=== PATIENT | female | born 1965 | race Caucasian/White ===

== ENCOUNTER → 2017-01-27 | Outpatient (CLI) | payer OTHER ==
[~2017-01-27] MED LIST: ATOR-22 PO; DTRSR/10 PO; GLC/500 PO; IRON TABLET PO; LISI-526 PO; OMEP10CA4 PO; PRLSR20 PO; SULF500T35 PO
--- NOTE | 2017-01-27 12:57 | MAMMOGRAPHY REPORT ---
BILATERAL DIGITAL SCREENING MAMMOGRAM TOMOSYNTHESIS WITH CAD: 01/27/2017 CLINICAL HISTORY: Routine screening. Patient has no complaints. TECHNIQUE: Breast tomosynthesis in addition to standard 2D mammography was performed. Current study was also evaluated with a Computer Aided Detection (CAD) system. COMPARISON: Comparison is made to exams dated: 01/27/2016 mammogram, 01/11/2015 mammogram, 10/10/2013 ma mmogram, 09/01/2012 mammogram, 09/02/2011 mammogram, and 08/28/2011 mammogram - [facility]. BREAST COMPOSITION: There are scattered areas of fibroglandular density in both breasts. FINDINGS: No suspicious masses, calcifications, or areas of architectural distortion are noted in e ither breast. There has been no significant interval change compared to prior exams. IMPRESSION: ACR BI-RADS CATEGORY 1: NEGATIVE There is no mammographic evidence of malignancy. A 1 year screening mammogram is recommended. The p atient will receive written notification of the results. Approximately 10% of breast cancers are not detected with mammography. A negative mammographic repor t should not delay biopsy if a clinically suggestive mass is present. Tayler Rico M.D. ah/:01/27/2017 11:00:04 Furniture Cleaner: Flo MITCHELL(R)(M), [facility] [address] letter sent: Normal 1/2 BI-RADS Code: ACR BI-RADS Category 1: Negative
== END | disposition home or self-care (01) ==
LOC: C.MAMM 10:05
PROVIDERS: ATTEND Family Medicine
DX: Z12.31 Encounter for screening mammogram for malignant neoplasm of breast (principal)

== ENCOUNTER → 2017-02-19 | Day surgery (SDC) | payer OTHER ==
[2017-02-05 10:50] VITALS: Ht 167.6 cm; Wt 115.9 kg
[~2017-02-19] VITALS: Ht 167.6 cm; Wt 115.9 kg
[~2017-02-19] MED LIST changes: +FENTANYL CITRATE INJ 50 MCG/1 ML 2 ML VIAL ONE; -IRON TABLET PO; +LIDOCAINE HCL 2% 2 ML VIAL (20MG/ML) ONE; +MIDAZOLAM HCL 1 MG/ML 2ML VIAL ONE; -PRLSR20 PO; +PROPOFOL IV EMULSION 10 MG/ML 20 ML VIAL IV ONE; +SODIUM CHLORIDE 0.9% 500ML 500 ML IV ONE; -SULF500T35 PO
[2017-02-19 11:22] VITALS: TEMP 37.1
--- NOTE | 2017-02-19 12:03 | Endo History and Physical ---
History & Physical Date of Service: Feb 19, 2017. Chief Complaint: screening history of polyps Referring Physician: Dr. Danelle Cerda History of Present Illness 52 yo CF who presents for colonoscopy secondary to history of colon polyps. Past Medical History Gastrointestinal Disorder, Reflux, Other Past Surgical History Hx Cardiac Surgery: No Hx Internal Defibrillator: No Hx Pacemaker: No Hx Abdominal Surgery: Yes (, TUBAL LIGATION) Hx of Implantable Prosthesis: No Hx Post-Op Nausea and Vomiting: No Hx Cancer Surgery: No Hx Thoracic Surgery: No Hx Orthopedic: No Hx Urinary Tract Surgery: No Family History None Social History Smoking Status: Never Smoker Hx Substance Use: No Hx Alcohol Use: Yes (RARELY) Allergies Coded Allergies: NO KNOWN DRUG ALLERGIES (Verified Allergy, Unknown, ., 02/05/17) Milk (Verified Adverse Reaction, Mild, FEELS ILL, 02/05/17) Current Medications Reported Home Medications Medications Dose Route/Sig Max Daily Dose Days Date Category Lipitor (Atorvastatin Calcium) 20 Mg Tab 20 Mg PO QAM 02/05/17 Reported Prinivil (Lisinopril) 30 Mg Tab 30 Mg PO QAM 02/05/17 Reported Glucophage (Metformin Hcl) 500 Mg Tab 500 Mg PO BID 02/05/17 Reported Prilosec (Omeprazole) 10 Mg Cap 10 Mg PO BID 02/05/17 Reported Oxybutynin Chloride ER (Oxybutynin Chloride) 10 Mg Tabcr 10 Mg PO QAM 12/12/14 Reported Vital Signs Weight (Kilograms): 115.91 Height (Feet): 5 Height (Inches): 6 Date Time Temp Pulse Resp B/P (MAP) Pulse Ox O2 Delivery O2 Flow Rate FiO2 02/19/17 11:22 37.1 76 20 169/97 (121) 98 Room Air Physical Exam General Appearance: WD/WN, no apparent distress Respiratory/Chest: Auscultation: breath sounds normal Cardiovascular: Heart Auscultation: RRR Abdomen: Bowel Sounds: normal Inspection & Palpation: soft, non-distended, no tenderness, guarding & rebound Assessment and Plan Assessment: 52 yo CF who presents for colonoscopy secondary to history of colon polyps. Plan: Proceed with colonoscopy.
--- NOTE | 2017-02-19 12:31 | GI REPORT ---
Procedure Date: 02/19/2017 11:57 AM Procedure: Colonoscopy Indications: Screening for colorectal malignant neoplasm Medicines: Monitored Anesthesia Care Complications: No immediate complications. Estimated Blood Loss: Estimated blood loss: none. Procedure: Pre-Anesthesia Assessment: - Prior to the procedure, a History and Physical was performed, and patient medications and allergies were reviewed. The patient's tolerance of previous anesthesia was also reviewed. The risks and benefits of the procedure and the sedation options and risks were discussed with the patient. All questions were answered, and informed consent was obtained. Prior Anticoagulants: The patient has taken no previous anticoagulant or antiplatelet agents. ASA Grade Assessment: III - A patient with severe systemic disease. After reviewing the risks and benefits, the patient was deemed in satisfactory condition to undergo the procedure. After I obtained informed consent, the scope was passed under direct vision. Throughout the procedure, the patient's blood pressure, pulse, and oxygen saturations were monitored continuously. The scope was introduced through the anus and advanced to the terminal ileum. The colonoscopy was performed without difficulty. The patient tolerated the procedure well. The quality of the bowel preparation was good. The terminal ileum, ileocecal valve, appendiceal orifice, and rectum were photographed. Findings: Multiple small-mouthed diverticula were found in the sigmoid colon. Non-bleeding external and internal hemorrhoids were found during retroflexion and during perianal exam. The hemorrhoids were small. Impression: - Diverticulosis in the sigmoid colon. - Non-bleeding external and internal hemorrhoids. - No specimens collected. Recommendation: - Resume previous diet. - Continue present medications. - Repeat colonoscopy in 10 years for surveillance. - Return to primary care physician as previously scheduled. David Viera DO 02/19/2017 12:30:20 PM This report has been signed electronically. Note Initiated On: 02/19/2017 11:57 AM I attest to the content of the Intraoperative Record and orders documented therein, exceptions below
--- NOTE | 2017-02-19 12:33 | Discharge Instructions ---
Endoscopy Patient Instructions Date / Procedure(s) Performed Feb 19, 2017. Colonoscopy Allergy Information Coded Allergies: NO KNOWN DRUG ALLERGIES (Verified Allergy, Unknown, ., 02/05/17) Milk (Verified Adverse Reaction, Mild, FEELS ILL, 02/05/17) Discharge Date / Findings Feb 19, 2017. Diverticulosis Internal hemorrhoids Medication Instructions Stopped Medication(s): no meds since Wednesday OK to resume all medications today as prescribed Medications Dose Route/Sig Max Daily Dose Days Date Category Lipitor (Atorvastatin Calcium) 20 Mg Tab 20 Mg PO QAM 02/05/17 Reported Prinivil (Lisinopril) 30 Mg Tab 30 Mg PO QAM 02/05/17 Reported Glucophage (Metformin Hcl) 500 Mg Tab 500 Mg PO BID 02/05/17 Reported Prilosec (Omeprazole) 10 Mg Cap 10 Mg PO BID 02/05/17 Reported Oxybutynin Chloride ER (Oxybutynin Chloride) 10 Mg Tabcr 10 Mg PO QAM 12/12/14 Reported Provider Instructions Activity Restrictions - No exercising or heavy lifting for 24 hours. - Do not drink alcohol the day of the procedure. - Do not drive a car or operate machinery until the day after the procedure. - Do not make any important decisions or sign important papers in 24 hours after the procedure. Following Day: - Return to full activity which may include returning to work/school. Diet Start your diet with liquids and light foods (jello, soup, juice, toast). Then eat your usual diet if not nauseated. Treatment For Common After Affects For mild abdominal pain, bloating, or excessive gas: - Rest - Eat lightly - Lie on right side Follow-Up Information Follow-up with Dr. Danelle Cerda as scheduled Anesthesia Information What You Should Know You have had a procedure that required some medicine to reduce anxiety and discomfort. This treatment is called moderate sedation. After receiving the treatment, you may be sleepy, but you will be able to breathe on your own. The effects of the treatment may last for several hours. Follow these instructions along with Activity/Diet recommendations noted above: * Do NOT do anything where dizziness or clumsiness would be dangerous. * Rest quietly at home today, then you can be up and about tomorrow. * Have a responsible person stay with you the rest of today. * You may have had an I.V. today. If so, you may take the dressing off later today. Recommendations Call your doctor if: * Trouble breathing * Continuous vomiting for more than 24 hours * Temperature above 101 degrees * Severe abdominal pain or bloating * Pain not relieved by pain medicine ordered * There is increased drainage or redness from any incision * A large amount of rectal bleeding greater than 2-3 tablespoons. (If you had a polyp/s removed or have hemorrhoids, a small amount of blood - from the rectum is to be expected.) * You have any unanswered questions or concerns. IN THE EVENT OF A SERIOUS EMERGENCY, GO TO THE NEAREST EMERGENCY ROOM Your discharge instructions were prepared by provider David Viera. Patient Instructions Signature Page Angelia Garcia Patient (or Guardian) Signature/Date: I have read and understand the instructions given to me by my caregivers. Caregiver/RN/Doctor Signature/Date: The above-named patient and/or guardian has received patient instructions on this date. + Original Patient Signature Page (only) stays with chart. Please make copy for patient.
[2017-02-19 12:59] VITALS: BP 165/96; PULSE 71; O2SAT 97
--- NOTE | 2017-02-19 13:32 | Anesthesiology Progress Note ---
Anesthesia Post Op Note Date & Time Feb 19, 2017 at 13:31 Vital Signs Pain Intensity: 0 Vital Signs Past 12 Hours Date Time Temp Pulse Resp B/P (MAP) Pulse Ox O2 Delivery O2 Flow Rate FiO2 02/19/17 12:59 71 20 165/96 (119) 97 Room Air 02/19/17 12:44 69 20 157/93 (114) 96 Room Air 02/19/17 12:28 68 20 127/69 (88) 97 Room Air 02/19/17 11:22 37.1 76 20 169/97 (121) 98 Room Air Notes Mental Status: alert / awake / arousable, participated in evaluation Pt Amnestic to Procedure: Yes Nausea / Vomiting: adequately controlled Pain: adequately controlled Airway Patency, RR, SpO2: stable & adequate BP & HR: stable & adequate Hydration State: stable & adequate Anesthetic Complications: no major complications apparent
== END | disposition home or self-care (01) ==
LOC: C.GI 10:52
PROVIDERS: ATTEND Internal Medicine
DX: Z12.11 Encounter for screening for malignant neoplasm of colon (principal); K57.30 Diverticulosis of large intestine without perforation or abscess without bleeding; K64.8 Other hemorrhoids; K64.4 Residual hemorrhoidal skin tags; Z86.010 Personal history of colon polyps; Z79.899 Other long term (current) drug therapy

== ENCOUNTER → 2018-01-06 | Outpatient (CLI) | payer OTHER ==
[~2018-01-06] MED LIST changes: -FENTANYL CITRATE INJ 50 MCG/1 ML 2 ML VIAL ONE; -LIDOCAINE HCL 2% 2 ML VIAL (20MG/ML) ONE; -MIDAZOLAM HCL 1 MG/ML 2ML VIAL ONE; -PROPOFOL IV EMULSION 10 MG/ML 20 ML VIAL IV ONE; -SODIUM CHLORIDE 0.9% 500ML 500 ML IV ONE
== END | disposition home or self-care (01) ==
LOC: C.PAPS 13:33
PROVIDERS: ATTEND Physician Assistant
DX: Z12.4 Encounter for screening for malignant neoplasm of cervix (principal); Z11.51 Encounter for screening for human papillomavirus (HPV)

== ENCOUNTER 2024-11-23 17:45 | Inpatient (IN) ==
[2024-11-23 18:15] LABS: Basophils # (auto) 0.08 K/uL (0.00-0.20); Basophils % (auto) 0.5 %; Eosinophils # (auto) 0.06 K/uL (0.00-0.50); Eosinophils % (auto) 0.4 %; Hematocrit (blood only) 39.6 % (37.0-47.0); Hemoglobin 13.1 g/dl (12.0-16.0); Immature Granulocytes # (auto) 0.28 K/uL (0.01-0.20); Immature Granulocytes % (auto) 1.7 %; Lymphocytes # (auto) 1.41 K/uL (1.20-3.40); Lymphocytes % (auto) 8.6 %; Mean Corpuscular Hemoglobin 26.8 pg (25.0-34.0); Mean Corpuscular Hgb Conc 33.1 g/dL (32.0-36.0); Mean Corpuscular Volume 81.1 fL (80.0-100.0); Mean Platelet Volume 9.5 fL (9.4-12.4); Monocytes # (auto) 0.69 K/uL (0.11-0.59); Monocytes % (auto) 4.2 %; Neutrophils # (auto) 13.83 K/uL (1.40-6.50); Neutrophils % (auto) 84.6 %; Platelet Count 272 K/uL (130-400); RDW Coefficient of Variation 16.7 % (11.5-14.5); RDW Standard Deviation 49.3 fL (36.4-46.3); Red Blood Count 4.88 M/uL (4.20-5.40); White Blood Count 16.35 K/ul (4.8-10.8)
--- NOTE | 2024-11-23 18:28 | Emergency Department Note ---
History of Present Illness General Chief Complaint: Abdominal Pain Stated Complaint: STOMACH PAIN, NAUSEA WEAK ETC Time Seen by Provider: 11/23/24 17:56 History of Present Illness Provider Complaint: abdominal pain Onset (ago): 1 month(s) Pain Consistency: constant Location: diffuse Severity: moderate Maximum Pain Intensity: 4 Current Pain Intensity: 4 Quality: + stabbing, + aching, + sharp and + dull Relieved By: + nothing Exacerbated By: + nothing Context: + recent antibiotic use (Was recently placed on Cipro); no foreign travel, no possible food poisoning or no sick contacts Associated Symptoms: + nausea, + vomiting and + diarrhea; no fever, no chills, no constipation, no dysuria, no hematemesis, no hematochezia, no melena, no hematuria, no headache, no neck pain, no chest pain and no breathing difficulty Patient reports she saw her PCP a Princess about this 1 week ago. She states that 1 week ago her PCP at [facility] diagnosed with colitis. He states he placed her on Cipro and took her off of Ozempic and metformin. Patient reports that since being off the Ozempic and metformin she has gained 9 pounds and is concerned about this Related Data Patient Confirmed : No Home Medications Medication Instructions Recorded Confirmed Type atorvastatin 80 mg tablet 80 mg PO QAM 11/23/24 11/23/24 History hydrochlorothiazide 25 mg tablet 25 mg PO QAM 11/23/24 11/23/24 History lisinopril 40 mg tablet 40 mg PO QAM 11/23/24 11/23/24 History metformin 1,000 mg tablet 1,000 mg PO BID 11/23/24 11/23/24 History omeprazole 20 mg capsule,delayed 20 mg PO DAILY 11/23/24 11/23/24 History release oxybutynin chloride 15 mg 15 mg PO QAM 11/23/24 11/23/24 History tablet,extended release 24 hr semaglutide 2 mg/dose (8 mg/3 mL) 2 mg subcut WK 11/23/24 11/23/24 History subcutaneous pen injector (Ozempic) Allergies Allergy/AdvReac Type Severity Reaction Status Date / Time No Known Drug Allergies Allergy Unknown . Verified 02/19/17 10:47 milk AdvReac Mild FEELS ILL Verified 02/19/17 10:47 Past Med/Surg History Problem List (Updated 11/23/24 @ 23:50 by Raheem Arias MD) Acute perforated appendicitis (Acute) Medical History (Updated 11/23/24 @ 23:50 by Raheem Arias MD) No pertinent family history GERD (gastroesophageal reflux disease) Obesity HTN (hypertension) HLD (hyperlipidemia) Surgical History (Updated 11/23/24 @ 18:26 by Raheem Arias MD) No pertinent past surgical history Social History Smoking Status: Never smoker Preferred Language: Turkmen Feels Safe at Home: Yes Physical Exam 2 Vital Signs: Vital Signs - 24 hr 11/23/24 17:48 11/23/24 18:03 11/23/24 18:06 Temperature 36.4 C L Temperature Source Temporal Artery Sc an Pulse Rate 81 Pulse Rate [Apical ] 79 Respiratory Rate 18 20 Respiratory Effort / Characteristics Non-Labored Respiratory Depth Normal Blood Pressure 140/70 Blood Pressure [Ri ght Arm] 121/67 Blood Pressure Mary n 93 Blood Pressure Mary n [Right Arm] 85 Pulse Oximetry 99 99 99 Oxygen Delivery Me thod Room Air Room Air Room Air Sepsis Recent Feve r Within 48 Hours No Sepsis New/Unexpla ined Change in Men lydia Status No Sepsis Action Take n by Nursing No Action Required 11/23/24 18:07 11/23/24 19:40 11/23/24 21:00 Temperature Temperature Source Pulse Rate 79 Pulse Rate [Apical ] 83 75 Respiratory Rate 25 H 24 Respiratory Effort / Characteristics Non-Labored Sponta neous Non-Labored Sponta neous Respiratory Depth Normal Normal Blood Pressure Blood Pressure [Ri ght Arm] 127/66 123/65 Blood Pressure Mary n Blood Pressure Mary n [Right Arm] 86 84 Pulse Oximetry 99 98 Oxygen Delivery Me thod Room Air Room Air Sepsis Recent Feve r Within 48 Hours Sepsis New/Unexpla ined Change in Men lydia Status Sepsis Action Take n by Nursing 11/23/24 22:00 11/23/24 22:10 Temperature Temperature Source Pulse Rate 74 Pulse Rate [Apical ] 73 Respiratory Rate 23 Respiratory Effort / Characteristics Non-Labored Sponta neous Respiratory Depth Normal Blood Pressure Blood Pressure [Ri ght Arm] 138/72 Blood Pressure Mary n Blood Pressure Mary n [Right Arm] 94 Pulse Oximetry 100 Oxygen Delivery Me thod Room Air Sepsis Recent Feve r Within 48 Hours Sepsis New/Unexpla ined Change in Men lydia Status Sepsis Action Take n by Nursing Physical Exam: Physical Exam GENERAL: oriented to person, place, and time. appears well-developed and well- nourished. She does not appear distressed. HENT: Exam performed. -Head: Normocephalic and atraumatic. -Right Ear: External ear normal. No mastoid erythema -Left Ear: External ear normal. No mastoid erythema -Mouth/Throat: The oropharynx is clear and moist. No trismus in the jaw. No dental abscesses or uvula swelling. No oropharyngeal exudate or tonsillar abscesses. EYES: Conjunctivae and EOM are normal.Right eye exhibits no discharge. Left eye exhibits no discharge. No scleral icterus. NECK: Normal range of motion. Neck supple. No JVD present. No tracheal deviation and normal range of motion present. CV: Normal rate, regular rhythm, normal heart sounds and intact distal pulses. There is no peripheral edema. Palpable radial pulses bue. PULM/CHEST: Effort normal and breath sounds normal. No respiratory distress. No stridor. no wheezes.no rales. -Chest Wall: no tenderness to palpation ABD: The abdomen is soft. Bowel sounds are normal. no distension. No mass is present. There is no tenderness. There is no rebound, no guarding, no Tan's sign and no tenderness at McBurney's point. Rovsig negative MUSC/SKEL: Normal range of motion. There is no peripheral edema, tenderness or deformity. NEURO: Motor and sensation grossly intact. SKIN: Skin is warm and dry. not diaphoretic. PSYCH: normal mood and affect. Behavior is normal. Judgment and thought content normal. Course Course 1755: The patient was evaluated in room C7. A complete history and physical exam was performed Cardiac monitoring: An order was placed for continuous cardiac monitoring. The monitor shows a rate of 80 with sinus rhythm interpreted by me 1930: Vital signs stable. Labs show white count of 16. Imaging shows ruptured appendicitis with a large gas and fluid collection in the mid lower abdomen measuring up to 9 cm with adjacent fluid loops of small bowel. Discussed the case with on-call general surgery Dr. Sanders. He states that this does not need an acute surgical intervention at this time and recommends IV antibiotics and admission to medicine for possible IR drainage. 1943: Spoke with Dr. Lockett on-call radiology. He states he will review the patient's images and determine if this is amenable to IR drainage. He states he will call me back. 2025: Dr. Lockett was unable to get his PACS system to work remotely. We did attempt to send him images to review and he stated that there may be a small area however he was having difficulty seeing on the images sent to him. He stated that the majority of the mass still surrounded except for a tiny area. He stated he would decline the case at this time. Will speak with general surgery again. 2052: Received a text message from FERMÍN Faustin [employer] who stated that he should be able to drain it tomorrow if able ammenable to drainage. 2099: Spoke with Dr. Sanders. He evaluated the patient in the emergency department. He stated no surgical intervention at this time. He recommended admission to medicine and see if IR could drain the abscess tomorrow. He recommends continuing Zosyn. Patient was agreeable to this plan and states she is okay with staying until the morning to see if IR can drain it. 2114: Spoke with Benito Tello NP for IR. He is unable to view the view the images at his home either. He agrees with the plan to keep the patient mated under the medicine service with IV antibiotics and is he states he will evaluate the patient in the morning and view her scans to see if there is anything that can be drained. I again discussed this with the patient I made it clear that she might need transfer in the morning if they decided that they cannot do any sort of interventional radiology drainage of the abscess. She is again okay with staying in the hospital overnight and understands that there is potential for transfer in the morning. 2144: Spoke with Dr. Samantha Sánchez hospitalist he agrees to evaluate the patient for admission. Administered Medications Potassium Chloride 40 meq/ (Sodium Chloride) 1,020 mls @ 100 mls/hr IV .[id number] [facility] Stop: 11/24/24 22:29 Last Admin: 11/23/24 23:25 Dose: 100 mls/hr Documented By: QUOC Discontinued Medications Piperacillin Sod/Tazobactam Sod (Zosyn) 4.5 gm in 120 mls @ 240 mls/hr IV NOW ONE Stop: 11/23/24 19:47 Last Infusion: 11/23/24 20:25 Dose: Infused Documented By: Admin: 11/23/24 19:31 Dose: 240 mls/hr Documented By: ISABEL Ioversol (Optiray 320 100ml) 90 ml IV ONCE ONE Stop: 11/23/24 18:41 Last Admin: 11/23/24 18:41 Dose: 90 ml Documented By: AMAURY Medical Decision Making Laboratory Data Attestation: I reviewed the patient's lab results. 11/23/24 18:00 11/23/24 18:00 Lab Results 11/23/24 Range/Units 18:00 WBC 16.35 H (4.8-10.8) K/ul RBC 4.88 (4.20-5.40) M/uL Hgb 13.1 (12.0-16.0) g/dl Hct 39.6 (37.0-47.0) % MCV 81.1 (80.0-100.0) fL MCH 26.8 (25.0-34.0) pg MCHC 33.1 (32.0-36.0) g/dL RDW Std Deviation 49.3 H (36.4-46.3) fL RDW Coeff of Alfredo 16.7 H (11.5-14.5) % Plt Count 272 (130-400) K/uL MPV 9.5 (9.4-12.4) fL Immature Gran % (Auto) 1.7 % Neut % (Auto) 84.6 % Lymph % (Auto) 8.6 % [place] % (Auto) 4.2 % Eos % (Auto) 0.4 % Baso % (Auto) 0.5 % Neut # (Auto) 13.83 H (1.40-6.50) K/uL Lymph # (Auto) 1.41 (1.20-3.40) K/uL [place]gs # (Auto) 0.69 H (0.11-0.59) K/uL Eos # (Auto) 0.06 (0.00-0.50) K/uL Baso # (Auto) 0.08 (0.00-0.20) K/uL Immature Gran # (Auto) 0.28 H (0.01-0.20) K/uL PT 11.4 (9.0-12.0) Seconds INR 1.1 (0.9-1.1) APTT 26 (21-31) Seconds PTT Ratio 1.0 Sodium 139 (136-145) mmol/L Potassium 3.2 L (3.5-5.1) mmol/L Chloride 102 (98-107) mmol/L Carbon Dioxide 27 (21-32) mmol/L Anion Gap 10 (3-11) BUN 11 (6-23) mg/dl Creatinine 0.57 L (0.6-1.2) mg/dl Est Cr Clr Drug Dosing 126.3 ml/min eGFR 105.27 BUN/Creatinine Ratio 19.3 (10-20) Glucose 147 H (70-99(Fasting)) mg/dl Calcium 8.9 (8.6-10.3) mg/dl Total Bilirubin 0.9 (0.2-1.0) mg/dl Direct Bilirubin 0.3 H (0-0.2) mg/dl AST 26 (13-39) U/L ALT 64 H (7-52) U/L Alkaline Phosphatase 241 H (34-104) U/L Total Protein 7.1 (6.0-8.3) gm/dl Albumin 3.6 (3.4-5.0) gm/dl Lipase 11 (11-82) U/L Urine Color Dark Yellow Urine Appearance Cloudy A (Clear) Urine pH 5.5 (4.5-7.5) Ur Specific [place] > 1.045 H (1.000-1.030) Urine Protein 2+ H (Negative) Urine Glucose (UA) 3+ H (Negative) Urine Ketones Trace H (Negative) Urine Blood 2+ H (Negative) Urine Nitrite Negative (Negative) Urine Bilirubin 1+ H (Negative) Urine Urobilinogen Negative (Negative) Ur Leukocyte Esterase Negative (Negative) Urine WBC (Auto) 11-20 H (0-5) /hpf Urine RBC (Auto) 3-5 H (0-2) /hpf U Hyaline Cast (Auto) 0-2 (0-2) /lpf U Epithel Cells (Auto) 11-20 H (0-2) /hpf Urine Bacteria (Auto) 1+ H (None Seen) Imaging Data Attestation: I personally reviewed and interpreted this imaging study as follows: My Impression: CT abdomen pelvis: Abdominal abscess in right lower quadrant Radiologist's Impression: Abdomen/Pelvis CT 11/23/24 18:03 EXAMINATION: Abdomen and pelvis CT with CLINICAL HISTORY: Abdominal pain PRIORS: None TECHNIQUE: Contiguous axial images were obtained through the abdomen and pelvis with the use of intravenous contrast. Sagittal and coronal reformations are supplied. FINDINGS: Lung bases are unremarkable. Dilated fluid-filled loops of small bowel are present within the left side of the abdomen measuring up to 4.6 cm with wall enhancement. Immediately abutting this, a large fluid and gas collection is present within the lower mid abdomen, medial to the cecum, this identified on image 61 series 2 and image 41 series 3. This is not yet walled off and appears to be contained by the surrounding loops of small bowel and mesentery. It measures 9.0 cm in anteroposterior dimension by 6.9 cm in transverse dimension by 7.5 cm in craniocaudal dimension. Immediately lateral to the fluid collection is a disrupted appendix, image 63, series 2 with moderate pericecal inflammatory change in the right lower quadrant with possible cecal wall thickening, image 66, series 2. A few foci of extraluminal gas present lateral to the fluid collection in the expected position of the appendix, image 39, series 300. Moderate to severe diverticulosis of the sigmoid colon present adjacent to the fluid collection without pericolonic inflammatory change. Small scattered lymph nodes noted throughout the mesentery. The liver shows a ill-defined hypoattenuation in the right lobe, posterior segment measuring 1.7 cm. The gallbladder is contracted. Portal vein, spleen, stomach, and right adrenal are morphologically unremarkable. A left adrenal nodule is present measuring 2.4 cm and 58 Hounsfield units, indeterminant. The kidneys enhance symmetrically with possible small cysts noted, not fully characterized. No retroperitoneal adenopathy. No large amount of extraluminal gas. Uterus and ovaries present. Right ovarian cyst present, image 72, series 2 measuring 2.6 cm. No free fluid in the pelvis. Urinary bladder distends normally. Moderate amount of formed stool in the sigmoid colon. In bone windows well to moderate osseous demineralization with moderate to advanced degenerative change in the spine. IMPRESSION: CT features favoring ruptured appendicitis with a large gas and fluid collection in the mid- lower abdomen measuring up to 9 cm, with adjacent dilated fluid-filled loops of small bowel. Surgical consultation is required. Electronically signed by Carmen Watters 11-23-2024 7:14 PM [facility] Narrative 1756: The patient was evaluated in room C7. A complete history and physical exam was performed Cardiac monitoring: An order was placed for continuous cardiac monitoring. The monitor shows a rate of 80 with sinus rhythm interpreted by me 1930: Vital signs stable. Labs show white count of 16. Imaging shows ruptured appendicitis with a large gas and fluid collection in the mid lower abdomen measuring up to 9 cm with adjacent fluid loops of small bowel. Discussed the case with on-call general surgery Dr. Sanders. He states that this does not need an acute surgical intervention at this time and recommends IV antibiotics and admission to medicine for possible IR drainage. 1943: Spoke with Dr. Lockett on-call radiology. He states he will review the patient's images and determine if this is amenable to IR drainage. He states he will call me back. 2025: Dr. Lockett was unable to get his PACS system to work remotely. We did attempt to send him images to review and he stated that there may be a small area however he was having difficulty seeing on the images sent to him. He stated that the majority of the mass still surrounded except for a tiny area. He stated he would decline the case at this time. Will speak with general surgery again. 2052: Received a text message from FERMÍN Faustin [employer] who stated that he should be able to drain it tomorrow if able ammenable to drainage. 2099: Spoke with Dr. Sanders. He evaluated the patient in the emergency department. He stated no surgical intervention at this time. He recommended admission to medicine and see if IR could drain the abscess tomorrow. He recommends continuing Zosyn. Patient was agreeable to this plan and states she is okay with staying until the morning to see if IR can drain it. 2114: Spoke with Benito Tello NP for IR. He is unable to view the view the images at his home either. He agrees with the plan to keep the patient mated under the medicine service with IV antibiotics and is he states he will evaluate the patient in the morning and view her scans to see if there is anything that can be drained. I again discussed this with the patient I made it clear that she might need transfer in the morning if they decided that they cannot do any sort of interventional radiology drainage of the abscess. She is again okay with staying in the hospital overnight and understands that there is potential for transfer in the morning. 2144: Spoke with Dr. Samantha Sánchez hospitalist he agrees to evaluate the patient for admission. Impression & Plan Acute perforated appendicitis Discharge Plan Visit Data Chief Complaint: Abdominal Pain Stated Complaint: STOMACH PAIN, NAUSEA WEAK ETC ED Provider: Raheem Arias Discharge Problem: Acute perforated appendicitis Patient Disposition: Admitted As Inpatient Discharge Instructions Interventions: ED Discharge Assessment Last Done: 11/23/24 22:59
[2024-11-23 18:31] LABS: Albumin Level 3.6 gm/dl (3.4-5.0); BUN Creatinine Ratio 19.3 (10-20); Bilirubin Direct 0.3 mg/dl (0-0.2); Bilirubin,Total 0.9 mg/dl (0.2-1.0); Calcium 8.9 mg/dl (8.6-10.3); Creatinine Clr Calc Pharmacy 126.3 ml/min; Potassium 3.2 mmol/L (3.5-5.1); Total Protein 7.1 gm/dl (6.0-8.3)
[2024-11-23 18:35] LABS: Appearance Urine Cloudy (Clear); Bacteria Urine Automated 1+ (None Seen); Bilirubin Urine 1+ (Negative); Blood Urine 2+ (Negative); Cast Urine Automated 0-2 /lpf (0-2); Color Urine Dark Yellow; Glucose Urine UA 3+ (Negative); Ketones Urine Trace (Negative); Leukocyte Esterase Urine Negative (Negative); Nitrite Urine Negative (Negative); Protein Urine 2+ (Negative); Specific Gravity Urine > 1.045 (1.000-1.030); Urobilinogen Urine Negative (Negative); pH Urine 5.5 (4.5-7.5)
[2024-11-23] MEDS: OPTIRAY 320 100ml IV ONE (18:41)
[2024-11-23 18:43] LABS: INR 1.1 (0.9-1.1); Partial Thromboplastin Time 26 Seconds (21-31); Prothrombin Time 11.4 Seconds (9.0-12.0)
--- NOTE | 2024-11-23 19:14 | CT Scan Report ---
EXAMINATION: Abdomen and pelvis CT with CLINICAL HISTORY: Abdominal pain PRIORS: None TECHNIQUE: Contiguous axial images were obtained through the abdomen and pelvis with the use of intravenous contrast. Sagittal and coronal reformations are supplied. FINDINGS: Lung bases are unremarkable. Dilated fluid-filled loops of small bowel are present within the left side of the abdomen measuring up to 4.6 cm with wall enhancement. Immediately abutting this, a large fluid and gas collection is present within the lower mid abdomen, medial to the cecum, this identified on image 61 series 2 and image 41 series 3. This is not yet walled off and appears to be contained by the surrounding loops of small bowel and mesentery. It measures 9.0 cm in anteroposterior dimension by 6.9 cm in transverse dimension by 7.5 cm in craniocaudal dimension. Immediately lateral to the fluid collection is a disrupted appendix, image 63, series 2 with moderate pericecal inflammatory change in the right lower quadrant with possible cecal wall thickening, image 66, series 2. A few foci of extraluminal gas present lateral to the fluid collection in the expected position of the appendix, image 39, series 300. Moderate to severe diverticulosis of the sigmoid colon present adjacent to the fluid collection without pericolonic inflammatory change. Small scattered lymph nodes noted throughout the mesentery. The liver shows a ill-defined hypoattenuation in the right lobe, posterior segment measuring 1.7 cm. The gallbladder is contracted. Portal vein, spleen, stomach, and right adrenal are morphologically unremarkable. A left adrenal nodule is present measuring 2.4 cm and 58 Hounsfield units, indeterminant. The kidneys enhance symmetrically with possible small cysts noted, not fully characterized. No retroperitoneal adenopathy. No large amount of extraluminal gas. Uterus and ovaries present. Right ovarian cyst present, image 72, series 2 measuring 2.6 cm. No free fluid in the pelvis. Urinary bladder distends normally. Moderate amount of formed stool in the sigmoid colon. In bone windows well to moderate osseous demineralization with moderate to advanced degenerative change in the spine. IMPRESSION: CT features favoring ruptured appendicitis with a large gas and fluid collection in the mid- lower abdomen measuring up to 9 cm, with adjacent dilated fluid-filled loops of small bowel. Surgical consultation is required. Electronically signed by Carmen Watters 11-23-2024 7:14 PM
[2024-11-23] MEDS: PIPERACILLIN/TAZOBACTAM 4.5 GM/120 ML BAG IV ONE (19:31)
--- NOTE | 2024-11-23 20:40 | Surgery Consultation ---
Date of Consultation November 23, 2024 Assessment & Plan (1) Acute perforated appendicitis: contained abscess IV abx will need drainage of abscess by IR conservative treatment of complicated appendicitis History of Present Illness History of Present Illness This is a %*YO female with DM and obesity who was seen by her PCP week ago, she was diagnosed with colitis and started on Cipro. She presents with worsening abdominal pain, CT scan shows a perforated appendicitis with a 9cm abscess. Allergies Allergy/AdvReac Type Severity Reaction Status Date / Time No Known Drug Allergies Allergy Unknown . Verified 02/19/17 10:47 milk AdvReac Mild FEELS ILL Verified 02/19/17 10:47 Home Medications Medication Instructions Recorded Confirmed Type Oxybutynin Chloride (Oxybutynin 10 mg PO QAM ##0 12/12/14 History Chloride ER) ATORVASTATIN (LIPITOR) 20 mg PO QAM #0 tabs 02/05/17 History Lisinopril (Prinivil) 30 mg PO QAM #0 tabs 02/05/17 History METFORMIN HCL (GLUCOPHAGE) 500 mg PO BID #0 tabs 02/05/17 History OMEPRAZOLE (PRILOSEC) 10 mg PO BID #0 caps 02/05/17 History oxybutynin chloride 10 mg 10 mg PO DAILY #90 tabs 10/03/19 Rx tablet,extended release 24 hr Patient History Medical History (Updated 11/23/24 @ 20:41 by Timbo Nobles MD) No pertinent family history GERD (gastroesophageal reflux disease) Obesity HTN (hypertension) HLD (hyperlipidemia) Surgical History (Updated 11/23/24 @ 18:26 by Raheem Arias MD) No pertinent past surgical history Social History Smoking Status: Never smoker Preferred Language: [place] Islander Feels Safe at Home: Yes Review of Systems Constitutional: + fever and + anorexia; no chills Eyes: no problem reported Ear, Nose, Mouth, Throat: no problem reported Respiratory: no cough and no dyspnea Cardiovascular: no chest pain Gastrointestinal: + abdominal pain and + nausea; no vomiti ng and no change in bowel habits Genitourinary: no dysuria Musculoskeletal: no back pain and no neck pain Integumentary: no problem reported Neurologic: no localized weakness and no generalized weakness Psychiatric: no behavioral changes Hematologic / Lymphatic: no easy bleeding and no easy bruising Physical Exam Constitutional: WD/WN, vitals as above Eyes: PERRL, conjunctivae normal, anicteric sclerae ENMT: external ear and nose normal, oropharynx normal Neck: trachea midline Respiratory: normal respiratory effort, lungs clear to auscultation Cardiovascular: RRR, no murmur, no edema Gastrointestinal (Abdomen): Inspection/Auscultation: abdomen normal to inspection and normal bowel sounds; abdomen not distended Percu ssion/Palpation: + abdomen tender and abdomen soft; no guarding and abdomen not rigid Musculoskeletal: Head/Neck/Chest: normocephalic and head atraumatic Skin: no rashes, warm and dry Results & Data Vital Signs (Past 12 Hours) Vital Signs Temp Pulse Pulse Resp BP BP Pulse Ox 11/23/24 19:40 83 25 H 127/66 99 11/23/24 18:07 79 11/23/24 18:06 99 11/23/24 18:03 79 20 121/67 99 11/23/24 17:48 36.4 C L 81 18 140/70 99 O2 Del Method 11/23/24 19:40 Room Air 11/23/24 18:07 11/23/24 18:06 Room Air 11/23/24 18:03 Room Air 11/23/24 17:48 Room Air Diagnostic Findings EXAMINATION: Abdomen and pelvis CT with CLINICAL HISTORY: Abdominal pain PRIORS: None TECHNIQUE: Contiguous axial images were obtained through the abdomen and pelvis with the use of intravenous contrast. Sagittal and coronal reformations are supplied. FINDINGS: Lung bases are unremarkable. Dilated fluid-filled loops of small bowel are present within the left side of the abdomen measuring up to 4.6 cm with wall enhancement. Immediately abutting this, a large fluid and gas collection is present within the lower mid abdomen, medial to the cecum, this identified on image 61 series 2 and image 41 series 3. This is not yet walled off and appears to be contained by the surrounding loops of small bowel and mesentery. It measures 9.0 cm in anteroposterior dimension by 6.9 cm in transverse dimension by 7.5 cm in craniocaudal dimension. Immediately lateral to the fluid collection is a disrupted appendix, image 63, series 2 with moderate pericecal inflammatory change in the right lower quadrant with possible cecal wall thickening, image 66, series 2. A few foci of extraluminal gas present lateral to the fluid collection in the expected position of the appendix, image 39, series 300. Moderate to severe diverticulosis of the sigmoid colon present adjacent to the fluid collection without pericolonic inflammatory change. Small scattered lymph nodes noted throughout the mesentery. The liver shows a ill-defined hypoattenuation in the right lobe, posterior segment measuring 1.7 cm. The gallbladder is contracted. Portal vein, spleen, stomach, and right adrenal are morphologically unremarkable. A left adrenal nodule is present measuring 2.4 cm and 58 Hounsfield units, indeterminant. The kidneys enhance symmetrically with possible small cysts noted, not fully characterized. No retroperitoneal adenopathy. No large amount of extraluminal gas. Uterus and ovaries present. Right ovarian cyst present, image 72, series 2 measuring 2.6 cm. No free fluid in the pelvis. Urinary bladder distends normally. Moderate amount of formed stool in the sigmoid colon. In bone windows well to moderate osseous demineralization with moderate to advanced degenerative change in the spine. IMPRESSION: CT features favoring ruptured appendicitis with a large gas and fluid collection in the mid- lower abdomen measuring up to 9 cm, with adjacent dilated fluid-filled loops of small bowel. Surgical consultation is required.
[2024-11-23] MEDS ORDERED: GLUCOSE 10 TAB/TUBE PO PRN (22:14)
[2024-11-23] MEDS ORDERED: DEXTROSE 50% 50 ML SYRINGE IV PRN (22:14)
[2024-11-23] MEDS ORDERED: ACETAMINOPHEN 1,000 MG/100 ML VIAL IV PRN (22:14)
[2024-11-23] MEDS ORDERED: GLUCOSE 40% GEL 15 GM TUBE PO PRN (22:14)
[2024-11-23] MEDS ORDERED: CARBOHYDRATES FOR HYPOGLYCEMIA PO PRN (22:14)
[2024-11-23] MEDS ORDERED: GLUCAGON FOR INJ 1 MG VIAL SQ PRN (22:14)
[2024-11-23] MEDS ORDERED: ONDANSETRON INJ 2 MG/ML 2 ML VIAL IV PRN (22:14)
--- NOTE | 2024-11-23 22:34 | History & Physical Report ---
Date of Service November 23, 2024 Assessment & Plan (1) Acute perforated appendicitis: Plan Assessment/plan Acute ruptured appendicitis with abscess Hypokalemia Patient presents with abdominal discomfort for several days, along with nausea. Seen by her primary care doctor on November 17, 2024; prescribed ciprofloxacin for 5 days Leukocytosis present on admission Potassium of 3.2 CT abdomen pelvis showed dilated fluid-filled loops of small bowel within left side of abdomen measuring up to 4.6 cm with wall enhancement. Immediately abutting this, large fluid and gas collection within lower mid abdomen medial to the cecum; measures about 9.0 centimeter into 6.9 into 7.5 cm. Plan; IV Zosyn for antibiotics; will obtain infectious disease consultation N.p.o. for now for possible drainage in am NS with potassium at 100 cc/h Images to be reviewed by IR in a.m. for possible drainage; order placed for IR drainage with CT guidance. obtain g stain and cx Surgery on board; appreciate recommendation Chronic conditions; Hypertensionhold antihypertensive for now Hyperlipidemiahold Lipitor for elevated LFTs. ALT/ALP64/241; obtain CMP in am. GERD- placed of iv Protonix Type 2 diabetes mellitussliding scale CRYSTAL- not on cpap Full code DVT prophylaxis SCDs Time spent evaluating patient, direct bedside care, chart review, placing orders, interpretation of diagnostic studies, discussion with consultants, patient, and family members, as well as other required patient management activities is 75 minutes Please note the above document was generated using voice recognition software. It may contain grammatical, syntax or spelling errors. Any formal questions or concerns about the content, text or information contained within the body of this dictation should be directly addressed to the provider for clarification History of Present Illness Chief Complaint: Abdominal discomfort for 2 weeks Nausea for 1 week Primary Care Provider: Danelle Cerda DO History obtained from chart review and interview with the patient Past medical history of type 2 diabetes mellitus, dyslipidemia, CRYSTAL, hypertension, Patient presented to the hospital with abdominal discomfort for 2 weeks, nausea for one week. Patient reported that she started to have diarrhea for several days which resolved by itself. She started to have pain in her right lower quadrant along with episode of vomiting which prompted her to see her primary care doctor on November 17, 2024 Patient had recently seen her PCP on November 17, 2024; reported diarrhea for 2 weeks with 1 episode of vomiting. Patient was given for 5 days of ciprofloxacin; Ozempic and metformin kept on hold. Patient reported that she continued to feel nauseous as well as had abdominal bloating which prompted her to come to the ED today. She denies any fever or chills. She denies change in her bowel habits; no report of constipation; having regular bowel movements. She denies any urinary symptoms. On presentation to the ED, patient was afebrile, normotensive and saturating well on room air. Labs showed WBC count of 16,000. Potassium of 3.2. ALT and ALP mildly elevated to 64/241. Urinalysis positive for infection. CT abdomen and pelvis showed dilated fluid-filled loops of small bowel within left side of abdomen measuring up to 4.6 cm with wall enhancement. Immediately abutting this, large fluid and gas collection within lower mid abdomen medial to the cecum; measures about 9.0 centimeter into 6.9 into 7.5 cm. ED provider discussed with Dr. Lisa from surgery; reported that patient does not did not acute surgical intervention at this time; recommends IV antibiotic and admission to medicine for possible IR drainage. ED provider discussed with Dr. Lockett from IR; was unable to review the images at this time; plan to review in a.m. for possible IR drainage. Allergies Allergy/AdvReac Type Severity Reaction Status Date / Time No Known Drug Allergies Allergy Unknown . Verified 02/19/17 10:47 milk AdvReac Mild FEELS ILL Verified 02/19/17 10:47 Home Medications Medication Instructions Recorded Confirmed Type atorvastatin 80 mg tablet 80 mg PO QAM 11/23/24 11/23/24 History hydrochlorothiazide 25 mg tablet 25 mg PO QAM 11/23/24 11/23/24 History lisinopril 40 mg tablet 40 mg PO QAM 11/23/24 11/23/24 History metformin 1,000 mg tablet 1,000 mg PO BID 11/23/24 11/23/24 History omeprazole 20 mg capsule,delayed 20 mg PO DAILY 11/23/24 11/23/24 History release oxybutynin chloride 15 mg 15 mg PO QAM 11/23/24 11/23/24 History tablet,extended release 24 hr semaglutide 2 mg/dose (8 mg/3 mL) 2 mg subcut WK 11/23/24 11/23/24 History subcutaneous pen injector (Ozempic) Past Med/Surg History Problem List (Updated 11/23/24 @ 20:41 by Timbo Nobles MD) Acute perforated appendicitis Medical History (Updated 11/23/24 @ 20:41 by Timbo Nobles MD) No pertinent family history GERD (gastroesophageal reflux disease) Obesity HTN (hypertension) HLD (hyperlipidemia) Surgical History (Updated 11/23/24 @ 18:26 by Raheem Arias MD) No pertinent past surgical history Social History Smoking Status: Never smoker Preferred Language: [place] Feels Safe at Home: Yes Review of Systems Review of Systems: All systems reviewed & are unremarkable except as noted in Subjective Physical Exam Physical Exam: Constitutional: WD/WN, vitals as above, NAD, sitting up in bed, pleasant, conversing easily Respiratory: normal respiratory effort, lungs clear to auscultation, no wheeze, rales, rhonchi. Normal insp/exp effort, no accessory muscle use Cardiovascular: RRR, no murmur, no edema Vessels: no JVD or carotid bruit Chest: normal inspection of chest Abdomen:Slightly distended. Soft, no rigidity or guarding present. Mild tenderness present in periumbilical region. Bowel sounds present. Neurologic: PERRL, EOMI, accommodation nl, no face palsy, no dysarthria CN's II- XI intact bilaterally and moves all extremities Results & Data Results & Data Vital Signs (Past 12 Hours) Vital Signs Temp Pulse Pulse Resp BP BP Pulse Ox 11/23/24 22:10 74 11/23/24 21:00 75 24 123/65 98 11/23/24 19:40 83 25 H 127/66 99 11/23/24 18:07 79 11/23/24 18:06 99 11/23/24 18:03 79 20 121/67 99 11/23/24 17:48 36.4 C L 81 18 140/70 99 O2 Del Method 11/23/24 22:10 11/23/24 21:00 Room Air 11/23/24 19:40 Room Air 11/23/24 18:07 11/23/24 18:06 Room Air 11/23/24 18:03 Room Air 11/23/24 17:48 Room Air
[2024-11-23] MEDS: POTASSIUM CHLORIDE 40 MEQ in SODIUM CHLORIDE 0.9% 1,000 ML IV SCH (23:25)
[2024-11-23] MEDS: INSULIN ASPART PER UNIT CHARGE SC SCH (23:54)
[2024-11-24] MEDS: PIPERACILLIN/TAZOBACTAM 4.5 GM/100 ML BAG IV SCH (01:36)
--- OUTSIDE RECORDS SUMMARY | 2024-11-24 05:36 | External Medical Summary | Summary of Care ---
Author Name Unknown Organization [facility] Address [address] [facility] [place] [address] Phone [phone] Care Team Providers Care Harbor Tug Captain Name Role Phone Danelle Cerda DO Primary Care Provider [phone] Reason for Visit * Reason Onset Date Comments Re-Check School bus diabe tic waiver form, warts on on bilat hands Routine Exam 08/16/2024 Encounter Details Date Type Department Care Team (Late st Contact Info) Description 08/16/2024 6:00 PM EST Office Visit Family Practice [facility] [address] [place] [address] Danelle Cerda DO [address] [place] [address] Well adult exam*; Type 2 diabetes mellitus with hemoglobin A1c goal of less than 7.0% ([facility]); HTN, goal below 130/80; Encounter for long-term current use of medication; Wart of hand Allergies No known active allergiesdocumented as of this encounter (statuses as of 08/21/2024) Medications omeprazole (PRILOSEC) 20 MG CPDRIndications: Gastroesophageal reflux disease without esophagitis Take 1 Capsule by mouth in the morning. 30 minutes before a meal. 30 Cap 5 11/06/19 17 Active Blood Glucose Monitoring Suppl (D-CARE GLUCOMETER) w/Device KITIndications:T ype 2 diabetes mellitus with hemoglobin A1c goal of less than 7.0% (HCC) Use as directed. 1 Kit 5 05/18/20 17 Active Aspirin 81 MG TabletIndication s:HTN, goal below 140/90 Take 1 Tablet by mouth in the morning. 30 Tab 11/26/19 18 Active Lancets MISCIndications: Type 2 diabetes mellitus with hemoglobin A1c goal of less than 7.0% (HCC) Use as directed. 100 Each 11 10/02/19 20 Active Glucose Blood In Vitro StripIndications :Type 2 diabetes mellitus with hemoglobin A1c goal of less than 7.0% (HCC) Use to test 4 times a day as directed. E11.9 100 Strip 11 06/30/20 23 Active Atorvastatin Calcium 80 MG Oral Tablet (Lipitor)Indicat ions:Dyslipidemi a, goal LDL below 100 Take 1 Tablet by mouth in the morning. In the morning.. 90 Tablet 05/16/20 24 Active hydroCHLOROthiaz dhiraj 25 MG Oral Tablet (Hydrodiuril)Ind ications:HTN, goal below 140/90 TAKE 1 TABLET BY MOUTH IN THE MORNING 90 Tablet 06/06/20 24 Active oxyBUTYnin Chloride ER 15 MG Oral Tablet Extended Release 24 Hour (Ditropan XL) TAKE 1 TABLET BY MOUTH ONCE DAILY IN THE MORNING . DO NOT CUT CRUSH OR CHEW. 30 Tablet 1 06/06/20 24 Active Lisinopril 40 MG Oral TabletIndication s:HTN, goal below 140/90 TAKE 1 TABLET BY MOUTH IN THE MORNING 90 Tablet 1 06/20/20 24 Active metFORMIN HCl 1000 MG Oral Tablet (Glucophage)Galilea cations:Type 2 diabetes mellitus with hemoglobin A1c goal of less than 7.0% (HCC) TAKE 1 TABLET BY MOUTH TWICE DAILY WITH MORNING MEAL AND WITH EVENING MEAL 180 Tablet 06/23/20 24 Active Ozempic (2 MG/DOSE) 8 MG/3ML Subcutaneous Solution Pen-injector (Semaglutide (2 MG/DOSE))Indicat ions:Type 2 diabetes mellitus with hemoglobin A1c goal of less than 7.0% (HCC) INJECT 2 MG SUBCUTANEOUSLY ONCE A WEEK 3 mL 2 08/05/20 24 Active Wrist Splint/Cock-Up/R ight LIndications:Car pal tunnel syndrome of right wrist Use at night as directed. 1 Each 03/31/20 23 024 Discontin ued(Medic ation List Clean Up) documented as of this encounter (statuses as of 08/21/2024) Active Problems Problem Noted Date Diagnosed Date CRYSTAL (obstructive sleep apnea) 08/12/2018 Dyslipidemia 02/17/2017 Type 2 diabetes mellitus wit h hemoglobin A1c goal of less than 7.0% 02/16/2017 HTN, goal below 130/80 05/08/2015 Iron deficiency anemia due to chronic blood loss Bladder spasms Overview (08/21/2011): stable on vesicare documented as of this encounter (statuses as of 08/21/2024) Resolved Problems Problem Noted Date Diagnosed Date Resolved Date Morbid obesity due to excess calories 02/17/2017 01/21/2024 Lower urinary tract infectious disease 06/03/2015 02/17/2017 Overview (01/07/2016): ICD-10 update of inactive term Elevated blood pressure, situational 05/07/2015 05/18/2015 Glucose found in urine on examination 05/07/2015 02/17/2017 ADVANCE DIRECTIVE INFORMATION 11/01/2012 12/27/2019 Overview (11/01/2012): No, Advance Directive brochure offered, patient declined. Obesity, Class II, BMI 35-39 .9, isolated (see actual BMI) 02/17/2010 09/08/2012 Overview (02/17/2010): Per Obesity Protocol, #19 NONINF GASTROENTERIT NEC 11/2012 Gestational diabetes 013 Overview (08/21/2011): x 3 Glucose intolerance (impaire d glucose tolerance) 02/17/2017 documented as of this encounter (statuses as of 08/21/2024) Immunizations Name Administration Dates Next Due Hepatitis B, 20+ yrs 06/03/2018,12/28/2017,11/25 PPD 01/26/2019,07/11/2018,05/18/2017 Pneumococcal Conjugate Vacci ne, 20-valent ([id number]) 05/20/2022 Pneumococcal Polysaccharide PPV23 (Pneumovax) 05/18/2017 Seasonal Influenza Vac., MDV , IM, 0.5 mL (Fluzone) 05/20/2015,07/20/2013,05/21/2012,08/21,06/27/2010,08/07/2009 Seasonal Influenza Virus Vac cine, Unspecified Formulation 06/23/2024 Seasonal Influenza, PF, 6 M & above, IM , (FluLaval or Fluzone) 06/29/2023,05/20/2022,05/13/2021,06/06,06/03/2018 Seasonal Influenza, Quadriva lent, No Preserve, IM 05/18/2017,11/05/2016 TDAP (age 10 and older)(Boostrix) 06/29/2018 TDAP, Age 7 and older, IM (Adacel) 05/30/2008 Zoster Vaccine Recombinant (Shingrix) 02/10/2022 ,09/21/2021 documented as of this encounter Social History Tobacco Use Types Packs/Day Years Used Date Smoking Tobacco: Never Smokeless Tobacco: Never Alcohol Use Standard Drinks/Week Comments Yes 0 (1 standard drink = 0.6 oz pur e alcohol) rare PHQ-2 Answer Date Recorded PHQ Adult Total Score 0 01/05/2024 Comments No Sex and Gender Information Value Date Recorded Sex Assigned at Not on file Legal Sex Female 5:56 AM EST Gender Identity Not on file Sexual Orientation Not on file Occupation Industry Job Start Date Job End Date Not on file Not on file Not on file Not on file documented as of this encounter Last Filed Vital Signs Vital Sign Reading Time Taken Comments Blood Pressure 112/60 08/16/2024 5:12 PM EST Pulse 76 08/16/2024 5:12 PM EST Temperature 36.5 C (97.7 F) 08/16/2024 5:12 PM ES T Respiratory Rate 16 08/16/2024 5:12 PM EST Oxygen Saturation - - Inhaled Oxygen Concentration - - Weight 91.6 kg (202 lb) 08/16/2024 5:12 PM EST Height - - Body Mass Index 32.6 01/05/2024 4:52 PM EDT documented in this encounter Progress Notes * Danelle Cerda DO - 08/16/2024 5:24 PM EST Subjective: Angelia Garcia is a 59 year old female. Chief Complaint Patient presents with Re-Check School bus diabetic waiver form, warts on on bilat hands Routine Exam HPI: Pt presents for follow up today. Due for CPE. Has warts on b/l hands not responding to otc meds. BG well controlled. PHM: Patient Active Problem List Diagnosis Iron deficiency anemia due to chronic blood loss Bladder spasms HTN, goal below 130/80 Type 2 diabetes mellitus with hemoglobin A1c goal of less than 7.0% (HCC) Dyslipidemia CRYSTAL (obstructive sleep apnea) Current Outpatient Medications Medication Sig Dispense Refill omeprazole (PRILOSEC) 20 MG CPDR Take 1 Capsule by mouth in the morning. 30 minutes before a meal. 30 Cap 5 Blood Glucose Monitoring Suppl (D-CARE GLUCOMETER) w/Device KIT Use as directed. 1 Kit 5 Aspirin 81 MG Tablet Take 1 Tablet by mouth in the morning. 30 Tab 0 Lancets MISC Use as directed. 100 Each 11 Glucose Blood In Vitro Strip Use to test 4 times a day as directed. E11.9 100 Strip 11 Atorvastatin Calcium 80 MG Oral Tablet (Lipitor) Take 1 Tablet by mouth in the morning. In the morning.. 90 Tablet 0 hydroCHLOROthiazide 25 MG Oral Tablet (Hydrodiuril) TAKE 1 TABLET BY MOUTH IN THE MORNING 90 Tablet0 oxyBUTYnin Chloride ER 15 MG Oral Tablet Extended Release 24 Hour (Ditropan XL) TAKE 1 TABLET BY MOUTH ONCE DAILY IN THE MORNING . DO NOT CUT CRUSH OR CHEW. 30 Tablet 1 Lisinopril 40 MG Oral Tablet TAKE 1 TABLET BY MOUTH IN THE MORNING 90 Tablet 1 metFORMIN HCl 1000 MG Oral Tablet (Glucophage) TAKE 1 TABLET BY MOUTH TWICE DAILY WITH MORNING MEALAND WITH EVENING MEAL 180 Tablet 0 Ozempic (2 MG/DOSE) 8 MG/3ML Subcutaneous Solution Pen-injector (Semaglutide (2 MG/DOSE)) INJECT 2 MG SUBCUTANEOUSLY ONCE A WEEK 3 mL 2 No current facility-administered medications for this visit. Past Medical History: Diagnosis Date Anemia Bladder spasms stable on vesicare, Dr Mascorro Colitis Takes Sulfasalazine for colitis (follows with Dr. Viera) Gestational diabetes x 3 Glucose intolerance (impaired glucose tolerance) Iron deficiency anemia due to chronic blood loss Other and unspecified noninfectious gastroenteritis and colitis(558.9) Inflammatory Bowel Disease- Dr Garcia Past Surgical History: Procedure Laterality Date DELIVERY 2005 Delivered baby boy COLONOSCOPY 1/18/07 Polyp/recheck in 5-8 years/Dr Garcia DIABETIC EYE EXAM 09/12/08 no diabetic retinopathy [employer] PAP SCREEN 07/24/09 WNL,[facility] MAMMOGRAM DIAGNOSTIC BILATERAL 07/29/2010 birad code 1,negative MAMMOGRAM SCREENING-BILATERAL 07/04/07 birad 2 MAMMOGRAM SCREENING-BILATERAL 09/26/08 birad code 2, yearly recommended, benign findings. PAP SCREEN 06/08/07 wnl PAP SCREEN 07/20/08 WNL, [place]quet PAP SCREEN 07/29/2010 negative for malignancy Review of patient's allergies indicates: No Known Allergies Objective: BP 112/60 (BP Site: Left Arm, BP Position: Sitting, BP Cuff Size: Regular) | Pulse 76 | Temp 97.7 F (36.5 C) (Tympanic) | Resp 16 | Wt 202 lb (91.6 kg) | LMP 08/05/2015 (Approximate) | BMI 32.60 kg/m | BSA 2.07 m Review of Systems: As per HPI, all other ROS neg. Physical Exam: General: alert, healthy, no distress, well nourished and well developed Head: Normocephalic, No masses, lesions, tenderness or abnormalities Ears: External ears normal, Canals clear, TM's Normal Nose: no mucosal erythema, no mucosal edema, no purulent discharge, no septal hematoma Oropharynx: no exudate, no erythema, lips, buccal mucosa, and tongue normal and mucous membranes are moist Neck: supple, no adenopathy, thyroid normal size, non-tender, without nodularity Heart: regular rate & rhythm, no murmurs and no gallops Lungs: chest symmetric with normal AP diameter, no chest deformities noted, lungs clear to auscultation Abdomen: abdomen soft, non-tender, normal bowel sounds and no masses or organomegaly Extremities: no joint deformities, effusion, or inflammation, no edema, no clubbing, no cyanosis Well adult exam (Primary) all appropriate HM items addressed Including genitourinary (pap, mammo, psa), colon cancer screening and immunizations as indicated by patient sex, age and history Type 2 diabetes mellitus with hemoglobin A1c goal of less than 7.0% (HCC) - DIABETES FOOT EXAM A1c pending HTN, goal below 130/80 Bp stable Encounter for long-term current use of medication - VITAMIN B12; Future; Expected date: 08/16/2024 Wart of hand risks and benefits of the procedure are discussed with the patient. Alternatives are discussed and questions answered. Pt understands and wishes to procede. Cryo for 10 secs times 2. Patient tolerated well with no complications. Patient will keep the area clean and dry. Follow up: In 6 months. Danelle Cerda DO * Justyna Cid RN - 08/16/2024 5:20 PM EST Socks and Shoes Removed for Annual Diabetic Foot Screening RIGHT FOOT: No Reddened, Cracking, Or Open Areas Noted. RIGHT Dorsalis Pedis Pulse: Palpable RIGHT Posterior Tibial Pulse: Palpable RIGHT Monofilament:Patient reports feeling monofilament pressure on plantar surface of foot LEFT FOOT: No Reddened, Cracking or Open Areas Noted. LEFT Dorsalis Pedis Pulse: Palpable LEFT Posterior Tibial Pulse: Palpable LEFT Monofilament:Patient reports feeling monofilament pressure on plantar surface of foot Do you need diabetic shoes: No documented in this encounter Plan of Treatment Scheduled Orders Name Type Priority Associated Diagnoses Orde r Schedule BENIGN LESION DESTRUCTION, UP TO 14 LESIONS Procedures Routine Wart of hand Ordered: 08/21/2024 Health Maintenance Due Date Last Done Comments HIV Screening 1981 Hepatitis C Screening 01/10/1984 HPV/Co-Test 01/10/1996 Cologuard 2011 Fecal Occult Blood Test 2011 Sigmoidoscopy 2011 Cervical Cancer Screening 01/06/2021 Pap Smear 01/06/2021 01/06/2018, 03/0 05/2016, 11/05/2014 (Done elsewhere), Additional history exists COVID-19 Vaccine ( season) 2024 Diabetic Eye Exam 09/16/2024 11/08/2018, , 07/23/2012 Postponed from 11/09/2019 (Patient Declined After Education) Depression Screening 01/04/2025 01/05/2024 HbA1c 02/14/2025 08/16/2024, 04/2 05/2024, 06/23/2023, Additional history exists Mammogram 04/14/2025 04/14/2024, 12/2022, 04/03/2022, Additional history exists Albumin/Creatinine Ratio 08/16/2025 024, 06/23/2023, 11/11/2021, Additional history exists B-12 08/16/2025 08/16/2024, 2 05/2024, 12/11/2022, Additional history exists Diabetic Foot Exam 08/16/2025 08/16/2024, 1 , 11/11/2021, Additional history exists GFR 08/16/2025 08/16/2024, 06/06, 05/15/2022, Additional history exists Colonoscopy 02/19/2027 02/19/2017, 12/14/2014 Colorectal Cancer Screening 02/19/2027 DTap/Tdap Vaccines (3 - Td or Tdap) 06/29/2028 06/29/2018, 05/30/2008 Lipid Panel 08/16/2029 08/16/2024, 06/06, 05/15/2022, Additional history exists Hepatitis B Vaccine Completed 06/03/2018, 12/28/2017, 11/25/2017 Zoster Vaccines Completed 02/10/2022, 09/21/2021 Pneumococcal Vaccine: Pediatrics (0 to 5 Years) and At-Risk Patients (6 to 64 Years) Completed 05/20/2022, 05/18/2017 Influenza Vaccine (FLU shot) Completed 06/23/2024, 06/29/2023, 05/20/2022, Additional history exists HPV (Gardasil) Vaccine Aged Out No lo nger eligible based on patient's age to complete this topic MENINGOCOCCAL (MENACTRA/MENVEO) Aged Out No longer eligible based on patient's age to complete this topic documented as of this encounter Medical Devices Not on filedocumented as of this encounter Results * VITAMIN B12 (08/16/2024 10:48 AM EST) Vitamin B12 466 232 - 1,245 pg/mL 08/16/2024 10:29 PM EST [facility] Blood Venous blood specimen / Unknown Venipuncture / Unknown 08/16/2024 10:48 AM EST 08/16/2024 10:48 AM EST us Danelle Cerda DO LAB BLOOD ORDERABLES Final Result [facility] [address] [facility] [place] [address] documented in this encounter Visit Diagnoses Diagnosis Well adult exam- Primary Routine general medical examination at a health care facility Type 2 diabetes mellitus with hemoglobin A1c goal of less than 7.0% (HCC) HTN, goal below 130/80 Unspecified essential hypertension Encounter for long-term current use of medication Wart of hand documented in this encounter Care Teams Harbor Tug Captain Relationship Specialty Start Date End Date Danelle Cerda DO [address] [facility] [place] [address] PCP - General Family Medicine 11/05/16 documented as of this encounter"
--- OUTSIDE RECORDS SUMMARY | 2024-11-24 05:36 | External Medical Summary | Summary of Care ---
Author Name Unknown Organization [facility] Address [address] [facility] [place] [address] Phone [phone] Care Team Providers Care Tester Waste Disposal Leakage Name Role Phone Kody Olmstead DO Primary Care Provider [phone] Reason for Visit * Reason Comments eRx-Medication Refill Encounter Details Date Type Department Care Team (Late st Contact Info) Description 09/10/2024 Refill Family Practice [facility] [address] [place] [address] Kody Olmstead DO [address] [place] [address] HTN, goal below 140/90; Type 2 diabetes mellitus with hemoglobin A1c goal of less than 7.0% (HCC) Allergies No known active allergiesdocumented as of this encounter (statuses as of 09/12/2024) Medications omeprazole (PRILOSEC) 20 MG CPDRIndications :Gastroesophage al reflux disease without esophagitis Take 1 Capsule by mouth in the morning. 30 minutes before a meal. 30 Cap 5 017 Active Blood Glucose Monitoring Suppl (D-CARE GLUCOMETER) w/Device KITIndications: Type 2 diabetes mellitus with hemoglobin A1c goal of less than 7.0% (HCC) Use as directed. 1 Kit 5 017 Active Aspirin 81 MG TabletIndicatio ns:HTN, goal below 140/90 Take 1 Tablet by mouth in the morning. 30 Tab 018 Active Lancets MISCIndications :Type 2 diabetes mellitus with hemoglobin A1c goal of less than 7.0% (HCC) Use as directed. 100 Each 11 020 Active Glucose Blood In Vitro StripIndication s:Type 2 diabetes mellitus with hemoglobin A1c goal of less than 7.0% (HCC) Use to test 4 times a day as directed. E11.9 100 Strip 11 023 Active Lisinopril 40 MG Oral TabletIndicatio ns:HTN, goal below 140/90 TAKE 1 TABLET BY MOUTH IN THE MORNING 90 Tablet 1 024 Active Ozempic (2 MG/DOSE) 8 MG/3ML Subcutaneous Solution Pen-injector (Semaglutide (2 MG/DOSE))Indica tions:Type 2 diabetes mellitus with hemoglobin A1c goal of less than 7.0% (HCC) INJECT 2 MG SUBCUTANEOUSLY ONCE A WEEK 3 mL 2 024 Active Atorvastatin Calcium 80 MG Oral Tablet (Lipitor)Indica tions:Dyslipide maksim, goal LDL below 100 TAKE 1 TABLET BY MOUTH IN THE MORNING 90 Tablet 3 024 Active oxyBUTYnin Chloride ER 15 MG Oral Tablet Extended Release 24 Hour (Ditropan XL) TAKE 1 TABLET BY MOUTH ONCE DAILY IN THE MORNING. DO NOT CUT, CRUSH, OR CHEW. 30 Tablet 11 024 Active hydroCHLOROthia zide 25 MG Oral Tablet (Hydrodiuril)In dications:HTN, goal below 140/90 TAKE 1 TABLET BY MOUTH IN THE MORNING 90 Tablet 3 025 Active metFORMIN HCl 1000 MG Oral Tablet (Glucophage)Ind ications:Type 2 diabetes mellitus with hemoglobin A1c goal of less than 7.0% (HCC) TAKE 1 TABLET BY MOUTH TWICE DAILY WITH MORNING MEAL AND WITH EVENING MEAL 180 Tablet 3 025 Active hydroCHLOROthia zide 25 MG Oral Tablet (Hydrodiuril)In dications:HTN, goal below 140/90 TAKE 1 TABLET BY MOUTH IN THE MORNING 90 Tablet 024 2024 Discontinued metFORMIN HCl 1000 MG Oral Tablet (Glucophage)Ind ications:Type 2 diabetes mellitus with hemoglobin A1c goal of less than 7.0% (HCC) TAKE 1 TABLET BY MOUTH TWICE DAILY WITH MORNING MEAL AND WITH EVENING MEAL 180 Tablet 024 2024 Discontinued documented as of this encounter (statuses as of 09/12/2024) Active Problems Problem Noted Date Diagnosed Date CRYSTAL (obstructive sleep apnea) 08/12/2018 Dyslipidemia 02/17/2017 Type 2 diabetes mellitus wit h hemoglobin A1c goal of less than 7.0% 02/16/2017 HTN, goal below 130/80 05/08/2015 Iron deficiency anemia due to chronic blood loss Bladder spasms Overview (08/21/2011): stable on vesicare documented as of this encounter (statuses as of 09/12/2024) Resolved Problems Problem Noted Date Diagnosed Date [...] as of this encounter (statuses as of 09/12/2024) Immunizations Name Administration Dates Next Due Hepatitis B, 20+ yrs 06/03/2018,12/28/2017,11/25 PPD 01/26/2019,07/11/2018,05/18/2017 Pneumococcal Conjugate Vacci ne, 20-valent ([id number]) 05/20/2022 Pneumococcal Polysaccharide PPV23 (Pneumovax) 05/18/2017 Seasonal [...] on file documented as of this encounter Miscellaneous Notes * Telephone Encounter - Huong Barboza, [facility] - 09/12/2024 8:53 AM ESTSigned Prescriptions: Disp Refills hydroCHLOROthiazide 25 MG Oral Tablet (Hyd*90 Tab*3 Sig: TAKE 1 TABLET BY MOUTH IN THE MORNINGAuthorizing Provider: KODY OLMSTEAD User: HUONG BARBOZA LmetFORMIN HCl 1000 MG Oral Tablet (Glucoph*180 Ta*3 Sig: TAKE 1 TABLET BY MOUTH TWICE DAILY WITH MORNING MEAL AND WITH EVENING MEALAuthorizing Provider: KODY OLMSTEAD User: HUONG BARBOZA documented in this encounter Plan of Treatment Health Maintenance Due Date Last Done Comments HIV Screening 1981 Hepatitis C Screening 01/10/1984 HPV/Co-Test 01/10/1996 Cologuard 2011 Fecal Occult Blood Test 2011 Sigmoidoscopy 2011 Cervical Cancer Screening 01/06/2021 Pap Smear 01/06/2021 01/06/2018, 0 05/2016, 11/05/2014 (Done elsewhere), Additional history exists COVID-19 Vaccine ( season) 2024 Diabetic Eye Exam 09/16/2024 11/08/2018, , 07/23/2012 Postponed from 11/09/2019 (Patient Declined After Education) Depression Screening 01/04/2025 01/05/2024 HbA1c 02/14/2025 08/16/2024, 12/06, 06/23/2023, Additional history exists Mammogram 04/14/2025 04/14/2024, 12/2022, 04/03/2022, Additional history exists Albumin/Creatinine Ratio 08/16/2025 024, 06/23/2023, 11/11/2021, Additional history exists B-12 08/16/2025 08/16/2024, 12/06, 12/11/2022, Additional history exists Diabetic Foot Exam [...] Zoster Vaccines Completed 02/10/2022, 09/21/2021 Pneumococcal Vaccine: 50+ Years Completed 05/20/2022, 05/18/2017 Influenza Vaccine (FLU shot) Completed 06/23/2024, 06/29/2023, 05/20/2022, Additional history exists HPV (Gardasil) Vaccine Aged Out No lo nger eligible based on patient's age to complete this topic MENINGOCOCCAL (MENACTRA/MENVEO) Aged Out No longer eligible based on patient's age to complete this topic documented as of this encounter Medical Devices Not on filedocumented as of this encounter Visit Diagnoses Diagnosis HTN, goal below 140/90 Unspecified essential hypertension Type 2 diabetes mellitus with hemoglobin A1c goal of less than 7.0% (HCC) documented in this encounter Care Teams Tester Waste Disposal Leakage Relationship Specialty Start Date End Date Kody Olmstead DO [address] [place] [address] PCP - General Family Medicine 11/05/16 documented as of this encounter
--- OUTSIDE RECORDS SUMMARY | 2024-11-24 05:36 | External Medical Summary | Summary of Care ---
Author Name Unknown Organization [facility] Address [address] [facility] [place] [address] Phone [phone] Care Team Providers Care Composition Siding Worker Name Role Phone Danelle Cerda DO Primary Care Provider [phone] Reason for Visit * Reason Onset Date Comments Advice 06/22/2024 Encounter Details Date Type Department Care Team (Late st Contact Info) Description 06/22/[address] [facility] [address] [place] [address] Danelle Cerda DO [address] [place] [address] Advice Allergies No known active allergiesdocumented as of this encounter (statuses as of 09/21/2024) Medications omeprazole (PRILOSEC) 20 MG CPDRIndications: Gastroesophageal reflux disease without esophagitis Take 1 Capsule by mouth in the morning. 30 minutes before a meal. 30 Cap 5 11/05/2016 Active Blood Glucose Monitoring Suppl (D-CARE GLUCOMETER) w/Device KITIndications:T ype 2 diabetes mellitus with hemoglobin A1c goal of less than 7.0% ([facility]) Use as directed. 1 Kit 5 05/18/2017 Active Aspirin 81 MG TabletIndication s:HTN, goal below 140/90 Take 1 Tablet by mouth in the morning. 30 Tab 11/25/2017 Active Lancets MISCIndications: Type 2 diabetes mellitus with hemoglobin A1c goal of less than 7.0% ([facility]) Use as directed. 100 Each 11 10/02/2019 Active Glucose Blood In Vitro StripIndications :Type 2 diabetes mellitus with hemoglobin A1c goal of less than 7.0% (HCC) Use to test 4 times a day as directed. E11.9 100 Strip 11 06/30/2023 Active Lisinopril 40 MG Oral TabletIndication s:HTN, goal below 140/90 TAKE 1 TABLET BY MOUTH IN THE MORNING 90 Tablet 1 06/20/2024 Active documented as of this encounter (statuses as of 09/21/2024) Active Problems Problem Noted Date Diagnosed Date CRYSTAL (obstructive sleep apnea) 08/12/2018 Dyslipidemia 02/17/2017 Type 2 diabetes mellitus wit h hemoglobin A1c goal of less than 7.0% 02/16/2017 HTN, goal below 130/80 05/08/2015 Iron deficiency anemia due to chronic blood loss Bladder spasms Overview (08/21/2011): stable on vesicare documented as of this encounter (statuses as of 09/21/2024) Resolved Problems Problem Noted Date Diagnosed Date [...] as of this encounter (statuses as of 09/21/2024) Immunizations Name Administration Dates Next Due Hepatitis B, 20+ yrs 06/03/2018,12/28/2017,11/25 PPD 01/26/2019,07/11/2018,05/18/2017 Pneumococcal Conjugate Vacci ne, 20-valent ([id number]) 05/20/2022 Pneumococcal Polysaccharide PPV23 (Pneumovax) 05/18/2017 Seasonal Influenza Vac., MDV , IM, 0.5 mL (Fluzone) 05/20/2015,07/20/2013,05/21/2012,08/21,06/27/2010,08/07/2009 Seasonal Influenza, PF, 6 M & above, [...] encounter Miscellaneous Notes * Telephone Encounter - Jigar Perdue OSA - 06/22/2024 9:20 AM EDT Pt called in wanting to know why does she have to call in her prescriptions every month? Pt would like a call back please at [phone] documented in this encounter Plan of Treatment Health Maintenance Due Date Last Done Comments HIV Screening 1981 Hepatitis C Screening 01/10/1984 HPV/Co-Test 01/10/1996 Cologuard 2011 Fecal Occult Blood Test 2011 Sigmoidoscopy 2011 Diabetic Eye Exam 11/09/2019 11/08/2018, , 07/23/2012 Cervical Cancer Screening 01/06/2021 Pap Smear 01/06/2021 01/06/2018, 03/0 05/2016, 11/05/2014 (Done elsewhere), Additional history exists COVID-19 Vaccine ( season) 2024 Depression Screening 01/04/2025 01/05/2024 HbA1c 02/14/2025 08/16/2024, 2 05/2024, 06/23/2023, Additional history exists Mammogram 04/14/2025 04/14/2024, 0812/2022, 04/03/2022, Additional history exists Albumin/Creatinine Ratio 08/16/2025 [...] 05/20/2022, 05/18/2017 Influenza Vaccine (FLU shot) Completed , 06/29/2023, 05/20/2022, Additional history exists HPV (Gardasil) Vaccine Aged Out No lo nger eligible based on patient's age to complete this topic MENINGOCOCCAL (MENACTRA/MENVEO) Aged Out No longer eligible based on patient's age to complete this topic documented as of this encounter Medical Devices Not on filedocumented as of this encounter Care Teams Composition Siding Worker Relationship Specialty Start Date End Date Danelle Cerda DO [address] [place] [address] PCP - General Family Medicine 11/05/16 documented as of this encounter
--- OUTSIDE RECORDS SUMMARY | 2024-11-24 05:36 | External Medical Summary | Summary of Care ---
Author Name Unknown Organization [facility] Address [address] [facility] [place] [address] Phone [phone] Care Team Providers Care Tax Services Specialist Name Role Phone Kody Olmstead DO Primary Care Provider [phone] Reason for Visit * Reason Comments eRx-Medication Refill Encounter Details Date Type Department Care Team (Late st Contact Info) Description 11/13/2024 Refill Family Practice [facility] [address] [place] [address] Kody Olmstead DO [address] [place] [address] Type 2 diabetes mellitus with hemoglobin A1c goal of less than 7.0% (HCC) Allergies No known active allergiesdocumented as of this encounter (statuses as of 11/14/2024) Medications omeprazole (PRILOSEC) 20 MG CPDRIndications :Gastroesophage [...] THE MORNING 90 Tablet 1 024 Active Atorvastatin Calcium 80 MG Oral [...] EVENING MEAL 180 Tablet 3 025 Active Ozempic (2 MG/DOSE) 8 MG/3ML Subcutaneous Solution Pen-injector (Semaglutide (2 MG/DOSE))Indica tions:Type 2 diabetes mellitus with hemoglobin A1c goal of less than 7.0% (HCC) INJECT 2MG SUBCUTANEOUSLY ONCE A WEEK 3 mL 2 025 Active Ozempic (2 MG/DOSE) 8 MG/3ML Subcutaneous Solution Pen-injector (Semaglutide (2 MG/DOSE))Indica tions:Type 2 diabetes mellitus with hemoglobin A1c goal of less than 7.0% (HCC) INJECT 2 MG SUBCUTANEOUSLY ONCE A WEEK 3 mL 2 024 2024 Discontinued documented as of this encounter (statuses as of 11/14/2024) Active Problems Problem Noted Date Diagnosed Date CRYSTAL (obstructive sleep apnea) 08/12/2018 Dyslipidemia 02/17/2017 Type 2 diabetes mellitus wit h hemoglobin A1c goal of less than 7.0% 02/16/2017 HTN, goal below 130/80 05/08/2015 Iron deficiency anemia due to chronic blood loss Bladder spasms Overview (08/21/2011): stable on vesicare documented as of this encounter (statuses as of 11/14/2024) Resolved Problems Problem Noted Date Diagnosed Date [...] as of this encounter (statuses as of 11/14/2024) Immunizations Name Administration Dates Next Due Hepatitis B, 20+ yrs 06/03/2018,12/28/2017,11/25 PPD 01/26/2019,07/11/2018,05/18/2017 Pneumococcal Conjugate Vacci ne, 20-valent ([id number]) 05/20/2022 Pneumococcal Polysaccharide PPV23 (Pneumovax) 05/18/2017 Seasonal [...] encounter Miscellaneous Notes * Telephone Encounter - Ignacia Torres RPh - 11/14/2024 1:12 PM EDT Signed Prescriptions: Disp Refills Ozempic (2 MG/DOSE) 8 MG/3ML Subcutaneous *3 mL 2 Sig: INJECT 2MG SUBCUTANEOUSLY ONCE A WEEKAuthorizing Provider: KODY OLMSTEAD User: IGNACIA TORRES documented in this encounter Plan of Treatment [...] 06/23/2023, Additional history exists Mammogram 04/14/2025 04/14/2024, 080 12/2022, 04/03/2022, Additional history exists Albumin/Creatinine Ratio 08/16/2025 024, 06/23/2023, 11/11/2021, Additional history exists B-12 08/16/2025 08/16/2024, 042 05/2024, 12/11/2022, Additional history exists Diabetic Foot [...] on patient's age to complete this topic Meningitis B Vaccine (Bexsero/Trumemba) Aged Out No longer eligible based on patient's age to complete this topic documented as of this encounter Medical Devices Not on filedocumented as of this encounter Visit Diagnoses Diagnosis Type 2 diabetes mellitus with hemoglobin A1c goal of less than 7.0% ([facility]) documented in this encounter Care Teams Tax Services Specialist Relationship Specialty Start Date End Date Kody Olmstead DO [address] [place] [address] PCP - General Family Medicine 11/05/16 documented as of this encounter
--- OUTSIDE RECORDS SUMMARY | 2024-11-24 05:36 | External Medical Summary | Summary of Care ---
Author Name Unknown Organization [facility] Address [address] [facility] [place] [address] Phone [phone] Care Team Providers Care Quarter Lining Smoother Name Role Phone Danelle Cerda DO Primary Care Provider [phone] Reason for Visit * Reason Onset Date Comments Health Maintenance 11/22/2024 Encounter Details Date Type Department Care Team (Late st Contact Info) Description 11/22/[address] [facility] [address] [place] [address] Danelle Cerda DO [address] [place] [address] Health Maintenance Allergies No known active allergiesdocumented as of this encounter (statuses as of 11/22/2024) Medications omeprazole (PRILOSEC) 20 MG CPDRIndications: Gastroesophageal reflux disease without esophagitis Take 1 Capsule by mouth in the morning. 30 minutes before a meal. 30 Cap 5 11/06/19 17 Active Blood Glucose Monitoring Suppl (D-CARE GLUCOMETER) w/Device KITIndications:T ype 2 diabetes mellitus with hemoglobin A1c goal of less than 7.0% ([facility]) Use as directed. 1 Kit 5 05/18/20 17 Active Aspirin 81 MG TabletIndication s:HTN, goal below 140/90 Take 1 Tablet by mouth in the morning. 30 Tab 11/26/19 18 Active Lancets MISCIndications: Type 2 diabetes mellitus with hemoglobin A1c goal of less than 7.0% ([facility]) Use as directed. 100 Each 11 10/02/19 20 Active Glucose Blood In Vitro StripIndications :Type 2 diabetes mellitus with hemoglobin A1c goal of less than 7.0% (HCC) Use to test 4 times a day as directed. E11.9 100 Strip 11 06/30/20 23 Active Lisinopril 40 MG Oral TabletIndication s:HTN, goal below 140/90 TAKE 1 TABLET BY MOUTH IN THE MORNING 90 Tablet 1 06/20/20 24 Active Atorvastatin Calcium 80 MG Oral Tablet (Lipitor)Indicat ions:Dyslipidemi a, goal LDL below 100 TAKE 1 TABLET BY MOUTH IN THE MORNING 90 Tablet 3 09/01/20 24 Active oxyBUTYnin Chloride ER 15 MG Oral Tablet Extended Release 24 Hour (Ditropan XL) TAKE 1 TABLET BY MOUTH ONCE DAILY IN THE MORNING. DO NOT CUT, CRUSH, OR CHEW. 30 Tablet 11 09/01/20 24 Active hydroCHLOROthiaz dhiraj 25 MG Oral Tablet (Hydrodiuril)Ind ications:HTN, goal below 140/90 TAKE 1 TABLET BY MOUTH IN THE MORNING 90 Tablet 3 09/12/19 25 Active metFORMIN HCl 1000 MG Oral Tablet (Glucophage)Galilea cations:Type 2 diabetes mellitus with hemoglobin A1c goal of less than 7.0% (HCC) TAKE 1 TABLET BY MOUTH TWICE DAILY WITH MORNING MEAL AND WITH EVENING MEAL 180 Tablet 3 09/12/19 25 Active Ozempic (2 MG/DOSE) 8 MG/3ML Subcutaneous Solution Pen-injector (Semaglutide (2 MG/DOSE))Indicat ions:Type 2 diabetes mellitus with hemoglobin A1c goal of less than 7.0% (HCC) INJECT 2MG SUBCUTANEOUSLY ONCE A WEEK 3 mL 2 11/15/19 25 Active Ciprofloxacin HCl 500 MG Oral Tablet (Cipro) Take 1 Tablet by mouth in the morning and 1 Tablet before bedtime. Do all this for 5 days. 10 Tablet 11/18/19 25 025 Active documented as of this encounter (statuses as of 11/22/2024) Active Problems Problem Noted Date Diagnosed Date CRYSTAL (obstructive sleep apnea) 08/12/2018 Dyslipidemia 02/17/2017 Type 2 diabetes mellitus wit h hemoglobin A1c goal of less than 7.0% 02/16/2017 HTN, goal below 130/80 05/08/2015 Iron deficiency anemia due to chronic blood loss Bladder spasms Overview (08/21/2011): stable on vesicare documented as of this encounter (statuses as of 11/22/2024) Resolved Problems Problem Noted Date Diagnosed Date [...] as of this encounter (statuses as of 11/22/2024) Immunizations Name Administration Dates Next Due Hepatitis B, 20+ yrs 06/03/2018,12/28/2017,11/25 PPD 01/26/2019,07/11/2018,05/18/2017 Pneumococcal Conjugate Vacci ne, 20-valent ([id number]) 05/20/2022 Pneumococcal Polysaccharide PPV23 (Pneumovax) 05/18/2017 Seasonal [...] Packs/Day Years Used Date Smoking Tobacco: Never Passive Smoke Exposure: Never Smokeless Tobacco: Never Alcohol Use Standard [...] encounter Miscellaneous Notes * Telephone Encounter - Savanna Blood LORRI - 11/22/2024 12:47 PM EDT Care Gaps Comprehensive Care Outreach Last Office/Telemedicine Visit: 11/17/2024 (in office), 12/14/2019 (telemedicine) Next Office Visit: Visit date not found Hemoglobin AIC Results: Lab Results Component Value Date/Time HEMOGLOBIN A1C - [facility] 6.1 (H) 08/16/2024 10:48 AM HEMOGLOBIN A1C - [facility] 6.4 (H) 01/03/2024 04:43 PM HEMOGLOBIN A1C - [facility] 6.5 (H) 06/23/2023 04:16 PM HEMOGLOBIN A1C - [facility] 6.7 (H) 07/16/2020 09:11 AM HEMOGLOBIN A1C - [facility] 7.2 (H) 02/26/2020 10:45 AM HEMOGLOBIN A1C - [facility] 7.7 (H) 06/06/2019 10:24 AM BP Readings from Last 1 Encounters: 11/17/24 110/56 Reviewed Health Maintenance below: Health Maintenance Topic Date Due Diabetic Eye Exam 11/09/2019 Cervical Cancer Screening 01/06/2021 Depression Screening 01/04/2025 HbA1c 02/14/2025 Mammogram 04/14/2025 Eye Pap fabiola marino requested Lab Mamm aprFebruary 09 [facility] Care Gap Outreach Action Taken: Left message documented in this encounter Plan of Treatment Health Maintenance Due Date Last Done Comments HPV/Co-Test 01/10/1996 Cologuard 2011 Fecal Occult Blood Test 2011 Sigmoidoscopy 2011 Diabetic Eye Exam 11/09/2019 11/08/2018, , 07/23/2012 Cervical Cancer Screening 01/06/2021 Pap Smear 01/06/2021 01/06/2018, 05/2016, 11/05/2014 (Done elsewhere), Additional history exists Depression Screening 01/04/2025 01/05/2024 HbA1c 02/14/2025 08/16/2024, 04/2 05/2024, 06/23/2023, Additional history exists Mammogram 04/14/2025 04/14/2024, 08/0 12/2022, 04/03/2022, Additional history exists Albumin/Creatinine Ratio [...] Completed 06/23/2024, 06/29/2023, 05/20/2022, Additional history exists COVID-19 Vaccine Discontinued HIV Screening Discontinued HPV (Gardasil) Vaccine Aged Out No lo nger eligible based on patient's age to complete this topic Hepatitis C Screening Discontinued MENINGOCOCCAL (MENACTRA/MENVEO) Aged Out No longer eligible based on patient's age to complete this topic Meningitis B Vaccine (Bexsero/Trumemba) Aged Out No longer eligible based on patient's age to complete this topic documented as of this encounter Medical Devices Not on filedocumented as of this encounter Care Teams Quarter Lining Smoother Relationship Specialty Start Date End Date Danelle Cerda DO [address] [place] [address] PCP - General Family Medicine 11/05/16 documented as of this encounter
--- OUTSIDE RECORDS SUMMARY | 2024-11-24 05:36 | External Medical Summary | Summary of Care ---
Author Name Unknown Organization [facility] Address [address] [facility] [place] [address] Phone [phone] Care Team Providers Care Inventory Management Specialist Name Role Phone Danelle Cerda DO Primary Care Provider [phone] Reason for Visit * Reason Comments Acute Pt here for c/o expl osive diarrhea for 2 weeks. Then a week ago pt vomited once a bright yellow. Then pt started having lower right abdominal pain. Pt has been taking tylenol and advil for the pain. Pt last took advil about 3am today. Encounter Details Date Type Department Care Team (Late st Contact Info) Description 11/17/2024 7:40 AM EDT Office Visit Family [facility] [address] [place] [address] Carlos Eduardo Madden MD [address] [place] [address] Colitis, infectious*; Diarrhea, unspecified type; Right lower quadrant abdominal pain; Type 2 diabetes mellitus with hemoglobin A1c goal of less than 7.0% ([facility]); HTN, goal below 140/90 Allergies No known active allergiesdocumented as of this encounter (statuses as of 11/17/2024) Medications omeprazole (PRILOSEC) 20 MG CPDRIndications: Gastroesophageal [...] as of this encounter (statuses as of 11/17/2024) Active Problems Problem Noted Date Diagnosed Date CRYSTAL (obstructive sleep apnea) 08/12/2018 Dyslipidemia 02/17/2017 Type 2 diabetes mellitus wit h hemoglobin A1c goal of less than 7.0% 02/16/2017 HTN, goal below 130/80 05/08/2015 Iron deficiency anemia due to chronic blood loss Bladder spasms Overview (08/21/2011): stable on vesicare documented as of this encounter (statuses as of 11/17/2024) Resolved Problems Problem Noted Date Diagnosed Date [...] as of this encounter (statuses as of 11/17/2024) Immunizations Name Administration Dates Next Due Hepatitis B, 20+ yrs 06/03/2018,12/28/2017,11/25 PPD 01/26/2019,07/11/2018,05/18/2017 Pneumococcal Conjugate Vacci ne, 20-valent ([id number]) 05/20/2022 Pneumococcal Polysaccharide PPV23 (Pneumovax) 05/18/2017 Seasonal [...] Passive Smoke Exposure: Never Smokeless Tobacco: Never Tobacco Cessation:Counseling Given: Not Answered Alcohol Use Standard Drinks/Week Comments Yes 0 [...] Sign Reading Time Taken Comments Blood Pressure 110/56 11/17/2024 7:38 AM EDT Pulse 80 11/17/2024 7:38 AM EDT Temperature 36.6 C (97.8 F) 11/17/2024 7:38 AM ED T Respiratory Rate 16 11/17/2024 7:38 AM EDT Oxygen Saturation 97% 11/17/2024 7:38 AM EDT Inhaled Oxygen Concentration - - Weight 92.1 kg (203 lb) 11/17/2024 7:38 AM EDT Height 167.6 cm (5' 6") 11/17/2024 7:38 AM EDT Body Mass Index 32.77 11/17/2024 7:38 AM EDT documented in this encounter Progress Notes * Carlos Eduardo Madden MD - 11/17/2024 7:49 AM EDT Images from the original note were not included. History of Present Illness Angelia Garcia is a 59 year old female that presents for Acute (Pt here for c/o explosive diarrhea for 2 weeks. Then a week ago pt vomited once a bright yellow. Then pt started having lower right abdominal pain. Pt has been taking tylenol and advil for the pain. Pt last took advil about 3am today. ) Patient's diarrhea has resolved. She now has fairly significant bloating and discomfort with pressure over her abdomen. She did not have a BM yesterday. Single episode of vomiting that occurred 2 days ago, none since. Appetite is reduced. Physical Exam BP 110/56 (BP Site: Left Arm, BP Position: Sitting, BP Cuff Size: Regular) | Pulse 80 | Temp 97.8 F (36.6 C) (Tympanic) | Resp 16 | Ht 5' 6" (1.676 m) | Wt 203 lb (92.1 kg) | LMP 08/05/2015 (Approximate) | SpO2 97% | BMI 32.77 kg/m | BSA 2.07 m AAOx3 Mildly ill appearing, looks fatigued In no acute distress NCAT/ PERRL Neck supple Throat clear RRR Lungs CTABL + abdominal bloating Tender in lower abdomen both sides + bowel sounds in 4 quadrants Ext warm and well perfused No gross neuro deficits Normal gait I have reviewed most recent labs None Assessment and Plan Infectious Colitis - new - will treat - cipro x 5 days BID - BRAT diet. Hydrate. Work note given. Diarrhea, unspecified type - now resolved and is quite bloated Right lower quadrant abdominal pain - right lower and across midline into the lower quadrant Type 2 diabetes mellitus with hemoglobin A1c goal of less than 7.0% (HCC) - at goal and wlel controlled. I recommend she hold her next dose of ozempic due to the illness (due on Wednesday)/ she can also hold her metformin for 3 days HTN, goal below 140/90 - at goal, dehydrated though - increase fluids. Cont same meds Wrap-Up As above Cipro BID x 5 days Work note Hold ozempic on Wednesday Hold metformin for 3 days Prn/scheduled Time: I spent a total of 30-39 minutes (exact time 31 mins) on the date of service in preparation, delivery, and documentation of the care provided to Angelia Garcia excluding any time spent in the performance of separately billed services. documented in this encounter Plan of Treatment Health Maintenance Due Date Last Done Comments HPV/Co-Test 01/10/1996 Cologuard 2011 Fecal Occult Blood Test 2011 Sigmoidoscopy 2011 Pap Smear 01/06/2021 01/06/2018, 05/2016, 11/05/2014 (Done elsewhere), Additional history exists Cervical Cancer Screening 11/20/2024 Po stponed from 01/06/2021 (Other) Diabetic Eye Exam 11/20/2024 11/08/2018, , 07/23/2012 Postponed from 11/09/2019 (Unavailable) Depression Screening 01/04/2025 01/05/2024 HbA1c 02/14/2025 08/16/2024, [...] as of this encounter Visit Diagnoses Diagnosis Colitis, infectious- Primary Infectious colitis, enteritis, and gastroenteritis Diarrhea, unspecified type Right lower quadrant abdominal pain Abdominal pain, right lower quadrant Type 2 diabetes mellitus with hemoglobin A1c goal of less than 7.0% (HCC) HTN, goal below 140/90 Unspecified essential hypertension documented in this encounter Care Teams Inventory Management Specialist Relationship Specialty Start Date End Date Danelle Cerda DO [address] [place] [address] PCP - General Family Medicine 11/05/16 documented as of this encounter
--- OUTSIDE RECORDS SUMMARY | 2024-11-24 05:36 | External Medical Summary | Summary of Care ---
Author Name Unknown Organization [facility] Address [address] [facility] [place] [address] Phone [phone] Care Team Providers Care Junior Recruiter Name Role Phone Kody Olmstead DO Primary Care Provider [phone] Reason for Visit * Reason Comments eRx-Medication Refill Encounter Details Date Type Department Care Team (Late st Contact Info) Description 08/30/2024 Refill Family Practice [facility] [address] [place] [address] Kody Olmstead DO [address] [place] [address] Dyslipidemia, goal LDL below 100 Allergies No known active allergiesdocumented as of this encounter (statuses as of 09/01/2024) Medications omeprazole (PRILOSEC) 20 MG CPDRIndications :Gastroesophage al reflux disease without esophagitis Take 1 Capsule by mouth in the morning. 30 minutes before a meal. 30 Cap 5 017 Active Blood Glucose Monitoring Suppl (D-CARE GLUCOMETER) w/Device KITIndications: Type 2 diabetes mellitus with hemoglobin A1c goal of less than 7.0% ([facility]) Use as directed. 1 Kit 5 017 [...] directed. E11.9 100 Strip 11 023 Active hydroCHLOROthia zide 25 MG Oral Tablet (Hydrodiuril)In dications:HTN, goal below 140/90 TAKE 1 TABLET BY MOUTH IN THE MORNING 90 Tablet 024 Active Lisinopril 40 MG Oral TabletIndicatio ns:HTN, goal below 140/90 TAKE 1 TABLET BY MOUTH IN THE MORNING 90 Tablet 1 024 Active metFORMIN HCl 1000 MG Oral Tablet (Glucophage)Ind ications:Type 2 diabetes mellitus with hemoglobin A1c goal of less than 7.0% (HCC) TAKE 1 TABLET BY MOUTH TWICE DAILY WITH MORNING MEAL AND WITH EVENING MEAL 180 Tablet 024 Active Ozempic (2 MG/DOSE) 8 MG/3ML [...] OR CHEW. 30 Tablet 11 024 Active Atorvastatin Calcium 80 MG Oral Tablet (Lipitor)Indica tions:Dyslipide maksim, goal LDL below 100 Take 1 Tablet by mouth in the morning. In the morning.. 90 Tablet 024 2023 Discontinued oxyBUTYnin Chloride ER 15 MG Oral Tablet Extended Release 24 Hour (Ditropan XL) TAKE 1 TABLET BY MOUTH ONCE DAILY IN THE MORNING . DO NOT CUT CRUSH OR CHEW. 30 Tablet 1 024 2023 Discontinued documented as of this encounter (statuses as of 09/01/2024) Active Problems Problem Noted Date Diagnosed Date CRYSTAL (obstructive sleep apnea) 08/12/2018 Dyslipidemia 02/17/2017 Type 2 diabetes mellitus wit h hemoglobin A1c goal of less than 7.0% 02/16/2017 HTN, goal below 130/80 05/08/2015 Iron deficiency anemia due to chronic blood loss Bladder spasms Overview (08/21/2011): stable on vesicare documented as of this encounter (statuses as of 09/01/2024) Resolved Problems Problem Noted Date Diagnosed Date [...] as of this encounter (statuses as of 09/01/2024) Immunizations Name Administration Dates Next Due Hepatitis B, 20+ yrs 06/03/2018,12/28/2017,11/25 PPD 01/26/2019,07/11/2018,05/18/2017 Pneumococcal Conjugate Vacci ne, 20-valent ([id number]) 05/20/2022 Pneumococcal Polysaccharide PPV23 (Pneumovax) 05/18/2017 Seasonal [...] encounter Miscellaneous Notes * Telephone Encounter - Carlos Eduardo Madden MD - 09/01/2024 10:36 AM EST Signed Prescriptions: Disp Refills Atorvastatin Calcium 80 MG Oral Tablet (Li*90 Tab*3 Sig: TAKE 1 TABLET BY MOUTH IN THE MORNING Authorizing Provider: KODY OLMSTEAD Ordering User: BOBBY BECKMAN oxyBUTYnin Chloride ER 15 MG Oral Tablet E*30 Tab*11 Sig: TAKE 1 TABLET BY MOUTH ONCE DAILY IN THE MORNING. DO NOT CUT, CRUSH, OR CHEW. Authorizing Provider : CARLOS EDUARDO MADDEN * Telephone Encounter - Bobby Beckman [facility] - 09/01/2024 10:08 AM EST Pending Prescriptions: Disp Refills oxyBUTYnin Chloride ER 15 MG Oral Tablet E*30 Tab*11 Sig: TAKE 1 TABLET BY MOUTH ONCE DAILY IN THE MORNING. DO NOT CUT, CRUSH, OR CHEW. Signed Prescriptions: Disp Refills Atorvastatin Calcium 80 MG Oral Tablet (Li*90 Tab*3 Sig: TAKE 1 TABLET BY MOUTH IN THE MORNING Authorizing Provider: KOYD OLMSTEAD User: BOBBY BECKMAN * Telephone Encounter - Bobby Beckman [facility] - 09/01/2024 10:07 AM EST [facility] is currently not authorized to approve refills for the pended medication(s) per refill protocol. Please approve if appropriate. Thank you, Bobby Beckman, PharmD Clinical Pharmacist [facility] ([facility]) 09/01/24 10:07 AM [phone] documented in this encounter Plan of Treatment [...] as of this encounter Visit Diagnoses Diagnosis Dyslipidemia, goal LDL below 100 Other and unspecified hyperlipidemia documented in this encounter Care Teams Junior Recruiter Relationship Specialty Start Date End Date Kody Olmstead DO [address] [place] [address] PCP - General Family Medicine 11/05/16 documented as of this encounter
--- OUTSIDE RECORDS SUMMARY | 2024-11-24 05:36 | External Medical Summary | Summary of Care ---
Author Name Unknown Organization [facility] Address [address] [facility] [place] [address] Phone [phone] Care Team Providers Care Automotive Buyer Name Role Phone Danelle Cerda DO Primary Care Provider [phone] Reason for Visit * Reason Onset Date Comments Test Results 08/17/2024 Encounter Details Date Type Department Care Team (Late st Contact Info) Description 08/17/2024 Telephone Family Practice [facility] [address] [place] [address] Danelle Cerda DO [address] [place] [address] Test Results Allergies No known active allergiesdocumented as of this encounter (statuses as of 11/17/2024) Medications omeprazole (PRILOSEC) 20 MG CPDRIndications :Gastroesophage al reflux disease without esophagitis Take 1 Capsule by mouth in the morning. 30 minutes before a meal. 30 Cap 5 017 Active Blood Glucose Monitoring Suppl (D-CARE GLUCOMETER) w/Device KITIndications: Type 2 diabetes mellitus with hemoglobin A1c goal of less than 7.0% ([facility]) Use as directed. 1 Kit 5 017 [...] the morning.. 90 Tablet 024 2023 Discontinued hydroCHLOROthia zide 25 MG Oral Tablet (Hydrodiuril)In dications:HTN, goal below 140/90 TAKE 1 TABLET BY MOUTH IN THE MORNING 90 Tablet 024 2024 Discontinued oxyBUTYnin Chloride ER 15 MG Oral Tablet Extended Release 24 Hour (Ditropan XL) TAKE 1 TABLET BY MOUTH ONCE DAILY IN THE MORNING . DO NOT CUT CRUSH OR CHEW. 30 Tablet 1 024 2023 Discontinued metFORMIN HCl 1000 MG Oral Tablet (Glucophage)Ind ications:Type 2 diabetes mellitus with hemoglobin A1c goal of less than 7.0% (HCC) TAKE 1 TABLET BY MOUTH TWICE DAILY WITH MORNING MEAL AND WITH EVENING MEAL 180 Tablet 024 2024 Discontinued Ozempic (2 MG/DOSE) 8 MG/3ML Subcutaneous Solution [...] PPD 01/26/2019,07/11/2018,05/18/2017 Pneumococcal Conjugate Vacci ne, 20-valent ([id number]) 05/20/2022 Pneumococcal Polysaccharide PPV23 (Pneumovax) 05/18/2017 Seasonal [...] encounter Miscellaneous Notes * Telephone Encounter - Theresa Quiñones LPN - 08/18/2024 3:49 PM EST MyG sent * Telephone Encounter - Theresa Quiñones LPN - 08/18/2024 3:49 PM EST Your labs look good! No changes are needed at this time. Written by Danelle Cerda DO on 08/18/2024 3:14 PM EST * Telephone Encounter - Antoinette Cullen OSA - 08/17/2024 9:45 AM EST Who is Requesting Test Results: Pt Primary Care Provider : Danelle Cerda DO Tests Results Requested : labs Date of Test : 08/16/24 Location of Test: [facility] Ordering Provider: Danelle Cerda Patient has been made aware that the turnaround time for test results are typically as follows: Laboratory results = within 2-3 days ([facility]), 3-5 days (Non-[facility], ie. [facility]) Urine Cultures = within 2-3 days depending on growth within the culture Pathology results (biopsy results/PAP) = 1-2 weeks Radiology results = about 1 week Cologuard results = within 2 weeks from the shipment date COVID testing = about 24 hours documented in this encounter Plan of Treatment Upcoming Encounters Date Type Department Care Team (Late st Contact Info) Description 11/17/2024 7:40 AM EDT Office Visit Family [facility] [address] [place] [address] Carlos Eduardo Madden MD [address] [place] [address] Health Maintenance Due Date Last Done Comments [...] filedocumented as of this encounter Care Teams Automotive Buyer Relationship Specialty Start Date End Date Danelle Cerda DO [address] [place] [address] PCP - General Family Medicine 11/05/16 documented as of this encounter
--- OUTSIDE RECORDS SUMMARY | 2024-11-24 05:37 | External Medical Summary | Summary of Care ---
Author Name Unknown Organization [facility] Address [address] [facility] [place] [address] Phone [phone] Care Team Providers Care Stringed Instrument Repairer Name Role Phone Kody Olmstead DO Primary Care Provider [phone] Reason for Visit * Reason Comments eRx-Medication Refill Encounter Details Date Type Department Care Team (Late st Contact Info) Description 06/22/2024 Refill Family Practice [facility] [address] [place] [address] Kody Olmstead DO [address] [place] [address] Encounter for long-term (current) use of medications*; Type 2 diabetes mellitus with hemoglobin A1c goal of less than 7.0% (HCC) Allergies No known active allergiesdocumented as of this encounter (statuses as of 06/26/2024) Medications Medication Sig Dispensed Refills Start Date End Date Status omeprazole (PRILOSEC) 20 MG CPDRIndications: Gastroesophageal reflux disease without esophagitis Take 1 Capsule by mouth in the morning. 30 minutes before a meal. 30 Cap 5 7 Active Blood Glucose Monitoring Suppl (D-CARE GLUCOMETER) w/Device KITIndications:T ype 2 diabetes mellitus with hemoglobin A1c goal of less than 7.0% (HCC) Use as directed. 1 Kit 5 7 Active Aspirin 81 MG TabletIndication s:HTN, goal below 140/90 Take 1 Tablet by mouth in the morning. 30 Tab 8 Active Lancets MISCIndications: Type 2 diabetes mellitus with hemoglobin A1c goal of less than 7.0% (HCC) Use as directed. 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 1 Each 3 Active Glucose Blood In Vitro StripIndications :Type 2 diabetes mellitus with hemoglobin A1c goal of less than 7.0% (HCC) Use to test 4 times a day as directed. E11.9 100 Strip 11 3 Active Ozempic (2 MG/DOSE) 8 MG/3ML Subcutaneous Solution Pen-injector (Semaglutide (2 MG/DOSE))Indicat ions:Type 2 diabetes mellitus with hemoglobin A1c goal of less than 7.0% (HCC) INJECT 2 MG SUBCUTANEOUSLY ONCE A WEEK 3 mL 2 4 Active Atorvastatin Calcium 80 MG Oral Tablet (Lipitor)Indicat ions:Dyslipidemi a, goal LDL below 100 Take 1 Tablet by mouth in the morning. In the morning.. 90 Tablet 4 Active hydroCHLOROthiaz dhiraj 25 MG Oral Tablet (Hydrodiuril)Ind ications:HTN, goal below 140/90 TAKE 1 TABLET BY MOUTH IN THE MORNING 90 Tablet 4 Active oxyBUTYnin Chloride ER 15 MG Oral Tablet Extended Release 24 Hour (Ditropan XL) TAKE 1 TABLET BY MOUTH ONCE DAILY IN THE MORNING . DO NOT CUT CRUSH OR CHEW. 30 Tablet 1 4 Active Lisinopril 40 MG Oral TabletIndication s:HTN, goal below 140/90 TAKE 1 TABLET BY MOUTH IN THE MORNING 90 Tablet 1 4 Active metFORMIN HCl 1000 MG Oral Tablet (Glucophage)Galilea cations:Type 2 diabetes mellitus with hemoglobin A1c goal of less than 7.0% (HCC) TAKE 1 TABLET BY MOUTH TWICE DAILY WITH MORNING MEAL AND WITH EVENING MEAL 180 Tablet 4 Active metFORMIN HCl 1000 MG Oral Tablet (Glucophage)Galilea cations:Type 2 diabetes mellitus with hemoglobin A1c goal of less than 7.0% (HCC) TAKE 1 TABLET BY MOUTH TWICE DAILY WITH MORNING MEAL AND WITH EVENING MEAL 180 Tablet 1 3 06/23/20 24 Discontinued documented as of this encounter (statuses as of 06/26/2024) Active Problems Problem Noted Date Diagnosed Date CRYSTAL (obstructive sleep apnea) 08/12/2018 Dyslipidemia 02/17/2017 Type 2 diabetes mellitus wit h hemoglobin A1c goal of less than 7.0% 02/16/2017 HTN, goal below 130/80 05/08/2015 Iron deficiency anemia due to chronic blood loss Bladder spasms Overview: stable on vesicare documented as of this encounter (statuses as of 06/26/2024) Resolved Problems Problem Noted Date Diagnosed Date Resolved Date Morbid obesity due to excess calories 02/17/2017 01/21/2024 Lower urinary tract infectious disease 06/03/2015 02/17/2017 Overview: ICD-10 update of inactive term Elevated blood pressure, situational 05/07/2015 05/18/2015 Glucose found in urine on examination 05/07/2015 02/17/2017 ADVANCE DIRECTIVE INFORMATION 11/01/2012 12/27/2019 Overview: No, Advance Directive brochure offered, patient declined. Obesity, Class II, BMI 35-39 .9, isolated (see actual BMI) 02/17/2010 09/08/2012 Overview: Per Obesity Protocol, #19 NONINF GASTROENTERIT NEC 11/2012 Gestational diabetes 013 Overview: x 3 Glucose intolerance (impaire d glucose tolerance) 02/17/2017 documented as of this encounter (statuses as of 06/26/2024) Immunizations Name Administration Dates Next Due Hepatitis B, 20+ yrs 06/03/2018,12/28/2017,11/25 PPD 01/26/2019,07/11/2018,05/18/2017 Pneumococcal Conjugate Vacci ne, 20-valent ([id number]) 05/20/2022 Pneumococcal Polysaccharide PPV23 (Pneumovax) 05/18/2017 Seasonal [...] Recorded PHQ Adult Total Score 0 01/05/2024 Utilities Answer Date Recorded Do you have trouble paying y our heating, water, or electric bill? (Adult - for ages 18 years and over) Not on file 02/22/2024 Is your family able to pay t he heat, water, or electric bill? (Household - for ages 0-17 years) Not on file 02/22/2024 Does your family have access to good internet? (Household - for ages 0-17 years) Not on file 02/22/2024 Social Connections Answer Date Recorded How often do you feel lonely or isolated from those around you? (Adult - for ages 18 years and over) Not on file 02/22/2024 Sex and Gender Information Value Date Recorded Sex Assigned at Not on file Gender Identity Not on file Sexual Orientation Not on file Job Start Date Occupation Industry Not on file Not on file Not on file documented as of this encounter Miscellaneous Notes * Telephone Encounter - Kuldeep Carrizales - 06/26/2024 11:22 PM EDT Received message from [facility] regarding patient needing labs. Patient was notified. Successfully contacted patient and provided [facility] message. * Telephone Encounter - Dee Rojo [facility] - 06/23/2024 12:03 PM EDTSigned Prescriptions: Disp Refills metFORMIN HCl 1000 MG Oral Tablet (Glucoph*180 Ta*0 Sig: TAKE 1 TABLET BY MOUTH TWICE DAILY WITH MORNING MEAL AND WITH EVENING MEAL Authorizing Provider: KODY OLMSTEAD Ordering User: DEE RJOO * Telephone Encounter - Dee Rojo RP - 06/23/2024 12:02 PM EDT Provided 90 days supply with 0 refill(s). Per refill protocol patient should have routine on file within past year. Reviewed AMP report, Care Gaps/Health Maintenance, medications list, and for any routine labs typically ordered for this patient. Lab orders placed. Please contact patient to advise of labs ordered for blood draw AND URINE specimen (patient will have to be able to void to provide sample). Recommend patient to fast if able for labs. Patient may still have water and regular medications. Advise to obtain labs before requesting the next refill. Thanks, Dee Rojo Clinical Pharmacist [facility] Pharmacy Services ([facility]) [phone] 06/23/2024, 12:03 PM documented in this encounter Plan of Treatment Upcoming Encounters Date Type Department Care Team (Late st Contact Info) Description 08/02/2024 5:40 PM EST Office Visit Family [facility] [address] [place] [address] Kody Olmstead, [address] [place] [address] Scheduled Orders Name Type Priority Associated Diagnoses Orde r Schedule ALBUMIN / CREATININE RATIO, URINE Lab Routine Encounter for long-term (current) use of medications Expected: 06/30/2024, Expires: 06/23/2025 COMPREHENSIVE METABOLIC PANEL Lab Routine Encounter for long-term (current) use of medications Expected: 06/30/2024 (Approximate), Expires: 06/23/2025 Health Maintenance Due Date Last Done Comments HIV Screening 1981 Hepatitis C Screening 01/10/1984 HPV/Co-Test 01/10/1996 Cologuard 2011 Fecal Occult Blood Test 2011 Sigmoidoscopy 2011 Diabetic Eye Exam 11/09/2019 11/08/2018, , 07/23/2012 Cervical Cancer Screening 01/06/2021 Pap Smear 01/06/2021 01/06/2018, 03/0 05/2016, 11/05/2014 (Done elsewhere), Additional history exists COVID-19 Vaccine ( season) 2024 Influenza Vaccine (FLU shot) (#1) 2024 06/29/2023, 05/20/2022, 05/13/2021, Additional history exists Albumin/Creatinine Ratio 06/23/2024 023, 11/11/2021, 05/03/2017 GFR 06/23/2024 06/23/2023, 09/0 05/2022, 05/13/2021, Additional history exists Diabetic Foot Exam 06/29/2024 06/29/2023, 0 11/11/2021, 11/29/2020, Additional history exists HbA1c 07/04/2024 01/03/2024, 06/06, 12/11/2022, Additional history exists B-12 01/02/2025 01/03/2024, 04/0 03/2023, 05/13/2021, Additional history exists Depression Screening 01/04/2025 01/05/2024 Mammogram 04/14/2025 04/14/2024, 08/0 12/2022, 04/03/2022, Additional history exists Colonoscopy 02/19/2027 02/19/2017, 12/14/2014 Colorectal Cancer Screening 02/19/2027 Lipid Panel 06/23/2028 06/23/2023, 09/0 05/2022, 05/13/2021, Additional history exists DTap/Tdap Vaccines (3 - Td or Tdap) 06/29/2028 06/29/2018, 05/30/2008 Hepatitis B Vaccine Completed 06/03/2018, 12/28/2017, 11/25/2017 Zoster Vaccines Completed 02/10/2022, 09/21/2021 Pneumococcal Vaccine: Pediatrics (0 to 5 Years) and At-Risk Patients (6 to 64 Years) Completed 05/20/2022, 05/18/2017 HPV (Gardasil) Vaccine Aged Out No lo nger eligible based on patient's age to complete this topic MENINGOCOCCAL (MENACTRA/MENVEO) Aged Out No longer eligible based on patient's age to complete this topic documented as of this encounter Medical Devices Not on filedocumented as of this encounter Visit Diagnoses Diagnosis Encounter for long-term (current) use of medications- Primary Encounter for long-term (current) use of other medications Type 2 diabetes mellitus with hemoglobin A1c goal of less than 7.0% (HCC) documented in this encounter Care Teams Stringed Instrument Repairer Relationship Specialty Start Date End Date Kody Olmstead DO [address] [place] [address] PCP - General Family Medicine 11/05/16 documented as of this encounter
--- OUTSIDE RECORDS SUMMARY | 2024-11-24 05:37 | External Medical Summary ---
Author Name Unknown Address Unknown Organization [id number]:LABORATORY [facility] [place] - [address] [place] [address] Laboratory Report Ordering Provider Test Date Status NAHID GATES 08/16/2024 10:48:03 Final Observation Date Value Abnormality Reference (Units ) Status LDL, (direct) 08/16/2024 10:48:03 79 <=129 (mg/dL) Final LDL Cholesterol Reference Ra nges (mg/dL):
<70 Target level for high risk ASCVD patient
<100 Optimal for general population
100-129 Near optimal for general population
130-159 Borderline high
160-189 High
>=190 Very high Performing Location LABORATORY [facility] - [address] [place] [address]
--- OUTSIDE RECORDS SUMMARY | 2024-11-24 05:37 | External Medical Summary ---
Author Name Unknown Address Unknown Organization [id number]:[facility]ORY [facility] [place] [address] [place] [address] Laboratory Report Ordering Provider Test Date Status AYSHA GATES 08/16/2024 10:48:03 Final Observation Date Value Abnormality Reference (Units ) Status HbA1C 08/16/2024 10:48:03 6.1 Above high normal 4. 0-5.6 (%) Final The use of HbA1c to monitor glycemic status is based on normal hemoglobin and HbA composition. This test should not be used in patients with abnormal hemoglobin that affects the half life of the red blood cell or the in vivo glycation rates. Glucose, estimated average 08/16/2024 10:48:03 128 Above high normal <126 (mg/dL) Juan Miguel blair Performing Location LAB[facility] [place] - [address] [facility] [address]
--- OUTSIDE RECORDS SUMMARY | 2024-11-24 05:37 | External Medical Summary | Summary of Care ---
Author Name Unknown Organization [facility] Address [address] [facility] [place] [address] Phone [phone] Care Team Providers Care Nurse Transition Name Role Phone Kody Olmstead DO Primary Care Provider [phone] Reason for Visit * Reason Comments eRx-Medication Refill Encounter Details Date Type Department Care Team (Late st Contact Info) Description 08/04/2024 Refill Family Practice [facility] [address] [place] [address] Kody Olmstead DO [address] [place] [address] Type 2 diabetes mellitus with hemoglobin A1c goal of less than 7.0% (HCC) Allergies No known active allergiesdocumented as of this encounter (statuses as of 08/05/2024) Medications omeprazole (PRILOSEC) 20 MG CPDRIndications :Gastroesophage [...] as directed. 100 Each 11 020 Active Wrist Splint/Cock-Up/ Right LIndications:Ca rpal tunnel syndrome of right wrist Use at night as directed. 1 Each 023 Active Glucose Blood In Vitro StripIndication s:Type 2 diabetes mellitus with hemoglobin A1c goal of less than 7.0% (HCC) Use to test 4 times a day as directed. E11.9 100 Strip 11 023 Active Atorvastatin Calcium 80 MG Oral Tablet (Lipitor)Indica tions:Dyslipide maksim, goal LDL below 100 Take 1 Tablet by mouth in the morning. In the morning.. 90 Tablet 024 Active hydroCHLOROthia zide 25 MG Oral Tablet (Hydrodiuril)In dications:HTN, goal below 140/90 TAKE 1 TABLET BY MOUTH IN THE MORNING 90 Tablet 024 Active oxyBUTYnin Chloride ER 15 MG Oral Tablet Extended Release 24 Hour (Ditropan XL) TAKE 1 TABLET BY MOUTH ONCE DAILY IN THE MORNING . DO NOT CUT CRUSH OR CHEW. 30 Tablet 1 024 Active Lisinopril 40 MG Oral TabletIndicatio [...] A WEEK 3 mL 2 024 Active Ozempic (2 MG/DOSE) 8 MG/3ML Subcutaneous Solution Pen-injector (Semaglutide (2 MG/DOSE))Indica tions:Type 2 diabetes mellitus with hemoglobin A1c goal of less than 7.0% (HCC) INJECT 2 MG SUBCUTANEOUSLY ONCE A WEEK 3 mL 2 024 2023 Discontinued documented as of this encounter (statuses as of 08/05/2024) Active Problems Problem Noted Date Diagnosed Date CRYSTAL (obstructive sleep apnea) 08/12/2018 Dyslipidemia 02/17/2017 Type 2 diabetes mellitus wit h hemoglobin A1c goal of less than 7.0% 02/16/2017 HTN, goal below 130/80 05/08/2015 Iron deficiency anemia due to chronic blood loss Bladder spasms Overview (08/21/2011): stable on vesicare documented as of this encounter (statuses as of 08/05/2024) Resolved Problems Problem Noted Date Diagnosed Date [...] as of this encounter (statuses as of 08/05/2024) Immunizations Name Administration Dates Next Due Hepatitis B, 20+ yrs 06/03/2018,12/28/2017,11/25 PPD 01/26/2019,07/11/2018,05/18/2017 Pneumococcal Conjugate Vacci ne, 20-valent ([id number]) 05/20/2022 Pneumococcal Polysaccharide PPV23 (Pneumovax) 05/18/2017 Seasonal [...] encounter Miscellaneous Notes * Telephone Encounter - Lizette Byrne RPh - 08/05/2024 11:12 AM EST Signed Prescriptions: Disp Refills Ozempic (2 MG/DOSE) 8 MG/3ML Subcutaneous *3 mL 2 Sig: INJECT 2 MG SUBCUTANEOUSLY ONCE A WEEKAuthorizing Provider: KODY OLMSTEAD User: LIZETTE BYRNE MA documented in this encounter Plan of Treatment Upcoming Encounters Date Type Department Care Team (Late st Contact Info) Description 08/16/2024 6:00 PM EST Office Visit Family [facility] [address] [place] [address] Kody Olmstead DO [address] [place] [address] Health Maintenance Due Date Last Done Comments [...] 05/20/2022, 05/13/2021, Additional history exists Albumin/Creatinine Ratio 06/23/202406/23/2 023, 11/11/2021, 05/03/2017 GFR 06/23/2024 06/23/2023, 09/0 [...] Cancer Screening 02/19/2027 Lipid Panel 06/23/2028 06/23/2023, 05/2022, 05/13/2021, Additional history exists DTap/Tdap Vaccines [...] (HCC) documented in this encounter Care Teams Nurse Transition Relationship Specialty Start Date End Date Kody Olmstead DO [address] [place] [address] PCP - General Family Medicine 11/05/16 documented as of this encounter
--- OUTSIDE RECORDS SUMMARY | 2024-11-24 05:37 | External Medical Summary ---
Author Name Unknown Address Unknown Organization [id number]:LABORATORY [facility] [place] - [address] [place] [address] Laboratory Report Ordering Provider Test Date Status KING TUTTLE 08/16/2024 10:51:29 Final Normal: <30 mg/g creatinine< br/>High: 30-300 mg/g creatinine
Very High: >300 mg/g creatinine
Nephrotic: >2200 mg/g creatinine Observation Date Value Abnormality Reference (Units ) Status Albumin, Urine 08/16/2024 10:51:29 <1.20 (mg/dL) Final Creatinine, Urine 08/16/2024 10:51:29 75 (mg/dL) Final Albumin/Creatinine [Mass Ratio] in Urine 08/16/2024 10:51:29 <16 <30 (mg/g Creat) Final Performing Location LAB[facility]ATORY [facility] [place] - [address] [place] [address]
--- OUTSIDE RECORDS SUMMARY | 2024-11-24 05:37 | External Medical Summary ---
Author Name Unknown Address Unknown Organization [id number]:LAB[facility]ATORY [facility] - [address] [place] [address] Laboratory Report Ordering Provider Test Date Status KING TUTTLE 08/16/2024 10:48:03 Final Observation Date Value Abnormality Reference (Units ) Status BUN 08/16/2024 10:48:03 19 6-20 (mg/dL) Final Creatinine 08/16/2024 10:48:03 0.6 0.5-1.0 (mg/dL) Final Glomerular filtration rate/1.73 sq M.predicted [Volume Rate/Area] in Serum, Plasma or Blood by Creatinine-based formula (CKD-EPI) 08/16/2024 10:48:03 >90 >=60 (mL/min) Final eGFR is calculated based on the CKD-EPI 2020 equation. Sodium 08/16/2024 10:48:03 140 135-146 (m mol/L) Final Potassium 08/16/2024 10:48:03 4.3 3.5-5.1 (m mol/L) Final Cl 08/16/2024 10:48:03 101 98-107 (mm ol/L) Final CO2 08/16/2024 10:48:03 29 22-32 (mmo l/L) Final Anion gap 08/16/2024 10:48:03 10 7-15 (mmol /L) Final Glucose 08/16/2024 10:48:03 137 Above high normal 70 -120 (mg/dL) Final Albumin 08/16/2024 10:48:03 4.4 3.8-5.0 (g /dL) Final AST (Aspartate aminotransferase) 08/16/2024 10:48:03 22 10-35 (U/L) Fin al Alk Phos 08/16/2024 10:48:03 150 Above high normal 35 -130 (U/L) Final Bilirubin, Total 08/16/2024 10:48:03 0.7 <=1 .2 (mg/dL) Final Calcium 08/16/2024 10:48:03 9.8 8.4-10.2 ( mg/dL) Final Protein 08/16/2024 10:48:03 7.2 6.0-8.3 (g /dL) Final ALT (Alanine aminotransferase) 08/16/2024 10:48:03 29 10-35 (U/L) Juan Miguel blair Performing Location LABORATORY [facility] - [address] [facility] [place] [address]
--- OUTSIDE RECORDS SUMMARY | 2024-11-24 05:37 | External Medical Summary ---
Author Name Unknown Address Unknown Organization [id number]:LAB[facility]ATORY [facility] - [address] [place] [address] Laboratory Report Ordering Provider Test Date Status NAHID GATES 08/16/2024 10:48:03 Final Observation Date Value Abnormality Reference (Units ) Status Triglyceride 08/16/2024 10:48:03 153 <=174 ( mg/dL) Final Triglyceride Reference Range s (mg/dL):
<150 Acceptable
150-174 Borderline high
175-499 High
>=500 Very high Cholesterol 08/16/2024 10:48:03 149 <200 (mg /dL) Final Total Cholesterol Reference Ranges (mg/dL):
<200 Desirable
200-239 Borderline high
>=240 High HDL 08/16/2024 10:48:03 54 >49 (mg/dL ) Final HDL Cholesterol Reference Ra nges (mg/dL):
>=60 High (Desirable)
<50 Low (Undesirable) For Females
<40 Low (Undesirable) For Males NON-HDL CHOLESTEROL 08/16/2024 10:48:03 95 <=159 (mg/dL) Final Non-HDL Cholesterol Referenc e Range (mg/dL):
<100 Target level for high risk ASCVD patient
<130 Optimal for general population
130-159 Near optimal for general population
160-189 Borderline High
190-219 High
>=220 Very High Performing Location LABORATORY [facility] - [address] [place] [address]
--- OUTSIDE RECORDS SUMMARY | 2024-11-24 05:37 | External Medical Summary | Summary of Care ---
Author Name Unknown Organization [facility] Address [address] [facility] [place] [address] Phone [phone] Care Team Providers Care Assistant Professor Of Geography Name Role Phone Kody Olmstead DO Primary Care Provider [phone] Reason for Visit * Reason Comments eRx-Medication Refill Encounter Details Date Type Department Care Team (Late st Contact Info) Description 06/03/2024 Refill Family Practice [facility] [address] [place] [address] Kody Olmstead DO [address] [place] [address] HTN, goal below 140/90 Allergies No known active allergiesdocumented as of this encounter (statuses as of 06/06/2024) Medications Medication Sig Dispensed Refills Start Date End Date Status omeprazole (PRILOSEC) 20 MG CPDRIndications: Gastroesophageal reflux disease without esophagitis Take 1 Capsule by mouth in the morning. 30 minutes before a meal. 30 Cap 5 7 Active Blood Glucose Monitoring Suppl (D-CARE GLUCOMETER) w/Device KITIndications:T ype 2 diabetes mellitus with hemoglobin A1c goal of less than 7.0% ([facility]) Use as directed. 1 Kit 5 7 [...] directed. E11.9 100 Strip 11 3 Active Lisinopril 40 MG Oral TabletIndication s:HTN, goal below 140/90 TAKE 1 TABLET BY MOUTH IN THE MORNING 90 Tablet 3 3 Active metFORMIN HCl 1000 MG Oral Tablet (Glucophage)Galilea cations:Type 2 diabetes mellitus with hemoglobin A1c goal of less than 7.0% (HCC) TAKE 1 TABLET BY MOUTH TWICE DAILY WITH MORNING MEAL AND WITH EVENING MEAL 180 Tablet 1 3 Active Ozempic (2 MG/DOSE) 8 MG/3ML [...] OR CHEW. 30 Tablet 1 4 Active hydroCHLOROthiaz dhiraj 25 MG Oral Tablet (Hydrodiuril)Ind ications:HTN, goal below 140/90 Take 1 Tablet by mouth in the morning. 90 Tablet 3 3 06/06/20 24 Discontinued oxyBUTYnin Chloride ER 15 MG Oral Tablet Extended Release 24 Hour (Ditropan XL) TAKE 1 TABLET BY MOUTH IN THE MORNING . DO NOT CUT, CRUSH OR CHEW 30 Tablet 4 06/06/20 24 Discontinued documented as of this encounter (statuses as of 06/06/2024) Active Problems Problem Noted Date Diagnosed Date CRYSTAL (obstructive sleep apnea) 08/12/2018 Dyslipidemia 02/17/2017 Type 2 diabetes mellitus wit h hemoglobin A1c goal of less than 7.0% 02/16/2017 HTN, goal below 130/80 05/08/2015 Iron deficiency anemia due to chronic blood loss Bladder spasms Overview: stable on vesicare documented as of this encounter (statuses as of 06/06/2024) Resolved Problems Problem Noted Date Diagnosed Date [...] as of this encounter (statuses as of 06/06/2024) Immunizations Name Administration Dates Next Due Hepatitis B, 20+ yrs 06/03/2018,12/28/2017,11/25 PPD 01/26/2019,07/11/2018,05/18/2017 Pneumococcal Conjugate Vacci ne, 20-valent ([id number]) 05/20/2022 Pneumococcal Polysaccharide PPV23 (Pneumovax) 05/18/2017 Seasonal Influenza, PF, 6 M & above, IM , (FluLaval or Fluzone) 06/29/2023,05/20/2022,05/13/2021,06/06,06/03/2018 Seasonal Influenza, Quadriva lent, No Preserve, IM 05/18/2017,11/05/2016 Seasonal Influenza, Trivalen t, (IIV3), with Preserv, (Fluzone) 05/20/2015,07/20/2013,05/21/2012,08/21,06/27/2010,08/07/2009 TDAP (age 10 and older)(Boostrix) 06/29/2018 TDAP, [...] encounter Miscellaneous Notes * Telephone Encounter - Kody Omlstead, - 06/06/2024 9:42 AM EDTSigned Prescriptions: Disp Refills hydroCHLOROthiazide 25 MG Oral Tablet (Hyd*90 Tab*0 Sig: TAKE 1 TABLET BY MOUTH IN THE MORNING Authorizing Provider: KODY OLMSTEAD Ordering User: HUONG BARBOZA oxyBUTYnin Chloride ER 15 MG Oral Tablet E*30 Tab*1 Sig: TAKE 1 TABLET BY MOUTH ONCE DAILY IN THE MORNING . DO NOT CUT CRUSH OR CHEW. Authorizing Provider: KODY CASTANEDA Refused Prescriptions: Disp Refills Lisinopril 40 MG Oral Tablet 90 Tab*0 Sig: TAKE 1 TABLET BY MOUTH IN THE MORNING Refused By: HUONG BARBOZA Reason for Refusal: Too soon * Telephone Encounter - Huong Barboza [facility] - 06/06/2024 5:25 AM EDTPending Prescriptions: Disp Refills oxyBUTYnin Chloride ER 15 MG Oral Tablet E*30 Tab*1 Sig: TAKE 1 TABLET BY MOUTH ONCE DAILY IN THE MORNING . DO NOT CUT CRUSH OR CHEW. Signed Prescriptions: Disp Refills hydroCHLOROthiazide 25 MG Oral Tablet (Hyd*90 Tab*0 Sig: TAKE 1 TABLET BY MOUTH IN THE MORNING Authorizing Provider: ELODIA OLMSTEAD Ordering User: HUONG BARBOZA Refused Prescriptions: Disp Refills Lisinopril 40 MG Oral Tablet 90 Tab*0 Sig: TAKE 1 TABLET BY MOUTH IN THE MORNING Refused By: HUONG BARBOZA Reason for Refusal: Too soon * Telephone Encounter - Huong Barboza [facility] - 06/06/2024 5:24 AM EDT RX authorized. Zero refills given until upcoming appt. 08/02/2024 Baljinder off protocol - forwarding for approval. Thank You, Huong Barboza [facility] Clinical Pharmacist [facility] [phone] 06/06/2024, 5:24 AM documented in this encounter Plan of Treatment Upcoming Encounters Date Type Department Care Team (Late st Contact Info) Description 08/02/2024 5:40 PM EST Office Visit [facility] [address] [place] [address] Kody Olmstead DO [address] [place] [address] Health Maintenance Due Date Last Done Comments [...] 06/23/202406/23/2 023, 11/11/2021, 05/03/2017 GFR 06/23/2024 06/23/2023, 090 05/2022, 05/13/2021, Additional history exists Diabetic Foot Exam 06/29/2024 06/29/2023, 0 11/11/2021, 11/29/2020, Additional history exists HbA1c 07/04/2024 01/03/2024, 06/06, 12/11/2022, Additional history exists B-12 01/02/2025 01/03/2024, 040 03/2023, 05/13/2021, Additional history exists Depression Screening [...] hypertension documented in this encounter Care Teams Assistant Professor Of Geography Relationship Specialty Start Date End Date Kody Olmstead DO [address] [place] [address] PCP - General Family Medicine 11/05/16 documented as of this encounter
--- OUTSIDE RECORDS SUMMARY | 2024-11-24 05:37 | External Medical Summary | Summary of Care ---
Author Name Unknown Organization [facility] Address [address] [facility] [place] [address] Phone [phone] Care Team Providers Care Occupational Health Coordinator Name Role Phone Danelle Cerda DO Primary Care Provider [phone] Reason for Visit * Reason Comments Outpatient Testing Encounter Details Date Type Department Care Team (Late st Contact Info) Description 08/16/2024 10:50 AM EST Laboratory Laboratory, [facility] [address] [place] [phone] [facility] [address] [place] [address] Type 2 diabetes mellitus with hemoglobin A1c goal of less than 7.0% (HCC); Dyslipidemia, goal LDL below 100; Encounter for long-term (current) use of medications Allergies No known active allergiesdocumented as of this encounter (statuses as of 08/16/2024) Medications omeprazole (PRILOSEC) 20 MG CPDRIndications: Gastroesophageal [...] directed. 100 Each 11 10/02/19 20 Active Wrist Splint/Cock-Up/R ight LIndications:Car pal tunnel syndrome of right wrist Use at night as directed. 1 Each 03/31/20 23 Active Glucose Blood In Vitro StripIndications :Type [...] WEEK 3 mL 2 08/05/20 24 Active documented as of this encounter (statuses as of 08/16/2024) Active Problems Problem Noted Date Diagnosed Date CRYSTAL (obstructive sleep apnea) 08/12/2018 Dyslipidemia 02/17/2017 Type 2 diabetes mellitus wit h hemoglobin A1c goal of less than 7.0% 02/16/2017 HTN, goal below 130/80 05/08/2015 Iron deficiency anemia due to chronic blood loss Bladder spasms Overview (08/21/2011): stable on vesicare documented as of this encounter (statuses as of 08/16/2024) Resolved Problems Problem Noted Date Diagnosed Date [...] as of this encounter (statuses as of 08/16/2024) Immunizations Name Administration Dates Next Due Hepatitis B, 20+ yrs 06/03/2018,12/28/2017,11/25 PPD 01/26/2019,07/11/2018,05/18/2017 Pneumococcal Conjugate Vacci ne, 20-valent ([id number]) 05/20/2022 Pneumococcal Polysaccharide PPV23 (Pneumovax) 05/18/2017 Seasonal [...] on file documented as of this encounter Plan of Treatment Upcoming Encounters Date Type Department Care Team (Late st Contact Info) Description 08/16/2024 6:00 PM EST Office Visit Family Practice [facility] [address] [facility] [place] [address] Danelle Cerda DO [address] [place] [address] Pending Results Name Type Priority Associated Diagnoses Date /Time HEMOGLOBIN A1C Lab Routine Type 2 diabetes mellitus with hemoglobin A1c goal of less than 7.0% ([facility]) 08/16/2024 10:48 AM EST LIPID PANEL WITH DIRECT LDL IF TG IS HIGH Lab Routine Dyslipidemia, goal LDL below 100 08/16/2024 10:48 AM EST COMPREHENSIVE METABOLIC PANEL Lab Routine Encounter for long-term (current) use of medications 08/16/2024 10:48 AM EST ALBUMIN / CREATININE RATIO, URINE Lab Routine Encounter for long-term (current) use of medications 08/16/2024 10:51 AM EST Scheduled Orders Name Type Priority Associated Diagnoses Orde r Schedule HEMOGLOBIN A1C Lab Routine Type 2 diabetes mellitus with hemoglobin A1c goal of less than 7.0% (HCC) Expected: 08/16/2024 (Approximate), Expires: 09/16/2025 Health Maintenance Due Date Last Done Comments [...] A1c goal of less than 7.0% (HCC) Dyslipidemia, goal LDL below 100 Other and unspecified hyperlipidemia Encounter for long-term (current) use of medications Encounter for long-term (current) use of other medications documented in this encounter Care Teams Occupational Health Coordinator Relationship Specialty Start Date End Date Danelle Cerda DO [address] [place] [address] PCP - General Family Medicine 11/05/16 documented as of this encounter
--- OUTSIDE RECORDS SUMMARY | 2024-11-24 05:37 | External Medical Summary ---
Author Name Unknown Address Unknown Organization K01:[facility] [place] [address] [place] [address] Laboratory Report Ordering Provider Test Date Status AYSHA GATES 08/16/2024 10:48:03 Final Observation Date Value Abnormality Reference (Units ) Status Vitamin B12 08/16/2024 10:48:03 [phone] (pg/mL) Final Performing Location [facility] [place] [address] [place] [address]
--- OUTSIDE RECORDS SUMMARY | 2024-11-24 05:37 | External Medical Summary | Summary of Care ---
Author Name Unknown Organization [facility] Address [address] [facility] [place] [address] Phone [phone] Care Team Providers Care Critical Care Specialist Name Role Phone Kody Olmstead DO Primary Care Provider [phone] Reason for Visit * Reason Comments eRx-Medication Refill Encounter Details Date Type Department Care Team (Late st Contact Info) Description 06/20/2024 Refill Family Practice [facility] [address] [place] [address] Kody Olmstead DO [address] [place] [address] HTN, goal below 140/90 Allergies No known active allergiesdocumented as of this encounter (statuses as of 06/20/2024) Medications Medication Sig Dispensed Refills Start Date End Date Status omeprazole (PRILOSEC) 20 MG CPDRIndications: Gastroesophageal reflux disease without esophagitis Take 1 Capsule by mouth in the morning. 30 minutes before a meal. 30 Cap 5 7 Active Blood Glucose Monitoring Suppl (D-CARE GLUCOMETER) w/Device KITIndications:T ype 2 diabetes mellitus with hemoglobin A1c goal of less than 7.0% ([facility]) Use as directed. 1 Kit 5 7 [...] directed. E11.9 100 Strip 11 3 Active metFORMIN HCl 1000 MG Oral [...] THE MORNING 90 Tablet 1 4 Active Lisinopril 40 MG Oral TabletIndication s:HTN, goal below 140/90 TAKE 1 TABLET BY MOUTH IN THE MORNING 90 Tablet 3 3 06/20/20 24 Discontinued documented as of this encounter (statuses as of 06/20/2024) Active Problems Problem Noted Date Diagnosed Date CRYSTAL (obstructive sleep apnea) 08/12/2018 Dyslipidemia 02/17/2017 Type 2 diabetes mellitus wit h hemoglobin A1c goal of less than 7.0% 02/16/2017 HTN, goal below 130/80 05/08/2015 Iron deficiency anemia due to chronic blood loss Bladder spasms Overview: stable on vesicare documented as of this encounter (statuses as of 06/20/2024) Resolved Problems Problem Noted Date Diagnosed Date [...] as of this encounter (statuses as of 06/20/2024) Immunizations Name Administration Dates Next Due Hepatitis B, 20+ yrs 06/03/2018,12/28/2017,11/25 PPD 01/26/2019,07/11/2018,05/18/2017 Pneumococcal Conjugate Vacci ne, 20-valent ([id number]) 05/20/2022 Pneumococcal Polysaccharide PPV23 (Pneumovax) 05/18/2017 Seasonal [...] encounter Miscellaneous Notes * Telephone Encounter - Timbo Gutierrez [facility] - 06/20/2024 10:16 AM EDTSigned Prescriptions: Disp Refills Lisinopril 40 MG Oral Tablet 90 Tab*1 Sig: TAKE 1 TABLET BY MOUTH IN THE MORNINGAuthorizing Provider: KODY OLMSTEAD User: TIMBO WALKER documented in this encounter Plan of Treatment Upcoming Encounters Date Type Department Care Team (Late st Contact Info) Description 08/02/2024 5:40 PM EST Office Visit Family [facility] [address] [place] [address] Kody Olmstead, [address] [place] [address] Health Maintenance Due Date Last Done Comments [...] Depression Screening 01/04/2025 01/05/2024 Mammogram 04/14/2025 04/14/2024, 080 12/2022, 04/03/2022, Additional history exists Colonoscopy 02/19/2027 02/19/2017, 12/14/2014 Colorectal Cancer Screening 02/19/2027 Lipid Panel 06/23/2028 06/23/2023, 0905/2022, 05/13/2021, Additional history exists DTap/Tdap Vaccines (3 [...] hypertension documented in this encounter Care Teams Critical Care Specialist Relationship Specialty Start Date End Date Kody Olmstead DO [address] [place] [address] PCP - General Family Medicine 11/05/16 documented as of this encounter
--- OUTSIDE RECORDS SUMMARY | 2024-11-24 05:37 | External Medical Summary | Summary of Care ---
Author Name Unknown Organization [facility] Address [address] [place] [address] Phone [phone] Care Team Providers Care Cotton Seed Culler Name Role Phone Danelle Cerda DO Primary Care Provider [phone] Encounter Details Date Type Department Care Team (Late st Contact Info) Description 08/21/2024 Orders Only [facility] Department [address] [place] [address] Raquel Bronson [facility] [employer] [facility] Other*[id number] Allergies No known active allergiesdocumented as of [...] hemoglobin A1c goal of less than 7.0% ([facility]) TAKE 1 TABLET BY MOUTH TWICE DAILY WITH MORNING MEAL AND WITH EVENING MEAL 180 Tablet 06/23/20 24 Active Ozempic (2 MG/DOSE) 8 MG/3ML Subcutaneous Solution Pen-injector (Semaglutide (2 MG/DOSE))Indicat ions:Type 2 diabetes mellitus with hemoglobin A1c goal of less than 7.0% ([facility]) INJECT 2 MG SUBCUTANEOUSLY ONCE A WEEK [...] PPD 01/26/2019,07/11/2018,05/18/2017 Pneumococcal Conjugate Vacci ne, 20-valent ([id number]) 05/20/2022 Pneumococcal Polysaccharide PPV23 (Pneumovax) 05/18/2017 Seasonal [...] as of this encounter Plan of Treatment Scheduled Orders Name Type Priority Associated Diagnoses Orde r Schedule MYCODE SUBSEQUENT ADULT Lab Routine [facility] Other*[id number] Every 6 Months for 2 Occurrences starting 08/21/2024 until 09/10/2025 Health Maintenance Due Date Last Done Comments [...] as of this encounter Visit Diagnoses Diagnosis [employer] Other*[id number] documented in this encounter Care Teams Cotton Seed Culler Relationship Specialty Start Date End Date Danelle Cerda DO [address] [place] [address] PCP - General Family Medicine 11/05/16 documented as of this encounter
[2024-11-24] MEDS: ACETAMINOPHEN 1,000 MG/100 ML VIAL IV PRN (05:49)
[2024-11-24 06:12] LABS: Basophils # (auto) 0.04 K/uL (0.00-0.20); Basophils % (auto) 0.3 %; Eosinophils # (auto) 0.08 K/uL (0.00-0.50); Eosinophils % (auto) 0.7 %; Hemoglobin 11.3 g/dl (12.0-16.0); Immature Granulocytes # (auto) 0.22 K/uL (0.01-0.20); Immature Granulocytes % (auto) 1.9 %; Lymphocytes # (auto) 1.58 K/uL (1.20-3.40); Lymphocytes % (auto) 13.3 %; Mean Corpuscular Hemoglobin 26.6 pg (25.0-34.0); Mean Corpuscular Hgb Conc 33.2 g/dL (32.0-36.0); Mean Platelet Volume 9.8 fL (9.4-12.4); Monocytes % (auto) 5.1 %; Neutrophils # (auto) 9.33 K/uL (1.40-6.50); Neutrophils % (auto) 78.7 %; Platelet Count 244 K/uL (130-400); RDW Coefficient of Variation 16.8 % (11.5-14.5); RDW Standard Deviation 48.5 fL (36.4-46.3); Red Blood Count 4.25 M/uL (4.20-5.40); White Blood Count 11.85 K/ul (4.8-10.8)
[2024-11-24 06:27] LABS: Albumin Level 2.9 gm/dl (3.4-5.0); BUN Creatinine Ratio 18.8 (10-20); Bilirubin,Total 1.1 mg/dl (0.2-1.0); Calcium 8.2 mg/dl (8.6-10.3); Creatinine Clr Calc Pharmacy 148.2 ml/min; Potassium 3.6 mmol/L (3.5-5.1); Total Protein 5.9 gm/dl (6.0-8.3)
[2024-11-24] MEDS: OXYBUTYNIN CHLORIDE XL 5 MG TABCR PO SCH (08:18)
[2024-11-24] MEDS: PANTOprazole 40 MG/10 ML SYR IV SCH (08:18)
--- NOTE | 2024-11-24 10:33 | Surgery Progress Note ---
Date of Service November 24, 2024 Assessment & Plan (1) Acute perforated appendicitis: Plan: contained abscess IV abx FOR IR drainage today conservative treatment of complicated appendicitis Keep NPO Will need interval appendectomy in 6-[address] Haile covering weekend Dr. Garcia has seen and examined patient, agrees with above. Admission and Anticipated Discharge Date Admission Date: November 23, 2024 Subjective feeling okay, better than she did a few days ago pain controlled no n,v Physical Exam Constitutional: WD/WN, vitals as above + obese, cooperative and comfortable; no acute distress and not ill appearing Respiratory: normal respiratory effort; no respiratory distress and no labored breathing Gastrointestinal (Abdomen): Inspection/Auscultation: abdomen normal to inspection; abdomen not distended Percussion/Palpation: + abdomen tender (mild in mid abdomen) and abdomen soft; no guarding, abdomen not rigid and abdomen not firm Skin: no rashes, warm and dry Psychiatric: Orientation: alert and oriented x 3 Results & Data Vital Signs (Past 12 Hours) Vital Signs Temp Pulse Resp BP BP Pulse Ox O2 Del Method 11/24/24 07:13 36.9 C 71 17 129/74 96 Room Air 11/23/24 23:30 36.9 C 76 18 147/78 H 94 Room Air Laboratory Results 11/24/24 11/24/24 11/23/24 Range/Units 06:24 05:46 23:32 WBC 11.85 H (4.8-10.8) K/ul RBC 4.25 (4.20-5.40) M/uL Hgb 11.3 L (12.0-16.0) g/dl Hct 34.0 L (37.0-47.0) % MCV 80.0 (80.0-100.0) fL MCH 26.6 (25.0-34.0) pg MCHC 33.2 (32.0-36.0) g/dL RDW Std Deviation 48.5 H (36.4-46.3) fL RDW Coeff of Alfredo 16.8 H (11.5-14.5) % Plt Count 244 (130-400) K/uL MPV 9.8 (9.4-12.4) fL Immature Gran % (Auto) 1.9 % Neut % (Auto) 78.7 % Lymph % (Auto) 13.3 % [place] % (Auto) 5.1 % Eos % (Auto) 0.7 % Baso % (Auto) 0.3 % Neut # (Auto) 9.33 H (1.40-6.50) K/uL Lymph # (Auto) 1.58 (1.20-3.40) K/uL [place] # (Auto) 0.60 H (0.11-0.59) K/uL Eos # (Auto) 0.08 (0.00-0.50) K/uL Baso # (Auto) 0.04 (0.00-0.20) K/uL Immature Gran # (Auto) 0.22 H (0.01-0.20) K/uL PT (9.0-12.0) Seconds INR (0.9-1.1) APTT (21-31) Seconds PTT Ratio Sodium 137 (136-145) mmol/L Potassium 3.6 (3.5-5.1) mmol/L Chloride 107 (98-107) mmol/L Carbon Dioxide 24 (21-32) mmol/L Anion Gap 6 (3-11) BUN 9 (6-23) mg/dl Creatinine 0.48 L (0.6-1.2) mg/dl Est Cr Clr Drug Dosing 148.2 ml/min eGFR 109.72 BUN/Creatinine Ratio 18.8 (10-20) Glucose 132 H (70-99(Fasting)) mg/dl POC Glucose 120 H 123 H (70-99) mg/dl Calcium 8.2 L (8.6-10.3) mg/dl Total Bilirubin 1.1 H (0.2-1.0) mg/dl Direct Bilirubin (0-0.2) mg/dl AST 19 (13-39) U/L ALT 45 (7-52) U/L Alkaline Phosphatase 201 H (34-104) U/L Total Protein 5.9 L (6.0-8.3) gm/dl Albumin 2.9 L (3.4-5.0) gm/dl Globulin 3.0 (2.5-4.0) gm/dl Albumin/Globulin Ratio 1.0 (0.9-2) Lipase (11-82) U/L Urine Color Urine Appearance (Clear) Urine pH (4.5-7.5) Ur Specific [place] (1.000-1.030) Urine Protein (Negative) Urine Glucose (UA) (Negative) Urine Ketones (Negative) Urine Blood (Negative) Urine Nitrite (Negative) Urine Bilirubin (Negative) Urine Urobilinogen (Negative) Ur Leukocyte Esterase (Negative) Urine WBC (Auto) (0-5) /hpf Urine RBC (Auto) (0-2) /hpf U Hyaline Cast (Auto) (0-2) /lpf U Epithel Cells (Auto) (0-2) /hpf Urine Bacteria (Auto) (None Seen) 11/23/24 Range/Units 18:00 WBC 16.35 H (4.8-10.8) K/ul RBC 4.88 (4.20-5.40) M/uL Hgb 13.1 (12.0-16.0) g/dl Hct 39.6 (37.0-47.0) % MCV 81.1 (80.0-100.0) fL MCH 26.8 (25.0-34.0) pg MCHC 33.1 (32.0-36.0) g/dL RDW Std Deviation 49.3 H (36.4-46.3) fL RDW Coeff of Alfredo 16.7 H (11.5-14.5) % Plt Count 272 (130-400) K/uL MPV 9.5 (9.4-12.4) fL Immature Gran % (Auto) 1.7 % Neut % (Auto) 84.6 % Lymph % (Auto) 8.6 % [place] % (Auto) 4.2 % Eos % (Auto) 0.4 % Baso % (Auto) 0.5 % Neut # (Auto) 13.83 H (1.40-6.50) K/uL Lymph # (Auto) 1.41 (1.20-3.40) K/uL [place] # (Auto) 0.69 H (0.11-0.59) K/uL Eos # (Auto) 0.06 (0.00-0.50) K/uL Baso # (Auto) 0.08 (0.00-0.20) K/uL Immature Gran # (Auto) 0.28 H (0.01-0.20) K/uL PT 11.4 (9.0-12.0) Seconds INR 1.1 (0.9-1.1) APTT 26 (21-31) Seconds PTT Ratio 1.0 Sodium 139 (136-145) mmol/L Potassium 3.2 L (3.5-5.1) mmol/L Chloride 102 (98-107) mmol/L Carbon Dioxide 27 (21-32) mmol/L Anion Gap 10 (3-11) BUN 11 (6-23) mg/dl Creatinine 0.57 L (0.6-1.2) mg/dl Est Cr Clr Drug Dosing 126.3 ml/min eGFR 105.27 BUN/Creatinine Ratio 19.3 (10-20) Glucose 147 H (70-99(Fasting)) mg/dl POC Glucose (70-99) mg/dl Calcium 8.9 (8.6-10.3) mg/dl Total Bilirubin 0.9 (0.2-1.0) mg/dl Direct Bilirubin 0.3 H (0-0.2) mg/dl AST 26 (13-39) U/L ALT 64 H (7-52) U/L Alkaline Phosphatase 241 H (34-104) U/L Total Protein 7.1 (6.0-8.3) gm/dl Albumin 3.6 (3.4-5.0) gm/dl Globulin (2.5-4.0) gm/dl Albumin/Globulin Ratio (0.9-2) Lipase 11 (11-82) U/L Urine Color Dark Yellow Urine Appearance Cloudy A (Clear) Urine pH 5.5 (4.5-7.5) Ur Specific [place] > 1.045 H (1.000-1.030) Urine Protein 2+ H (Negative) Urine Glucose (UA) 3+ H (Negative) Urine Ketones Trace H (Negative) Urine Blood 2+ H (Negative) Urine Nitrite Negative (Negative) Urine Bilirubin 1+ H (Negative) Urine Urobilinogen Negative (Negative) Ur Leukocyte Esterase Negative (Negative) Urine WBC (Auto) 11-20 H (0-5) /hpf Urine RBC (Auto) 3-5 H (0-2) /hpf U Hyaline Cast (Auto) 0-2 (0-2) /lpf U Epithel Cells (Auto) 11-20 H (0-2) /hpf Urine Bacteria (Auto) 1+ H (None Seen)
--- NOTE | 2024-11-24 10:38 | Hospitalist Progress Note ---
Date of Service November 24, 2024 Assessment & Plan (1) Acute perforated appendicitis: Plan Acute ruptured appendicitis with abscess Patient presents with abdominal discomfort for several days, along with nausea. Seen by her primary care doctor on November 17, 2024; prescribed ciprofloxacin for 5 days Leukocytosis present on admission CT abdomen pelvis showed dilated fluid-filled loops of small bowel within left side of abdomen measuring up to 4.6 cm with wall enhancement. Immediately abutting this, large fluid and gas collection within lower mid abdomen medial to the cecum; measures about 9.0 centimeter into 6.9 into 7.5 cm. IV Zosyn for antibiotics ID consulted for further recs, will start recommended rocephin/Flagyl in the AM IR consulted- cannot drain abscess due to no access because of obstructing bowel; case discussed with [facility], notes there is nothing they would be able to do there. Recommended surgical followup. General Surgery consulted, appreciate recs -Clears -conservative management with IV abx -ID consult -repeat imaging in 1 week or sooner for worsening symptoms -oupt colonoscopy needed once inflammation resolves -appendectomy after resolution Continue to monitor Hypokalemia Replete as needed Chronic conditions; Hypertensionhold antihypertensive for now Hyperlipidemiahold Lipitor for elevated LFTs. ALT/ALP64/241; continue to monitor GERD- placed on iv Protonix Type 2 diabetes mellitussliding scale CRYSTAL- not on cpap Diet: clears Full code DVT prophylaxis heparin SQ Dispo: Home once medically stable Admission and Anticipated Discharge Date Admission Date: November 23, 2024 Subjective Pt was seen multiple times during the day She expressed frustration with her dx and duration of symptoms Asking to eat Asking to have a shower Review of Systems Review of Systems: All systems reviewed & are unremarkable except as noted in Subjective Physical Exam Physical Exam: General: Alert, oriented. No acute distress HEENT: NC/AT CV: RRR Resp: Breath sounds clear bilaterally, no increased effort of breathing Abdomen: Soft, tender in RLQ Extremities: No edema in lower extremities bilaterally. Results & Data Results & Data Vital Signs (Past 12 Hours) Vital Signs Temp Pulse Resp BP BP Pulse Ox O2 Del Method 11/24/24 07:13 36.9 C 71 17 129/74 96 Room Air 11/23/24 23:30 36.9 C 76 18 147/78 H 94 Room Air
--- NOTE | 2024-11-24 13:01 | Radiology Progress Note ---
Date of Service November 24, 2024 Radiology Progress Note Pt presents for CT guided abscess drainage. Today's preprocedure CT scan shows the abscess collection surrounded by loops of intestine, making drainage not amenable to a percutaneous approach. D/W and reviewed by Dr Gerardo Lockett. Results & Data Vital Signs (Past 12 Hours) Vital Signs Temp Pulse Resp BP Pulse Ox O2 Del Method 11/24/24 07:13 36.9 C 71 17 129/74 96 Room Air
--- NOTE | 2024-11-24 13:08 | CT Scan Report ---
CT limited or localized study CLINICAL HISTORY: appendicular abscess COMPARISON STUDY: Yesterday's CT scan FINDINGS: The right lower quadrant abscess is stable. The abscess is completely surrounded by bowel l oops and there is no safe window for percutaneous drain placement. Drain was not placed. IMPRESSION: Percutaneous drain was not placed. ACT 112: Negative or not required by law. Electronically signed by: Gerardo Lockett M.D. 11/24/2024 1:07 PM
[2024-11-24] MEDS: fentaNYL citrate PF 100 MCG/2 ML VIAL ONE (13:36)
--- NOTE | 2024-11-24 15:17 | Infectious Disease Consult ---
Date of Service November 24, 2024 Attending addendum This is a 59 y/o female who was admitted on for acute perforated appendicitis w/ contained abscess. No fever but leukocytosis. CT showed dilated large fluid and gas collection w/in lower mid abd medial to cecum, 9 x 7 x 7.5 cm. Patient was to have IR drain for the collection, but she was just told that there is no good window for drain placement. The patient is currently on zosyn after being on cipro and flagyl for 5 days prior to this admission. She is resting in bed comfortably. She is to be transferred to [facility]. Assessment: Acute perforated appendicitis w/ contained abscess, 9 x 7 x 7.5 cm Recommendations: - consider switching zosyn to ceftriaxone 2 gm iv qd and metronidazole 500 mg po q8 hours - Patient will be transferred to [facility] for evaluation for IR drain vs surgical intervention. Source control is recommended for this size of the abscess. Please, send abscess sample for bacterial and fungal cultures. - Duration of abx therapy is to be determined based on clinical response: abx is usually continued until resolution of abscess. The patient will require a repeat CT A/P to re-evaluate the fluid before stopping abx therapy. - Will continue to follow Given no obvious risk for MDRO, I recommend to use Ceftriaxone and metronidaozle for empiric therapy to cover Enterobacteriaeceae and anaerobes. I saw and evaluated the patient today. I have reviewed the trainee note and agree. Telehealth Information I performed this visit using a real-time telehealth connection between my location and the patients location ([facility]). After connecting through interactive tele-video, patient was identified by name and da te of and/or wristband check.Patient (or authorized healthcare credit and collections representative) was informed that this was a telemedicine visit and it was being conducted confidentially over secure lines. My office door was closed and no one else was present in the room with me.Patient (or authorized healthcare credit and collections representative) provided consent to proceed with the visit, expressed an understanding of privacy and security of the telemedicine visit, and gave permission to have a hospital credit and collections representative in the room in order to assist with the visit and to conduct portions of the visit, as needed. I informed the patient (or authorized healthcare credit and collections representative) that I reviewed their record and presented the opportunity for them to ask any questions regarding the visit today. The patient agreed to participate. Assessment & Plan (1) Acute perforated appendicitis: (2) Intra-abdominal abscess: Plan Patient with quite large infectious collection in right lower quadrant with cause being perforated appendix, being transferred to [place] for source control. Recommend transitioning to ceftriaxone and Flagyl from Zosyn for the time being which she can remain on following drainage via IR and/or surgery. She will likely need prolonged IV course, hopefully we can obtain cultures for directed therapy. - Discontinue Zosyn -ceftriaxone 2 g IV Q 24 hours -Flagyl 500 mg p.o. q.8 hours Appreciate consultation, please do not hesitate to reach out for any further questions or concerns. Jameson Henson MD PGY5 Infectious Disease History of Present Illness History of Present Illness 59 F w Hx of Dm2 presented to ER after abd pain, nausea for 2 weeks duration associated with diarrhea. Visited PCP and was given ciprofloxacin for 5 days, continued pain prompted ER evaluation. CT abd/pelvis with large fluid/gas collection in lower mid abd approx. 9.0 x 6.9 x 7.5cm medial to cecum. Surgery was consulted for presumed perforated abscess and recommends medical management with abx and IR drainage with outpatient appendectomy in approx. 6-8 weeks. Currently on zosyn day 2. WBC decreased from 16 to 12. it does seem that IR with unavailable windows and plan is to be transferred for [place] for further source control. Allergies Allergy/AdvReac Type Severity Reaction Status Date / Time No Known Drug Allergies Allergy Unknown . Verified 02/19/17 10:47 milk AdvReac Mild FEELS ILL Verified 02/19/17 10:47 Home Medications Medication Instructions Recorded Confirmed Type atorvastatin 80 mg tablet 80 mg PO QAM 11/23/24 11/23/24 History hydrochlorothiazide 25 mg tablet 25 mg PO QAM 11/23/24 11/23/24 History lisinopril 40 mg tablet 40 mg PO QAM 11/23/24 11/23/24 History metformin 1,000 mg tablet 1,000 mg PO BID 11/23/24 11/23/24 History omeprazole 20 mg capsule,delayed 20 mg PO DAILY 11/23/24 11/23/24 History release oxybutynin chloride 15 mg 15 mg PO QAM 11/23/24 11/23/24 History tablet,extended release 24 hr semaglutide 2 mg/dose (8 mg/3 mL) 2 mg subcut WK 11/23/24 11/23/24 History subcutaneous pen injector (Ozempic) Patient History Medical History (Updated 11/24/24 @ 15:16 by Jameson Henson MD) No pertinent family history GERD (gastroesophageal reflux disease) Obesity HTN (hypertension) HLD (hyperlipidemia) Surgical History (Updated 11/23/24 @ 18:26 by Raheem Arias MD) No pertinent past surgical history Social History Smoking Status: Never smoker Hx Alcohol Use: No Hx Substance Use: No Preferred Language: Belarusian Communication Ability: Effective Temporary Receptionist Required: No Beliefs That Will Affect Care: None Current Living Situation: Family Current Living Situation Comment: lives with and 2 adult sons. Other Information That Helps Us Care for You: No Feels Safe at Home: Yes Safety Concerns: Feels Safe At This Time Assistive Devices: None Review of Systems CONSTITUTIONAL: Denies weight loss, fever and chills. HEENT: Denies changes in vision and hearing. RESPIRATORY: Denies SOB and cough. CV: Denies palpitations and CP. GI: Denies abdominal pain, nausea, vomiting and diarrhea. : Denies dysuria and urinary frequency. MSK: Denies myalgia and joint pain. SKIN: Denies rash and pruritus. NEUROLOGICAL: Denies headache and syncope PSYCHIATRIC: Denies recent changes in mood. Denies anxiety and depression. Physical Exam GENERAL: Appears as stated age. No acute distress. NEUROLOGIC: No focal neurological deficits. Cranial nerves grossly intact. Results & Data Vital Signs (Past 12 Hours) Vital Signs Temp Pulse Resp BP Pulse Ox O2 Del Method 11/24/24 14:07 36.8 C 64 17 135/81 99 Room Air 11/24/24 07:13 36.9 C 71 17 129/74 96 Room Air Laboratory Results 11/23/24 18:00 Urine Culture - Preliminary Urine,Clean Catch Lactobacillus jensenii 11/24/24 11/24/24 11/24/24 11:57 06:24 05:46 WBC 11.85 H RBC 4.25 Hgb 11.3 L Hct 34.0 L MCV 80.0 MCH 26.6 MCHC 33.2 RDW Std Deviation 48.5 H RDW Coeff of Alfredo 16.8 H Plt Count 244 MPV 9.8 Immature Gran % (Auto) 1.9 Neut % (Auto) 78.7 Lymph % (Auto) 13.3 [place] % (Auto) 5.1 Eos % (Auto) 0.7 Baso % (Auto) 0.3 Neut # (Auto) 9.33 H Lymph # (Auto) 1.58 [place] # (Auto) 0.60 H Eos # (Auto) 0.08 Baso # (Auto) 0.04 Immature Gran # (Auto) 0.22 H PT INR APTT PTT Ratio Sodium 137 Potassium 3.6 Chloride 107 Carbon Dioxide 24 Anion Gap 6 BUN 9 Creatinine 0.48 L Est Cr Clr Drug Dosing 148.2 eGFR 109.72 BUN/Creatinine Ratio 18.8 Glucose 132 H POC Glucose 103 H 120 H Calcium 8.2 L Total Bilirubin 1.1 H Direct Bilirubin AST 19 ALT 45 Alkaline Phosphatase 201 H Total Protein 5.9 L Albumin 2.9 L Globulin 3.0 Albumin/Globulin Ratio 1.0 Lipase Urine Color Urine Appearance Urine pH Ur Specific [place] Urine Protein Urine Glucose (UA) Urine Ketones Urine Blood Urine Nitrite Urine Bilirubin Urine Urobilinogen Ur Leukocyte Esterase Urine WBC (Auto) Urine RBC (Auto) U Hyaline Cast (Auto) U Epithel Cells (Auto) Urine Bacteria (Auto) 11/23/24 11/23/24 23:32 18:00 WBC 16.35 H RBC 4.88 Hgb 13.1 Hct 39.6 MCV 81.1 MCH 26.8 MCHC 33.1 RDW Std Deviation 49.3 H RDW Coeff of Alfredo 16.7 H Plt Count 272 MPV 9.5 Immature Gran % (Auto) 1.7 Neut % (Auto) 84.6 Lymph % (Auto) 8.6 [place] % (Auto) 4.2 Eos % (Auto) 0.4 Baso % (Auto) 0.5 Neut # (Auto) 13.83 H Lymph # (Auto) 1.41 [place] # (Auto) 0.69 H Eos # (Auto) 0.06 Baso # (Auto) 0.08 Immature Gran # (Auto) 0.28 H PT 11.4 INR 1.1 APTT 26 PTT Ratio 1.0 Sodium 139 Potassium 3.2 L Chloride 102 Carbon Dioxide 27 Anion Gap 10 BUN 11 Creatinine 0.57 L Est Cr Clr Drug Dosing 126.3 eGFR 105.27 BUN/Creatinine Ratio 19.3 Glucose 147 H POC Glucose 123 H Calcium 8.9 Total Bilirubin 0.9 Direct Bilirubin 0.3 H AST 26 ALT 64 H Alkaline Phosphatase 241 H Total Protein 7.1 Albumin 3.6 Globulin Albumin/Globulin Ratio Lipase 11 Urine Color Dark Yellow Urine Appearance Cloudy A Urine pH 5.5 Ur Specific [place] > 1.045 H Urine Protein 2+ H Urine Glucose (UA) 3+ H Urine Ketones Trace H Urine Blood 2+ H Urine Nitrite Negative Urine Bilirubin 1+ H Urine Urobilinogen Negative Ur Leukocyte Esterase Negative Urine WBC (Auto) 11-20 H Urine RBC (Auto) 3-5 H U Hyaline Cast (Auto) 0-2 U Epithel Cells (Auto) 11-20 H Urine Bacteria (Auto) 1+ H Diagnostic Findings Abdomen/Pelvis CT 11/23/24 18:03 EXAMINATION: Abdomen and pelvis CT with CLINICAL HISTORY: Abdominal pain PRIORS: None TECHNIQUE: Contiguous axial images were obtained through the abdomen and pelvis with the use of intravenous contrast. Sagittal and coronal reformations are supplied. FINDINGS: Lung bases are unremarkable. Dilated fluid-filled loops of small bowel are present within the left side of the abdomen measuring up to 4.6 cm with wall enhancement. Immediately abutting this, a large fluid and gas collection is present within the lower mid abdomen, medial to the cecum, this identified on image 61 series 2 and image 41 series 3. This is not yet walled off and appears to be contained by the surrounding loops of small bowel and mesentery. It measures 9.0 cm in anteroposterior dimension by 6.9 cm in transverse dimension by 7.5 cm in craniocaudal dimension. Immediately lateral to the fluid collection is a disrupted appendix, image 63, series 2 with moderate pericecal inflammatory change in the right lower quadrant with possible cecal wall thickening, image 66, series 2. A few foci of extraluminal gas present lateral to the fluid collection in the expected position of the appendix, image 39, series 300. Moderate to severe diverticulosis of the sigmoid colon present adjacent to the fluid collection without pericolonic inflammatory change. Small scattered lymph nodes noted throughout the mesentery. The liver shows a ill-defined hypoattenuation in the right lobe, posterior segment measuring 1.7 cm. The gallbladder is contracted. Portal vein, spleen, stomach, and right adrenal are morphologically unremarkable. A left adrenal nodule is present measuring 2.4 cm and 58 Hounsfield units, indeterminant. The kidneys enhance symmetrically with possible small cysts noted, not fully characterized. No retroperitoneal adenopathy. No large amount of extraluminal gas. Uterus and ovaries present. Right ovarian cyst present, image 72, series 2 measuring 2.6 cm. No free fluid in the pelvis. Urinary bladder distends normally. Moderate amount of formed stool in the sigmoid colon. In bone windows well to moderate osseous demineralization with moderate to advanced degenerative change in the spine. IMPRESSION: CT features favoring ruptured appendicitis with a large gas and fluid collection in the mid- lower abdomen measuring up to 9 cm, with adjacent dilated fluid-filled loops of small bowel. Surgical consultation is required. Electronically signed by Carmen Watters 11-23-2024 7:14 PM Limited or Localized CT 11/23/24 22:14 CT limited or localized study CLINICAL HISTORY: appendicular abscess COMPARISON STUDY: Yesterday's CT scan FINDINGS: The right lower quadrant abscess is stable. The abscess is completely surrounded by bowel loops and there is no safe window for percutaneous drain placement. Drain was not placed. IMPRESSION: Percutaneous drain was not placed. ACT 112: Negative or not required by law. Electronically signed by: Gerardo Lockett M.D. 11/24/2024 1:07 PM
--- NOTE | 2024-11-24 16:02 | Surgery Progress Note ---
Date of Service November 24, 2024 Assessment & Plan (1) Intra-abdominal abscess: Plan: Perforated appendicitis with 9 cm intra-abdominal abscess not amenable to percutaneous drainage at this time. Discussed options to include treatment with IV antibiotics versus surgical intervention such as laparoscopic abscess drainage or appendectomy/colectomy. Patient understands that any surgical intervention beyond just an abscess drained would likely require a partial bowel resection and prolonged hospital stay with increased risk of infection. At this time we agreed to proceed with nonoperative management. No surgical intervention planned at this time Continue IV antibiotics, patient may have clear liquids ID consult Recommend repeat imaging sometime next week, or sooner if condition worsens Would need outpatient colonoscopy once inflammation has resolved if she has not had 1 in the recent past If this resolves, would recommend interval appendectomy at some point Surgery will continue to follow, call with questions or concerns (2) Acute perforated appendicitis: (3) GERD (gastroesophageal reflux disease): (4) Obesity: (5) HTN (hypertension): (6) HLD (hyperlipidemia): Admission and Anticipated Discharge Date Admission Date: November 23, 2024 Subjective Patient admitted yesterday with perforated appendicitis with abscess. Plan was for IR drainage today. The patient went for IR drainage, however there was no good window due to matted loops of bowel around the abscess. Patient currently denies any pain, tolerating full liquid diet. Physical Exam Constitutional: WD/WN, vitals as above + obese Gastrointestinal (Abdomen): Percussion/Palpation: + abdomen tender (Mildly tenderness to palpation in right lower) and abdomen soft; no guarding and abdomen not rigid Results & Data Vital Signs (Past 12 Hours) Vital Signs Temp Pulse Resp BP Pulse Ox O2 Del Method 11/24/24 15:32 36.4 C L 71 16 118/73 97 Room Air 11/24/24 14:07 36.8 C 64 17 135/81 99 Room Air 11/24/24 07:13 36.9 C 71 17 129/74 96 Room Air Laboratory Results Laboratory Results - last 24 hr 11/23/24 11/23/24 11/24/24 18:00 23:32 05:46 WBC 16.35 H 11.85 H RBC 4.88 4.25 Hgb 13.1 11.3 L Hct 39.6 34.0 L MCV 81.1 80.0 MCH 26.8 26.6 MCHC 33.1 33.2 RDW Std Deviation 49.3 H 48.5 H RDW Coeff of Alfredo 16.7 H 16.8 H Plt Count 272 244 MPV 9.5 9.8 Immature Gran % (Auto) 1.7 1.9 Neut % (Auto) 84.6 78.7 Lymph % (Auto) 8.6 13.3 Wolfe % (Auto) 4.2 5.1 Eos % (Auto) 0.4 0.7 Baso % (Auto) 0.5 0.3 Neut # (Auto) 13.83 H 9.33 H Lymph # (Auto) 1.41 1.58 Wolfe # (Auto) 0.69 H 0.60 H Eos # (Auto) 0.06 0.08 Baso # (Auto) 0.08 0.04 Immature Gran # (Auto) 0.28 H 0.22 H PT 11.4 INR 1.1 APTT 26 PTT Ratio 1.0 Sodium 139 137 Potassium 3.2 L 3.6 Chloride 102 107 Carbon Dioxide 27 24 Anion Gap 10 6 BUN 11 9 Creatinine 0.57 L 0.48 L Est Cr Clr Drug Dosing 126.3 148.2 eGFR 105.27 109.72 BUN/Creatinine Ratio 19.3 18.8 Glucose 147 H 132 H POC Glucose 123 H Calcium 8.9 8.2 L Total Bilirubin 0.9 1.1 H Direct Bilirubin 0.3 H AST 26 19 ALT 64 H 45 Alkaline Phosphatase 241 H 201 H Total Protein 7.1 5.9 L Albumin 3.6 2.9 L Globulin 3.0 Albumin/Globulin Ratio 1.0 Lipase 11 Urine Color Dark Yellow Urine Appearance Cloudy A Urine pH 5.5 Ur Specific [place] > 1.045 H Urine Protein 2+ H Urine Glucose (UA) 3+ H Urine Ketones Trace H Urine Blood 2+ H Urine Nitrite Negative Urine Bilirubin 1+ H Urine Urobilinogen Negative Ur Leukocyte Esterase Negative Urine WBC (Auto) 11-20 H Urine RBC (Auto) 3-5 H U Hyaline Cast (Auto) 0-2 U Epithel Cells (Auto) 11-20 H Urine Bacteria (Auto) 1+ H 11/24/24 11/24/24 06:24 11:57 WBC RBC Hgb Hct MCV MCH MCHC RDW Std Deviation RDW Coeff of Alfredo Plt Count MPV Immature Gran % (Auto) Neut % (Auto) Lymph % (Auto) Wolfe % (Auto) Eos % (Auto) Baso % (Auto) Neut # (Auto) Lymph # (Auto) Wolfe # (Auto) Eos # (Auto) Baso # (Auto) Immature Gran # (Auto) PT INR APTT PTT Ratio Sodium Potassium Chloride Carbon Dioxide Anion Gap BUN Creatinine Est Cr Clr Drug Dosing eGFR BUN/Creatinine Ratio Glucose POC Glucose 120 H 103 H Calcium Total Bilirubin Direct Bilirubin AST ALT Alkaline Phosphatase Total Protein Albumin Globulin Albumin/Globulin Ratio Lipase Urine Color Urine Appearance Urine pH Ur Specific [place] Urine Protein Urine Glucose (UA) Urine Ketones Urine Blood Urine Nitrite Urine Bilirubin Urine Urobilinogen Ur Leukocyte Esterase Urine WBC (Auto) Urine RBC (Auto) U Hyaline Cast (Auto) U Epithel Cells (Auto) Urine Bacteria (Auto) Diagnostic Findings CT scans personally viewed interpret agree with the assessment of the right lower quadrant fluid collection consistent with an abscess. This is most consistent with perforated appendicitis however a right-sided diverticulitis or other etiology could be possible. Abdomen/Pelvis CT 11/23/24 18:03 EXAMINATION: Abdomen and pelvis CT with CLINICAL HISTORY: Abdominal pain PRIORS: None TECHNIQUE: Contiguous axial images were obtained through the abdomen and pelvis with the use of intravenous contrast. Sagittal and coronal reformations are supplied. FINDINGS: Lung bases are unremarkable. Dilated fluid-filled loops of small bowel are present within the left side of the abdomen measuring up to 4.6 cm with wall enhancement. Immediately abutting this, a large fluid and gas collection is present within the lower mid abdomen, medial to the cecum, this identified on image 61 series 2 and image 41 series 3. This is not yet walled off and appears to be contained by the surrounding loops of small bowel and mesentery. It measures 9.0 cm in anteroposterior dimension by 6.9 cm in transverse dimension by 7.5 cm in craniocaudal dimension. Immediately lateral to the fluid collection is a disrupted appendix, image 63, series 2 with moderate pericecal inflammatory change in the right lower quadrant with possible cecal wall thickening, image 66, series 2. A few foci of extraluminal gas present lateral to the fluid collection in the expected position of the appendix, image 39, series 300. Moderate to severe diverticulosis of the sigmoid colon present adjacent to the fluid collection without pericolonic inflammatory change. Small scattered lymph nodes noted throughout the mesentery. The liver shows a ill-defined hypoattenuation in the right lobe, posterior segment measuring 1.7 cm. The gallbladder is contracted. Portal vein, spleen, stomach, and right adrenal are morphologically unremarkable. A left adrenal nodule is present measuring 2.4 cm and 58 Hounsfield units, indeterminant. The kidneys enhance symmetrically with possible small cysts noted, not fully characterized. No retroperitoneal adenopathy. No large amount of extraluminal gas. Uterus and ovaries present. Right ovarian cyst present, image 72, series 2 measuring 2.6 cm. No free fluid in the pelvis. Urinary bladder distends normally. Moderate amount of formed stool in the sigmoid colon. In bone windows well to moderate osseous demineralization with moderate to advanced degenerative change in the spine. IMPRESSION: CT features favoring ruptured appendicitis with a large gas and fluid collection in the mid- lower abdomen measuring up to 9 cm, with adjacent dilated fluid-filled loops of small bowel. Surgical consultation is required. Electronically signed by Carmen Watters 11-23-2024 7:14 PM Limited or Localized CT 11/23/24 22:14 CT limited or localized study CLINICAL HISTORY: appendicular abscess COMPARISON STUDY: Yesterday's CT scan FINDINGS: The right lower quadrant abscess is stable. The abscess is completely surrounded by bowel loops and there is no safe window for percutaneous drain placement. Drain was not placed. IMPRESSION: Percutaneous drain was not placed. ACT 112: Negative or not required by law. Electronically signed by: Gerardo Lokcett M.D. 11/24/2024 1:07 PM PG Care Time/CCT Total # of Minutes Spent Total Time Spent with Patient: Total time spent is greater than 50% in coordination of care (as documented) at patient's floor/unit and/or counseling patient: Coding Level of Care Code 78995 SUB INP/OBS CARE 2/35MIN Diagnoses Intra-abdominal abscess K65.1 Acute perforated appendicitis K35.32 GERD (gastroesophageal reflux disease) K21.9 Obesity E66.9 HTN (hypertension) I10 HLD (hyperlipidemia) E78.5
[2024-11-24] MEDS ORDERED: Nursing to Pharmacy Communication SCH (16:15)
[2024-11-24] MEDS: INSULIN ASPART PER UNIT CHARGE SC SCH (17:26)
[2024-11-24 17:49] LABS: Appearance Urine Clear (Clear); Bacteria Urine Automated None Seen (None Seen); Bilirubin Urine Negative (Negative); Blood Urine Trace (Negative); Cast Urine Automated 0-2 /lpf (0-2); Color Urine Dark Yellow; Glucose Urine UA 3+ (Negative); Ketones Urine Trace (Negative); Leukocyte Esterase Urine Negative (Negative); Nitrite Urine Negative (Negative); Protein Urine Trace (Negative); Specific Gravity Urine 1.041 (1.000-1.030); Urobilinogen Urine Negative (Negative); WBC Urine Automated 0-5 /hpf (0-5); pH Urine 5.5 (4.5-7.5)
--- NOTE | 2024-11-24 20:28 | Electrocardiogram Report ---
Test Reason : Blood Pressure : */* mmHG Vent. Rate : 73 BPM Atrial Rate : 73 BPM P-R Int : 164 ms QRS Dur : 86 ms QT Int : 374 ms P-R-T Axes : 0 51 21 degrees QTcB Int : 412 ms Normal sinus rhythm Normal ECG No previous ECGs available Confirmed by Michael Davis [id number]) on 11/24/2024 8:28:32 PM Referred By: REFERRED SELF Confirmed By: Michael Davis
[2024-11-24] MEDS: HEPARIN SOD 5,000 UNIT/0.5 ML VIAL SQ SCH (20:44)
--- NOTE | 2024-11-25 04:44 | Surgery Progress Note ---
Date of Service November 25, 2024 Assessment & Plan (1) Acute perforated appendicitis: Plan: Patient has been admitted on the hospitalist service. From surgery perspective we recommend the following: Provide analgesics and antiemetics as needed Maintain on clear liquids for the present time with plans to advance diet as patient clinically improves Continue antibiotics in form of Zosyn with plans to transition to oral antibiotics at time of discharge Check a.m. labs when available Ultimate plan will be for patient have an interval appendectomy once she is further clinically improved Subcutaneous heparin is in place for DVT prophylaxis Admission and Anticipated Discharge Date Admission Date: November 23, 2024 Supervising Physician Co-Signing Physician Notes Patient with intra-abdominal abscess secondary to suspected perforated appendicitis, not amenable to IR drainage at this time. Elected to proceed with antibiotic treatment. She is having no pain no fevers, she had a bowel movement and is passing flatus. She is tolerated full liquids. On exam she is afebrile with stable vitals. Her abdomen is soft, nontender, nondistended. WBC normal. Will advance her to low fiber diet. Continue IV antibiotics. Note that infectious disease recommended changing antibiotics from Zosyn to ceftriaxone and metronidazole. Subjective Patient is resting comfortably in bed. She notes that she has no abdominal pain at this time. She is tolerating clear liquids without nausea or vomiting. She is passing flatus. Physical Exam Gastrointestinal (Abdomen): Abdomen is soft and nondistended. There is no pain with palpation Results & Data Vital Signs (Past 12 Hours) Vital Signs Temp Pulse Resp BP Pulse Ox O2 Del Method 11/24/24 20:09 36.8 C 70 12 125/74 95 Room Air PG Care Time/CCT Total # of Minutes Spent Total Time Spent with Patient: Total time spent is greater than 50% in coordination of care (as documented) at patient's floor/unit and/or counseling patient: Coding Level of Care Code 23497 SUB INP/OBS CARE 09/30MIN Diagnoses Acute perforated appendicitis K35.32
[2024-11-25 06:30] LABS: Basophils # (auto) 0.02 K/uL (0.00-0.20); Basophils % (auto) 0.3 %; Eosinophils # (auto) 0.08 K/uL (0.00-0.50); Eosinophils % (auto) 1.1 %; Hematocrit (blood only) 32.5 % (37.0-47.0); Immature Granulocytes % (auto) 1.3 %; Lymphocytes # (auto) 1.31 K/uL (1.20-3.40); Lymphocytes % (auto) 17.4 %; Mean Corpuscular Hemoglobin 27.3 pg (25.0-34.0); Mean Corpuscular Hgb Conc 33.8 g/dL (32.0-36.0); Mean Corpuscular Volume 80.6 fL (80.0-100.0); Mean Platelet Volume 9.9 fL (9.4-12.4); Monocytes # (auto) 0.37 K/uL (0.11-0.59); Monocytes % (auto) 4.9 %; Neutrophils # (auto) 5.64 K/uL (1.40-6.50); Platelet Count 216 K/uL (130-400); RDW Coefficient of Variation 16.9 % (11.5-14.5); RDW Standard Deviation 49.9 fL (36.4-46.3); Red Blood Count 4.03 M/uL (4.20-5.40); White Blood Count 7.52 K/ul (4.8-10.8)
[2024-11-25 07:11] LABS: Albumin Globulin Ratio 0.9 (0.9-2); Albumin Level 2.7 gm/dl (3.4-5.0); BUN Creatinine Ratio 11.8 (10-20); Bilirubin,Total 0.7 mg/dl (0.2-1.0); Creatinine Clr Calc Pharmacy 139.5 ml/min; Magnesium 1.4 mg/dl (1.7-2.4); Phosphorus 3.3 mg/dl (2.5-4.9); Total Protein 5.7 gm/dl (6.0-8.3)
--- NOTE | 2024-11-25 13:43 | Hospitalist Progress Note ---
Date of Service November 25, 2024 Assessment & Plan (1) Acute perforated appendicitis: Plan Acute ruptured appendicitis with abscess Patient presents with abdominal discomfort for several days, along with nausea. Seen by her primary care doctor on November 17, 2024; prescribed ciprofloxacin for 5 days Leukocytosis present on admission CT abdomen pelvis showed dilated fluid-filled loops of small bowel within left side of abdomen measuring up to 4.6 cm with wall enhancement. Immediately abutting this, large fluid and gas collection within lower mid abdomen medial to the cecum; measures about 9.0 centimeter into 6.9 into 7.5 cm. IV Zosyn initially for antibiotics ID consulted for further recs, recommended rocephin/Flagyl until resolution IR consulted- cannot drain abscess due to no access because of obstructing bowel; case discussed with [facility], notes there is nothing they would be able to do there. Recommended surgical followup. General Surgery consulted, appreciate recs -Clears -conservative management with IV abx -ID consult -repeat imaging in 1 week or sooner for worsening symptoms -outpt colonoscopy needed once inflammation resolves -appendectomy after resolution Continue to monitor Hypokalemia Replete as needed Chronic conditions; Hypertensionhold antihypertensive for now Hyperlipidemiahold Lipitor for elevated LFTs. ALT/ALP64/241; continue to monitor GERD- placed on iv Protonix Type 2 diabetes mellitussliding scale CRYSTAL- not on cpap Diet: advance as tolerated Full code DVT prophylaxis heparin SQ Dispo: Home once medically stable Admission and Anticipated Discharge Date Admission Date: November 23, 2024 Review of Systems Review of Systems: All systems reviewed & are unremarkable except as noted in Subjective Physical Exam Physical Exam: General: Alert, oriented. No acute distress HEENT: NC/AT CV: RRR Resp: Breath sounds clear bilaterally, no increased effort of breathing Abdomen: Soft, tender in RLQ Extremities: No edema in lower extremities bilaterally. Results & Data Results & Data Vital Signs (Past 12 Hours) Vital Signs Temp Pulse Resp BP Pulse Ox O2 Del Method 11/25/24 07:01 36.6 C 69 17 149/74 H 96 Room Air Diagnostic Findings Abdomen/Pelvis CT 11/23/24 18:03 EXAMINATION: Abdomen and pelvis CT with CLINICAL HISTORY: Abdominal pain PRIORS: None TECHNIQUE: Contiguous axial images were obtained through the abdomen and pelvis with the use of intravenous contrast. Sagittal and coronal reformations are supplied. FINDINGS: Lung bases are unremarkable. Dilated fluid-filled loops of small bowel are present within the left side of the abdomen measuring up to 4.6 cm with wall enhancement. Immediately abutting this, a large fluid and gas collection is present within the lower mid abdomen, medial to the cecum, this identified on image 61 series 2 and image 41 series 3. This is not yet walled off and appears to be contained by the surrounding loops of small bowel and mesentery. It measures 9.0 cm in anteroposterior dimension by 6.9 cm in transverse dimension by 7.5 cm in craniocaudal dimension. Immediately lateral to the fluid collection is a disrupted appendix, image 63, series 2 with moderate pericecal inflammatory change in the right lower quadrant with possible cecal wall thickening, image 66, series 2. A few foci of extraluminal gas present lateral to the fluid collection in the expected position of the appendix, image 39, series 300. Moderate to severe diverticulosis of the sigmoid colon present adjacent to the fluid collection without pericolonic inflammatory change. Small scattered lymph nodes noted throughout the mesentery. The liver shows a ill-defined hypoattenuation in the right lobe, posterior segment measuring 1.7 cm. The gallbladder is contracted. Portal vein, spleen, stomach, and right adrenal are morphologically unremarkable. A left adrenal nodule is present measuring 2.4 cm and 58 Hounsfield units, indeterminant. The kidneys enhance symmetrically with possible small cysts noted, not fully characterized. No retroperitoneal adenopathy. No large amount of extraluminal gas. Uterus and ovaries present. Right ovarian cyst present, image 72, series 2 measuring 2.6 cm. No free fluid in the pelvis. Urinary bladder distends normally. Moderate amount of formed stool in the sigmoid colon. In bone windows well to moderate osseous demineralization with moderate to advanced degenerative change in the spine. IMPRESSION: CT features favoring ruptured appendicitis with a large gas and fluid collection in the mid- lower abdomen measuring up to 9 cm, with adjacent dilated fluid-filled loops of small bowel. Surgical consultation is required. Electronically signed by Carmen Watters 11-23-2024 7:14 PM Limited or Localized CT 11/23/24 22:14 CT limited or localized study CLINICAL HISTORY: appendicular abscess COMPARISON STUDY: Yesterday's CT scan FINDINGS: The right lower quadrant abscess is stable. The abscess is completely surrounded by bowel loops and there is no safe window for percutaneous drain placement. Drain was not placed. IMPRESSION: Percutaneous drain was not placed. ACT 112: Negative or not required by law. Electronically signed by: Gerardo Lockett M.D. 11/24/2024 1:07 PM
[2024-11-25] MEDS: cefTRIAXone SODIUM 2,000 MG/50 ML BAG IV SCH (16:15)
[2024-11-25] MEDS: metroNIDAZOLE 500 MG TAB PO SCH (19:35)
[2024-11-26 06:26] LABS: Basophils # (auto) 0.03 K/uL (0.00-0.20); Basophils % (auto) 0.5 %; Eosinophils # (auto) 0.09 K/uL (0.00-0.50); Eosinophils % (auto) 1.4 %; Hematocrit (blood only) 33.9 % (37.0-47.0); Hemoglobin 11.2 g/dl (12.0-16.0); Immature Granulocytes # (auto) 0.12 K/uL (0.01-0.20); Immature Granulocytes % (auto) 1.9 %; Lymphocytes # (auto) 1.35 K/uL (1.20-3.40); Lymphocytes % (auto) 21.2 %; Mean Corpuscular Hemoglobin 27.1 pg (25.0-34.0); Mean Corpuscular Volume 81.9 fL (80.0-100.0); Mean Platelet Volume 9.8 fL (9.4-12.4); Monocytes # (auto) 0.36 K/uL (0.11-0.59); Monocytes % (auto) 5.6 %; Neutrophils # (auto) 4.43 K/uL (1.40-6.50); Neutrophils % (auto) 69.4 %; Platelet Count 235 K/uL (130-400); RDW Coefficient of Variation 16.6 % (11.5-14.5); Red Blood Count 4.14 M/uL (4.20-5.40); White Blood Count 6.38 K/ul (4.8-10.8)
[2024-11-26 06:46] LABS: Albumin Globulin Ratio 0.9 (0.9-2); Albumin Level 2.9 gm/dl (3.4-5.0); BUN Creatinine Ratio 16.7 (10-20); Bilirubin,Total 0.4 mg/dl (0.2-1.0); Calcium 8.4 mg/dl (8.6-10.3); Creatinine Clr Calc Pharmacy 131.8 ml/min; Globulin 3.2 gm/dl (2.5-4.0); Magnesium 1.4 mg/dl (1.7-2.4); Phosphorus 3.5 mg/dl (2.5-4.9); Potassium 3.7 mmol/L (3.5-5.1); Total Protein 6.1 gm/dl (6.0-8.3)
[2024-11-26] MEDS: PROMETHAZINE 6.25 MG/50.25 ML BAG IV PRN (07:48)
--- NOTE | 2024-11-26 08:36 | Surgery Progress Note ---
Date of Service November 26, 2024 Assessment & Plan (1) Acute perforated appendicitis: Plan: Intra-abdominal abscess secondary to suspected perforated appendicitis, not amenable to IR drainage. Currently doing well with nonoperative management. Continue IV antibiotics, low fiber diet CT scan with oral and IV contrast tomorrow Will need prolonged antibiotics and consider interval appendectomy in the future if continues to improve (2) Intra-abdominal abscess: Admission and Anticipated Discharge Date Admission Date: November 23, 2024 Subjective Intra-abdominal abscess believed secondary to perforated appendicitis not amenable to IR drainage, currently undergoing nonoperative management. A little bit of nausea and headache this morning which is new from yesterday. Antibiotics were switched per ID recommendations Physical Exam Constitutional: WD/WN, vitals as above Gastrointestinal (Abdomen): normal bowel sounds, soft, nontender, no hepatosplenomegaly Results & Data Vital Signs (Past 12 Hours) Vital Signs Temp Pulse Resp BP Pulse Ox O2 Del Method 11/26/24 08:20 36.7 C 55 L 16 145/83 H 99 Room Air Laboratory Results Laboratory Results - last 24 hr 11/25/24 11/25/24 11/25/24 11:41 16:45 20:26 WBC RBC Hgb Hct MCV MCH MCHC RDW Std Deviation RDW Coeff of Alfredo Plt Count MPV Immature Gran % (Auto) Neut % (Auto) Lymph % (Auto) Dane % (Auto) Eos % (Auto) Baso % (Auto) Neut # (Auto) Lymph # (Auto) Dane # (Auto) Eos # (Auto) Baso # (Auto) Immature Gran # (Auto) Sodium Potassium Chloride Carbon Dioxide Anion Gap BUN Creatinine Est Cr Clr Drug Dosing eGFR BUN/Creatinine Ratio Glucose POC Glucose 117 H 111 H 164 H Calcium Phosphorus Magnesium Total Bilirubin AST ALT Alkaline Phosphatase Total Protein Albumin Globulin Albumin/Globulin Ratio 11/26/24 11/26/24 05:58 07:26 WBC 6.38 RBC 4.14 L Hgb 11.2 L Hct 33.9 L MCV 81.9 MCH 27.1 MCHC 33.0 RDW Std Deviation 50.0 H RDW Coeff of Alfredo 16.6 H Plt Count 235 MPV 9.8 Immature Gran % (Auto) 1.9 Neut % (Auto) 69.4 Lymph % (Auto) 21.2 Dane % (Auto) 5.6 Eos % (Auto) 1.4 Baso % (Auto) 0.5 Neut # (Auto) 4.43 Lymph # (Auto) 1.35 Dane # (Auto) 0.36 Eos # (Auto) 0.09 Baso # (Auto) 0.03 Immature Gran # (Auto) 0.12 Sodium 141 Potassium 3.7 Chloride 109 H Carbon Dioxide 27 Anion Gap 5 BUN 9 Creatinine 0.54 L Est Cr Clr Drug Dosing 131.8 eGFR 106.65 BUN/Creatinine Ratio 16.7 Glucose 120 H POC Glucose 119 H Calcium 8.4 L Phosphorus 3.5 Magnesium 1.4 L Total Bilirubin 0.4 AST 20 ALT 33 Alkaline Phosphatase 207 H Total Protein 6.1 Albumin 2.9 L Globulin 3.2 Albumin/Globulin Ratio 0.9 PG Care Time/CCT Total # of Minutes Spent Total Time Spent with Patient: Total time spent is greater than 50% in coordination of care (as documented) at patient's floor/unit and/or counseling patient: Coding Level of Care Code 97282 SUB INP/OBS CARE 2/35MIN Diagnoses Acute perforated appendicitis K35.32 Intra-abdominal abscess K65.1
[2024-11-26] MEDS: MAGNESIUM SULFATE / D5W 1 GM/100 ML BAG IV SCH (10:19)
[2024-11-26] MEDS: MAGNESIUM OXIDE 400 MG TAB PO SCH (10:19)
--- NOTE | 2024-11-26 10:55 | Hospitalist Progress Note ---
Date of Service November 26, 2024 Assessment & Plan (1) Acute perforated appendicitis: Plan Acute ruptured appendicitis with abscess Patient presents with abdominal discomfort for several days, along with nausea. Seen by her primary care doctor on November 17, 2024; prescribed ciprofloxacin for 5 days Leukocytosis present on admission CT abdomen pelvis showed dilated fluid-filled loops of small bowel within left side of abdomen measuring up to 4.6 cm with wall enhancement. Immediately abutting this, large fluid and gas collection within lower mid abdomen medial to the cecum; measures about 9.0 centimeter into 6.9 into 7.5 cm. IV Zosyn initially for antibiotics, transitioned to rocephin/flagyl per ID recs ID consulted for further recs, recommended rocephin/Flagyl until resolution IR consulted- cannot drain abscess due to no access because of obstructing bowel; case discussed with [facility], notes there is nothing they would be able to do there. Recommended surgical followup. General Surgery consulted, appreciate recs -advanced diet -conservative management with IV abx -ID consult -repeat CT abd/pelvis imaging on 11/27 -outpt colonoscopy needed once inflammation resolves -appendectomy after resolution Continue to monitor Hypokalemia Hypomagnesemia Replete as needed Chronic conditions; Hypertensionhold antihypertensive for now Hyperlipidemiahold Lipitor for elevated LFTs. ALT/ALP64/241; continue to monitor GERD- placed on iv Protonix Type 2 diabetes mellitussliding scale CRYSTAL- not on cpap Diet: advance as tolerated Full code DVT prophylaxis heparin SQ Dispo: Home once medically stable Admission and Anticipated Discharge Date Admission Date: November 23, 2024 Subjective Pt was seen in the AM Tolerating diet, notes some nausea Otherwise denies acute concerns. Review of Systems Review of Systems: All systems reviewed & are unremarkable except as noted in Subjective Physical Exam Physical Exam: General: Alert, oriented. No acute distress HEENT: NC/AT CV: RRR Resp: Breath sounds clear bilaterally, no increased effort of breathing Abdomen: Soft, nontender Extremities: No edema in lower extremities bilaterally. Results & Data Results & Data Vital Signs (Past 12 Hours) Vital Signs Temp Pulse Resp BP Pulse Ox O2 Del Method 11/26/24 08:20 36.7 C 55 L 16 145/83 H 99 Room Air
[2024-11-27 06:12] LABS: Basophils # (auto) 0.03 K/uL (0.00-0.20); Basophils % (auto) 0.5 %; Eosinophils # (auto) 0.07 K/uL (0.00-0.50); Eosinophils % (auto) 1.1 %; Hematocrit (blood only) 34.3 % (37.0-47.0); Hemoglobin 11.5 g/dl (12.0-16.0); Immature Granulocytes # (auto) 0.19 K/uL (0.01-0.20); Lymphocytes # (auto) 1.45 K/uL (1.20-3.40); Lymphocytes % (auto) 22.7 %; Mean Corpuscular Hemoglobin 27.2 pg (25.0-34.0); Mean Corpuscular Hgb Conc 33.5 g/dL (32.0-36.0); Mean Corpuscular Volume 81.1 fL (80.0-100.0); Mean Platelet Volume 9.5 fL (9.4-12.4); Monocytes # (auto) 0.28 K/uL (0.11-0.59); Monocytes % (auto) 4.4 %; Neutrophils # (auto) 4.36 K/uL (1.40-6.50); Neutrophils % (auto) 68.3 %; Platelet Count 267 K/uL (130-400); RDW Coefficient of Variation 16.7 % (11.5-14.5); RDW Standard Deviation 48.8 fL (36.4-46.3); Red Blood Count 4.23 M/uL (4.20-5.40); White Blood Count 6.38 K/ul (4.8-10.8)
[2024-11-27 06:35] LABS: Albumin Globulin Ratio 0.9 (0.9-2); Albumin Level 2.9 gm/dl (3.4-5.0); BUN Creatinine Ratio 16.4 (10-20); Bilirubin,Total 0.4 mg/dl (0.2-1.0); Calcium 8.3 mg/dl (8.6-10.3); Creatinine Clr Calc Pharmacy 129.4 ml/min; Globulin 3.1 gm/dl (2.5-4.0); Magnesium 1.8 mg/dl (1.7-2.4); Potassium 3.6 mmol/L (3.5-5.1)
[2024-11-27] MEDS: OPTIRAY 320 100ml IV ONE (08:10)
--- NOTE | 2024-11-27 09:01 | CT Scan Report ---
ABDOMEN AND PELVIS CT WITH IV AND ORAL CONTRAST CT DOSE: 1462.82 mGy.cm HISTORY: perforated appy TECHNIQUE: Multiaxial CT images of the abdomen and pelvis were performed following the IV administrat ion of 90 cc of Optiray and oral contrast. A dose lowering technique was utilized adhering to the pr inciples of CYNDI. COMPARISON STUDY: 11/23/2024 FINDINGS: ABDOMEN: There is a stable 1.7 cm oval hypodensity right hepatic lobe, likely hemangioma or cyst. Oth erwise the liver, gallbladder, spleen, pancreas, and right adrenal gland are unremarkable. There is a stable 2.4 cm nodule at the left adrenal gland. There are a few tiny renal cysts. Kidneys show no hy dronephrosis. There are mild atherosclerotic calcifications. No abdominal aortic aneurysm. Pelvis: Perforated appendicitis again seen. The collection of fluid and gas medial to the appendix an d surrounded by bowel loops measures 8 cm greatest axial dimension, mildly decreased compared with 11 cm prior. No new free fluid, free air, or abscess seen. No bowel obstruction. Osseous structures: There is lower lumbar degenerative disc disease. IMPRESSION: 1. The abscess adjacent to the perforated appendix persists but is decreased in size. 2. No adverse change seen. 3. Stable small hypodensity at the liver and stable small left adrenal nodule with nonspecific postco ntrast density. If there is prior outside imaging which can demonstrate at least 2 years of stability for these findings, no prior workup is needed. If not, suggest nonurgent outpatient follow-up MRI or CT scan with hemangioma/adrenal protocol for further evaluation. ACT 112: Positive. There are findings on this exam that require communication between the performing entity and the patient following Patient Test Result Information Act ([place] Act 112) guidelines. The above report was generated using voice recognition software. It may contain grammatical, syntax o r spelling errors. Electronically signed by: Gerardo Lockett M.D. 11/27/2024 9:00 AM
--- NOTE | 2024-11-27 12:30 | Surgery Progress Note ---
Date of Service November 27, 2024 Assessment & Plan (1) Intra-abdominal abscess: Plan: Her CT images and results were personally viewed and interpreted by myself She has decrease in the size of her intra-abdominal abscess from her presumed perforated appendicitis She is clinically improved, afebrile and without leukocytosis She is tolerating a low fiber diet and without abdominal pain I think due to the size of the abscess and there being no window for percutan eous drainage, PICC line placement and prolonged IV antibiotic treatment would be the best course of action for her Will continue to follow (2) Acute perforated appendicitis: Admission and Anticipated Discharge Date Admission Date: November 23, 2024 Subjective Patient seen and examined. Afebrile. She is tolerating a low fiber diet. Denies abdominal pain. Review of Systems Constitutional: no fever and no chills Respiratory: no cough and no dyspnea Cardiovascular: no chest pain and no dyspnea on exertion Gastrointestinal: no abdominal pain, no nausea, no vomiting and no constipation Genitourinary: no dysuria and no urinary urgency Neurologic: no headache(s) and no confusion Psychiatric: no behavioral changes and no depression Physical Exam Constitutional: WD/WN, vitals as above Respiratory: normal respiratory effort, lungs clear to auscultation Cardiovascular: RRR, no murmur, no edema Gastrointestinal (Abdomen): Inspection/Auscultation: abdomen normal to inspection; abdomen not distended Percussion/Palpation: abdomen soft; abdomen nontender and no guarding Musculoskeletal: no cyanosis or clubbing, extremities motor strength 5/5 Skin: no rashes, warm and dry Psychiatric: A+Ox3, euthymic affect Results & Data Vital Signs (Past 12 Hours) Vital Signs Temp Pulse Resp BP Pulse Ox O2 Del Method 11/27/24 11:25 36.8 C 57 L 21 126/74 97 Room Air 11/27/24 08:43 36.7 C 62 20 144/72 H 99 Room Air PG Care Time/CCT Total # of Minutes Spent Total Time Spent with Patient: Total time spent is greater than 50% in coordination of care (as documented) at patient's floor/unit and/or counseling patient: Coding Level of Care Code 45420 SUB INP/OBS CARE 2/35MIN Diagnoses Intra-abdominal abscess K65.1 Acute perforated appendicitis K35.32
[2024-11-27] MEDS: FLUCONAZOLE 50 MG TAB PO ONE (14:03)
--- NOTE | 2024-11-27 14:09 | Hospitalist Progress Note ---
Date of Service November 27, 2024 Assessment & Plan (1) Acute perforated appendicitis: Plan Acute ruptured appendicitis with abscess Patient presents with abdominal discomfort for several days, along with nausea. Seen by her primary care doctor on November 17, 2024; prescribed ciprofloxacin for 5 days Leukocytosis present on admission CT abdomen pelvis showed dilated fluid-filled loops of small bowel within left side of abdomen measuring up to 4.6 cm with wall enhancement. Immediately abutting this, large fluid and gas collection within lower mid abdomen medial to the cecum; measures about 9.0 centimeter into 6.9 into 7.5 cm. IV Zosyn initially for antibiotics, transitioned to rocephin/flagyl per ID recs ID consulted for further recs, recommended rocephin/Flagyl until resolution IR consulted- cannot drain abscess due to no access because of obstructing bowel; case discussed with [facility], notes there is nothing they would be able to do there. Recommended surgical followup. General Surgery consulted, appreciate recs -advanced diet -conservative management with IV abx -ID consult -repeat CT abd/pelvis imaging on 11/27- improvement -outpt colonoscopy needed once inflammation resolves -appendectomy after resolution Continue to monitor 11/27- Gen surg recommending abx for 2 weeks, pt to get US guided IV. CM assisting with setting this up for her at home. Hypokalemia Hypomagnesemia Replete as needed Chronic conditions; Hypertensionhold antihypertensive for now Hyperlipidemiahold Lipitor for elevated LFTs. ALT/ALP64/241; continue to monitor GERD- placed on iv Protonix Type 2 diabetes mellitussliding scale CRYSTAL- not on cpap Diet: advance as tolerated Full code DVT prophylaxis heparin SQ Dispo: Home once medically stable Admission and Anticipated Discharge Date Admission Date: November 23, 2024 Subjective Pt was seen multiple times during the day Initially in the AM asking about going home Noted that pain had subsided and she was tolerating her diet. Review of Systems Review of Systems: All systems reviewed & are unremarkable except as noted in Subjective Physical Exam Physical Exam: General: Alert, oriented. No acute distress HEENT: NC/AT CV: RRR Resp: Breath sounds clear bilaterally, no increased effort of breathing Abdomen: Soft, nontender Extremities: No edema in lower extremities bilaterally. Results & Data Results & Data Vital Signs (Past 12 Hours) Vital Signs Temp Pulse Resp BP Pulse Ox O2 Del Method 11/27/24 11:25 36.8 C 57 L 21 126/74 97 Room Air 11/27/24 08:43 36.7 C 62 20 144/72 H 99 Room Air
--- NOTE | 2024-11-28 08:22 | Surgery Progress Note ---
Date of Service November 28, 2024 Assessment & Plan (1) Intra-abdominal abscess: Plan: She continues to improve and has been afebrile without leukocytosis for over 24 hours She is tolerating a low fiber diet and without abdominal pain I think due to the size of the abscess and there being no window for percutaneous drainage, PICC line placement and prolonged IV antibiotic treatment would be the best course of action for her Infectious diseases already been on the case, would reach out to them for help guiding antibiotic choice and duration, but she should likely have at least 2 to 3 weeks of IV antibiotics Plan would be to repeat a CT scan at the end of her antibiotic regimen for reassessment of her abscess size Tentative discharge for later today versus tomorrow Will continue to follow (2) Acute perforated appendicitis: Admission and Anticipated Discharge Date Admission Date: November 23, 2024 Subjective Patient seen and examined. She is overall doing well. She did have some sharp right lower quadrant pain that lasted a few seconds and went away on its own earlier this morning. She denies any pain right now. She has been afebrile. She is tolerated her diet. Review of Systems Constitutional: no fever and no chills Respiratory: no cough and no dyspnea Cardiovascular: no chest pain and no dyspnea on exertion Gastrointestinal: + abdominal pain; no nausea, no vomiting and no constipation Genitourinary: no dysuria and no urinary urgency Neurologic: no headache(s) and no confusion Psychiatric: no behavioral changes and no depression Physical Exam Constitutional: WD/WN, vitals as above Respiratory: normal respiratory effort, lungs clear to auscultation Cardiovascular: RRR, no murmur, no edema Gastrointestinal (Abdomen): Inspection/Auscultation: abdomen normal to inspection; abdomen not distended Percussion/Palpation: abdomen soft; abdomen nontender and no guarding Musculoskeletal: no cyanosis or clubbing, extremities motor strength 5/5 Skin: no rashes, warm and dry Psychiatric: A+Ox3, euthymic affect Results & Data Vital Signs (Past 12 Hours) Vital Signs Temp Pulse Resp BP Pulse Ox O2 Del Method 11/28/24 07:15 36.6 C 56 L 16 139/79 96 Room Air PG Care Time/CCT Total # of Minutes Spent Total Time Spent with Patient: Total time spent is greater than 50% in coordination of care (as documented) at patient's floor/unit and/or counseling patient: Coding Level of Care Code 95914 SUB INP/OBS CARE 235MIN Diagnoses Intra-abdominal abscess K65.1 Acute perforated appendicitis K35.32
[2024-11-28] MEDS ORDERED: PANTOprazole 40 MG TAB PO SCH (09:00)
[2024-11-28 09:36] LABS: Hematocrit (blood only) 37.1 % (37.0-47.0); Hemoglobin 11.9 g/dl (12.0-16.0); Mean Corpuscular Hemoglobin 26.3 pg (25.0-34.0); Mean Corpuscular Hgb Conc 32.1 g/dL (32.0-36.0); Mean Corpuscular Volume 82.1 fL (80.0-100.0); Mean Platelet Volume 9.4 fL (9.4-12.4); Platelet Count 306 K/uL (130-400); RDW Coefficient of Variation 16.7 % (11.5-14.5); RDW Standard Deviation 49.8 fL (36.4-46.3); Red Blood Count 4.52 M/uL (4.20-5.40); White Blood Count 6.81 K/ul (4.8-10.8)
[2024-11-28 10:00] LABS: Albumin Level 3.1 gm/dl (3.4-5.0); Bilirubin,Total 0.3 mg/dl (0.2-1.0); Calcium 8.6 mg/dl (8.6-10.3); Magnesium 1.7 mg/dl (1.7-2.4)
[2024-11-28 10:06] LABS: Albumin Globulin Ratio 0.9 (0.9-2); BUN Creatinine Ratio 13.4 (10-20); Creatinine Clr Calc Pharmacy 106.2 ml/min; Globulin 3.3 gm/dl (2.5-4.0); Phosphorus 3.3 mg/dl (2.5-4.9); Total Protein 6.4 gm/dl (6.0-8.3)
[2024-11-28 10:19] LABS: Basophils # (auto) 0.07 K/uL (0.00-0.20); Eosinophils # (auto) 0.09 K/uL (0.00-0.50); Eosinophils % (auto) 1.3 %; Hypochromasia Present; Immature Granulocytes # (auto) 0.39 K/uL (0.01-0.20); Immature Granulocytes % (auto) 5.7 %; Lymphocytes # (auto) 1.36 K/uL (1.20-3.40); Monocytes # (auto) 0.27 K/uL (0.11-0.59); Neutrophils # (auto) 4.63 K/uL (1.40-6.50); Polychromasia 1+
--- NOTE | 2024-11-28 10:54 | Infectious Disease Progress Nt ---
Date of Service November 28, 2024 Telehealth Information Non billable note Assessment & Plan (1) Intra-abdominal abscess: Plan: No intervention was done to drain the abscess as there was no clear window to drain the abscess per primary team at [facility]. Patient is reportedly doing well clinically on CTX and metronidazole. I recommend to continue Ceftriaxone 2 gm iv qd and metronidazole 500 mg po q8 hours and repeat CT A/P w/in 3-4 weeks to determine final duration of abx therapy. The patient may follow up w/ ID after the repeat CT. Case discussed w/ Dr. Cohen. Results & Data Vital Signs (Past 12 Hours) Vital Signs Temp Pulse Resp BP Pulse Ox O2 Del Method 11/28/24 07:15 36.6 C 56 L 16 139/79 96 Room Air
--- NOTE | 2024-11-28 12:02 | Hospitalist Progress Note ---
Date of Service November 28, 2024 Assessment & Plan (1) Acute perforated appendicitis: Plan Acute ruptured appendicitis with abscess Patient presents with abdominal discomfort for several days, along with nausea. Seen by her primary care doctor on November 17, 2024; prescribed ciprofloxacin for 5 days Leukocytosis present on admission CT abdomen pelvis showed dilated fluid-filled loops of small bowel within left side of abdomen measuring up to 4.6 cm with wall enhancement. Immediately abutting this, large fluid and gas collection within lower mid abdomen medial to the cecum; measures about 9.0 centimeter into 6.9 into 7.5 cm. IV Zosyn initially for antibiotics, transitioned to rocephin/flagyl per ID recs ID consulted for further recs, recommended rocephin/Flagyl until resolution IR consulted- cannot drain abscess due to no access because of obstructing bowel; case discussed with [facility] IR, notes there is nothing they would be able to do there. Recommended surgical followup. General Surgery consulted, appreciate recs -advanced diet -conservative management with IV abx -ID consult -repeat CT abd/pelvis imaging on 11/27- improvement -outpt colonoscopy needed once inflammation resolves -appendectomy after resolution Continue to monitor 11/27- Gen surg recommending abx for 2 weeks, pt to get US guided IV. CM assisting with setting this up for her at home. 11/28- ID noting cannot state how long pt will need abx for- could be as long as 4 weeks, recommending repeat CT scan at 4 weeks. PICC line order placed, pt consented. Hypokalemia Hypomagnesemia Replete as needed Chronic conditions; Hypertensionhold antihypertensive for now Hyperlipidemiahold Lipitor for elevated LFTs. ALT/ALP64/241; continue to monitor GERD- placed on iv Protonix Type 2 diabetes mellitussliding scale CRYSTAL- not on cpap Diet: advance as tolerated Full code DVT prophylaxis heparin SQ Dispo: Home once medically stable Admission and Anticipated Discharge Date Admission Date: November 23, 2024 Subjective pt was seen multiple times during the day In the AM, multiple discussions about antibiotics needed and cost Pt later agreeable to PICC line Consent obtained Review of Systems Review of Systems: All systems reviewed & are unremarkable except as noted in Subjective Physical Exam Physical Exam: General: Alert, oriented. No acute distress HEENT: NC/AT CV: RRR Resp: Breath sounds clear bilaterally, no increased effort of breathing Abdomen: Soft, nontender Extremities: No edema in lower extremities bilaterally. Results & Data Results & Data Vital Signs (Past 12 Hours) Vital Signs Temp Pulse Resp BP Pulse Ox O2 Del Method 11/28/24 07:15 36.6 C 56 L 16 139/79 96 Room Air
[2024-11-28] MEDS: ADVANCED PROBIOTIC 625 MG CAPSULE PO SCH (13:37)
[2024-11-28] MEDS: LOPERAMIDE HCL 2 MG CAP PO STA (13:37)
[2024-11-28] MEDS: ACETAMINOPHEN 500 MG TAB PO PRN (20:40)
[2024-11-29 06:28] LABS: Hematocrit (blood only) 35.4 % (37.0-47.0); Hemoglobin 11.5 g/dl (12.0-16.0); Mean Corpuscular Hemoglobin 26.8 pg (25.0-34.0); Mean Corpuscular Hgb Conc 32.5 g/dL (32.0-36.0); Mean Corpuscular Volume 82.5 fL (80.0-100.0); Mean Platelet Volume 9.4 fL (9.4-12.4); Platelet Count 272 K/uL (130-400); RDW Coefficient of Variation 17.1 % (11.5-14.5); RDW Standard Deviation 50.5 fL (36.4-46.3); Red Blood Count 4.29 M/uL (4.20-5.40); White Blood Count 6.22 K/ul (4.8-10.8)
[2024-11-29 06:46] LABS: Albumin Globulin Ratio 0.9 (0.9-2); Albumin Level 2.9 gm/dl (3.4-5.0); BUN Creatinine Ratio 17.5 (10-20); Bilirubin,Total 0.3 mg/dl (0.2-1.0); Calcium 8.4 mg/dl (8.6-10.3); Creatinine Clr Calc Pharmacy 112.9 ml/min; Globulin 3.2 gm/dl (2.5-4.0); Magnesium 1.7 mg/dl (1.7-2.4); Phosphorus 3.5 mg/dl (2.5-4.9); Potassium 3.9 mmol/L (3.5-5.1); Total Protein 6.1 gm/dl (6.0-8.3)
[2024-11-29 06:53] LABS: Basophils # (auto) 0.04 K/uL (0.00-0.20); Basophils % (auto) 0.6 %; Eosinophils # (auto) 0.12 K/uL (0.00-0.50); Eosinophils % (auto) 1.9 %; Immature Granulocytes # (auto) 0.45 K/uL (0.01-0.20); Immature Granulocytes % (auto) 7.2 %; Lymphocytes # (auto) 1.51 K/uL (1.20-3.40); Lymphocytes % (auto) 24.3 %; Monocytes # (auto) 0.35 K/uL (0.11-0.59); Monocytes % (auto) 5.6 %; Neutrophils # (auto) 3.75 K/uL (1.40-6.50); Neutrophils % (auto) 60.4 %
[2024-11-29 07:59] VITALS: PULSE 59
[2024-11-29] MEDS: PANTOprazole 40 MG TAB PO SCH (09:26)
--- NOTE | 2024-11-29 09:26 | Surgery Progress Note ---
Date of Service November 29, 2024 Assessment & Plan (1) Intra-abdominal abscess: Plan: She still doing well and tolerating a low fiber diet diet Remains afebrile without leukocytosis Would follow infectious diseases antibiotic recommendations She can follow-up with surgery as an outpatient 2 weeks after discharge Surgical sign off at this time, please call with any questions or concerns (2) Acute perforated appendicitis: Admission and Anticipated Discharge Date Admission Date: November 23, 2024 Subjective Patient seen and examined. Still without abdominal pain. Afebrile. Tolerating her low fiber diet. Review of Systems Constitutional: no fever and no chills Respiratory: no cough and no dyspnea Cardiovascular: no chest pain and no dyspnea on exertion Gastrointestinal: + abdominal pain; no nausea, no vomiting and no constipation Genitourinary: no dysuria and no urinary urgency Neurologic: no headache(s) and no confusion Psychiatric: no behavioral changes and no depression Physical Exam Constitutional: WD/WN, vitals as above Respiratory: normal respiratory effort, lungs clear to auscultation Cardiovascular: RRR, no murmur, no edema Gastrointestinal (Abdomen): Inspection/Auscultation: abdomen normal to inspection; abdomen not distended Percussion/Palpation: abdomen soft; abdomen nontender and no guarding Musculoskeletal: no cyanosis or clubbing, extremities motor strength 5/5 Skin: no rashes, warm and dry Psychiatric: A+Ox3, euthymic affect Results & Data Vital Signs (Past 12 Hours) Vital Signs Temp Pulse Resp BP Pulse Ox O2 Del Method 11/29/24 07:57 36.6 C 59 L 18 150/80 H 94 Room Air PG Care Time/CCT Total # of Minutes Spent Total Time Spent with Patient: Total time spent is greater than 50% in coordination of care (as documented) at patient's floor/unit and/or counseling patient: Coding Level of Care Code 78894 SUB INP/OBS CARE 09/30MIN Diagnoses Intra-abdominal abscess K65.1 Acute perforated appendicitis K35.32
[2024-11-29 10:57] LABS: Cdiff Toxin B Gene (2yr or >) Positive Cdiff Gene (Neg)
[2024-11-29 11:29] LABS: Cdiff Antigen Positive; Cdiff Toxin A+B Negative Cdiff Toxin (Negative)
[2024-11-29 11:48] VITALS: RESP 16; TEMP 98.6; O2SAT 96
--- NOTE | 2024-11-29 15:19 | Discharge Summary ---
Date of Service November 29, 2024 Admission HPI Per Admitting Provider History obtained from chart review and interview with the patient Past medical history of type 2 diabetes mellitus, dyslipidemia, CRYSTAL, hypertension, Patient presented to the hospital with abdominal discomfort for 2 weeks, nausea for one week. Patient reported that she started to have diarrhea for several days which resolved by itself. She started to have pain in her right lower quadrant along with episode of vomiting which prompted her to see her primary care doctor on November 17, 2024 Patient had recently seen her PCP on November 17, 2024; reported diarrhea for 2 weeks with 1 episode of vomiting. Patient was given for 5 days of ciprofloxacin; Ozempic and metformin kept on hold. Patient reported that she continued to feel nauseous as well as had abdominal bloating which prompted her to come to the ED today. She denies any fever or chills. She denies change in her bowel habits; no report of constipation; having regular bowel movements. She denies any urinary symptoms. On presentation to the ED, patient was afebrile, normotensive and saturating well on room air. Labs showed WBC count of 16,000. Potassium of 3.2. ALT and ALP mildly elevated to 64/241. Urinalysis positive for infection. CT abdomen and pelvis showed dilated fluid-filled loops of small bowel within left side of abdomen measuring up to 4.6 cm with wall enhancement. Immediately abutting this, large fluid and gas collection within lower mid abdomen medial to the cecum; measures about 9.0 centimeter into 6.9 into 7.5 cm. ED provider discussed with Dr. Lisa from surgery; reported that patient does not did not acute surgical intervention at this time; recommends IV antibiotic and admission to medicine for possible IR drainage. ED provider discussed with Dr. Lockett from IR; was unable to review the images at this time; plan to review in a.m. for possible IR drainage. Admission Exam Per Admitting Provider Constitutional: WD/WN, vitals as above, NAD, sitting up in bed, pleasant, conversing easily Respiratory: normal respiratory effort, lungs clear to auscultation, no wheeze, rales, rhonchi. Normal insp/exp effort, no accessory muscle use Cardiovascular: RRR, no murmur, no edema Vessels: no JVD or carotid bruit Chest: normal inspection of chest Abdomen:Slightly distended. Soft, no rigidity or guarding present. Mild tenderness present in periumbilical region. Bowel sounds present. Neurologic: PERRL, EOMI, accommodation nl, no face palsy, no dysarthria CN's II- XI intact bilaterally and moves all extremities Principal Diagnosis Acute ruptured appendicitis with abscess Discharge Exam Constitutional: WD/WN, vitals as above, NAD, sitting up in bed, pleasant, conversing easily Respiratory: normal respiratory effort, lungs clear to auscultation, no wheeze, rales, rhonchi. Normal insp/exp effort, no accessory muscle use Cardiovascular: RRR, no murmur, no edema Vessels: no JVD or carotid bruit Chest: normal inspection of chest Abdomen:Slightly distended. Soft, no rigidity or guarding present. No tenderness present Neurologic: PERRL, EOMI, accommodation nl, no face palsy, no dysarthria CN's II- XI intact bilaterally and moves all extremities Discharge Data Allergies Allergy/AdvReac Type Severity Reaction Status Date / Time No Known Drug Allergies Allergy Unknown . Verified 02/19/17 10:47 Consultations 11/23/24 19:29 Consult General Surgery Stat 11/23/24 21:27 ED Decision to Admit Stat 11/23/24 22:20 Consult Infectious Diseases Routine Ordered Studies 11/23/24 18:03 CT abd pelvis IV con only Stat 11/23/24 22:14 CT limited or localized study Routine 11/27/24 07:00 CT Abd and Pelvis [CT abd pelvis oral and IV con] Routine 11/28/24 10:31 US guide vascular access Urgent Hospital Course (1) Acute perforated appendicitis: Plan Acute ruptured appendicitis with abscess Patient presents with abdominal discomfort for several days, along with nausea. Seen by her primary care doctor on November 17, 2024; prescribed ciprofloxacin for 5 days Leukocytosis present on admission CT abdomen pelvis showed dilated fluid-filled loops of small bowel within left side of abdomen measuring up to 4.6 cm with wall enhancement. Immediately abutting this, large fluid and gas collection within lower mid abdomen medial to the cecum; measures about 9.0 centimeter into 6.9 into 7.5 cm. Patient was started on IV antibiotic; admitted to medical floor. IR was consulted for drainage; unable to drain due to obstructing bowel. The case was also discussed with [facility] IR for second opinion; unable to do drainage due to abscess collection surrounded by loops of intestine. Infectious disease was consulted; they recommend antibiotic to be switched to ceftriaxone and Flagyl. Infectious disease recommended to continue ceftriaxone and Flagyl and repeat CT abdomen pelvis in 3 to 4 weeks to determine final duration of antibiotic therapy. Patient to follow-up with infectious disease after repeat CT abdomen pelvis. Outpatient antibiotic arrangement was done for next 4 weeks. Duration of antibiotic to be changed based on infectious disease recommendation. Patient had a PICC line placed on the day of the discharge. Patient was found to have C. difficile gene positive with toxin negative; Patient reported 2 episode of diarrhea yesterday; denied any abdominal pain and diarrhea at the time of the discharge. Discussed with Dr. Lake from infectious disease regarding the C.diff results over tigertext. He recommended patient to be on oral vancomycin once a day. The oral vancomycin should be continued 7 days after completion of antibiotics. I discussed plan of care with the patient; discussed regarding side effects of the medication as well as symptoms and signs of C. difficile. I recommended her to obtain immediate medical attention if she starts to have fever, chills, abdominal pain, dizziness or weakness. Patient verbalized understanding of the instructions. Please note the above document was generated using voice recognition software. It may contain grammatical, syntax or spelling errors. Any formal questions or concerns about the content, text or information contained within the body of this dictation should be directly addressed to the provider for clarification Total Time Total Time Spent Total Time Spent (In Minutes): 45 Total Time Includes: Examination of the Patient, Discharge Planning, Medication Reconciliation, Communication With Other Providers and Other Discharge Plan Discharge Items Patient Disposition: Home - Self-Care Reason For Visit: ABDOMINAL PAIN Discharge Diagnosis: Acute ruptured appendicitis with abscess Activity: Resume your previous activity Non-emergency contact: Primary Care Provider Call non-emergency contact if: you have any medication questions and your symptoms worsen Follow-up/Referrals: Mg Bales DO [Physician] - (if you wish to follow up with [facility] general surgery you may call to schedule an appointment in 2 weeks) Timbo Nobles MD [Physician] - (if you decide follow up with [facility] general surgery, please call their office to schedule an appt in 2 weeks) Danelle Cerda DO [Primary Care Provider] - 12/05/24 3:00 pm (Date & Time 12/05/2024 3:00 PM Provider: Danelle Cerda, DO [facility] ) Diet: Regular Addtl Attending Provider Instructions: You were admitted to the hospital for appendicular abscess. You are evaluated by general surgery, infectious disease during the hospitalization. The recommendation is as follows; Obtain CT abdomen pelvis in 3 weeks time to monitor the size of the abscess. An appointment has been set up with your primary care doctor for next week to discuss obtaining the CT abdomen pelvis. The results of the CT abdomen pelvis should be reviewed by the infectious disease doctor to determine the duration of antibiotics. For the time being, you are prescribed antibiotic for total of 4 weeks. The duration of the antibiotic treatment could be shortened depending on the CT abdomen and pelvis results and infectious disease recommendation. You underwent stool study which showed C. difficile gene positive with toxin negative. The finding was discussed with infectious disease provider ( Dr. Lake) who recommended oral vancomycin once a day. The oral vancomycin capsules should be taken up until 7 days after completion of the antibiotics. You are prescribed 5 weeks of oral vancomycin for now. If you start to experience fever, chills, abdominal pain, diarrhea, shortness of breath, chest pain; please seek medical attention immediately. Continue ceftriaxone 2 g IV daily and Flagyl 500 mg 3 times a day until you see infectious disease to determine the duration of the antibiotic after CT abdomen pelvis is done. Please follow-up with general surgery (either [facility] or [facility] per your preference) in about 1 to 2 weeks to discuss timing of appendectomy. *Your first appointment in our Medical Treatment Unit (MTU) is scheduled for tomorrow (, 11/30/24) at 11:00 am. Please arrive 15 minutes early and check in at the [facility] entrance (at the back of the hospital). On the weekends you will check in at the Main Entrance (at the front of the hospital). The phone number to MTU is [phone]. Pending Studies at Discharge: No Stand-Alone Forms: My Socitive, Work/School Release, Smoking Cessation Medications and DC Order Prescriptions: New metronidazole 500 mg Tablet 500 mg PO TID 28 Days Qty: 84 0RF Advanced Probiotic 625 mg (10 billion cell) Capsule 2 cap PO DAILY 28 Days Qty: 56 0RF vancomycin 125 mg capsule 125 mg PO DAILY Qty: 35 0RF Continued atorvastatin 80 mg tablet 80 mg PO QAM oxybutynin chloride 15 mg tablet extended release 24hr 15 mg PO QAM metformin 1,000 mg tablet 1,000 mg PO BID omeprazole 20 mg Capsule,Delayed Release(Dr/Ec) 20 mg PO DAILY hydrochlorothiazide 25 mg tablet 25 mg PO QAM lisinopril 40 mg tablet 40 mg PO QAM Held Ozempic 2 mg/dose (8 mg/3 mL) pen injector 2 mg SUBCUT WK Hold Instructions: Resume on 01/02/25. Hold until antibiotic treatment has been completed Rx Instructions: sundays Discharge Orders: Discharge Order (Routine); Ordered 11/29/24 Ordered By: Leonardo Singh Admission Data Admit Date/Time: 11/23/24 22:14 Attending Provider: Leonardo Singh Admit Provider: Leonardo Singh Primary Care Provider: Danelle Cerda Other Providers: Timbo Nobles; Leonardo Singh; Carlitos Vines; [place]; Renny Stovall I.; Cortez Pacheco II; Rena Allison; Yossi Padilla; Lion Villa; Leni Garcia; Jameson Henson
[2024-11-29 18:16] VITALS: BP 136/78
--- NOTE | 2024-11-30 12:46 | Coding Query ---
CODING QUERY To promote full compliance with coding requirements relating to patient care, provider participation is requested in all cases of associate program manager uncertainty. Please assist us with the question(s) below: Coding Question(s): There is documentation on the H&P, that is also on the Discharge Summary under the admission HPI of, "Urinalysis positive for infection". Please specify below, in your clinical opinion, if this represents a diagnosis that was treated and/or monitored during this admission: ( ) This represents a diagnosis or possible diagnosis that was treated and/or monitored during this admission. Please specify the diagnosis: ( X) This does not represent a diagnosis that was treated and/or monitored during this admission Physician's Response(s): Thank you Sabiha Marc Principal Diagnosis: "that condition established after study, to be chiefly responsible for occasioning the admission of the patient to the hospital for care." Co-Existing Principal Diagnosis: "when two or more diagnoses equally meet the criteria for principal diagnosis as determined by the circumstances of admission, diagnostic work up, and/or therapy provided, and the Alphabetic Index, Tabular List, or another coding guideline does not provide sequencing direction, any one of the diagnoses may be sequenced first." "When the physician has documented what appears to be a current diagnosis in the body of the record, but has not included the diagnosis in the final diagnostic statement, the physician should be asked whether the diagnosis should be added." ([facility] 2 QTR90. p3-4) MARCELO
--- NOTE | 2024-11-30 13:00 | Coding Query ---
CODING QUERY To promote full compliance with coding requirements relating to patient care, provider participation is requested in all cases of senior electrical estimator uncertainty. Please assist us with the question(s) below: Coding Question(s): The Discharge Summary documents, " Patient was found to have C. difficile gene positive with toxin negative; Patient reported 2 episode of diarrhea yesterday; denied any abdominal pain and diarrhea at the time of the discharge. Discussed with Dr. Lake from infectious disease regarding the C.diff results over tigertext. He recommended patient to be on oral vancomycin once a day. The oral vancomycin should be continued 7 days after completion of antibiotics. I discussed plan of care with the patient; discussed regarding side effects of the medication as well as symptoms and signs of C. difficile. I recommended her to obtain immediate medical attention if she starts to have fever, chills, abdominal pain, dizziness or weakness", and, "You underwent stool study which showed C. difficile gene positive with toxin negative. The finding was discussed with infectious disease provider ( Dr. Lake) who recommended oral vancomycin once a day. The oral vancomycin capsules should be taken up until 7 days after completion of the antibiotics. You are prescribed 5 weeks of oral vancomycin for now". It is not clear if this is a diagnosed diarrhea due to C-Diff, or diarrhea, unspecified. Please specify below, in your clinical opinion: ( ) this is likely diarrhea due to C-Diff (X ) this is likely diarrhea, unspecified ( ) this is likely other diarrhea, Please specify Physician's Response(s): Thank you Sabiha Marc Principal Diagnosis: "that condition established after study, to be chiefly responsible for occasioning the admission of the patient to the hospital for care." Co-Existing Principal Diagnosis: "when two or more diagnoses equally meet the criteria for principal diagnosis as determined by the circumstances of admission, diagnostic work up, and/or therapy provided, and the Alphabetic Index, Tabular List, or another coding guideline does not provide sequencing direction, any one of the diagnoses may be sequenced first." "When the physician has documented what appears to be a current diagnosis in the body of the record, but has not included the diagnosis in the final diagnostic statement, the physician should be asked whether the diagnosis should be added." ([facility] 2 QTR90. p3-4) MARCELO
== END 2024-11-29 16:45 | disposition home or self-care (01) | DRG 373 ==
LOC: ED 17:45 → SUATTDRO 22:14 → 3E 22:14

== ENCOUNTER 2025-01-04 18:47 | Inpatient (IN) ==
[2025-01-04 19:22] LABS: Basophils # (auto) 0.07 K/uL (0.00-0.20); Basophils % (auto) 0.7 %; Eosinophils # (auto) 0.09 K/uL (0.00-0.50); Eosinophils % (auto) 0.9 %; Hematocrit (blood only) 49.6 % (37.0-47.0); Hemoglobin 16.4 g/dl (12.0-16.0); Immature Granulocytes # (auto) 0.05 K/uL (0.01-0.20); Immature Granulocytes % (auto) 0.5 %; Lymphocytes # (auto) 1.87 K/uL (1.20-3.40); Lymphocytes % (auto) 18.2 %; Mean Corpuscular Hemoglobin 27.1 pg (25.0-34.0); Mean Corpuscular Hgb Conc 33.1 g/dL (32.0-36.0); Mean Platelet Volume 10.3 fL (9.4-12.4); Monocytes # (auto) 0.44 K/uL (0.11-0.59); Monocytes % (auto) 4.3 %; Neutrophils # (auto) 7.73 K/uL (1.40-6.50); Neutrophils % (auto) 75.4 %; Platelet Count 211 K/uL (130-400); RDW Coefficient of Variation 16.9 % (11.5-14.5); RDW Standard Deviation 48.3 fL (36.4-46.3); Red Blood Count 6.05 M/uL (4.20-5.40); White Blood Count 10.25 K/ul (4.8-10.8)
[2025-01-04 19:38] LABS: Albumin Globulin Ratio 1.3 (0.9-2); Albumin Level 4.7 gm/dl (3.4-5.0); BUN Creatinine Ratio 29.4 (10-20); Bilirubin,Total 0.9 mg/dl (0.2-1.0); Calcium 10.3 mg/dl (8.6-10.3); Creatinine Clr Calc Pharmacy 104.9 ml/min; Globulin 3.7 gm/dl (2.5-4.0); Potassium 4.1 mmol/L (3.5-5.1); Total Protein 8.4 gm/dl (6.0-8.3)
[2025-01-04] MEDS: ACETAMINOPHEN 1,000 MG/100 ML VIAL IV STA (21:14)
[2025-01-04] MEDS: SODIUM CHLORIDE 0.9% 1,000 ML IV SCH (21:15)
--- NOTE | 2025-01-04 21:54 | Emergency Department Note ---
Impression & Plan Abdominal pain ED Provider Note ED Provider Note NAME: JEB DUMONT AGE:59 SEX: Female : 1965 ARRIVES VIA: Private vehicle INFORMANT: Patient ED PROVIDER(s): Salima Rios DO CHIEF COMPLAINT: Abdominal pain HPI: This is a 59-year-old female who presents emergency department with concern for abdominal pain. Patient states pain began today around noon and is centrally located. She has been nauseated but has not had vomiting. She does feel bloated/distended. She denies fevers or chills. Patient did recently have a perforated appendicitis with accompanying abscess. She states she is scheduled to have an appendectomy on January 15. She states she has been on antibiotics since that was first found and she was initially hospitalized. She states she has had loose stools since, and did have C. difficile. She states she is still currently finishing antibiotics. No change in urine or difficulty urinating. No recent change in diet or activity otherwise. PAST MEDICAL HISTORY:See Below PAST SURGICAL HISTORY:See Below FAMILY HISTORY:See Below SOCIAL HISTORY:See Below HOME MEDICATIONS:See Below ALLERGIES:See Below VITALS:See Below PHYSICAL EXAMINATION: GENERAL: alert, well appearing, well nourished, no distress, non-toxic EYE EXAM: normal conjunctiva, PERRL and EOM's grossly intact OROPHARYNX: no exudate, no erythema, lips, buccal mucosa, and tongue normal and mucous membranes are moist NECK: supple, no nuchal rigidity, no adenopathy, non-tender LUNGS: Clear to auscultation. Normal chest wall mechanics, no w/r/r HEART: no murmurs, S1 normal and S2 normal ABDOMEN: abdomen soft, mild central abdominal tenderness with palpation, normo- active bowel sounds, no masses, no rebound or guarding. Dull to percussion. SKIN: no rashes, petechiae, orbruising UPPER EXTREMITIES: upper extremities are grossly normal. FROM, nml pulses b/l. LOWER EXTREMITIES: No pitting edema. FROM, nml pulses b/l. NEURO EXAM: Normal sensorium, cranial nerves II-XII grossly intact, normal speech, no facial droop,nogross weakness of arms, no gross weakness of legs. Gross sensation intact. No ataxia. Vital Signs: reviewed and remarkable Differential Diagnosis: viral syndrome, sbo, perforation, intraabdominal abscess, colitis, gerd, gastritis, pancreatitis, cholecystitis, medication adr, dehydration, constipation, as well as others were considered MEDICAL DECISION MAKING: This is a 59 yo female who presents to the ER with concern for central abdominal pain that began around noon today. She was afebrile and VS stable. Labs drawn and sent, IV established, and patient placed on telemetry. She was started on IVF and IV tylenol and ultimately sent for CT a/p. She was signed out pending CT results and final disposition. Labs reassuring. Mild hyperglycemia noted however no DKA. UA without infection. ER Treatment Provided: See below 0130: patient signed out to Dr. Alcala pending CT results. Diagnostics Interpreted By Me: -Cardiac Monitoring: An order was placed for continuous cardiac monitoring. The monitor shows a rate of 66 with normal sinus rhythm. -Laboratory studies: As stated above and show below. Triage Nursing Note Reviewed Prior/Outside Records Reviewed Past Med/Surg History Problem List (Updated 01/05/25 @ 12:53 by Henry Padilla DO) Diabetes mellitus type 2, uncomplicated Appendiceal abscess Partial small bowel obstruction SBO (small bowel obstruction) Abdominal pain (Acute) Encounter for pre-operative examination Acute perforated appendicitis (Acute) Medical History Adrenal nodule Nodule of kidney per pt, "nodule of kidney, adrenal gland, and liver noted during scans at hospital. Had MRI 01/01/[address] [facility]" Hx of sleep apnea no device or issues since weight loss Intra-abdominal abscess hx 11/2024, resolved "at this point" No pertinent family history GERD (gastroesophageal reflux disease) Obesity HTN (hypertension) HLD (hyperlipidemia) Surgical History Hx of section (2004) x1 Social History Smoking Status: Never smoker Tobacco Type: Declines Second Hand Exposure: No; Do You Dip or Chew Tobacco: No; Tobacco Cessation Education Requested by Patient: No Hx Alcohol Use: No Hx Substance Use: No Preferred Language: Sinhala Communication Ability: Effective First Line Production Supervisor Required: No Beliefs That Will Affect Care: None Current Living Situation: Spouse Current Living Situation Comment: lives with and 2 adult sons. Other Information That Helps Us Care for You: No Feels Safe at Home: Yes Safety Concerns: Feels Safe At This Time Assistive Devices: None Allergies Allergies Allergy/AdvReac Type Severity Reaction Status Date / Time No Known Drug Allergies Allergy Unknown . Verified 01/02/25 12:16 Home Meds Home Medications Medication Instructions Recorded Confirmed atorvastatin 80 mg tablet 80 mg PO QAM 11/23/24 01/04/25 hydrochlorothiazide 25 mg tablet 25 mg PO QAM 11/23/24 01/04/25 lisinopril 40 mg tablet 40 mg PO QAM 11/23/24 01/04/25 metformin 1,000 mg tablet 1,000 mg PO BID 11/23/24 01/04/25 omeprazole 20 mg capsule,delayed 20 mg PO HS 11/23/24 01/04/25 release oxybutynin chloride 15 mg 15 mg PO QAM 11/23/24 01/04/25 tablet,extended release 24 hr semaglutide 2 mg/dose (8 mg/3 mL) 2 mg subcut WK weight loss 11/23/24 01/04/25 subcutaneous pen injector (Ozempic) aspirin 81 mg capsule 81 mg PO DAILY 01/02/25 01/04/25 amoxicillin 875 mg-potassium 1 tab PO BID 01/04/25 01/04/25 clavulanate 125 mg tablet cetirizine 10 mg tablet (Allergy 10 mg PO DAILY PRN Allergy Symptoms 01/04/25 01/04/25 Relief (cetirizine)) Results & Data (ED) Vital Signs Vital Signs - 24 hr 01/04/25 23:19 01/05/25 01:39 Pulse Rate [Finger] 68 64 Respiratory Rate 18 18 Respiratory Effort / Characteristics Non-Labored Spontaneous Non-Labored Spontaneous Respiratory Depth Normal Normal Respiratory Pattern Regular Regular Blood Pressure [Left Arm] 153/76 H 123/72 Blood Pressure Mean [Left Arm] 101 89 Blood Pressure Position [Left Arm] Lying Lying Pulse Oximetry 98 97 Oxygen Delivery Method Room Air Room Air Laboratory Data 01/05/25 04:36 01/05/25 04:36 Lab Results 01/04/25 01/04/25 Range/Units 19:12 21:20 WBC 10.25 (4.8-10.8) K/ul RBC 6.05 H (4.20-5.40) M/uL Hgb 16.4 H (12.0-16.0) g/dl Hct 49.6 H (37.0-47.0) % MCV 82.0 (80.0-100.0) fL MCH 27.1 (25.0-34.0) pg MCHC 33.1 (32.0-36.0) g/dL RDW Std Deviation 48.3 H (36.4-46.3) fL RDW Coeff of Alfredo 16.9 H (11.5-14.5) % Plt Count 211 (130-400) K/uL MPV 10.3 (9.4-12.4) fL Immature Gran % (Auto) 0.5 % Neut % (Auto) 75.4 % Lymph % (Auto) 18.2 % Hughes % (Auto) 4.3 % Eos % (Auto) 0.9 % Baso % (Auto) 0.7 % Neut # (Auto) 7.73 H (1.40-6.50) K/uL Lymph # (Auto) 1.87 (1.20-3.40) K/uL Hughes # (Auto) 0.44 (0.11-0.59) K/uL Eos # (Auto) 0.09 (0.00-0.50) K/uL Baso # (Auto) 0.07 (0.00-0.20) K/uL Immature Gran # (Auto) 0.05 (0.01-0.20) K/uL Sodium 139 (136-145) mmol/L Potassium 4.1 (3.5-5.1) mmol/L Chloride 101 (98-107) mmol/L Carbon Dioxide 30 (21-32) mmol/L Anion Gap 8 (3-11) BUN 20 (6-23) mg/dl Creatinine 0.68 (0.6-1.2) mg/dl Est Cr Clr Drug Dosing 104.9 ml/min eGFR 100.89 BUN/Creatinine Ratio 29.4 H (10-20) Glucose 232 H (70-99(Fasting)) mg/dl Calcium 10.3 (8.6-10.3) mg/dl Total Bilirubin 0.9 (0.2-1.0) mg/dl AST 18 (13-39) U/L ALT 27 (7-52) U/L Alkaline Phosphatase 126 H (34-104) U/L Total Protein 8.4 H (6.0-8.3) gm/dl Albumin 4.7 (3.4-5.0) gm/dl Globulin 3.7 (2.5-4.0) gm/dl Albumin/Globulin Ratio 1.3 (0.9-2) Lipase 35 (11-82) U/L Urine Color Yellow Urine Appearance Clear (Clear) Urine pH 5.0 (4.5-7.5) Ur Specific Humble 1.042 H (1.000-1.030) Urine Protein Trace H (Negative) Urine Glucose (UA) 3+ H (Negative) Urine Ketones Trace H (Negative) Urine Blood 1+ H (Negative) Urine Nitrite Negative (Negative) Urine Bilirubin Negative (Negative) Urine Urobilinogen Negative (Negative) Ur Leukocyte Esterase Negative (Negative) Urine WBC (Auto) 0-5 (0-5) /hpf Urine RBC (Auto) 0-2 (0-2) /hpf U Hyaline Cast (Auto) 0-2 (0-2) /lpf U Epithel Cells (Auto) 0-2 (0-2) /hpf Urine Bacteria (Auto) None Seen (None Seen) Administered Medications Amoxicillin/Clavulanate Potassium (Amoxicillin/Clavulanate 875 Mg Tab) 1 tab PO BIDM [facility]; Protocol Stop: 01/16/25 17:01 Last Admin: 01/05/25 17:47 Dose: 1 tab Documented By: Admin: 01/05/25 08:19 Dose: 1 tab Documented By: CHARLA Aspirin (Aspirin 81 Mg Ectab) 81 mg PO DAILY [facility] Stop: 02/04/25 08:59 Last Admin: 01/05/25 08:19 Dose: 81 mg Documented By: CHARLA Atorvastatin Calcium ([facility]vastatin 40 Mg Tab) [facility] Stop: 02/04/25 08:59 Last Admin: 01/05/25 08:19 Dose: 80 mg Documented By: CHARLA Enoxaparin Sodium (Enoxaparin Inj 40 Mg/0.4 Ml Syr) 40 [facility]Q [facility] [place] [place] Stop: 02/04/25 08:59 Last Admin: 01/05/25 08:19 Dose: 40 mg Documented By: CHARLA Oxybutynin Chloride (Oxybutynin Chloride Xl 5 Mg Tabcr) [facility] [place] Stop: 02/04/25 08:59 Last Admin: 01/05/25 08:19 Dose: 15 mg Documented By: CHARLA Discontinued Medications Amoxicillin/Clavulanate Potassium (Amoxicillin/Clavulanate 875 Mg Tab) 1 tab PO ONE STA; Protocol Stop: 01/05/25 03:04 Last Admin: 01/05/25 03:20 Dose: 1 tab Documented By: JORDY Sodium Chloride (Nss) 1,000 mls @ 80 mls/hr IV .[id number] [facility] Stop: 01/06/25 10:00 Last Infusion: 01/05/25 19:15 Dose: Infused Documented By: Infusion: 01/05/25 15:46 Dose: 0 mls/hr Documented By: Admin: 01/05/25 08:19 Dose: 100 mls/hr Documented By: Infusion: 01/05/25 08:19 Dose: Infused Documented By: Infusion: 01/05/25 03:15 Dose: 100 mls/hr Documented By: Admin: 01/05/25 03:00 Dose: 250 mls/hr Documented By: Infusion: 01/05/25 01:15 Dose: Infused Documented By: Admin: 01/04/25 21:15 Dose: 250 mls/hr Documented By: HALEIGH(2) Acetaminophen (Ofirmev) 1,000 mg in 100 mls @ 400 mls/hr IV NOW STA Stop: 01/04/25 20:44 Last Infusion: 01/04/25 22:02 Dose: Infused Documented By: HALEIGH(2) Admin: 01/04/25 21:14 Dose: 400 mls/hr Documented By: HALEIGH(2) Insulin Aspart (Insulin Aspart Per Unit Charge) 0 units SC Q6 [facility] Stop: 02/04/25 03:59 Last Admin: 01/05/25 17:36 Dose: 3 units Documented By: Co-signed By: VIKTORIA Admin: 01/05/25 12:02 Dose: 6 units Documented By: CHARLA Co-signed By: SUNNY Admin: 01/05/25 03:27 Dose: Not Given Documented By: JORDY Ioversol (Optiray 320 100ml) 100 ml IV ONCE ONE Stop: 01/04/25 23:19 Last Admin: 01/04/25 23:18 Dose: 93 ml Documented By: LAM Imaging Data Radiologist's Impression: Abdomen/Pelvis CT 01/04/25 20:29 Exam(s): CT ABDOMEN + PELVIS With Contrast Oral - High Density Amt: 30 ml gastro, IV Amt: 93 ml optiray 320 EXAM: CT Abdomen and Pelvis With Intravenous Contrast CLINICAL HISTORY: Reason for exam: central abd pain, recent perf appy with abscess. TECHNIQUE: Axial computed tomography images of the abdomen and pelvis with intravenous contrast. CTDI is 28 mGy and DLP is 1369 mGy-cm. Automated exposure control was utilized for the study. A dose lowering technique was utilized adhering to the principles of ALARA. CONTRAST: Patient received 30 ml gastro of Oral - High Density and 93 ml optiray 320 of IV contrast COMPARISON: CT abdomen/pelvis: 11/27/2024 FINDINGS: Motion-induced image degradation. Lung bases: No mass. No consolidation. No pleural effusion ABDOMEN: Liver: Mild steatosis.. No mass. Gallbladder and bile ducts: Unremarkable. No calcified stones. No ductal dilation. Pancreas: Abscess of the pancreatic tail. No mass. No ductal dilation. Spleen: Unremarkable. No splenomegaly. Adrenals: A 2.3 cm left adrenal mass again noted, most likely an adenoma.. No mass. Kidneys and ureters: Bilateral renal cortical cysts. A 2.8 cm rounded cyst in the upper pole left kidney. No solid mass. No hydronephrosis. Stomach and bowel: Unremarkable stomach. There is up to 3.5 cm dilated contrast filled small bowel loops seen with an eccentric wall thickening of the bowel and mild residual mesentery fat stranding in the right lower abdominal quadrant (series 3 image 224, series 300 image 31). A thin tubular structure/appendix with minimal wall thickening is seen in the right lower quadrant (series 300 image 26, series 3 image 230). Moderate to large amount of stool is seen in the colon and rectosigmoid. Sigmoid diverticulosis. PELVIS: Bladder: Unremarkable. No mass. Reproductive: Anteverted uterus is seen with a 3.0 cm well-defined hypodense lesion dorsally in the lower uterine segment, probably a fibroid (series 301 image 41). In the right adnexa a 5.0 x 3.0 cm septated cystic structure and in the left adnexa a 3.2 x 2.0 cm complex cystic structure is seen. ABDOMEN and PELVIS: Intraperitoneal space: No free air. No significant fluid collection. Bones/joints: No acute fracture. No dislocation. Moderately advanced degenerative spondylitic changes seen at L4-L5 level. Soft tissues: Unremarkable. Vasculature: Moderate calcified atherosclerosis of the aortoiliac vasculature.. No abdominal aortic aneurysm. Lymph nodes: Unremarkable. No enlarged lymph nodes. IMPRESSION: A moderate grade small bowel obstruction is seen likely from adhesion in the right lower abdominal quadrant. Recommend clinical correlation/follow-up Moderate to large volume of formed stool is seen in the colon and rectosigmoid. Sigmoid diverticulosis coli. No evidence of acute diverticulitis. Bilateral adnexal complex cystic structures. Likely uterine lower segment fibroid. The need for pelvic ultrasound exam can be determined clinically. Additional findings as described above. . Electronically signed by: Familia Chaves MD, HENRY 01/05/25 01:47 AM Discharge Plan Visit Data Chief Complaint: Abdominal Pain Stated Complaint: PAINS IN STOMACH, BELOW BREAST ED Provider: Orestes Alcala Discharge Problem: Abdominal pain Patient Disposition: Admitted As Inpatient Condition: Fair Discharge Instructions Interventions: ED Discharge Assessment Last Done: 01/05/25 03:15
[2025-01-04 22:26] LABS: Appearance Urine Clear (Clear); Bacteria Urine Automated None Seen (None Seen); Bilirubin Urine Negative (Negative); Blood Urine 1+ (Negative); Cast Urine Automated 0-2 /lpf (0-2); Color Urine Yellow; Epithelial Cell Urine Auto 0-2 /hpf (0-2); Glucose Urine UA 3+ (Negative); Ketones Urine Trace (Negative); Leukocyte Esterase Urine Negative (Negative); Nitrite Urine Negative (Negative); Protein Urine Trace (Negative); RBC Urine Automated 0-2 /hpf (0-2); Specific Gravity Urine 1.042 (1.000-1.030); Urobilinogen Urine Negative (Negative); WBC Urine Automated 0-5 /hpf (0-5)
[2025-01-04] MEDS: OPTIRAY 320 100ml IV ONE (23:18)
--- OUTSIDE RECORDS SUMMARY | 2025-01-04 23:42 | External Medical Summary | Summary of Care ---
Author Name Unknown Organization [facility] Address [address] [place] [address] Phone [phone] Care Team Providers Care Filter Filler Name Role Phone Danelle Cerda DO Primary Care Provider [phone] Reason for Visit * Reason Onset Date Comments Order Request 12/28/2024 Encounter Details Date Type Department Care Team (Late st Contact Info) Description 12/28/2024 Telephone [facility] [place] [address] [place] [address] Dominguez Diaz MD [address], [place] [id number] Order Request Allergies No known active allergiesdocumented as of this encounter (statuses as of 12/28/2024) Medications omeprazole (PRILOSEC) 20 MG CPDRIndications :Gastroesophage al reflux disease without esophagitis Take 1 Capsule by mouth in the morning. 30 minutes before a meal. 30 Cap 5 017 Active Blood Glucose Monitoring Suppl (D-CARE GLUCOMETER) w/Device KITIndications: Type 2 diabetes mellitus with hemoglobin A1c goal of less than 7.0% ([facility]) Use as directed. 1 Kit 5 017 Active Aspirin 81 MG TabletIndicatio ns:HTN, goal below 140/90 Take 1 Tablet by mouth in the morning. 30 Tab 018 Active Lisinopril 40 MG Oral TabletIndicatio ns:HTN, goal below 140/90 TAKE 1 TABLET BY MOUTH IN THE MORNING 90 Tablet 1 Active Atorvastatin Calcium 80 MG Oral Tablet (Lipitor)Indica tions:Dyslipide maksim, goal LDL below 100 TAKE 1 TABLET BY MOUTH IN THE MORNING 90 Tablet 3 Active oxyBUTYnin Chloride ER 15 MG Oral Tablet Extended Release 24 Hour (Ditropan XL) TAKE 1 TABLET BY MOUTH ONCE DAILY IN THE MORNING. DO NOT CUT, CRUSH, OR CHEW. 30 Tablet 11 Active hydroCHLOROthia zide 25 MG Oral Tablet (Hydrodiuril)In dications:HTN, goal below 140/90 TAKE 1 TABLET BY MOUTH IN THE MORNING 90 Tablet 3 Active metFORMIN HCl 1000 MG Oral Tablet (Glucophage)Ind ications:Type 2 diabetes mellitus with hemoglobin A1c goal of less than 7.0% (HCC) TAKE 1 TABLET BY MOUTH TWICE DAILY WITH MORNING MEAL AND WITH EVENING MEAL 180 Tablet 3 Active Ozempic (2 MG/DOSE) 8 MG/3ML Subcutaneous Solution Pen-injector (Semaglutide (2 MG/DOSE))Indica tions:Type 2 diabetes mellitus with hemoglobin A1c goal of less than 7.0% (HCC) INJECT 2MG SUBCUTANEOUSLY ONCE A WEEK 3 mL 2 Active Additional Information Patient not taking.Reported on 12/05/2024 Advanced Probiotic Oral Capsule Take 20 Billion Cells by mouth in the morning. Active Vancomycin HCl 125 MG Oral Capsule (Vancocin) Take 1 Capsule by mouth in the morning. Active OneTouch Delica Lancets 33GIndications: Type 2 diabetes mellitus with hemoglobin A1c goal of less than 7.0% (HCC) Use as directed with one touch glucometer 4 times a day 100 Each 3 Active OneTouch Ultra Test In Vitro Strip (Glucose Blood) Use up to 4 times a day E11.9, 400 Strip 1 Active Amoxicillin-Pot Clavulanate 875-125 MG Oral Tablet (Augmentin) Take 1 Tablet by mouth in the morning and 1 Tablet before bedtime. Do all this for 19 days. 38 Tablet 025 2024 Active metroNIDAZOLE 500 MG Oral Tablet (Flagyl) Take 1 Tablet by mouth in the morning and 1 Tablet at noon and 1 Tablet before bedtime. 025 2024 Discontinued documented as of this encounter (statuses as of 12/28/2024) Active Problems Problem Noted Date Diagnosed Date CRYSTAL (obstructive sleep apnea) 08/12/2018 Dyslipidemia 02/17/2017 Type 2 diabetes mellitus wit h hemoglobin A1c goal of less than 7.0% 02/16/2017 HTN, goal below 130/80 05/08/2015 Iron deficiency anemia due to chronic blood loss Bladder spasms Overview (08/21/2011): stable on vesicare documented as of this encounter (statuses as of 12/28/2024) Resolved Problems Problem Noted Date Diagnosed Date [...] as of this encounter (statuses as of 12/28/2024) Immunizations Name Administration Dates Next Due Hepatitis B, 20+ yrs 06/03/2018,12/28/2017,11/25 PPD 01/26/2019,07/11/2018,05/18/2017 Pneumococcal Conjugate Vacci ne, 20-valent ([id number]) 05/20/2022 Pneumococcal Polysaccharide PPV23 (Pneumovax) 05/18/2017 Seasonal [...] encounter Miscellaneous Notes * Telephone Encounter - Brenna Hodge LPN - 12/28/2024 2:03 PM EDT Patient called back and her picc line was removed and she will stop the flagyl and start the Augmentin bid till 01/16/25 as long as that is the day after her surgery. I said if your surgery date changes lease let us know. Patient voiced understanding. * Addendum Note - Dominguez Diaz MD - 12/28/2024 1:44 PM EDTAddended by: DOMINGUEZ DIAZ on: 12/28/2024 01:44 PM Modules accepted: Orders * Telephone Encounter - Brenna Hodge LPN - 12/28/2024 1:22 PM EDT Called and left a message for call back. * Telephone Encounter - Dominguez Diaz MD - 12/28/2024 12:58 PM EDT Patient was seen via tele consult at [facility] [place] by [facility]. She was placed on ceftriaxone/flagyl for a ruptured appendicitis with associated abscess without culture data. Repeat CT scan 12/20/24 approx 4 weeks of therapy with complete resolution of abscess however with still evidence of inflammation and possible fistulous connection. It seems she is tentatively scheduled for surgical removal 01/15/25. Would recommend switch to PO abx so line can be pulled at this time. She can take Augmentin 875 twice daily until 01/16/25, one day after procedure. -Discontinue Ceftriaxone/Flagyl -Line can be removed -Initiate Augmentin 875 Bid with EOT 01/16/25 given surgery completes 01/15/25. Please reach out if there is any further concerns at anytime. Discussed with attending physician. Dominguez Diaz MD PGY5 Infectious Disease documented in this encounter Plan of Treatment Upcoming Encounters Date Type Department Care Team (Late st Contact Info) Description 01/15/2025 7:55 AM EDT [facility], [facility] [address] [facility], [place] [address] Timbo Nobles MD [address] [place] [address] 02/01/2025 3:30 PM EDT Office Visit General Surgery, [facility] [address] [place] [phone] Timbo Nobles MD [address] [place] [address] Health Maintenance Due Date Last Done Comments [...] 1 , 11/11/2021, Additional history exists GFR 12/20/2025 12/20/2024, 08/06, 06/23/2023, Additional history exists Colonoscopy 02/19/2027 02/19/2017, 12/14/2014 [...] as of this encounter Visit Diagnoses Diagnosis Acute appendicitis with perforation, localized peritonitis, and abscess, unspecified whether gangrene present- Primary documented in this encounter Care Teams Filter Filler Relationship Specialty Start Date End Date Danelle Cerda DO [address] [facility] [place] [address] PCP - General Family Medicine 11/05/16 documented as of this encounter
--- OUTSIDE RECORDS SUMMARY | 2025-01-04 23:42 | External Medical Summary | Summary of Care ---
Author Name Unknown Organization [facility] Address [address] [facility] [address] Phone [phone] Care Team Providers Care Admissions Advisor Name Role Phone Danelle Cerda DO Primary Care Provider [phone] Reason for Visit * Reason Onset Date Comments Test Results Imaging Study 01/04/2025 Encounter Details Date Type Department Care Team (Late st Contact Info) Description 01/04/2025 Telephone [facility] Urology [address] [place] [address] Randy Garcia MD [address] [facility] [place] [address] Test Results Imaging Study Allergies No known active allergiesdocumented as of this encounter (statuses as of 01/04/2025) Medications omeprazole (PRILOSEC) 20 MG CPDRIndications: Gastroesophageal reflux disease without esophagitis Take 1 Capsule by mouth in the morning. 30 minutes before a meal. 30 Cap 5 11/06/19 17 Active Blood Glucose Monitoring Suppl (D-CARE GLUCOMETER) w/Device KITIndications:T ype 2 diabetes mellitus with hemoglobin A1c goal of less than 7.0% ([facility]) Use as directed. 1 Kit 5 05/18/20 17 Active Aspirin 81 MG TabletIndication s:HTN, goal below 140/90 Take 1 Tablet by mouth in the morning. 30 Tab 11/26/19 18 Active Lisinopril 40 MG Oral TabletIndication s:HTN, [...] WEEK 3 mL 2 11/15/19 25 Active Additional Information Patient not taking.Reported on 12/05/2024 Advanced Probiotic Oral Capsule Take 20 Billion Cells by mouth in the morning. 11/30/19 25 Active Vancomycin HCl 125 MG Oral Capsule (Vancocin) Take 1 Capsule by mouth in the morning. 11/30/19 25 Active OneTouch Nolvia Lancets 33GIndications:T ype 2 diabetes mellitus with hemoglobin A1c goal of less than 7.0% (HCC) Use as directed with one touch glucometer 4 times a day 100 Each 3 12/08/19 25 Active OneTouch Ultra Test In Vitro Strip (Glucose Blood) Use up to 4 times a day E11.9, 400 Strip 1 12/15/19 25 Active Amoxicillin-Pot Clavulanate 875-125 MG Oral Tablet (Augmentin) Take 1 Tablet by mouth in the morning and 1 Tablet before bedtime. Do all this for 19 days. 38 Tablet 12/29/19 25 025 Active documented as of this encounter (statuses as of 01/04/2025) Active Problems Problem Noted Date Diagnosed Date CRYSTAL (obstructive sleep apnea) 08/12/2018 Dyslipidemia 02/17/2017 Type 2 diabetes mellitus wit h hemoglobin A1c goal of less than 7.0% 02/16/2017 HTN, goal below 130/80 05/08/2015 Iron deficiency anemia due to chronic blood loss Bladder spasms Overview (08/21/2011): stable on vesicare documented as of this encounter (statuses as of 01/04/2025) Resolved Problems Problem Noted Date Diagnosed Date [...] as of this encounter (statuses as of 01/04/2025) Immunizations Name Administration Dates Next Due Hepatitis B, 20+ yrs 06/03/2018,12/28/2017,11/25 PPD 01/26/2019,07/11/2018,05/18/2017 Pneumococcal Conjugate Vacci ne, 20-valent ([id number]) 05/20/2022 Pneumococcal Polysaccharide PPV23 (Pneumovax) 05/18/2017 Seasonal [...] encounter Miscellaneous Notes * Telephone Encounter - Natasha Marlow LPN - 01/04/2025 10:20 AM EDT New pt. Will need to be seen by Dr Garcia (at either location) as a new patient within the next fewmonths. * Telephone Encounter - Danelle Cerda DO - 01/04/2025 10:02 AM EDT Great, thank you both! * Telephone Encounter - Randy Garcia MD - 01/04/2025 9:14 AM EDT Thanks, images are personally reviewed. Her left upper pole renal lesion is indeed consistent with a renal cell carcinoma. The good news is that these tend not to behave in an oncologic early aggressive fashion (AKA risk of metastasis) until 4 cm in size, so intervention is not urgent. Biopsy is not indicated, would avoid concurrent surgery associated with the patient's laparoscopic bowel intervention. Patient should be a candidate for a left-sided robot assisted laparoscopic partial nephrectomy for nephron sparing in the future. We will work on getting her established with our service to intervene in the future and reassured her regarding the lack of risk to her health in the short term (AKA next 6-12 months). Thx, HM * Telephone Encounter - Randy Garcia MD - 01/04/2025 9:13 AM EDT ----- Message from Danelle Cerda DO sent at 01/03/2025 7:39 PM EDT ----- Regarding: Renal neoplasm Pt w/renal lesion seen incidentally on CT abd - f/u MRI shows: A 2.7 x 3.0 cm T2 hypointense partially exophytic lesion along the left renal upper pole demonstrates low level internal enhancement and diffusion restriction highly concerning for renal neoplasm Pt scheduled for lap appy and possible colon/SB resection on 01/15/25 at [facility] w/Dr. Nobles after completing abx treatment of perf appendicitis. Is there any chance of coordinating renal biopsy/surgery while she's there? And or next steps to expediate work up? This lady's tough but has been through a lot recently. Danelle Loera documented in this encounter Plan of Treatment Upcoming Encounters Date Type Department Care Team (Late st Contact Info) Description 01/15/2025 7:55 AM EDT Office Visit Non [facility] Outreach, Operating Room, [place] [address] [place] [facility] [place] [address] Timbo Nobles MD [address] [place] [address] 02/01/2025 3:30 PM EDT Office Visit General Surgery, [facility] [address] [place] [phone] MisatrTimbo wells MD [address] [place] [address] 03/05/2025 8:00 AM EDT Imaging Radiology [facility] [address] [place] [phone] Health Maintenance Due Date Last Done Comments HPV/Co-Test 01/10/1996 Cologuard 2011 Fecal Occult Blood Test 2011 Sigmoidoscopy 2011 Diabetic Eye Exam 11/09/2019 11/08/2018, , 07/23/2012 Cervical Cancer Screening 01/06/2021 Pap Smear 01/06/2021 01/06/2018, 030 05/2016, 11/05/2014 (Done elsewhere), Additional history exists [...] filedocumented as of this encounter Care Teams Admissions Advisor Relationship Specialty Start Date End Date Danelle Cerda DO [address] [facility] [place] [address] PCP - General Family Medicine 11/05/16 documented as of this encounter
--- OUTSIDE RECORDS SUMMARY | 2025-01-04 23:42 | External Medical Summary | Summary of Care ---
Author Name Unknown Organization [facility] Address [address] [place] [address] Phone [phone] Care Team Providers Care Facing Cutting Machine Operator Name Role Phone Danelle Cerda DO Primary Care Provider [phone] Reason for Visit * Reason Onset Date Comments Order Request 12/28/2024 Encounter Details Date Type Department Care Team (Late st Contact Info) Description 12/28/2024 Telephone [facility] [place] [address] [place] [address] Dominguez Diaz MD [address] [place], [place] [phone] Order Request Allergies No known active allergiesdocumented [...] goal of less than 7.0% ([facility]) Use as directed. 1 Kit 5 017 [...] PPD 01/26/2019,07/11/2018,05/18/2017 Pneumococcal Conjugate Vacci ne, 20-valent ([id number]) 05/20/2022 Pneumococcal Polysaccharide PPV23 (Pneumovax) 05/18/2017 Seasonal [...] Patient was seen via tele consult at [facility] by [facility]. She was placed [...] 01/15/2025 7:55 AM EDT [facility] [address] [facility] [place] [address] Timbo Nobles MD [address] [place] [address] 02/01/2025 3:30 PM EDT Office Visit General Surgery, [facility] [address] [place] [phone] Timbo Nobles MD [address] [place] [address] Health Maintenance Due Date Last Done Comments [...] Primary documented in this encounter Care Teams Facing Cutting Machine Operator Relationship Specialty Start Date End Date Danelle Creda DO 132 [facility] [place] [address] PCP - General Family Medicine 11/05/16 documented as of this encounter
--- OUTSIDE RECORDS SUMMARY | 2025-01-04 23:42 | External Medical Summary | Summary of Care ---
Author Name Unknown Organization [facility] Address [address] [facility] [address] Phone [phone] Care Team Providers Care Rn Circulating Name Role Phone Kody Olmstead DO Primary Care Provider [phone] Reason for Referral * Evaluate & Treat - Unlimited Visits (Within 3 days (urgent)) - Pending Review Specialty Diagnoses / Procedures Referred By Ernesto perez Referred To Contact Urology Diagnoses Renal neoplasm Kody Olmstead DO [address] [place] [address] Phone: tel: fax: Referral ID Status Reason Start Date Expiration Date Visits Requested Visits Authorized [id number] Pending Review Specialty Services Required 01/03/[phone] Question Answer Referral Priority Within 3 days (urgent) Where should this appointment be scheduled? [facility] What is the patient being referred for? Cancer Reason for Visit * Reason Onset Date Comments Test Results 01/03/2025 Unexpected or In determinate Result Encounter Details Date Type Department Care Team (Late st Contact Info) Description 01/03/2025 Telephone Laboratory, [facility] [address] [place] [address] Kody Olmstead DO [address] [place] [address] Test Results (Unexpected or Indeterminate ... Allergies No known active allergiesdocumented as of [...] in the morning. 11/30/19 25 Active OneTouch Delica Lancets 33GIndications:T ype 2 diabetes mellitus with hemoglobin A1c goal of less than 7.0% ([facility]) Use as directed with one touch glucometer [...] PPD 01/26/2019,07/11/2018,05/18/2017 Pneumococcal Conjugate Vacci ne, 20-valent ([id number]) 05/20/2022 Pneumococcal Polysaccharide PPV23 (Pneumovax) 05/18/2017 Seasonal [...] as of this encounter Miscellaneous Notes * Addendum Note - Kody Olmstead DO - 01/03/2025 7:45 PM EDTAddended by: KODY OLMSTEAD on: 01/03/2025 07:45 PM Modules accepted: Orders * Telephone Encounter - Kody Olmstead DO - 01/03/2025 7:35 PM EDT Discussed result w/patient - has lap appy and possible colon/SB resection at [facility] w/Dr. Nobles scheduled on 01/15/25 Urology referral placed, please schedule MONA Pt also needs 6-8 week f/u pelvic US for R renal cyst * Telephone Encounter - Madie Schrader OSA - 01/03/2025 8:01 AM EDT Hello- The radiologist discovered an unexpected or indeterminate finding on Angelia Arsen Garcia ([id number]) and asks that you review the following report. Study Type: MRI ABDOMEN W WO CONTRAST Date of Study: 01/01/2025 IMPRESSION 1. A 2.7 x 3.0 cm T2 hypointense partially exophytic lesion along the left renal upper pole demonstrates low level internal enhancement and diffusion restriction highly concerning for renal neoplasm. 2. Additional subcentimeter renal cysts, some of which are hemorrhagic correspond to indeterminate lesion seen on prior CT. 3. A 2.5 x 1.9 cm left adrenal nodule exhibits an adrenal to spleen CSI ratio of 0.86 and is indeterminate by chemical shift MRI technique. Recommend CT adrenal mass protocol for further characterization. 4. A 1.9 x 1.4 cm T2 hyperintense lesion within the posterior right hepatic lobe demonstrates peripheral discontinuous nodular enhancement and is most consistent with an hemangioma. Please respond to this encounter to acknowledge receipt of this message and take responsibility to ensure this report is reviewed. Thank you, CRYSTAL Thomas Client Service Rep [facility] documented in this encounter Plan of Treatment Upcoming Encounters Date Type Department Care Team (Late st Contact Info) Description 01/15/2025 7:55 AM EDT Office [facility], Operating Room, [facility] [address] [place] [facility] [address] Timbo Nobles MD [address] [place] [address] 02/01/2025 3:30 PM EDT Office Visit General Surgery, [facility] [address] [place] [phone] Timbo Nobles MD [address] [place] [address] Scheduled Orders Name Type Priority Associated Diagnoses Orde r Schedule US PELVIS TRANS-VAGINAL NON-OB Medical Imaging Routine Right ovarian cyst Expected: 03/05/2025, Expires: 02/02/2026 Scheduled Referrals Name Type Priority Associated Diagnoses Orde r Schedule ADULT/PEDS UROLOGY REFERRAL OP Referral Within 3 days (urgent) Renal neoplasm Ordered: 01/03/2025 Health Maintenance Due Date Last Done Comments [...] as of this encounter Visit Diagnoses Diagnosis Right ovarian cyst- Primary Other and unspecified ovarian cyst Renal neoplasm Neoplasm of unspecified nature of other genitourinary organs documented in this encounter Care Teams Rn Circulating Relationship Specialty Start Date End Date Kody Olmstead DO [address] [place] [address] PCP - General Family Medicine 11/05/16 documented as of this encounter
--- OUTSIDE RECORDS SUMMARY | 2025-01-04 23:42 | External Medical Summary | Summary of Care ---
Author Name Unknown Organization [facility] Address [address] [facility] [place] [address] Phone [phone] Care Team Providers Care Box Spring Upholsterer Name Role Phone Danelle Cerda DO Primary Care Provider [phone] Reason for Visit * Reason Onset Date Comments Appointment 12/29/2024 Encounter Details Date Type Department Care Team (Late st Contact Info) Description 12/29/[address] [place] [phone] Latha Tarango, RT (R) Appointment Allergies No known active allergiesdocumented as of this encounter (statuses as of 12/29/2024) Medications omeprazole (PRILOSEC) 20 MG CPDRIndications: Gastroesophageal reflux disease without esophagitis Take 1 Capsule by mouth in the morning. 30 minutes before a meal. 30 Cap 5 11/06/19 17 Active Blood Glucose Monitoring Suppl (D-CARE GLUCOMETER) w/Device KITIndications:T ype 2 diabetes mellitus with hemoglobin A1c goal of less than 7.0% ([facility]) Use as directed. 1 Kit 5 05/18/20 [...] as of this encounter (statuses as of 12/29/2024) Active Problems Problem Noted Date Diagnosed Date CRYSTAL (obstructive sleep apnea) 08/12/2018 Dyslipidemia 02/17/2017 Type 2 diabetes mellitus wit h hemoglobin A1c goal of less than 7.0% 02/16/2017 HTN, goal below 130/80 05/08/2015 Iron deficiency anemia due to chronic blood loss Bladder spasms Overview (08/21/2011): stable on vesicare documented as of this encounter (statuses as of 12/29/2024) Resolved Problems Problem Noted Date Diagnosed Date [...] as of this encounter (statuses as of 12/29/2024) Immunizations Name Administration Dates Next Due Hepatitis B, 20+ yrs 06/03/2018,12/28/2017,11/25 PPD 01/26/2019,07/11/2018,05/18/2017 Pneumococcal Conjugate Vacci ne, 20-valent ([id number]) 05/20/2022 Pneumococcal Polysaccharide PPV23 (Pneumovax) 05/18/2017 Seasonal [...] encounter Miscellaneous Notes * Telephone Encounter - Latha Tarango RT (R) - 12/29/2024 4:41 PM EDT Name: Angelia Garcia Do you have any of the following: Pacemaker, stents, heart valves, aneurysm clips? No Have you ever worked with metal or have you ever gotten metal in your eyes? No Have you had a colonoscopy in the last 30 days? No On dialysis? No Do you have any dermals or body piercing's? No or ? Do you wear an insulin pump or diabetic monitor? no RT Tanna (R) documented in this encounter Plan of Treatment Upcoming Encounters Date Type Department Care Team (Late st Contact Info) Description 01/01/2025 1:45 PM EDT Imaging Radiology [address] [place] [phone] 01/02/2025 10:45 AM EDT Imaging Radiology [facility] [address] [place] [phone] 01/15/2025 7:55 AM EDT Office Visit [facility], Operating Room, [facility] [address] [facility], [place] [address] Timbo Nobles MD [address] [place] [address] 02/01/2025 3:30 PM EDT Office Visit General Surgery, [facility] [address] [place] [phone] Timbo Nobles MD [address] [place] [address] Health Maintenance Due Date Last Done Comments [...] filedocumented as of this encounter Care Teams Box Spring Upholsterer Relationship Specialty Start Date End Date Danelle Cerda DO [address] [place] [address] PCP - General Family Medicine 11/05/16 documented as of this encounter
--- OUTSIDE RECORDS SUMMARY | 2025-01-04 23:42 | External Medical Summary | Summary of Care ---
Author Name Unknown Organization [facility] Address [address] [place] [address] Phone [phone] Care Team Providers Care Hob Grinder Name Role Phone Danelle Cerda DO Primary Care Provider [phone] Reason for Visit * Reason Onset Date Comments Order Request 12/28/2024 Encounter Details Date Type Department Care Team (Late st Contact Info) Description 12/28/2024 Telephone [facility] [place]ious Disease [address] [place] [address] Dominguez Diaz MD [address] [place], [place] [id number] Order Request Allergies No known active allergiesdocumented [...] A1c goal of less than 7.0% ([facility]) Use as directed. 1 Kit 5 017 [...] PPD 01/26/2019,07/11/2018,05/18/2017 Pneumococcal Conjugate Vacci ne, 20-valent ([id number]) 05/20/2022 Pneumococcal Polysaccharide PPV23 (Pneumovax) 05/18/2017 Seasonal [...] Patient was seen via tele consult at [facility] by [facility] Infectious disease. She was placed [...] 01/15/2025 7:55 AM EDT [facility], Operating Room, [facility] [address] [facility], [place] [address] Timbo Nobles MD [address] [place] [address] 02/01/2025 3:30 PM EDT Office Visit General Surgery, [facility] [address] [place] [address] Timbo Nobles MD [address] [place] [address] Health Maintenance Due Date Last Done Comments [...] Primary documented in this encounter Care Teams Hob Grinder Relationship Specialty Start Date End Date Danelle Cerda DO [address] [facility] [place] [address] PCP - General Family Medicine 11/05/16 documented as of this encounter
--- OUTSIDE RECORDS SUMMARY | 2025-01-04 23:42 | External Medical Summary | Summary of Care ---
Author Name Unknown Organization [facility] Address [address] [facility] [address] Phone [phone] Care Team Providers Care Provider Relations Specialist Name Role Phone Danelle Cerda DO Primary Care Provider [phone] Reason for Visit * Reason Onset Date Comments Test Results Imaging Study 01/04/2025 Encounter Details Date Type Department Care Team (Late st Contact Info) Description 01/04/2025 Telephone [facility] Urology [address] [place] [address] Randy Garcia MD [address] [facility] [place] [address] Test Results Imaging Study Allergies No known [...] hemoglobin A1c goal of less than 7.0% ([facility]) Use as directed. 1 Kit 5 05/18/20 [...] PPD 01/26/2019,07/11/2018,05/18/2017 Pneumococcal Conjugate Vacci ne, 20-valent ([id number]) 05/20/2022 Pneumococcal Polysaccharide PPV23 (Pneumovax) 05/18/2017 Seasonal [...] encounter Miscellaneous Notes * Telephone Encounter - Roberto Dooley OSA - 01/04/2025 2:58 PM EDT Pt called back/ she is scheduled for January 24. * Telephone Encounter - Roberto Dooley OSA - 01/04/2025 1:30 PM EDT Lmom to schedule * Telephone Encounter - Natasha Marlow LPN [...] and possible colon/SB resection on 01/15/25 at [facility] w/Dr. Nobles after completing abx treatment of perf appendicitis. Is there any chance of coordinating renal biopsy/surgery while she's there? And or next steps to expediate work up? This lady's tough but has been through a lot recently. Thanks, Danelle documented in this encounter Plan of Treatment Upcoming Encounters Date Type Department Care Team (Late st Contact Info) Description 01/05/2025 10:00 AM EDT Laboratory Laboratory, [facility] [address] [place] [address] AliceaTati balbuena [facility] [address] [place] [address] 01/15/2025 7:55 AM EDT Office Visit Non [facility], Operating Room, [address] [place] [address] Timbo Nobles MD [address] [place] [address] 01/24/2025 11:00 AM EDT Office Visit Urology, [facility] [address] [place] [address] Randy Garcia MD [address] [place] [address] 02/01/2025 3:30 PM EDT Office Visit General Surgery, [facility] [address] [place] [address] Timbo Nobles MD [address] [place] [address] 03/05/2025 8:00 AM EDT Imaging Radiology [facility] [address] [place] [phone] Health Maintenance Due Date Last Done Comments [...] 11/11/2021, Additional history exists B-12 08/16/2025 08/16/2024, 04/2 05/2024, 12/11/2022, Additional history exists Diabetic Foot [...] filedocumented as of this encounter Care Teams Provider Relations Specialist Relationship Specialty Start Date End Date Danelle Cerda DO [address] [place] [address] PCP - General Family Medicine 11/05/16 documented as of this encounter
--- OUTSIDE RECORDS SUMMARY | 2025-01-04 23:42 | External Medical Summary | Summary of Care ---
Author Name Unknown Organization [facility] Address [address] [place] [address] Phone [phone] Care Team Providers Care Preforming Machine Operator Name Role Phone Danelle Cerda DO Primary Care Provider [phone] Reason for Referral * Precert (Within 10 days (routine)) - Pending Review Specialty Diagnoses / Procedures Referred By Contac t Referred To Contact Radiology Diagnoses Abnormal CT scan, liver Abnormal CT scan, kidney Procedures MRI ABDOMEN W WO CONTRAST Danelle Cerda DO [address] [place] [address] Phone: tel: fax: Referral ID Status Reason Start Date Expiration Date V isits Requested Visits Authorized [id number] Pending Review 01/04/2025 999 999 Reason for Visit * Reason Onset Date Comments Referral 12/28/2024 Encounter Details Date Type Department Care Team (Late st Contact Info) Description 12/28/2024 Telephone Family Practice [facility] [address] [place] [address] Danelle Cerda DO [address] [place] [address] Referral Allergies No known active allergiesdocumented as of [...] than 7.0% ([facility]) Use as directed with one touch glucometer [...] PPD 01/26/2019,07/11/2018,05/18/2017 Pneumococcal Conjugate Vacci ne, 20-valent ([id number]) 05/20/2022 Pneumococcal Polysaccharide PPV23 (Pneumovax) 05/18/2017 Seasonal [...] encounter Miscellaneous Notes * Telephone Encounter - Mere New OSA - 12/29/2024 8:19 AM EDT Spoke w/ pt made appts for both scans 01/02 01/03 * Telephone Encounter - Danelle Cerda DO - 12/28/2024 11:23 PM EDT Myg to pt MRI abd, US pelvis ordered, please schedle documented in this encounter Plan of Treatment Upcoming Encounters Date Type Department Care Team (Late st Contact Info) Description 01/01/2025 1:45 PM EDT Imaging [facility] [address] [place] [address] 01/02/2025 10:45 AM EDT Imaging Radiology [facility] [address] [place] [address] 01/15/2025 7:55 AM EDT Office Visit [facility], Operating Room, [facility] [address] [place] [facility] [place] [address] Timbo Nobles MD [address] [place] [address] 02/01/2025 3:30 PM EDT Office Visit General Surgery, [facility] [address] [place] [address] Timbo Nobles MD [address] [place] [address] Scheduled Orders Name Type Priority Associated Diagnoses Orde r Schedule US PELVIS TRANS-VAGINAL NON-OB Medical Imaging Routine Abnormal CT scan, pelvis Expected: 01/04/2025 (Approximate), Expires: 01/27/2026 MRI ABDOMEN W WO CONTRAST Medical Imaging Routine Abnormal CT scan, liver Abnormal CT scan, kidney Expected: 01/04/2025 (Approximate), Expires: 01/27/2026 Health Maintenance Due Date Last Done Comments [...] as of this encounter Visit Diagnoses Diagnosis Abnormal CT scan, liver- Primary Nonspecific (abnormal) findings on radiological and other examination of biliary tract Abnormal CT scan, kidney Nonspecific (abnormal) findings on radiological and other examination of genitourinary organs Abnormal CT scan, pelvis Nonspecific (abnormal) findings on radiological and other examination of abdominal area, including retroperitoneum documented in this encounter Care Teams Preforming Machine Operator Relationship Specialty Start Date End Date Danelle Cerda DO 132 [facility] [place] [address] PCP - General Family Medicine 11/05/16 documented as of this encounter
--- OUTSIDE RECORDS SUMMARY | 2025-01-04 23:42 | External Medical Summary | Summary of Care ---
Author Name Unknown Organization [facility] Address [address] [facility] [address] Phone [phone] Care Team Providers Care Jewel Hole Cornerer Name Role Phone Kody Olmstead DO Primary Care Provider [phone] Reason for Referral * Evaluate & Treat - Unlimited Visits (Within 3 days (urgent)) - Pending Review Specialty Diagnoses / Procedures Referred By Ernesto perez Referred To Contact Urology Diagnoses Renal neoplasm Kody Olmstead DO [address] [place] [address] Phone: tel: fax: Referral ID Status Reason Start Date Expiration Date Visits Requested Visits Authorized [id number] Pending Review Specialty Services Required 01/03/2025 999 999 Question Answer Referral Priority Within 3 days (urgent) Where should this appointment be scheduled? [facility] What is the patient being referred for? Cancer Reason for Visit * Reason Onset Date Comments Test Results 01/03/2025 Unexpected or In determinate Result Encounter Details Date Type Department Care Team (Late st Contact Info) Description 01/03/2025 Telephone Laboratory, [facility] [address] [place] [address] Kody Olmstead DO [address] [place] [address] Test Results (Unexpected or Indeterminate ... Allergies [...] hemoglobin A1c goal of less than 7.0% ([facility]) Use as directed with one [...] PPD 01/26/2019,07/11/2018,05/18/2017 Pneumococcal Conjugate Vacci ne, 20-valent ([id number]) 05/20/2022 Pneumococcal Polysaccharide PPV23 (Pneumovax) 05/18/2017 Seasonal [...] Telephone Encounter - Mere New OSA - 01/04/2025 9:19 AM EDT Spoke w/ pt made appt for 03/05 * Addendum Note - Kody Olmstead DO - 01/03/2025 7:45 PM EDTAddended by: KODY OLMSTEAD on: 01/03/2025 07:45 PM Modules accepted: Orders * Telephone Encounter - Kody Olmstead DO - 01/03/2025 7:35 PM EDT Discussed result w/patient - has lap appy and possible colon/SB resection at [facility] w/Dr. Nobles scheduled on 01/15/25 Urology referral placed, please schedule MONA Pt also needs 6-8 week f/u pelvic US for R renal cyst * Telephone Encounter - Madie Schrader OSA - 01/03/2025 8:01 AM EDT Hello- The radiologist discovered an unexpected or indeterminate finding on Angelia Arsen Garcia ([id number]) and asks that you review the following [...] ensure this report is reviewed. Thank you, Madie Schrader, CRYSTAL Client Service Rep [facility] [place] documented in this encounter Plan of Treatment Upcoming Encounters Date Type Department Care Team (Late st Contact Info) Description 01/15/2025 7:55 AM EDT Office Visit [facility], Operating Room, [facility] [address] [facility], [place] [address] Timbo Nobles MD [address] [place] [address] 02/01/2025 3:30 PM EDT Office Visit General Surgery, [facility] [address] [place] [address] Timbo Nobles MD [address] [place] [address] 03/05/2025 8:00 AM EDT Imaging Radiology [facility] [address] [place] [address] Scheduled Orders Name Type Priority Associated Diagnoses [...] organs documented in this encounter Care Teams Jewel Hole Cornerer Relationship Specialty Start Date End Date Kody Olmstead DO [address] [place] [address] PCP - General Family Medicine 11/05/16 documented as of this encounter
--- OUTSIDE RECORDS SUMMARY | 2025-01-04 23:42 | External Medical Summary | Summary of Care ---
Author Name Unknown Organization [facility] Address [address] [facility] [place] [address] Phone [phone] Care Team Providers Care Sheetmetal Worker Name Role Phone Danelle Cerda DO Primary Care Provider [phone] Reason for Visit * Reason Onset Date Comments Advice 12/26/2024 Encounter Details Date Type Department Care Team (Late st Contact Info) Description 12/26/2024 Telephone Family Practice [facility] [address] [place] [address] Danelle Cerda DO [address] [place] [address] Advice Allergies No known active allergiesdocumented as of this encounter (statuses as of 12/26/2024) Medications omeprazole (PRILOSEC) 20 MG CPDRIndications: Gastroesophageal reflux disease without esophagitis Take 1 Capsule by mouth in the morning. 30 minutes before a meal. 30 Cap 5 11/06/19 17 Active Blood Glucose Monitoring Suppl (D-CARE GLUCOMETER) w/Device KITIndications:T ype 2 diabetes mellitus with hemoglobin A1c goal of less than 7.0% ([facility]) Use as directed. 1 Kit 5 05/18/20 [...] Cells by mouth in the morning. 11/30/19 Active metroNIDAZOLE 500 MG Oral Tablet (Flagyl) Take 1 Tablet by mouth in the morning and 1 Tablet at noon and 1 Tablet before bedtime. 11/30/19 25 Active Vancomycin HCl 125 MG [...] E11.9, 400 Strip 1 12/15/19 25 Active documented as of this encounter (statuses as of 12/26/2024) Active Problems Problem Noted Date Diagnosed Date CRYSTAL (obstructive sleep apnea) 08/12/2018 Dyslipidemia 02/17/2017 Type 2 diabetes mellitus wit h hemoglobin A1c goal of less than 7.0% 02/16/2017 HTN, goal below 130/80 05/08/2015 Iron deficiency anemia due to chronic blood loss Bladder spasms Overview (08/21/2011): stable on vesicare documented as of this encounter (statuses as of 12/26/2024) Resolved Problems Problem Noted Date Diagnosed Date [...] as of this encounter (statuses as of 12/26/2024) Immunizations Name Administration Dates Next Due Hepatitis B, 20+ yrs 06/03/2018,12/28/2017,11/25 PPD 01/26/2019,07/11/2018,05/18/2017 Pneumococcal Conjugate Vacci ne, 20-valent ([id number]) 05/20/2022 Pneumococcal Polysaccharide PPV23 (Pneumovax) 05/18/2017 Seasonal [...] encounter Miscellaneous Notes * Telephone Encounter - Danelle Cerda DO - 12/26/2024 1:14 PM EDT Aware, will follow up * Telephone Encounter - Chayito Herndon OSA - 12/26/2024 11:11 AM EDT Salud abdomen/pelvic CT had a significant abnormal result. Called because they sent [facility]ont Text and there was no answer. Radiology is asking provider to review. documented in this encounter Plan of Treatment Upcoming Encounters Date Type Department Care Team (Late st Contact Info) Description 01/15/2025 7:55 AM EDT Office Visit [facility], Operating Room, [facility] [address] [place] [facility] [address] Timbo Nobles MD [address] [place] [address] 02/01/2025 3:30 PM EDT Office Visit General Surgery, [facility] [address] [place] [phone] Timbo Nobles MD [address] [place] [address] Health Maintenance Due Date Last Done Comments [...] filedocumented as of this encounter Care Teams Sheetmetal Worker Relationship Specialty Start Date End Date Danelle Cerda DO [address] [place] [address] PCP - General Family Medicine 11/05/16 documented as of this encounter
--- OUTSIDE RECORDS SUMMARY | 2025-01-04 23:42 | External Medical Summary | Summary of Care ---
Author Name Unknown Organization [facility] Address [address] [facility] [place] [address] Phone [phone] Care Team Providers Care House Cleaner Supervisor Name Role Phone Danelle Cerda DO Primary Care Provider [phone] Reason for Visit * Reason Onset Date Comments Test Results Imaging Study 01/04/2025 Encounter Details Date Type Department Care Team (Late st Contact Info) Description 01/04/2025 Telephone [facility] Urology [address] [place] [address] Randy Garcia MD [address] [facility] [place] [address] Test Results Imaging Study Allergies No known [...] hemoglobin A1c goal of less than 7.0% ([facility]) Use as directed. 1 Kit [...] PPD 01/26/2019,07/11/2018,05/18/2017 Pneumococcal Conjugate Vacci ne, 20-valent ([id number]) 05/20/2022 Pneumococcal Polysaccharide PPV23 (Pneumovax) 05/18/2017 Seasonal [...] and possible colon/SB resection on 01/15/25 at [facility] w/Dr. Nobles after completing abx treatment of [...] 01/15/2025 7:55 AM EDT [facility], [place] [address] [place] [address] Timbo Nobles MD [address] [place] [address] 02/01/2025 3:30 PM EDT Office Visit General Surgery, [facility] [address] [place] [phone] MisatrTimbo wells MD [address] [place] [address] 03/05/2025 8:00 AM EDT Imaging Radiology [facility] [address] [place] [phone] Health Maintenance Due Date Last Done Comments [...] filedocumented as of this encounter Care Teams House Cleaner Supervisor Relationship Specialty Start Date End Date Danelle Cerda DO [address] [facility] [place] [address] PCP - General Family Medicine 11/05/16 documented as of this encounter
--- OUTSIDE RECORDS SUMMARY | 2025-01-04 23:42 | External Medical Summary | Summary of Care ---
Author Name Unknown Organization [facility] Address [address] [facility] [place] [address] Phone [phone] Care Team Providers Care Outdoor Education Teacher Name Role Phone Kody Olmstead DO Primary Care Provider [phone] Reason for Referral * Evaluate & Treat - Unlimited Visits (Within 3 days (urgent)) - Pending Review Specialty Diagnoses / Procedures Referred By Ernesto perez Referred To Contact Urology Diagnoses Renal neoplasm Kody Olmstead DO [address] [place] [address] Phone: tel: fax: Referral ID Status Reason Start Date Expiration Date Visits Requested Visits Authorized [id number] Pending Review Specialty Services Required 01/03/2025 999 999 Question Answer Referral Priority Within 3 days (urgent) Where should this appointment be scheduled? [facility] What is the patient being referred for? Cancer Reason for Visit * Reason Onset Date Comments Test Results 01/03/2025 Unexpected or In determinate Result Encounter Details Date Type Department Care Team (Late st Contact Info) Description 01/03/2025 Telephone Laboratory, [place] [address] [place] [address] Kody Olmstead DO [address] [place] [address] Test Results (Unexpected or Indeterminate ... Allergies [...] ([facility]) Use as directed with one touch glucometer [...] PPD 01/26/2019,07/11/2018,05/18/2017 Pneumococcal Conjugate Vacci ne, 20-valent ([id number]) 05/20/2022 Pneumococcal Polysaccharide PPV23 (Pneumovax) 05/18/2017 Seasonal [...] lap appy and possible colon/SB resection at [facility] w/Dr. Nobles scheduled on 01/15/25 Urology referral placed, please schedule MONA Pt also needs 6-8 week f/u pelvic US for R renal cyst * Telephone Encounter - Madie Schrader OSA - 01/03/2025 8:01 AM EDT Hello- The radiologist discovered an unexpected or indeterminate finding on Angelia Arsen [place] ([id number]) and asks that you review the following [...] you, Madie Schrader, CRYSTAL Client Service Rep [facility] [place] documented in this encounter Plan of Treatment Upcoming Encounters Date Type Department Care Team (Late st Contact Info) Description 01/15/2025 7:55 AM EDT Office Visit [facility], Operating Room, [facility] [address] [facility], [place] [address] Timbo Nobles MD [address] [place] [address] 02/01/2025 3:30 PM EDT Office Visit General Surgery, [facility] [address] [place] [address] Timbo Nobles MD [address] [place] [address] 03/05/2025 8:00 AM EDT Imaging Radiology [facility] [address] [place] [phone] Scheduled Orders Name Type Priority Associated Diagnoses [...] organs documented in this encounter Care Teams Outdoor Education Teacher Relationship Specialty Start Date End Date Kody Olmstead DO [address] [place] [address] PCP - General Family Medicine 11/05/16 documented as of this encounter
--- OUTSIDE RECORDS SUMMARY | 2025-01-04 23:42 | External Medical Summary | Summary of Care ---
Author Name Unknown Organization [facility] Address [address] [facility] [place] [address] Phone [phone] Care Team Providers Care Traverse Rod Assembler Name Role Phone Danelle Cerda DO Primary Care Provider [phone] Reason for Visit * Reason Onset Date Comments Test Results 01/03/2025 Unexpected or In determinate Result Encounter Details Date Type Department Care Team (Late st Contact Info) Description 01/03/2025 Telephone Laboratory, [place] [address] [facility] [place] [address] Danelle Cerda DO [address] [place] [address] Test Results (Unexpected or Indeterminate ... Allergies No known active allergiesdocumented as of this encounter (statuses as of 01/03/2025) Medications omeprazole (PRILOSEC) 20 MG CPDRIndications: Gastroesophageal reflux disease without esophagitis Take 1 Capsule by mouth in the morning. 30 minutes before a meal. 30 Cap 5 11/06/19 17 Active Blood Glucose Monitoring Suppl (D-CARE GLUCOMETER) w/Device KITIndications:T ype 2 diabetes mellitus with hemoglobin A1c goal of less than 7.0% ([facility]) Use as directed. 1 Kit 5 [...] in the morning. 11/30/19 25 Active OneTouch Delamy Lancets 33GIndications:T ype 2 diabetes mellitus with [...] as of this encounter (statuses as of 01/03/2025) Active Problems Problem Noted Date Diagnosed Date CRYSTAL (obstructive sleep apnea) 08/12/2018 Dyslipidemia 02/17/2017 Type 2 diabetes mellitus wit h hemoglobin A1c goal of less than 7.0% 02/16/2017 HTN, goal below 130/80 05/08/2015 Iron deficiency anemia due to chronic blood loss Bladder spasms Overview (08/21/2011): stable on vesicare documented as of this encounter (statuses as of 01/03/2025) Resolved Problems Problem Noted Date Diagnosed Date [...] as of this encounter (statuses as of 01/03/2025) Immunizations Name Administration Dates Next Due Hepatitis B, 20+ yrs 06/03/2018,12/28/2017,11/25 PPD 01/26/2019,07/11/2018,05/18/2017 Pneumococcal Conjugate Vacci ne, 20-valent ([id number]) 05/20/2022 Pneumococcal Polysaccharide PPV23 (Pneumovax) 05/18/2017 Seasonal [...] encounter Miscellaneous Notes * Telephone Encounter - ShrutiMadie mathur, CRYSTAL - 01/03/2025 8:01 AM EDT Hello- The radiologist discovered an unexpected or indeterminate finding on Angelia Garcia ([id number]) and asks that you review the following [...] reviewed. Thank you, CRYSTAL Thomas Client Service [facility] documented in this encounter Plan of Treatment Upcoming Encounters Date Type Department Care Team (Late st Contact Info) Description 01/15/2025 7:55 AM EDT Office Visit [facility], Operating Room, [place] [address] [facility] [place] [address] Timbo Nobles MD [address] [place] [address] 02/01/2025 3:30 PM EDT Office Visit General Surgery, [facility] [address] [place] [phone] Tibmo Nobles MD [address] [place] [address] Health Maintenance Due Date Last Done Comments HPV/Co-Test 01/10/1996 Cologuard 2011 Fecal Occult Blood Test 2011 Sigmoidoscopy 2011 Diabetic Eye Exam 11/09/2019 11/08/2018, , 07/23/2012 Cervical Cancer Screening 01/06/2021 Pap Smear 01/06/2021 01/06/2018, 05/2016, 11/05/2014 (Done elsewhere), Additional history exists Depression Screening 01/04/2025 01/05/2024 HbA1c 02/14/2025 08/16/2024, 042 05/2024, 06/23/2023, Additional history exists Mammogram 04/14/2025 [...] filedocumented as of this encounter Care Teams Traverse Rod Assembler Relationship Specialty Start Date End Date Danelle Cerda DO [address] [place] [address] PCP - General Family Medicine 11/05/16 documented as of this encounter
--- OUTSIDE RECORDS SUMMARY | 2025-01-04 23:43 | External Medical Summary | Summary of Care ---
Author Name Unknown Organization [facility] Address [address] [facility] [place] [address] Phone [phone] Care Team Providers Care Cadet Deck Name Role Phone Danelle Cerda DO Primary Care Provider [phone] Reason for Visit * Reason Onset Date Comments Medication Question 12/20/2024 Encounter Details Date Type Department Care Team (Late st Contact Info) Description 12/20/2024 Telephone General Surgery, [facility] [place] [address] [place] [phone] Timbo Dunne MD [address] [place] [address] Medication Question Allergies No known active allergiesdocumented as of this encounter (statuses as of 12/21/2024) Medications omeprazole (PRILOSEC) 20 MG CPDRIndications: Gastroesophageal reflux disease without esophagitis Take 1 Capsule by mouth in the morning. 30 minutes before a meal. 30 Cap 5 11/06/19 17 Active Blood Glucose Monitoring Suppl (D-CARE GLUCOMETER) w/Device KITIndications:T ype 2 diabetes mellitus with hemoglobin A1c goal of less than 7.0% ([facility]) Use as directed. 1 [...] mouth in the morning. 11/30/19 25 Active metroNIDAZOLE 500 MG Oral Tablet (Flagyl) [...] E11.9, 400 Strip 1 12/15/19 25 Active Hospital, Clinic, or Other Facility Administered Medication Ordered Dose Route Frequency Start Date End Date Status sodium chloride 0.9 % flush/inj 10 mL 10 mL IV PUSH ONCE 12/20/2024 12/20/2024 Ended documented as of this encounter (statuses as of 12/21/2024) Active Problems Problem Noted Date Diagnosed Date CRYSTAL (obstructive sleep apnea) 08/12/2018 Dyslipidemia 02/17/2017 Type 2 diabetes mellitus wit h hemoglobin A1c goal of less than 7.0% 02/16/2017 HTN, goal below 130/80 05/08/2015 Iron deficiency anemia due to chronic blood loss Bladder spasms Overview (08/21/2011): stable on vesicare documented as of this encounter (statuses as of 12/21/2024) Resolved Problems Problem Noted Date Diagnosed Date [...] as of this encounter (statuses as of 12/21/2024) Immunizations Name Administration Dates Next Due Hepatitis B, 20+ yrs 06/03/2018,12/28/2017,11/25 PPD 01/26/2019,07/11/2018,05/18/2017 Pneumococcal Conjugate Vacci ne, 20-valent ([id number]) 05/20/2022 Pneumococcal Polysaccharide PPV23 (Pneumovax) 05/18/2017 Seasonal [...] Telephone Encounter - Danelle Cerda DO - 12/20/2024 8:24 PM EDT Noted, addressed via my * Telephone Encounter - Katie Shelton LPN - 12/20/2024 4:04 PM EDT I called pt to see if she could explain the message to me from below, since I could not quite understand the message and what it was that the pt needed. I asked pt to explain what it was that I could help her with. Pt stating that she was concerned about her IV PICC line. Stating that she had a "CT today and had to cancel her appt for tomorrow to monique dunne due to the radiology employee told her that " it would not be read until next week possibly Wednesday or Wednesday. " Pt upset pt stating that she is to have IV antibiotics and have her PICC line taken out on Wednesday. Pt doesn't want to have her PICC line taken out if there is a chance she needs to stay on IV antibiotics. Pt stating that she needs to know if she is to continue her antibiotics or what is she to do. Because dr dunne will need to wait for the CT scan to decide if she is to have her surgery or when she will possibly have surgery. Pt upset stating that she has a ruptured appendic and/or abscess and has been dealing with this since november, pt very upset, she thought that if she had the CT scan today, it should be read by tomorrows appt. I explained to pt and tried to find it in her discharge from [facility] who had ordered the antibiotics, telling her that she will need to contact or follow up with that provider. Whoever does her PICC line would be able to tell her what doctor had ordered the IV antibiotics. I explained that she was notseen in this office since the surgery. She was seen at her pcp office and at [facility] where she gets her IV PICC antibiotics. ( She was here on 12/06/2024 vibha did a no charge and technically did not see her , due to the fact that he needed to have the CT scan and after antibiotics before he could determine if he had to do surgery). Pt upset " why does it take that long to read the CT scan?" I tried to explain that for example if there were [address] scans done, all 50 people would need them read and it takes time. Ptcontinued to get upset with me and said she would think about going else where for her surgery. Stating that she "did not want to have to deal with me or met me and hung up on me without giving me the change to speak with her." * Telephone Encounter - Laura Lema OSA - 12/20/2024 11:44 AM EDT Patient would like to inquire on if she should still hold her antibiotic till her next appointment with General Surgery as she was hoping not to wait long to see if she needed to but, her appointmentneeded to be pushed out in order for results to be read by imaging department. Patient is unsure ifthis decision should be made by General Surgery or her pcp. documented in this encounter Plan of Treatment Upcoming Encounters Date Type Department Care Team (Late st Contact Info) Description 12/26/2024 10:45 AM EDT Office Visit General Surgery, [facility] [place] [address] [place] [phone] Timbo Dunne MD [address] [place] [address] Health Maintenance Due Date Last Done Comments [...] filedocumented as of this encounter Care Teams Cadet Deck Relationship Specialty Start Date End Date Danelle Cerda DO [address] [facility] [place] [address] PCP - General Family Medicine 11/05/16 documented as of this encounter
--- OUTSIDE RECORDS SUMMARY | 2025-01-04 23:43 | External Medical Summary | Summary of Care ---
Author Name Unknown Organization [facility] Address [address] [place] [address] Phone [phone] Care Team Providers Care Cotton Tipper Name Role Phone Danelle Cerda DO Primary Care Provider [phone] Reason for Visit * Reason Comments Follow Up Go over CT results. * Evaluate & Treat - Unlimited Visits (Within 3 days (urgent)) - Pending Review Specialty Diagnoses / Procedures Referred By Ernesto perez Referred To Contact General Surgery Diagnoses Perforated appendicitis Danelle Cerda DO [address] [place] [address] Phone: tel: fax: Referral ID Status Reason Start Date Expiration Date Visits Requested Visits Authorized [id number] Pending Review Specialty Services Required 12/05/[phone] Encounter Details Date Type Department Care Team (Late st Contact Info) Description 12/26/2024 10:45 AM EDT Office Visit General Surgery, [facility] [address] [place] [phone] Timbo Nobles MD [address] [place] [address] Appendicitis with abscess*; Pre-op chest exam; Pre-operative examination Allergies No known active allergiesdocumented as of [...] goal of less than 7.0% ([facility]) Use as directed with one touch glucometer [...] PPD 01/26/2019,07/11/2018,05/18/2017 Pneumococcal Conjugate Vacci ne, 20-valent ([id number]) 05/20/2022 Pneumococcal Polysaccharide PPV23 (Pneumovax) 05/18/2017 Seasonal [...] on file documented as of this encounter Progress Notes * Timbo Nobles MD - 12/26/2024 10:39 AM EDT [facility] [address] [facility] [place] [address] [facility] Chief Complaint: Complicated appendicitis HPI: Patient is seen in request of Danelle Cerda DO. Angelia Garcia is a 59 year old female who presents with a recent acute appendicitis with an abscess treated with IV abx on 11/23/2024. 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 PAP SCREEN 06/08/07 wnl PAP SCREEN 07/20/08 WNL, [place] PAP SCREEN 07/29/2010 negative for malignancy Past Medical History: Diagnosis Date Anemia Bladder spasms stable on vesicare, Dr Mascorro Colitis Takes Sulfasalazine for colitis (follows with Dr. Viera) Gestational diabetes x 3 Glucose intolerance (impaired glucose tolerance) Iron deficiency anemia due to chronic blood loss Other and unspecified noninfectious gastroenteritis and colitis(558.9) Inflammatory Bowel Disease- Dr Garcia Current Outpatient Medications Medication Sig Dispense Refill omeprazole (PRILOSEC) 20 MG CPDR Take 1 Capsule by mouth in the morning. 30 minutes before a meal. 30 Cap 5 Blood Glucose Monitoring Suppl (D-CARE GLUCOMETER) w/Device KIT Use as directed. 1 Kit 5 Aspirin 81 MG Tablet Take 1 Tablet by mouth in the morning. 30 Tab 0 Lisinopril 40 MG Oral Tablet TAKE 1 TABLET BY MOUTH IN THE MORNING 90 Tablet 1 Atorvastatin Calcium 80 MG Oral Tablet (Lipitor) TAKE 1 TABLET BY MOUTH IN THE MORNING 90 Tablet 3 oxyBUTYnin Chloride ER 15 MG Oral Tablet Extended Release 24 Hour (Ditropan XL) TAKE 1 TABLET BY MOUTH ONCE DAILY IN THE MORNING. DO NOT CUT, CRUSH, OR CHEW. 30 Tablet 11 hydroCHLOROthiazide 25 MG Oral Tablet (Hydrodiuril) TAKE 1 TABLET BY MOUTH IN THE MORNING 90 Tablet3 metFORMIN HCl 1000 MG Oral Tablet (Glucophage) TAKE 1 TABLET BY MOUTH TWICE DAILY WITH MORNING MEALAND WITH EVENING MEAL 180 Tablet 3 Ozempic (2 MG/DOSE) 8 MG/3ML Subcutaneous Solution Pen-injector (Semaglutide (2 MG/DOSE)) INJECT 2MG SUBCUTANEOUSLY ONCE A WEEK (Patient not taking: Reported on 12/05/2024) 3 mL 2 Advanced Probiotic Oral Capsule Take 20 Billion Cells by mouth in the morning. metroNIDAZOLE 500 MG Oral Tablet (Flagyl) Take 1 Tablet by mouth in the morning and 1 Tablet at noon and 1 Tablet before bedtime. Vancomycin HCl 125 MG Oral Capsule (Vancocin) Take 1 Capsule by mouth in the morning. OneTouch Delica Lancets 33G Use as directed with one touch glucometer 4 times a day 100 Each 3 OneTouch Ultra Test In Vitro Strip (Glucose Blood) Use up to 4 times a day E11.9, 400 Strip 1 No current facility-administered medications for this visit. 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 ROS EXAM: CONSTITUTIONAL: No change in weight, No weakness, No fatigue, and No fevers, sweats, or chills NECK: No lumps or masses, No swollen glands, No recent swelling in thyroid area, No significant pain in neck, and No h/o goiter or thyroid disease PULMONARY: No cough, sputum, or hemoptysis, No wheezing, No rales, No shortness of breath, and No recent change in breathing CARDIOVASCULAR: No chest pain, No shortness of breath, No dyspnea on exertion, No orthopnea, No paroxysmal nocturnal dyspnea, No edema, No palpitations, and No syncope GASTROINTESTINAL: No abdominal pain, No change in bowel habits, No significant heartburn, No significant change in appetite, No nausea, vomiting, diarrhea, or constipation, No hematemesis, No blood in stools or black tarry stools, No abdominal bloating or early satiety, and No dysphagia HEMATOLOGIC: No coagulation disorder, No anemia, No abnormal bleeding, No chills, No bruising, No HIV risk factors, No night sweats, No swollen nodes, No weight loss, and No history of transfusion EXTREMITIES: No pain, redness or swelling on the joints SKIN/INTEGUMENTARY: No edema, No rash, and No itching NEUROLOGIC: Normal balance, No headaches, No seizures, and No weakness PSYCHIATRIC: No depression, No anxiety, and No psychosis Physical Exam: [facility] 08/05/2015 (Approximate) Constitutional: alert,healthy,well nourished Head: normocephalic,atraumatic Eyes: conjunctiva non-injected,sclera white,EOMI Ears: pinna normal shape and color Nose: no mucosal erythema,no mucosal edema,no purulent discharge Mouth: no exudate,no erythema,lips, mucosa, and tongue normal Neck: supple Lungs: clear to auscultation,breath sounds are equal and symmetric,no crepitus Heart: regular rate & rhythm,no murmur, gallops or rubs Abdomen: soft ,positive bowel sounds,non-tender Back: normal ROM Extremities: no joint deformities, effusion, or inflammation,no edema,no skin discoloration Neuro: alert,gait normal,motor normal Skin: no obvious rashes or significant lesions,warm and dry with good turgor CT scan: pending IMPRESSION: Angelia Garcia is a 59 year old female with a complicated appendicitis. We discussed the risks of laparoscopic appendectomy and hand-assisted laparoscopic surgical intervention including; open procedure, bleeding requiring transfusion, anastomotic breakdown with abscess requiring drainage or reoperation, SBO from adhesions or internal hernia, and wound complications including dehisence or infection. PLAN: The patient has elected to proceed with a laparoscopic appendectomy and possible colon/SB resectionon the at [facility]. They signed the consent for surgery in the office today. Timbo Nobles MD 12/26/2024 10:39 AM documented in this encounter Nursing Notes * Taqueria Garnica LPN - 12/26/2024 11:09 AM EDT Patient is scheduled for surgery on 01/15/[address] Timbo Thorne at [place] Patient has been instructed to wash with chlorhexidine soap the night before and morning of surgery. Patient has been instructed that they may have clear liquids up until 2 hours before their arrival time. N/A at [facility] Patient is aware that they need the following Preadmission testing. None needed Patient is aware that they need a truck driver instructor to take them home after surgery. Patient is aware that they must hold the following medication prior to surgery. Will talk to pre anesthesia * Kyara Garcia MED ASSIST - 12/26/2024 10:28 AM EDT Chief Complaint Patient presents with Follow Up Go over CT results. Verified patient. documented in this encounter Miscellaneous Notes * Addendum Note - Taqueria Garnica LPN - 12/26/2024 11:00 AM EDTAddended by: TAQUERIA GARNICA on: 12/26/2024 11:00 AM Modules accepted: Orders * Addendum Note - Taqueria Garnica LPN - 12/26/2024 10:53 AM EDTAddended by: TAQUERIA GARNICA on: 12/26/2024 10:53 AM Modules accepted: Orders documented in this encounter Plan of Treatment Upcoming Encounters Date Type Department Care Team (Late st Contact Info) Description 01/15/2025 7:55 AM EDT Office Visit Non [facility], Operating Room, [facility] [address] [place] [facility] [place] [address] Timbo Nobles MD [address] [place] [address] 02/01/2025 3:30 PM EDT Office Visit General Surgery, [facility] [address] [place] [phone] Timbo Nobles MD [address] [place] [address] Health Maintenance Due Date Last Done Comments [...] as of this encounter Visit Diagnoses Diagnosis Appendicitis with abscess- Primary Acute appendicitis with peritoneal abscess Pre-op chest exam Pre-operative respiratory examination Pre-operative examination Preoperative examination, unspecified documented in this encounter Care Teams Cotton Tipper Relationship Specialty Start Date End Date Danelle Cerda DO [address] [facility] [place] [address] PCP - General Family Medicine 11/05/16 documented as of this encounter
--- OUTSIDE RECORDS SUMMARY | 2025-01-04 23:43 | External Medical Summary | Summary of Care ---
Author Name Unknown Organization [facility] Address [address] [place] [address] Phone [phone] Care Team Providers Care Belt Repairer Name Role Phone Danelle Cerda DO Primary Care Provider [phone] Reason for Visit * Reason Onset Date Comments Order Request 12/21/2024 Encounter Details Date Type Department Care Team (Late st Contact Info) Description 12/21/2024 Telephone [facility], [address], 2nd Floor, [address] [place] [address] Sue Martinez, RN Order Request Allergies No known active allergiesdocumented as of this encounter (statuses as of 12/22/2024) Medications omeprazole (PRILOSEC) 20 MG CPDRIndications: Gastroesophageal reflux disease without esophagitis Take 1 Capsule by mouth in the morning. 30 minutes before a meal. 30 Cap 5 11/06/19 17 Active Blood Glucose Monitoring Suppl (D-CARE GLUCOMETER) w/Device KITIndications:T ype 2 diabetes mellitus with hemoglobin A1c goal of less than 7.0% ([facility]) Use as directed. 1 Kit 5 05/18/20 [...] as of this encounter (statuses as of 12/22/2024) Active Problems Problem Noted Date Diagnosed Date CRYSTAL (obstructive sleep apnea) 08/12/2018 Dyslipidemia 02/17/2017 Type 2 diabetes mellitus wit h hemoglobin A1c goal of less than 7.0% 02/16/2017 HTN, goal below 130/80 05/08/2015 Iron deficiency anemia due to chronic blood loss Bladder spasms Overview (08/21/2011): stable on vesicare documented as of this encounter (statuses as of 12/22/2024) Resolved Problems Problem Noted Date Diagnosed Date [...] as of this encounter (statuses as of 12/22/2024) Immunizations Name Administration Dates Next Due Hepatitis B, 20+ yrs 06/03/2018,12/28/2017,11/25 PPD 01/26/2019,07/11/2018,05/18/2017 Pneumococcal Conjugate Vacci ne, 20-valent ([id number]) 05/20/2022 Pneumococcal Polysaccharide PPV23 (Pneumovax) 05/18/2017 Seasonal [...] Telephone Encounter - Danelle Cerda DO - 12/21/2024 3:56 PM EDT Order placed, please fax to [facility] * Telephone Encounter - Sue Martinez RN - 12/21/2024 3:36 PM EDT Provider to address: Curtis Cerda, I am covering for Berta as she's off today. I received a message from Pilar Guerrero at [facility]. She states: Angelia Garcia 67. She called in concerned. She was here for a ruptured appendix with abscess. She was discharged with IV abx. She did follow up with Dr. Cerda and she got her CT scandone which is not read yet. The plan from here was to see what her CT scan showed for how long she will be on antibiotics. Her appt with Dr. Nobles to review the CT is on Wednesday. She has an appt with our [facility] on Wednesday and they were going to remove her PICC line but it hasn't been determined thatshe'll be done with the antibiotics yet. [facility] just needs an order sent over to tell them to keep thePICC line intact. I sent a message to Dr. Cerda but I feel like she is probably swamped with things today. Is there a way to get the order sent over? I have pended the order, if you are agreeable please sign and have the front office fax it to [facility]: [phone]. Reason for Call: Order Request Contact: Telephone Call Contact Type: Advice Provider In-Basket: No Outcome: as above Face to face time spent with Patient (minutes): 0 Total Time including non face to face (minutes): 10 documented in this encounter Plan of Treatment Upcoming Encounters Date Type Department Care Team (Late st Contact Info) Description 12/26/2024 10:45 AM EDT Office Visit General Surgery, [facility] [address] [place] [phone] Timbo Nobles MD [address] [place] [address] Scheduled Orders Name Type Priority Associated Diagnoses Orde r Schedule INSERT PICC, W/O PORT OR PUMP WITH IMAGE; UNDER 5YR Procedures Routine Perforated appendicitis Ordered: 12/21/2024 Health Maintenance Due Date Last Done Comments [...] as of this encounter Visit Diagnoses Diagnosis Perforated appendicitis- Primary Acute appendicitis with generalized peritonitis documented in this encounter Care Teams Belt Repairer Relationship Specialty Start Date End Date Danelle Cerda DO [address] [place] [address] PCP - General Family Medicine 11/05/16 documented as of this encounter
--- OUTSIDE RECORDS SUMMARY | 2025-01-04 23:43 | External Medical Summary | Summary of Care ---
Author Name Unknown Organization [facility] Address [address] [facility] [place] [address] Phone [phone] Care Team Providers Care Optical Glass Etcher Name Role Phone Danelle Cerda DO Primary Care Provider [phone] Reason for Visit * Reason Onset Date Comments Medication Question 12/20/2024 Encounter Details Date Type Department Care Team (Late st Contact Info) Description 12/20/2024 Telephone General Surgery, [facility] [address] [place] [phone] Timbo Dunne MD [address] [place] [address] Medication Question Allergies No known active allergiesdocumented as of this encounter (statuses as of 12/20/2024) Medications omeprazole (PRILOSEC) 20 MG CPDRIndications: Gastroesophageal reflux disease without esophagitis Take 1 Capsule by mouth in the morning. 30 minutes before a meal. 30 Cap 5 11/06/19 17 Active Blood Glucose Monitoring Suppl (D-CARE GLUCOMETER) w/Device KITIndications:T ype 2 diabetes mellitus with hemoglobin A1c goal of less than 7.0% ([facility]) Use as directed. 1 [...] Active metFORMIN HCl 1000 MG Oral Tablet (Glucophage)Galliea cations:Type 2 diabetes mellitus with hemoglobin A1c [...] 10 mL IV PUSH ONCE 12/20/2024 12/20/2024 Active documented as of this encounter (statuses as of 12/20/2024) Active Problems Problem Noted Date Diagnosed Date CRYSTAL (obstructive sleep apnea) 08/12/2018 Dyslipidemia 02/17/2017 Type 2 diabetes mellitus wit h hemoglobin A1c goal of less than 7.0% 02/16/2017 HTN, goal below 130/80 05/08/2015 Iron deficiency anemia due to chronic blood loss Bladder spasms Overview (08/21/2011): stable on vesicare documented as of this encounter (statuses as of 12/20/2024) Resolved Problems Problem Noted Date Diagnosed Date [...] as of this encounter (statuses as of 12/20/2024) Immunizations Name Administration Dates Next Due Hepatitis B, 20+ yrs 06/03/2018,12/28/2017,11/25 PPD 01/26/2019,07/11/2018,05/18/2017 Pneumococcal Conjugate Vacci ne, 20-valent ([id number]) 05/20/2022 Pneumococcal Polysaccharide PPV23 (Pneumovax) 05/18/2017 Seasonal [...] encounter Miscellaneous Notes * Telephone Encounter - Katie [place]ton LPN [...] [facility] [place] due to the radiology employee told her [...] to find it in her discharge from [facility] who had ordered the antibiotics, telling her that she will need to contact or follow up with that provider. Whoever does her PICC line would be able to tell her what doctor had ordered the IV antibiotics. I explained that she was notseen in this office since the surgery. She was seen at her pcp office and at [facility] where she gets her IV PICC antibiotics. ( She was here on 12/06/2024 elijahmicheal did a no charge and technically did [...] with her." * Telephone Encounter - Laura Lema, CRYSTAL - 12/20/2024 11:44 AM EDT Patient would [...] [facility] [address] [place] [phone] Timbo Dunne MD [address] [place] [address] Health Maintenance Due Date Last Done Comments [...] filedocumented as of this encounter Care Teams Optical Glass Etcher Relationship Specialty Start Date End Date Danelle Cerda DO [address] [place] [address] PCP - General Family Medicine 11/05/16 documented as of this encounter
--- OUTSIDE RECORDS SUMMARY | 2025-01-04 23:43 | External Medical Summary | Summary of Care ---
Author Name Unknown Organization [facility] Address [address] [facility] [place] [address] Phone [phone] Care Team Providers Care Setter Off Name Role Phone Kody Olmstead DO Primary Care Provider [phone] Reason for Visit * Reason Onset Date Comments Medication Refill 12/14/2024 Encounter Details Date Type Department Care Team (Late st Contact Info) Description 12/14/2024 Refill Family Practice [facility] [address] [place] [address] Kody Olmstead DO [address] [place] [address] Allergies No known active allergiesdocumented as of this encounter (statuses as of 12/14/2024) Medications omeprazole (PRILOSEC) 20 MG CPDRIndications: Gastroesophageal reflux disease without esophagitis Take 1 Capsule by mouth in the morning. 30 minutes before a meal. 30 Cap 5 11/06/19 17 Active Blood Glucose Monitoring Suppl (D-CARE GLUCOMETER) w/Device KITIndications:T ype 2 diabetes mellitus with hemoglobin A1c goal of less than 7.0% ([facility]) Use as directed. 1 Kit 5 05/18/20 [...] E11.9, 400 Strip 1 12/15/19 25 Active Glucose Blood In Vitro StripIndications :Type 2 diabetes mellitus with hemoglobin A1c goal of less than 7.0% (HCC) Use to test 4 times a day as directed. E11.9 100 Strip 11 06/30/20 23 025 Discontin ued(Medic ation List Clean Up) OneTouch Verio In Vitro Strip (Glucose Blood)Indication s:Type 2 diabetes mellitus with hemoglobin A1c goal of less than 7.0% ([facility]) Use up to 4 times a day E11.9 100 Strip 11 12/06/19 25 025 Discontin ued(Medic ation List Clean Up) documented as of this encounter (statuses as of 12/14/2024) Active Problems Problem Noted Date Diagnosed Date CRYSTAL (obstructive sleep apnea) 08/12/2018 Dyslipidemia 02/17/2017 Type 2 diabetes mellitus wit h hemoglobin A1c goal of less than 7.0% 02/16/2017 HTN, goal below 130/80 05/08/2015 Iron deficiency anemia due to chronic blood loss Bladder spasms Overview (08/21/2011): stable on vesicare documented as of this encounter (statuses as of 12/14/2024) Resolved Problems Problem Noted Date Diagnosed Date [...] as of this encounter (statuses as of 12/14/2024) Immunizations Name Administration Dates Next Due Hepatitis B, 20+ yrs 06/03/2018,12/28/2017,11/25 PPD 01/26/2019,07/11/2018,05/18/2017 Pneumococcal Conjugate Vacci ne, 20-valent ([id number]) 05/20/2022 Pneumococcal Polysaccharide PPV23 (Pneumovax) 05/18/2017 Seasonal [...] encounter Miscellaneous Notes * Telephone Encounter - Ryann Viera, [facility] - 12/14/2024 1:00 PM EDTSigned Prescriptions: Disp Refills OneTouch Ultra Test In Vitro Strip (Glucos*400 St*1 Sig: Use up to 4 times a day E11.9,Authorizing Provider: KODY OLMSTEAD User: RYANN VIERA--- * Telephone Encounter - Becky Jernigan PHARM Tech - 12/14/2024 12:43 PM EDT Mehdi calling in says pt advised them she has a [employer] ultra meter. Asking if corrected rx can be sent at earliest convenience Did you pend patient's preferred pharmacy and medication before forwarding?yes Pharmacy: [facility] [address] [place] [address] Pending Prescriptions: Disp Refills BitAccessTouch Ultra Test In Vitro Strip (Gluco*400 St*1 Sig: Use up to 4 times a day E11.9, Last Visit: 12/05/2024 (in office), 12/14/2019 (telemedicine) Next Visit: Visit date not found If no future appointments scheduled, and last appointment is greater than a year ago, please schedule patient for a follow-up appointment Last date the medication was ordered: 12/05/24 Is this request for a controlled substance?No Urine Drug Screen:No results found for this or any previous visit. Patient Phone Numbers [employer] [phone] Labs: Lab Results Component Value Date/Time CREAT 0.6 08/16/2024 10:48 AM CREAT 0.7 02/26/2020 10:45 AM POTASSIUM 4.3 08/16/2024 10:48 AM POTASSIUM 4.6 02/26/2020 10:45 AM TSH 2.83 05/07/2015 10:34 AM LDL 79 08/16/2024 10:48 AM LDL 52 06/23/2023 04:16 PM LDL 69 07/16/2020 09:11 AM LDL NOT APPLICABLE 07/16/2020 09:11 AM ALT 29 08/16/2024 10:48 AM ALT 18 02/25/2018 12:01 PM HGBA1C 6.1 (H) 08/16/2024 10:48 AM HGBA1C 6.7 (H) 07/16/2020 09:11 AM documented in this encounter Plan of Treatment Upcoming Encounters Date Type Department Care Team (Late st Contact Info) Description 12/20/2024 11:15 AM EDT Imaging Radiology [address], [place] [address] [place] [phone] Health Maintenance Due Date Last Done Comments HPV/Co-Test 01/10/1996 Cologuard 2011 Fecal Occult Blood Test 2011 Sigmoidoscopy 2011 Diabetic Eye Exam 11/09/2019 11/08/2018, , 07/23/2012 Cervical Cancer Screening 01/06/2021 Pap Smear 01/06/2021 01/06/2018, 0305/2016, 11/05/2014 (Done elsewhere), Additional history exists Depression [...] filedocumented as of this encounter Care Teams Setter Off Relationship Specialty Start Date End Date Kody Olmstead DO [address] [facility] [place] [address] PCP - General Family Medicine 11/05/16 documented as of this encounter
--- OUTSIDE RECORDS SUMMARY | 2025-01-04 23:43 | External Medical Summary | Summary of Care ---
Author Name Unknown Organization [facility] Address [address] [place] [address] Phone [phone] Care Team Providers Care Airplane Refueler Name Role Phone Danelle Cerda DO Primary Care Provider [phone] Reason for Visit * Reason Comments Follow Up Go over CT results. * Evaluate & Treat - Unlimited Visits (Within 3 days (urgent)) - Pending Review Specialty Diagnoses / Procedures Referred By Ernesto perez Referred To Contact General Surgery Diagnoses Perforated appendicitis Danelle Cerda DO [address] [place] [address] Phone: tel: fax: Referral ID Status Reason Start Date Expiration Date Visits Requested Visits Authorized [id number] Pending Review Specialty Services Required 12/05/[phone] Encounter Details Date Type Department Care Team (Late st Contact Info) Description 12/26/2024 10:45 AM EDT Office Visit General Surgery, [facility] [address] [place] [phone] Timbo Nobles MD [address] [place] [address] Appendicitis with abscess*; Pre-op chest exam; Pre-operative [...] hemoglobin A1c goal of less than 7.0% ([facility]) Use as directed with one [...] PPD 01/26/2019,07/11/2018,05/18/2017 Pneumococcal Conjugate Vacci ne, 20-valent ([id number]) 05/20/2022 Pneumococcal Polysaccharide PPV23 (Pneumovax) 05/18/2017 Seasonal [...] as of this encounter Progress Notes * iTmbo Nobles MD - 12/26/2024 10:39 AM EDT [facility] [address] [facility] [place] [address] [facility] Chief Complaint: Complicated appendicitis HPI: Patient is seen in request of Danelle Cerda DO. Angelia Garcia is a 59 year old female who presents with a recent acute appendicitis with an abscess treated with IV abx on 11/23/2024. 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 08/05/2015 (Approximate) Constitutional: alert,healthy,well nourished Head: normocephalic,atraumatic [...] appendectomy and possible colon/SB resectionon the at [facility]. They signed the consent for surgery in the office today. Timbo Nobles MD 12/26/2024 10:39 AM documented in this encounter Nursing Notes * Taqueria Garnica LPN - 12/26/2024 11:09 AM EDT Patient is scheduled for surgery on 01/15/[address] Timbo Thorne at [place] Patient has been instructed to wash with chlorhexidine soap the night before and morning of surgery. Patient has been instructed that they may have clear liquids up until 2 hours before their arrival time. N/A at [facility] Patient is aware that they need the following Preadmission testing. None needed Patient is aware that they need a electric pile driver operator to take them home after surgery. Patient [...] Visit [facility], Operating Room, [facility] [address] [place] [address] iTmbo Nobles MD [address] [place] [address] 02/01/2025 3:30 PM EDT Office Visit General Surgery, [facility] [address] [place] [phone] Timbo Nobles MD [...] unspecified documented in this encounter Care Teams Airplane Refueler Relationship Specialty Start Date End Date Danelle Cerda DO [address] [facility] [place] [address] PCP - General Family Medicine 11/05/16 documented as of this encounter
--- OUTSIDE RECORDS SUMMARY | 2025-01-04 23:43 | External Medical Summary | Summary of Care ---
Author Name Unknown Organization [facility] Address [address] [place] [address] Phone [phone] Care Team Providers Care Restaurant Floor Manager Name Role Phone Danelle Cerda DO Primary Care Provider [phone] Reason for Visit * Reason Comments Follow Up Go over CT results. * Evaluate & Treat - Unlimited Visits (Within 3 days (urgent)) - Pending Review Specialty Diagnoses / Procedures Referred By Ernesto perez Referred To Contact General Surgery Diagnoses Perforated appendicitis Danelle Cerda DO [address] [place] [address] Phone: tel: fax: Referral ID Status Reason Start Date Expiration Date Visits Requested Visits Authorized [id number] Pending Review Specialty Services Required 12/05/[phone] Encounter Details Date Type Department Care Team (Late st Contact Info) Description 12/26/2024 10:45 AM EDT Office Visit General Surgery, [facility] [address] [place] [phone] Timbo Nobles MD [address] [place] [address] Appendicitis with abscess*; Pre-op chest exam; Pre-operative [...] hemoglobin A1c goal of less than 7.0% ([facility]) Use as directed with one [...] PPD 01/26/2019,07/11/2018,05/18/2017 Pneumococcal Conjugate Vacci ne, 20-valent ([id number]) 05/20/2022 Pneumococcal Polysaccharide PPV23 (Pneumovax) 05/18/2017 Seasonal [...] Nobles MD - 12/26/2024 10:39 AM EDT [facility] [address] [facility] [place] [address] [facility] Chief Complaint: Complicated appendicitis HPI: [...] DIABETIC EYE EXAM 09/12/08 no diabetic retinopathy ACID POLYMERIZATION OPERATOR PAP SCREEN 07/24/09 WNL,Raquet MAMMOGRAM DIAGNOSTIC [...] Socioeconomic History Marital status: 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 They signed the consent for surgery in the office today. Timbo Nobles MD 12/26/2024 10:39 AM documented in this encounter Nursing Notes * Taqueria Garnica LPN - 12/26/2024 11:09 AM EDT Patient is scheduled for surgery on 01/15/[address] Timbo Thorne at [place] Patient has been instructed to wash with chlorhexidine soap the night before and morning of surgery. Patient has been instructed that they may have clear liquids up until 2 hours before their arrival time. N/A at [facility] Patient is aware that they need the following Preadmission testing. None needed Patient is aware that they need a double bottom driver to take them home after surgery. Patient [...] Office Visit [facility], Operating Room, [facility] [address] [place] [facility] [address] Timbo Nobles MD [address] [place] [address] 02/01/2025 3:30 PM EDT Office Visit General Surgery, [facility] [address] [place] [phone] Timbo Nobles [...] unspecified documented in this encounter Care Teams Restaurant Floor Manager Relationship Specialty Start Date End Date Danelle Cerda DO [address] [facility] [place] [address] PCP - General Family Medicine 11/05/16 documented as of this encounter
--- OUTSIDE RECORDS SUMMARY | 2025-01-04 23:43 | External Medical Summary | Summary of Care ---
Author Name Unknown Organization [facility] Address [address] [place] [address] Phone [phone] Care Team Providers Care Production Finisher Name Role Phone Danelle Cerda DO Primary Care Provider [phone] Reason for Visit * Reason Comments Follow Up Go over CT results. * Evaluate & Treat - Unlimited Visits (Within 3 days (urgent)) - Pending Review Specialty Diagnoses / Procedures Referred By Ernesto perez Referred To Contact General Surgery Diagnoses Perforated appendicitis Danelle Cerda DO [address] [place] [address] Phone: tel: fax: Referral ID Status Reason Start Date Expiration Date Visits Requested Visits Authorized [id number] Pending Review Specialty Services Required 12/05/[phone] Encounter Details Date Type Department Care Team (Late st Contact Info) Description 12/26/2024 10:45 AM EDT Office Visit General Surgery, [facility] [address] [place] [phone] Timbo Nobles MD [address] [place] [address] Appendicitis with abscess*; Pre-op chest exam; Pre-operative [...] hemoglobin A1c goal of less than 7.0% ([facility]) Use as directed with one touch [...] PPD 01/26/2019,07/11/2018,05/18/2017 Pneumococcal Conjugate Vacci ne, 20-valent ([id number]) 05/20/2022 Pneumococcal Polysaccharide PPV23 (Pneumovax) 05/18/2017 Seasonal [...] Nobles MD - 12/26/2024 10:39 AM EDT [facility] [address] [facility] [place] [address] [facility] Chief Complaint: Complicated appendicitis HPI: Patient [...] DIABETIC EYE EXAM 09/12/08 no diabetic retinopathy PROJECT FINANCIAL ANALYST PAP SCREEN 07/24/09 WNL,Raquet MAMMOGRAM DIAGNOSTIC BILATERAL [...] Socioeconomic History Marital status: 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. They signed the consent for surgery in the office today. Timbo Nobles MD 12/26/2024 10:39 AM documented in this encounter Nursing Notes * Taqueria Garnica LPN - 12/26/2024 11:09 AM EDT Patient is scheduled for surgery on 01/15/[address] Timbo Thorne at [place] Patient has been instructed to wash with chlorhexidine soap the night before and morning of surgery. Patient has been instructed that they may have clear liquids up until 2 hours before their arrival time. N/A at [facility] Patient is aware that they need the following Preadmission testing. None needed Patient is aware that they need a wheelchair van driver to take them home after surgery. [...] Office Visit [facility], Operating Room, [facility] [address] [place] [place] [address] Timbo Nobles MD [address] [place] [address] 02/01/2025 3:30 PM EDT Office Visit General Surgery, [facility] [address] [place] [phone] Timbo Nobles MD [...] unspecified documented in this encounter Care Teams Production Finisher Relationship Specialty Start Date End Date Danelle Cerda DO [address] [facility] [place] [address] PCP - General Family Medicine 11/05/16 documented as of this encounter
--- OUTSIDE RECORDS SUMMARY | 2025-01-04 23:43 | External Medical Summary | Summary of Care ---
Author Name Unknown Organization [facility] Address [address] [place] [address] Phone [phone] Care Team Providers Care Fire Management Officer Name Role Phone Danelle Cerda DO Primary Care Provider [phone] Reason for Visit * Reason Onset Date Comments Order Request 12/21/2024 Encounter Details Date Type Department Care Team (Late st Contact Info) Description 12/21/2024 Telephone [facility], [address]tr[address], 2nd Floor, [address] [place] [address] Sue Martinez, RN Order Request [...] hemoglobin A1c goal of less than 7.0% ([facility]) Use as directed. 1 Kit 5 05/18/20 [...] PPD 01/26/2019,07/11/2018,05/18/2017 Pneumococcal Conjugate Vacci ne, 20-valent ([id number]) 05/20/2022 Pneumococcal Polysaccharide PPV23 (Pneumovax) 05/18/2017 Seasonal [...] encounter Miscellaneous Notes * Telephone Encounter - Joey Tejeda CMA - 12/22/2024 9:43 AM EDT Faxed to provided number. Success confirmation received. * Telephone Encounter - Danelle Cerda DO - 12/21/2024 3:56 PM EDT Order placed, please fax to [facility] * Telephone Encounter - Sue Martinez RN - 12/21/2024 3:36 PM EDT [facility] I am covering for Berta as she's off today. I received a message from Pilar Guerrero at [facility]. She states: Angelia Garcia 67. She called [...] have the front office fax it to [facility]: [phone]. Reason for Call: Order Request Contact: Telephone Call Contact Type: Advice Provider In-Basket: No Outcome: as above Face to face time spent with Patient (minutes): 0 Total Time including non face to face (minutes): 10 documented in this encounter Plan of Treatment Upcoming Encounters Date Type Department Care Team (Late st Contact Info) Description 12/26/2024 10:45 AM EDT Office Visit General Surgery, [facility] [address] [place] [phone] Timbo Nobles MD [address] [place] [address] Scheduled Orders Name Type Priority Associated Diagnoses [...] peritonitis documented in this encounter Care Teams Fire Management Officer Relationship Specialty Start Date End Date Danelle Cerda DO [address] [place] [address] PCP - General Family Medicine 11/05/16 documented as of this encounter
--- OUTSIDE RECORDS SUMMARY | 2025-01-04 23:43 | External Medical Summary | Summary of Care ---
Author Name Unknown Organization [facility] Address [address] [facility] [place] [address] Phone [phone] Care Team Providers Care Case Preparer And Liner Name Role Phone Danelle Cerda DO Primary Care Provider [phone] Encounter Details Date Type Department Care Team (Late st Contact Info) Description 12/21/2024 Orders Only Family Practice [facility] [address] [place] [address] Danelle Cerda DO [address] [place] [address] Allergies No known active allergiesdocumented as of [...] A1c goal of less than 7.0% ([facility]) Use as directed. 1 [...] noon and 1 Tablet before bedtime. 11/30/19 Active Vancomycin HCl 125 MG Oral Capsule (Vancocin) Take 1 Capsule by mouth in the morning. 11/30/19 25 Active BarcodingTouch Delica Lancets 33GIndications:T ype 2 diabetes mellitus with hemoglobin A1c goal of less than 7.0% (HCC) Use as directed with one touch glucometer 4 times a day 100 Each 3 12/08/19 25 Active BarcodingTouch Ultra Test In Vitro Strip (Glucose Blood) [...] PPD 01/26/2019,07/11/2018,05/18/2017 Pneumococcal Conjugate Vacci ne, 20-valent ([id number]) 05/20/2022 Pneumococcal Polysaccharide PPV23 (Pneumovax) 05/18/2017 Seasonal [...] [facility] [address] [place] [phone] Timbo Nobles MD [address] [place] [address] Health Maintenance Due Date Last Done Comments HPV/Co-Test 01/10/1996 Cologuard 2011 Fecal Occult Blood Test 2011 Sigmoidoscopy 2011 Diabetic Eye Exam 11/09/2019 11/08/2018, , 07/23/2012 Cervical Cancer Screening 01/06/2021 Pap Smear 01/06/2021 01/06/2018, 03/05/2016, 11/05/2014 (Done elsewhere), Additional history exists Depression [...] Not on filedocumented as of this encounter Procedures Procedure Name Priority Date/Time Associated Diagnosis Comments CHEMISTRY-OUTSIDE Routine 12/20/2024 documented in this encounter Results * (ABNORMAL) CHEMISTRY-OUTSIDE (12/20/2024) Not all results display below - see scan for full detail SCAN INCLUDES: CMP, CBC, SED RATE OUTSIDE LAB (SEE SCANNED REPORT) CREATININE 0.63 0.6 - 1.2 MG/DL OUTSIDE LAB (SEE SCANNED REPORT) EGFR 102.76 OUTSIDE LA B (SEE SCANNED REPORT) POTASSIUM 4.0 3.5 - 5.1 MMOL/L OUTSIDE LAB (SEE SCANNED REPORT) GLUCOSE 270(A) 70 - 99 MG/DL OUTSIDE LAB (SEE SCANNED REPORT) HOURS FASTING OUTSID E LAB (SEE SCANNED REPORT) TRIGLYCERIDES-OUT SIDE LAB OUTSIDE LAB (SEE SCANNED REPORT) CHOLESTEROL-OUTSI DE LAB OUTSIDE LAB (SEE SCANNED REPORT) HDL-OUTSIDE LAB OUTS [facility] (SEE SCANNED REPORT) CHOL/HDL RATIO-OUTSIDE LAB OUTSIDE LA B (SEE SCANNED REPORT) LDL (CALCULATED)-OUTS [facility] OUTSIDE LAB (SEE SCANNED REPORT) LDL (DIRECT MEASURE)-OUTSIDE LAB OUTSIDE LAB (SEE SCANNED REPORT) HEMOGLOBIN, L7V-XQVBOZE LAB OUTSIDE LAB (SEE SCANNED REPORT) PHOSPHORUS-OUTSID E LAB OUTSIDE LAB (SEE SCANNED REPORT) PTH-OUTSIDE LAB OUTS [facility] (SEE SCANNED REPORT) MICROALBUMIN RATIO-OUTSIDE LAB OUTSIDE LA B (SEE SCANNED REPORT) PROTEIN, UA-OUTSIDE LAB OUTSIDE LAB (SEE SCANNED REPORT) HGB 13.9 12.0 - 16.0 G/DL OUTSIDE LAB (SEE SCANNED REPORT) 12/20/2024 us Danelle Cerda DO LABORATORY Final Resul t OUTSIDE LAB (SEE SCANNED REPORT) documented in this encounter Care Teams Case Preparer And Liner Relationship Specialty Start Date End Date Danelle Cerda DO [address] [place] [address] PCP - General Family Medicine 11/05/16 documented as of this encounter
--- OUTSIDE RECORDS SUMMARY | 2025-01-04 23:43 | External Medical Summary | Summary of Care ---
Author Name Unknown Organization [facility] Address [address] [facility] [place] [address] Phone [phone] Care Team Providers Care Printed Circuit Board Panels Plater Name Role Phone Danelle Cerda DO Primary Care Provider [phone] Reason for Visit * Reason Onset Date Comments Advice 12/13/2024 Encounter Details Date Type Department Care Team (Late st Contact Info) Description 12/13/2024 Telephone Family Practice [facility] [address] [place] [address] Danelle Cerda DO [address] [place] [address] Advice Allergies No known active allergiesdocumented as of this encounter (statuses as of 12/18/2024) Medications omeprazole (PRILOSEC) 20 MG CPDRIndications: Gastroesophageal [...] day 100 Each 3 12/08/19 25 Active Glucose Blood In Vitro StripIndications :Type 2 diabetes mellitus with hemoglobin A1c goal of less than 7.0% (HCC) Use to test 4 times a day as directed. E11.9 100 Strip 11 06/30/20 23 025 Discontin ued(Medic ation List Clean Up) OneTouch Verio In Vitro Strip (Glucose Blood)Indication s:Type 2 diabetes mellitus with hemoglobin A1c goal of less than 7.0% (HCC) Use up to 4 times a day E11.9 100 Strip 11 12/06/19 25 025 Discontin ued(Medic ation List Clean Up) documented as of this encounter (statuses as of 12/18/2024) Active Problems Problem Noted Date Diagnosed Date CRYSTAL (obstructive sleep apnea) 08/12/2018 Dyslipidemia 02/17/2017 Type 2 diabetes mellitus wit h hemoglobin A1c goal of less than 7.0% 02/16/2017 HTN, goal below 130/80 05/08/2015 Iron deficiency anemia due to chronic blood loss Bladder spasms Overview (08/21/2011): stable on vesicare documented as of this encounter (statuses as of 12/18/2024) Resolved Problems Problem Noted Date Diagnosed Date [...] as of this encounter (statuses as of 12/18/2024) Immunizations Name Administration Dates Next Due Hepatitis B, 20+ yrs 06/03/2018,12/28/2017,11/25 PPD 01/26/2019,07/11/2018,05/18/2017 Pneumococcal Conjugate Vacci ne, 20-valent ([id number]) 05/20/2022 Pneumococcal Polysaccharide PPV23 (Pneumovax) 05/18/2017 Seasonal [...] Telephone Encounter - Joey Tejeda CMA - 12/18/2024 8:46 AM EDT Message from pharmaceutical assistant not documented properly please disregard that part of the encounter as it is not related to pt call. * Telephone Encounter - Mara Dale PHARM Tech - 12/14/2024 12:41 PM EDT pharmacy calling in regarding a medication last prescribed by PCP office, transferring caller to Medication Refill Line for further assistance. Thank You, Mara Dale [facility] Electric Clock Mechanic III Central[facility] Pharmacy Services ([facility]PS) 12/14/2024, 12:41 PM * Telephone Encounter - Justyna Cid RN - 12/14/2024 12:17 PM EDT Called [facility] for lab results * Telephone Encounter - Anna Jensen LPN - 12/14/2024 12:05 PM EDT Pt returning call, pt states she just has diarrhea. PT asking what she can take for diarrhea. Advised imodium. Pt denies pain, fever/chills. * Telephone Encounter - Carol Castaneda OSA - 12/14/2024 11:56 AM EDT Reason for patient's call: Returning call Caller was transferred to [facility] at the nurse line. * Telephone Encounter - Anna Jensen LPN - 12/14/2024 11:54 AM EDT During transfer call was dropped, tried calling pt with no answer. * Telephone Encounter - Tory Jaffe OSA - 12/14/2024 11:53 AM EDT Reason for patient's call: returning call Caller was transferred to [facility] at the nurse line. * Telephone Encounter - Danelle Cerda DO - 12/14/2024 11:13 AM EDT Called patient to follow up - went to . Please attempt call again this afternoon - Please also call for [facility] results and scan to chart How is she feeling today? Any fever/chills? Increased abd pain? Vomiting? If fever/chills, severe abd pain needs to go to the ER We can recheck stools for cdiff and move up her CT scan if concern for worsening abscess * Telephone Encounter - Anna Quesada OSA - 12/13/2024 10:10 AM EDT Pt calling to advise Dr Cerda that she hasn't been feeling well for a couple days, loose stools, unsure if it is due to the 3 antibiotics that she's taking. She would like to be advised if there's something that she can take to help with the loose stools. ruptured appendix, unsure if something is worsening or improving, had labs drawn at [facility] today, please review results. documented in this encounter Plan of Treatment Upcoming Encounters Date Type Department Care Team (Late st Contact Info) Description 12/20/2024 11:15 AM EDT Imaging Radiology [facility] 1st [facility] [address] [place] [phone] Scheduled Orders Name Type Priority Associated Diagnoses Orde r Schedule CLOSTRIDIUM DIFFICILE, PCR Lab Routine Diarrhea of presumed infectious origin Expected: 12/14/2024 (Approximate), Expires: 12/14/2025 Health Maintenance Due Date Last Done Comments [...] as of this encounter Visit Diagnoses Diagnosis Diarrhea of presumed infectious origin- Primary documented in this encounter Care Teams Printed Circuit Board Panels Plater Relationship Specialty Start Date End Date Danelle Cerda DO [address] [place] [address] PCP - General Family Medicine 11/05/16 documented as of this encounter
--- OUTSIDE RECORDS SUMMARY | 2025-01-04 23:43 | External Medical Summary | Summary of Care ---
Author Name Unknown Organization [facility] Address [address] [facility] [place] [address] Phone [phone] Care Team Providers Care Senior Drafter Name Role Phone Danelle Cerda DO Primary Care Provider [phone] Reason for Visit * Reason Onset Date Comments Advice 12/13/2024 Encounter Details Date Type Department Care Team (Late st Contact Info) Description 12/13/2024 Telephone Family Practice [facility] [address] [place] [address] Danelle Cerda DO [address] [place] [address] Advice Allergies No known active allergiesdocumented as [...] A1c goal of less than 7.0% ([facility]) Use as directed. 1 Kit [...] PPD 01/26/2019,07/11/2018,05/18/2017 Pneumococcal Conjugate Vacci ne, 20-valent ([id number]) 05/20/2022 Pneumococcal Polysaccharide PPV23 (Pneumovax) 05/18/2017 Seasonal [...] encounter Miscellaneous Notes * Telephone Encounter - Mara Dale PHARM Tech - 12/14/2024 12:41 PM EDT pharmacy calling in regarding a medication last prescribed by PCP office, transferring caller to Medication Refill Line for further assistance. Thank You, Mara Dale [facility] Bolt Sawyer III Centralized Clinical Pharmacy Services ([facility]PS) 12/14/2024, 12:41 PM * Telephone Encounter - Justyna Cid RN - 12/14/2024 12:17 PM EDT Called [facility] for lab results * Telephone Encounter - Anna Jensen LPN - 12/14/2024 12:05 PM EDT Pt returning call, pt states she just has diarrhea. PT asking what she can take for diarrhea. Advised imodium. Pt denies pain, fever/chills. * Telephone Encounter - Carol Castaneda OSA - 12/14/2024 11:56 AM EDT Reason for patient's call: Returning call Caller was transferred to [facility] at the nurse line. * Telephone Encounter - Anna Jensen LPN - 12/14/2024 11:54 AM EDT During transfer call was dropped, tried calling pt with no answer. * Telephone Encounter - Tory Jaffe OSA - 12/14/2024 11:53 AM EDT Reason for patient's call: returning call Caller was transferred to [facility] at the nurse line. * Telephone Encounter - Danelle Cerda DO - 12/14/2024 11:13 AM EDT Called patient to follow up - went to . Please attempt call again this afternoon - Please also call for [facility] [place] results and scan to chart How is [...] worsening or improving, had labs drawn at [facility] today, please review results. documented in this encounter Plan of Treatment Upcoming Encounters Date Type Department Care Team (Late st Contact Info) Description 12/20/2024 11:15 AM EDT Imaging Radiology [facility] 1st [facility] [place] [address] [place] [phone] Scheduled Orders Name Type Priority Associated Diagnoses [...] 11/11/2021, Additional history exists B-12 08/16/2025 08/16/2024, /05/2024, 12/11/2022, Additional history exists Diabetic Foot Exam [...] Primary documented in this encounter Care Teams Senior Drafter Relationship Specialty Start Date End Date Danelle Cerda DO [address] [place] [address] PCP - General Family Medicine 11/05/16 documented as of this encounter
--- OUTSIDE RECORDS SUMMARY | 2025-01-04 23:43 | External Medical Summary | Summary of Care ---
Author Name Unknown Organization [facility] Address [address] [facility] [place] [address] Phone [phone] Care Team Providers Care Quality Improvement Manager Name Role Phone Danelle Cerda DO Primary Care Provider [phone] Reason for Visit * Reason Onset Date Comments Medication Question 12/20/2024 Encounter Details Date Type Department Care Team (Late st Contact Info) Description 12/20/2024 Telephone General Surgery, [facility] [address] [place] [phone] Timbo Dunne MD [address] [place] [address] Medication Question Allergies No known active allergiesdocumented [...] [facility]) Use as directed. 1 Kit 5 05/18/20 [...] PPD 01/26/2019,07/11/2018,05/18/2017 Pneumococcal Conjugate Vacci ne, 20-valent ([id number]) 05/20/2022 Pneumococcal Polysaccharide PPV23 (Pneumovax) 05/18/2017 Seasonal [...] to find it in her discharge from [facility] who had ordered the antibiotics, telling her that she will need to contact or follow up with that provider. Whoever does her PICC line would be able to tell her what doctor had ordered the IV antibiotics. I explained that she was notseen in this office since the surgery. She was seen at her pcp office and at [facility] cancer care partnership where she gets her [...] 10:45 AM EDT Office Visit General Surgery, [facility] [address] [place] [phone] Timbo Dunne MD [address] [place] [address] Health Maintenance Due Date Last Done Comments [...] filedocumented as of this encounter Care Teams Quality Improvement Manager Relationship Specialty Start Date End Date Danelle Cerda DO [address] [facility] [place] [address] PCP - General Family Medicine 11/05/16 documented as of this encounter
--- OUTSIDE RECORDS SUMMARY | 2025-01-04 23:43 | External Medical Summary | Summary of Care ---
Author Name Unknown Organization [facility] Address [address] [facility] [place] [address] Phone [phone] Care Team Providers Care Digital Marketing Apprentice Name Role Phone Danelle Cerda DO Primary Care Provider [phone] Reason for Visit * Reason Onset Date Comments Medication Question 12/20/2024 Encounter Details Date Type Department Care Team (Late st Contact Info) Description 12/20/2024 Telephone General Surgery, [facility] [address] [place] [phone] Timbo Dunne MD [address] [place] [address] Medication Question Allergies No known active allergiesdocumented [...] PPD 01/26/2019,07/11/2018,05/18/2017 Pneumococcal Conjugate Vacci ne, 20-valent ([id number]) 05/20/2022 Pneumococcal Polysaccharide PPV23 (Pneumovax) 05/18/2017 Seasonal [...] [facility]ology employee told her [...] to find it in her discharge from [facility] who had ordered the antibiotics, telling her that she will need to contact or follow up with that provider. Whoever does her PICC line would be able to tell her what doctor had ordered the IV antibiotics. I explained that she was notseen in this office since the surgery. She was seen at her pcp office and at [facility] cancer care partnership where she gets [...] AM EDT Office Visit General Surgery, [facility] [address] [place] [phone] Timbo Dunne MD [address] [place] [address] Health Maintenance Due Date Last Done Comments [...] filedocumented as of this encounter Care Teams Digital Marketing Apprentice Relationship Specialty Start Date End Date Danelle Cerda DO [address] [place] [address] PCP - General Family Medicine 11/05/16 documented as of this encounter
--- OUTSIDE RECORDS SUMMARY | 2025-01-04 23:43 | External Medical Summary | Summary of Care ---
Author Name Unknown Organization [facility] Address [address] [facility] [place] [address] Phone [phone] Care Team Providers Care Concessions Manager Name Role Phone Danelle Cerda DO Primary Care Provider [phone] Reason for Visit * Reason Onset Date Comments Medication Question 12/20/2024 Encounter Details Date Type Department Care Team (Late st Contact Info) Description 12/20/2024 Telephone General Surgery, [facility] [address] [place] [phone] Timbo Dunne MD [address] [place] [address] Medication Question Allergies No known active allergiesdocumented [...] PPD 01/26/2019,07/11/2018,05/18/2017 Pneumococcal Conjugate Vacci ne, 20-valent ([id number]) 05/20/2022 Pneumococcal Polysaccharide PPV23 (Pneumovax) 05/18/2017 Seasonal [...] to find it in her discharge from [facility] who had ordered the antibiotics, telling her that she will need to contact or follow up with that provider. Whoever does her PICC line would be able to tell her what doctor had ordered the IV antibiotics. I explained that she was notseen in this office since the surgery. She was seen at her pcp office and at [facility] cancer care partnership where she gets [...] 10:45 AM EDT Office Visit General Surgery, [facility] [address] [place] [phone] Timbo Dunne MD [address] [place] [address] Health Maintenance Due Date Last Done Comments [...] filedocumented as of this encounter Care Teams Concessions Manager Relationship Specialty Start Date End Date Danelle Cerda DO [address] [facility] [place] [address] PCP - General Family Medicine 11/05/16 documented as of this encounter
--- OUTSIDE RECORDS SUMMARY | 2025-01-04 23:44 | External Medical Summary | Summary of Care ---
Author Name Unknown Organization [facility] Address [address] [facility] [place] [address] Phone [phone] Care Team Providers Care Signal Mechanic Name Role Phone Danelle Cerda DO Primary Care Provider [phone] Reason for Visit * Reason Onset Date Comments Advice 12/13/2024 Encounter Details Date Type Department Care Team (Late st Contact Info) Description 12/13/2024 Telephone Family Practice [facility] [address] [place] [address] Danelle Cerda DO [address] [place] [address] Advice Allergies No known active allergiesdocumented as [...] hemoglobin A1c goal of less than 7.0% ([facility]) Use as directed. 1 Kit 5 [...] PPD 01/26/2019,07/11/2018,05/18/2017 Pneumococcal Conjugate Vacci ne, 20-valent ([id number]) 05/20/2022 Pneumococcal Polysaccharide PPV23 (Pneumovax) 05/18/2017 Seasonal [...] for further assistance. Thank You, Mara Dale [facility] Sterile Instrument Technician III Central[facility] Clinical Pharmacy Services ([facility]) 12/14/2024, 12:41 PM * Telephone Encounter - Justyna Cid RN - 12/14/2024 12:17 PM EDT Called [facility] for lab results * Telephone Encounter - Anna Jensen LPN - 12/14/2024 12:05 PM EDT Pt returning call, pt states she just has diarrhea. PT asking what she can take for diarrhea. Advised imodium. Pt denies pain, fever/chills. * Telephone Encounter - Carol Castaneda OSA - 12/14/2024 11:56 AM EDT Reason for patient's call: Returning call Caller was transferred to [facility] at the nurse line. * Telephone Encounter - Anna Jensen LPN - 12/14/2024 11:54 AM EDT During transfer call was dropped, tried calling pt with no answer. * Telephone Encounter - Tory Jaffe OSA - 12/14/2024 11:53 AM EDT Reason for patient's call: returning call Caller was transferred to [facility] at the nurse line. * Telephone Encounter - Danelle Cerda DO - 12/14/2024 11:13 AM EDT Called patient to follow up - went to . Please attempt call again this afternoon - Please also call for [facility] results and scan to chart How is [...] worsening or improving, had labs drawn at [facility] today, please review results. documented in this encounter Plan of Treatment Upcoming Encounters Date Type Department Care Team (Late st Contact Info) Description 12/20/2024 11:15 AM EDT Imaging Radiology [facility] 1st [facility] [address] [place] [phone] Scheduled [...] Primary documented in this encounter Care Teams Signal Mechanic Relationship Specialty Start Date End Date Danelle Cerda DO [address] [place] [address] PCP - General Family Medicine 11/05/16 documented as of this encounter
--- OUTSIDE RECORDS SUMMARY | 2025-01-04 23:44 | External Medical Summary | Summary of Care ---
Author Name Unknown Organization [facility] Address [address] [facility] [place] [address] Phone [phone] Care Team Providers Care Weatherization Crew Leader Name Role Phone Danelle Cerda DO Primary Care Provider [phone] Reason for Visit * Reason Onset Date Comments Advice 11/25/2024 Encounter Details Date Type Department Care Team (Late st Contact Info) Description 11/25/2024 Telephone Family Practice [facility] [address] [place] [address] Danelle Cerda DO [address] [place] [address] Advice Allergies No known active allergiesdocumented as of this encounter (statuses as of 11/29/2024) Medications omeprazole (PRILOSEC) 20 MG CPDRIndications: Gastroesophageal reflux disease without esophagitis Take 1 Capsule by mouth in the morning. 30 minutes before a meal. 30 Cap 5 11/06/19 17 Active Blood Glucose Monitoring Suppl (D-CARE GLUCOMETER) w/Device KITIndications:T ype 2 diabetes mellitus with hemoglobin A1c goal of less than 7.0% ([facility]) Use as directed. 1 Kit 5 05/18/20 17 Active Aspirin 81 MG TabletIndication s:HTN, goal below 140/90 Take 1 Tablet by mouth in the morning. 30 Tab 11/26/19 18 Active Lancets MISCIndications: Type 2 diabetes mellitus with hemoglobin A1c goal of less than 7.0% (HCC) Use as directed. 100 Each 10/02/19 20 Active Glucose Blood In Vitro StripIndications :Type 2 diabetes mellitus with hemoglobin A1c goal of less than 7.0% (HCC) Use to test 4 times a day as directed. E11.9 100 Strip 06/30/20 23 Active Lisinopril 40 MG Oral [...] WEEK 3 mL 2 11/15/19 25 Active documented as of this encounter (statuses as of 11/29/2024) Active Problems Problem Noted Date Diagnosed Date CRYSTAL (obstructive sleep apnea) 08/12/2018 Dyslipidemia 02/17/2017 Type 2 diabetes mellitus wit h hemoglobin A1c goal of less than 7.0% 02/16/2017 HTN, goal below 130/80 05/08/2015 Iron deficiency anemia due to chronic blood loss Bladder spasms Overview (08/21/2011): stable on vesicare documented as of this encounter (statuses as of 11/29/2024) Resolved Problems Problem Noted Date Diagnosed Date [...] as of this encounter (statuses as of 11/29/2024) Immunizations Name Administration Dates Next Due Hepatitis B, 20+ yrs 06/03/2018,12/28/2017,11/25 PPD 01/26/2019,07/11/2018,05/18/2017 Pneumococcal Conjugate Vacci ne, 20-valent ([id number]) 05/20/2022 Pneumococcal Polysaccharide PPV23 (Pneumovax) 05/18/2017 Seasonal [...] Telephone Encounter - Danelle Cerda DO - 11/29/2024 12:29 PM EDT Myg to pt I can do any notes/paperwork needed * Telephone Encounter - uDlce Griffin OSA - 11/27/2024 2:11 PM EDT Patient called in regarding message. Patient is still in hospital - possible discharge tomorrow with picc line & IV antibiotics. Patient was told at [facility] that they would provide discharge paperwork but unclear on if the work note will be given. Overseeing provider at [facility] is: Brenna Cohen MD Patient needs dates covered as follows: from admittance on 11/23/24 through discharge & with potential time off due to possible picc line placement. Patient is working on getting further clarification from [facility]. Patient does know she has short term available through her employer - patient is checking into. Patient will have access to that information once she is discharged. Please call patient with any questions/information - [phone]. * Telephone Encounter - Ramandeep Guzman LPN - 11/27/2024 11:51 AM EDT Sent my g. Confirmed that pt has been recently active on the [employer] chart portal. * Telephone Encounter - Myrna Carmona OSA - 11/25/2024 11:02 AM EDT Pt is asking if she can have note to be off work as she has a ruptured appendix, she is currently in the hospital and she was seen in the office on 11/17/24, but now she is at the hospital and they will not write her a letter they are stating her primary care provider needs to do that. documented in this encounter Plan of Treatment Upcoming Encounters Date Type Department Care Team (Late st Contact Info) Description 12/05/2024 3:00 PM EDT Office Visit Family Practice [facility] [address] [place] [address] Danelle Cerda DO [address] [place] [address] Health Maintenance Due Date Last Done Comments [...] filedocumented as of this encounter Care Teams Weatherization Crew Leader Relationship Specialty Start Date End Date Danelle Cerda DO [address] [facility] [place] [address] PCP - General Family Medicine 11/05/16 documented as of this encounter
--- OUTSIDE RECORDS SUMMARY | 2025-01-04 23:44 | External Medical Summary | Summary of Care ---
Author Name Unknown Organization [facility] Address [address] [facility] [place] [address] Phone [phone] Care Team Providers Care Child And Youth Program Assistant Name Role Phone Danelle Cerda DO Primary Care Provider [phone] Reason for Visit * Reason Onset Date Comments Filling Problem 12/05/2024 Encounter Details Date Type Department Care Team (Late st Contact Info) Description 12/05/2024 Telephone Family Practice [facility] [address] [place] [address] Danelle Cerda DO [address] [place] [address] Filling Problem Allergies No known active allergiesdocumented as of this encounter (statuses as of 12/07/2024) Medications omeprazole (PRILOSEC) 20 MG CPDRIndications :Gastroesophage al reflux disease without esophagitis Take 1 Capsule by mouth in the morning. 30 minutes before a meal. 30 Cap 5 017 Active Blood Glucose Monitoring Suppl (D-CARE GLUCOMETER) w/Device KITIndications: Type 2 diabetes mellitus with hemoglobin A1c goal of less than 7.0% ([facility]) Use as directed. 1 Kit 5 017 Active Aspirin 81 MG TabletIndicatio ns:HTN, goal below 140/90 Take 1 Tablet by mouth in the morning. 30 Tab 018 Active Glucose Blood In Vitro StripIndication s:Type [...] Billion Cells by mouth in the morning. 025 Active metroNIDAZOLE 500 MG Oral Tablet (Flagyl) Take 1 Tablet by mouth in the morning and 1 Tablet at noon and 1 Tablet before bedtime. 025 Active Vancomycin HCl 125 MG Oral Capsule (Vancocin) Take 1 Capsule by mouth in the morning. 025 Active OneTouch Verio In Vitro Strip (Glucose Blood)Indicatio ns:Type 2 diabetes mellitus with hemoglobin A1c goal of less than 7.0% (HCC) Use up to 4 times a day E11.9 100 Strip 11 025 Active OneTouch Delica Lancets 33GIndications: Type 2 diabetes mellitus with hemoglobin A1c goal of less than 7.0% (HCC) Use as directed with one touch glucometer 4 times a day 100 Each 3 025 Active Lancets MISCIndications :Type 2 diabetes mellitus with hemoglobin A1c goal of less than 7.0% (HCC) Use as directed. 100 Each 11 020 2024 Discontinued OneTouch UltraSoft LancetsIndicati ons:Type 2 diabetes mellitus with hemoglobin A1c goal of less than 7.0% (HCC) Use as directed 4 times a day as needed for Hyperglycemia (high sugar). Use up to four times a day as directed 90 Each 3 025 2024 Discontinued documented as of this encounter (statuses as of 12/07/2024) Active Problems Problem Noted Date Diagnosed Date CRYSTAL (obstructive sleep apnea) 08/12/2018 Dyslipidemia 02/17/2017 Type 2 diabetes mellitus wit h hemoglobin A1c goal of less than 7.0% 02/16/2017 HTN, goal below 130/80 05/08/2015 Iron deficiency anemia due to chronic blood loss Bladder spasms Overview (08/21/2011): stable on vesicare documented as of this encounter (statuses as of 12/07/2024) Resolved Problems Problem Noted Date Diagnosed Date [...] as of this encounter (statuses as of 12/07/2024) Immunizations Name Administration Dates Next Due Hepatitis B, 20+ yrs 06/03/2018,12/28/2017,11/25 PPD 01/26/2019,07/11/2018,05/18/2017 Pneumococcal Conjugate Vacci ne, 20-valent ([id number]) 05/20/2022 Pneumococcal Polysaccharide PPV23 (Pneumovax) 05/18/2017 Seasonal [...] Telephone Encounter - Danelle Cerda DO - 12/07/2024 2:39 PM EDT Order signed * Telephone Encounter - Domonique Tello RN - 12/06/2024 2:37 PM EDT Provider to address: Reason for Call: Filling Problem Contact: Telephone Call Contact Type: Orders Provider In-Basket: Yes Outcome: new order pended for recommended lancets, if agreeable Dr Cerda, Thank you Face to face time spent with Patient (minutes): 0 Total Time including non face to face (minutes): 10 * Telephone Encounter - Elham Bess OSA - 12/05/2024 4:14 PM EDT [facility] calling to say that the OneTouch UltraSoft Lancets are very old and notsure if she can still order them. Asking if the OneTouch Delica 30 or 33 guage lancets can be prescribed instead. documented in this encounter Plan of Treatment Upcoming Encounters Date Type Department Care Team (Late st Contact Info) Description 12/20/2024 11:15 AM EDT Imaging Radiology [facility] [address] [facility] [place] [address] [place] [phone] Health Maintenance Due Date Last Done Comments [...] hemoglobin A1c goal of less than 7.0% (HCC)- Primary documented in this encounter Care Teams Child And Youth Program Assistant Relationship Specialty Start Date End Date Danelle Cerda DO [address] [place] [address] PCP - General Family Medicine 11/05/16 documented as of this encounter
--- OUTSIDE RECORDS SUMMARY | 2025-01-04 23:44 | External Medical Summary | Summary of Care ---
Author Name Unknown Organization [facility] Address [address] [facility] [place] [address] Phone [phone] Care Team Providers Care Director Hris Name Role Phone Danelle Cerda DO Primary Care Provider [phone] Reason for Visit * Reason Onset Date Comments Advice 11/25/2024 Encounter Details Date Type Department Care Team (Late st Contact Info) Description 11/25/2024 Telephone Family Practice [facility] [address] [place] [address] Danelle Cerda DO [address] [place] [address] Advice Allergies No known active allergiesdocumented as of this encounter (statuses as of 11/27/2024) Medications omeprazole (PRILOSEC) 20 MG CPDRIndications: Gastroesophageal reflux disease without esophagitis Take 1 Capsule by mouth in the morning. 30 minutes before a meal. 30 Cap 5 11/06/19 17 Active Blood Glucose Monitoring Suppl (D-CARE GLUCOMETER) w/Device KITIndications:T ype 2 diabetes mellitus with hemoglobin A1c goal of less than 7.0% ([facility]) Use as directed. 1 Kit 5 05/18/20 17 Active Aspirin 81 MG TabletIndication s:HTN, goal below 140/90 Take 1 Tablet by mouth in the morning. 30 Tab 11/26/19 18 Active Lancets MISCIndications: Type 2 diabetes mellitus with hemoglobin A1c goal of less than 7.0% ([facility]) Use as directed. 100 Each 10/02/19 Active Glucose Blood In Vitro StripIndications :Type [...] as of this encounter (statuses as of 11/27/2024) Active Problems Problem Noted Date Diagnosed Date CRYSTAL (obstructive sleep apnea) 08/12/2018 Dyslipidemia 02/17/2017 Type 2 diabetes mellitus wit h hemoglobin A1c goal of less than 7.0% 02/16/2017 HTN, goal below 130/80 05/08/2015 Iron deficiency anemia due to chronic blood loss Bladder spasms Overview (08/21/2011): stable on vesicare documented as of this encounter (statuses as of 11/27/2024) Resolved Problems Problem Noted Date Diagnosed Date [...] as of this encounter (statuses as of 11/27/2024) Immunizations Name Administration Dates Next Due Hepatitis B, 20+ yrs 06/03/2018,12/28/2017,11/25 PPD 01/26/2019,07/11/2018,05/18/2017 Pneumococcal Conjugate Vacci ne, 20-valent ([id number]) 05/20/2022 Pneumococcal Polysaccharide PPV23 (Pneumovax) 05/18/2017 Seasonal [...] encounter Miscellaneous Notes * Telephone Encounter - Dulce Griffin OSA - 11/27/2024 2:11 PM EDT Patient called in regarding message. Patient is still in hospital - possible discharge tomorrow with picc line & IV antibiotics. Patient was told at [facility] that they would provide discharge paperwork but unclear on if the work note will be given. Overseeing provider at [facility] is: Brenna Cohen MD Patient needs dates covered as follows: from admittance on 11/23/24 through discharge & with potential time off due to possible picc line placement. Patient is working on getting further clarification from [facility]. Patient does know she has short term available through her employer - patient is checking into. Patient will have access to that information once she is discharged. Please call patient with any questions/information - [phone]. * Telephone Encounter - Ramandeep Guzman LPN - 11/27/2024 11:51 AM EDT Sent my g. Confirmed that pt has been recently active on the [email or web address] chart portal. * Telephone Encounter - Myrna [...] filedocumented as of this encounter Care Teams Director Hris Relationship Specialty Start Date End Date Danelle Cerda DO [address] [place] [address] PCP - General Family Medicine 11/05/16 documented as of this encounter
--- OUTSIDE RECORDS SUMMARY | 2025-01-04 23:44 | External Medical Summary | Summary of Care ---
Author Name Unknown Organization [facility] Address [address] [facility] [place] [address] Phone [phone] Care Team Providers Care Book Agent Name Role Phone Danelle Cerda DO Primary Care Provider [phone] Encounter Details Date Type Department Care Team (Late st Contact Info) Description 11/27/2024 Result Scan Unspecified Department <No scans attached> Allergies No known active allergiesdocumented as of this encounter (statuses as of 12/06/2024) Medications omeprazole (PRILOSEC) 20 MG CPDRIndications: Gastroesophageal [...] Additional Information Patient not taking.Reported on 12/05/2024 documented as of this encounter (statuses as of 12/06/2024) Active Problems Problem Noted Date Diagnosed Date CRYSTAL (obstructive sleep apnea) 08/12/2018 Dyslipidemia 02/17/2017 Type 2 diabetes mellitus wit h hemoglobin A1c goal of less than 7.0% 02/16/2017 HTN, goal below 130/80 05/08/2015 Iron deficiency anemia due to chronic blood loss Bladder spasms Overview (08/21/2011): stable on vesicare documented as of this encounter (statuses as of 12/06/2024) Resolved Problems Problem Noted Date Diagnosed Date [...] as of this encounter (statuses as of 12/06/2024) Immunizations Name Administration Dates Next Due Hepatitis B, 20+ yrs 06/03/2018,12/28/2017,11/25 PPD 01/26/2019,07/11/2018,05/18/2017 Pneumococcal Conjugate Vacci ne, 20-valent ([id number]) 05/20/2022 Pneumococcal Polysaccharide PPV23 (Pneumovax) 05/18/2017 Seasonal [...] Description 12/20/2024 11:15 AM EDT Imaging Radiology [address], [place] [address] [place] [phone] Health Maintenance Due Date Last Done Comments [...] Procedure Name Priority Date/Time Associated Diagnosis Comments RADIOLOGY SCANNED RESULT 11/27/2024 documented in this encounter Results * RADIOLOGY SCANNED RESULT (11/27/2024) 11/27/2024 us No Physician Data Unknown DIAGNOSTIC RADIOLOGY S ERVICES Final Result documented in this encounter Care Teams Book Agent Relationship Specialty Start Date End Date Danelle Cerda DO [address] [place] [address] PCP - General Family Medicine 11/05/16 documented as of this encounter
--- OUTSIDE RECORDS SUMMARY | 2025-01-04 23:44 | External Medical Summary | Summary of Care ---
Author Name Unknown Organization [facility] Address [address] [place] [address] Phone [phone] Care Team Providers Care Agricultural Aircraft Pilot Name Role Phone Danelle Cerda DO Primary Care Provider [phone] Reason for Referral * Evaluate & Treat - Unlimited Visits (Within 3 days (urgent)) - Pending Review Specialty Diagnoses / Procedures Referred By Ernesto perez Referred To Contact General Surgery Diagnoses Perforated appendicitis Danelle Cerda DO [address] [place] [address] Phone: tel: fax: Referral ID Status Reason Start Date Expiration Date Visits Requested Visits Authorized [id number] Pending Review Specialty Services Required 12/05/[phone] Question Answer Referral Priority Within 3 days (urgent) Where should this appointment be scheduled? [facility] What condition is the patient being seen for? General Surgery Conditions What condition is the patient being seen for? All other conditions * Precert (Within 10 days (routine)) - Authorized Specialty Diagnoses / Procedures Referred By Contac t Referred To Contact Radiology Diagnoses Perforated appendicitis Procedures CT ABD/PELVIS W IV CONTRAST - WO ORAL CONTRAST Danelle Cerda DO [address] [place] [address] Phone: tel: fax: Referral ID Status Reason Start Date Expiration Date V isits Requested Visits Authorized [id number] Authorized Precert 12/06/2024 02/03/2025 1 1 Reason for Visit * Reason Onset Date Comments Hospital Follow-Up [facility] d/c 11/28 for ruptured appendix Hospital Follow-Up 12/12/2024 Encounter Details Date Type Department Care Team (Late st Contact Info) Description 12/05/2024 3:00 PM EDT Office Visit [facility] [address] [place] [address] Danelle Cerda DO [address] [place] [address] Hospital discharge follow-up*; Perforated appendicitis; Type 2 diabetes mellitus with hemoglobin A1c goal of less than 7.0% (HCC) Allergies No known active allergiesdocumented as of this encounter (statuses as of 12/12/2024) Medications omeprazole (PRILOSEC) 20 MG CPDRIndications :Gastroesophage [...] NOT CUT, CRUSH, OR CHEW. 30 Tablet Active hydroCHLOROthia zide 25 MG Oral Tablet (Hydrodiuril)In dications:HTN, goal below 140/90 TAKE 1 TABLET BY MOUTH IN THE MORNING 90 Tablet 3 Active metFORMIN HCl 1000 MG Oral Tablet (Glucophage)Ind ications:Type 2 diabetes mellitus with hemoglobin A1c goal of less than 7.0% (HCC) TAKE 1 TABLET BY MOUTH TWICE DAILY WITH MORNING MEAL AND WITH EVENING MEAL 180 Tablet Active Ozempic (2 MG/DOSE) 8 MG/3ML Subcutaneous Solution Pen-injector (Semaglutide (2 MG/DOSE))Indica tions:Type 2 diabetes mellitus with hemoglobin A1c goal of less than 7.0% (HCC) INJECT 2MG SUBCUTANEOUSLY ONCE A WEEK 3 mL 2 Active Additional Information Patient not taking.Reported on 12/05/2024 Advanced Probiotic Oral Capsule Take 20 Billion Cells by mouth in the morning. Active metroNIDAZOLE 500 MG Oral Tablet (Flagyl) Take 1 Tablet by mouth in the morning and 1 Tablet at noon and 1 Tablet before bedtime. Active Vancomycin HCl 125 MG Oral Capsule (Vancocin) Take 1 Capsule by mouth in the morning. Active OneTouch Verio In Vitro Strip (Glucose Blood)Indicatio ns:Type 2 diabetes mellitus with hemoglobin A1c goal of less than 7.0% (HCC) Use up to 4 times a day E11.9 100 Strip Active Lancets MISCIndications :Type 2 diabetes mellitus [...] as of this encounter (statuses as of 12/12/2024) Active Problems Problem Noted Date Diagnosed Date CRYSTAL (obstructive sleep apnea) 08/12/2018 Dyslipidemia 02/17/2017 Type 2 diabetes mellitus wit h hemoglobin A1c goal of less than 7.0% 02/16/2017 HTN, goal below 130/80 05/08/2015 Iron deficiency anemia due to chronic blood loss Bladder spasms Overview (08/21/2011): stable on vesicare documented as of this encounter (statuses as of 12/12/2024) Resolved Problems Problem Noted Date Diagnosed Date [...] as of this encounter (statuses as of 12/12/2024) Immunizations Name Administration Dates Next Due Hepatitis B, 20+ yrs 06/03/2018,12/28/2017,11/25 PPD 01/26/2019,07/11/2018,05/18/2017 Pneumococcal Conjugate Vacci ne, 20-valent ([id number]) 05/20/2022 Pneumococcal Polysaccharide PPV23 (Pneumovax) 05/18/2017 Seasonal [...] Sign Reading Time Taken Comments Blood Pressure 112/64 12/05/2024 3:06 PM EDT Pulse 72 12/05/2024 3:06 PM EDT Temperature 36.2 °C (97.2 °F) 12/05/2024 3:06 PM ED T Respiratory Rate 16 12/05/2024 3:06 PM EDT Oxygen Saturation - - Inhaled Oxygen Concentration - - Weight 93.9 kg (207 lb) 12/05/2024 3:06 PM EDT Height - - Body Mass Index 33.41 11/17/2024 7:38 AM EDT documented in this encounter Progress Notes * Danelle Cerda DO - 12/05/2024 4:40 PM EDT Images from the original note were not included. Subjective Angelia Garcia is a 59 year old female that presents for Hospital Follow-Up ([facility] d/c 11/28 for ruptured appendix) History of Present Illness Angelia Garcia is a 59 year old female who presents for a hospital follow-up after a perforated appendicitis with abscess formation. Initial symptoms began on November 15 with vomiting of yellow bile and severe right-sided abdominal pain, which forced her to leave work. She visited a doctor on November 17 suspecting appendicitis butwas reassured it was not and was prescribed antibiotics. Despite completing the antibiotics, she continued to feel unwell with brain fog and fatigue. On November 23, she experienced a recurrence of severe symptoms and went to the ER where a CT scan revealed a ruptured appendix with an 8 cm abscess. IR decided not to drain the abscess due to its size and location. She was hospitalized until November 29, receiving IV antibiotics to reduce the abscess size, which initially increased to 11 cm before reducing back to 8 cm. She is currently receiving daily IV antibiotics at the hospital and is on twooral antibiotics and a probiotic at home due to a concurrent C. diff infection. She feels tired andexperiences occasional shooting pains at night. She developed a C. diff infection following antibiotic treatment. She has loose stools but not diarrhea. The infection is being managed with antibiotics and probiotics. Her diabetes has been under control, and she was taken off metformin and Ozempic during her initialtreatment. She has not experienced fever throughout her illness but had severe diarrhea prior to the appendicitis diagnosis. She is on leave from her jobs due to restrictions on lifting and repetitive motion. She is concerned about her ability to return to work and the financial implications of her medical condition. She is currently on a leave of absence from [employer] and has short-term and long-term disability coverage. Objective BP 112/64 (BP Site: Left Arm, BP Position: Sitting, BP Cuff Size: Large) | Pulse 72 | Temp 97.2 °F(36.2 °C) (Tympanic) | Resp 16 | Wt 207 lb (93.9 kg) | LMP 08/05/2015 (Approximate) | BMI 33.41 kg/m² | BSA 2.09 m² Physical Exam CHEST: Lungs clear to auscultation bilaterally. ABDOMEN: Bowel sounds present. Mild to moderate mid abdominal tenderness. Tenderness in the right lower quadrant. EXTREMITIES: No edema in lower extremities. Results RADIOLOGY CT abdomen (11/27/2024): 8 cm abscess, perforated appendicitis CT abdomen (11/29/2024): 11 cm abscess, perforated appendicitis Assessment and Plan Assessment & Plan Perforated appendicitis with abscess Hospitalized for perforated appendicitis with an 8 cm abscess, initially too large for safe drainage. Treated with IV antibiotics, resulting in reduced abscess size. Currently on daily IV antibioticsand oral antibiotics at home. Developed C. difficile infection during treatment. Reports fatigue, occasional nocturnal stabbing pains, no fever or severe pain. Advised rest and avoidance of work to facilitate healing. Driving and repetitive motions are discouraged to prevent strain. Short-term disability is recommended for adequate recovery. A repeat CT scan is planned to assess abscess size and determine feasibility of surgical intervention. - Continue IV and oral antibiotics at home until at least December 25. - Order repeat CT abdomen on December 20 to assess abscess size. - Schedule follow-up with general surgery within one week to discuss potential drainage or surgicalintervention. - Advise rest and avoidance of work until at least December 20 to promote healing. - Monitor for signs of worsening infection such as fever or chills. C. difficile infection Developed C. difficile infection during hospitalization for perforated appendicitis. Reports loose stools but not diarrhea. On antibiotics and a probiotic to manage the infection. - Continue current antibiotic and probiotic regimen. - Monitor bowel movements and report any worsening of diarrhea. Type 2 diabetes mellitus Diabetes is well-controlled, potentially aiding in infection containment. Ozempic is on hold due torecent hospitalization and treatment for appendicitis. - Continue to monitor blood glucose levels. - Resume Ozempic once cleared by healthcare provider. Visit Diagnoses and Orders 1. Hospital discharge follow-up DISCH MED RECON CUR MED LIS 2. Perforated appendicitis CT ABD/PELVIS W IV CONTRAST - WO ORAL CONTRAST, CBC WITH WBC DIFFERENTIAL, COMPREHENSIVE METABOLIC PANEL, SURGERY REFERRAL OP, RETURN TO WORK OR SCHOOL 3. Type 2 diabetes mellitus with hemoglobin A1c goal of less than 7.0% ([facility]) OneTouch Verio In Vitro Strip (Glucose Blood), DISCONTINUED: OneTouch UltraSoft Lancets Wrap-Up Check-out note: Surgery f/u w/Mt Severance or per pt preference Text in this note was generated using an [employer] documentation service. I discussed the use of a device to record and summarize our discussion today. All persons present during the encounter consented to its use. documented in this encounter Plan of Treatment Upcoming Encounters Date Type Department Care Team (Late st Contact Info) Description 12/20/2024 11:15 AM EDT Imaging Radiology [address], [place] [address] [place] [phone] Scheduled Orders Name Type Priority Associated Diagnoses Orde r Schedule CT ABD/PELVIS W IV CONTRAST - WO ORAL CONTRAST Medical Imaging Routine Perforated appendicitis Expected: 12/26/2024, Expires: 01/04/2026 CBC WITH WBC DIFFERENTIAL Lab Routine Perforated appendicitis Expected: 12/05/2024 (Approximate), Expires: 12/05/2025 COMPREHENSIVE METABOLIC PANEL Lab Routine Perforated appendicitis Expected: 12/05/2024 (Approximate), Expires: 12/05/2025 Scheduled Referrals Name Type Priority Associated Diagnoses Orde r Schedule SURGERY REFERRAL OP Referral Within 3 days (urgent) Perforated appendicitis Ordered: 12/05/2024 Health Maintenance Due Date Last Done Comments [...] as of this encounter Visit Diagnoses Diagnosis Hospital discharge follow-up- Primary Other follow-up examination Perforated appendicitis Acute appendicitis with generalized peritonitis Type 2 diabetes mellitus with hemoglobin A1c goal of less than 7.0% (HCC) documented in this encounter Care Teams Agricultural Aircraft Pilot Relationship Specialty Start Date End Date Danelle Cerda DO [address] [place] [address] PCP - General Family Medicine 11/05/16 documented as of this encounter"
--- OUTSIDE RECORDS SUMMARY | 2025-01-04 23:44 | External Medical Summary | Summary of Care ---
Author Name Unknown Organization [facility] Address [address] [facility] [place] [address] Phone [phone] Care Team Providers Care Employee Benefits Coordinator Name Role Phone Danelle Cerda DO Primary Care Provider [phone] Reason for Visit * Reason Onset Date Comments Advice 12/13/2024 Encounter Details Date Type Department Care Team (Late st Contact Info) Description 12/13/2024 Telephone Family Practice [facility] [address] [place] [address] Danelle Cerda DO [address] [place] [address] Advice Allergies No known active allergiesdocumented as [...] hemoglobin A1c goal of less than 7.0% ([facility]) Use as directed. 1 Kit 5 05/18/20 [...] PPD 01/26/2019,07/11/2018,05/18/2017 Pneumococcal Conjugate Vacci ne, 20-valent ([id number]) 05/20/2022 Pneumococcal Polysaccharide PPV23 (Pneumovax) 05/18/2017 Seasonal [...] for further assistance. Thank You, Mara [place] [facility] Transfer Machine Operator III Centralized Clinical Pharmacy Services (CCPS) 12/14/2024, 12:41 PM * Telephone Encounter - Justyna Cid RN - 12/14/2024 12:17 PM EDT Called [facility] for lab results * Telephone Encounter - Anna Jensen LPN - 12/14/2024 12:05 PM EDT Pt returning call, pt states she just has diarrhea. PT asking what she can take for diarrhea. Advised imodium. Pt denies pain, fever/chills. * Telephone Encounter - Carol Castaneda OSA - 12/14/2024 11:56 AM EDT Reason for patient's call: Returning call Caller was transferred to [facility] at the nurse line. * Telephone Encounter - Anna Jensen LPN - 12/14/2024 11:54 AM EDT During transfer call was dropped, tried calling pt with no answer. * Telephone Encounter - Tory Jaffe OSA - 12/14/2024 11:53 AM EDT Reason for patient's call: returning call Caller was transferred to [facility] at the nurse line. * Telephone Encounter - Danelle Cerda DO - 12/14/2024 11:13 AM EDT Called patient to follow up - went to . Please attempt call again this afternoon - Please also call for [place] results and scan to chart How is [...] worsening or improving, had labs drawn at [facility] today, please review results. documented in this encounter Plan of Treatment Upcoming Encounters Date Type Department Care Team (Late st Contact Info) Description 12/20/2024 11:15 AM EDT Imaging Radiology [facility] 1st [facility] [place] [address] [place] [phone] Scheduled [...] Primary documented in this encounter Care Teams Employee Benefits Coordinator Relationship Specialty Start Date End Date Danelle Cerda DO [address] [place] [address] PCP - General Family Medicine 11/05/16 documented as of this encounter
--- OUTSIDE RECORDS SUMMARY | 2025-01-04 23:44 | External Medical Summary | Summary of Care ---
Author Name Unknown Organization [facility] Address [address] [facility] [place] [address] Phone [phone] Care Team Providers Care Corporate Responsibility Officer Name Role Phone Danelle Cerda DO Primary Care Provider [phone] Reason for Visit * Reason Onset Date Comments Advice 12/13/2024 Encounter Details Date Type Department Care Team (Late st Contact Info) Description 12/13/2024 Telephone Family Practice [facility] [address] [place] [address] Danelle Cerda DO [address] [place] [address] Advice Allergies No known active allergiesdocumented as [...] A1c goal of less than 7.0% ([facility]) Use as directed. 1 Kit [...] PPD 01/26/2019,07/11/2018,05/18/2017 Pneumococcal Conjugate Vacci ne, 20-valent ([id number]) 05/20/2022 Pneumococcal Polysaccharide PPV23 (Pneumovax) 05/18/2017 Seasonal [...] for further assistance. Thank You, Mara [place] [facility] Arboriculture Teacher III Centralized Clinical Pharmacy Services (CCPS) 12/14/2024, 12:41 PM * Telephone Encounter - Justyna Cid RN - 12/14/2024 12:17 PM EDT Called [facility] for lab results * Telephone Encounter - Anna Jensen LPN - 12/14/2024 12:05 PM EDT Pt returning call, pt states she just has diarrhea. PT asking what she can take for diarrhea. Advised imodium. Pt denies pain, fever/chills. * Telephone Encounter - Carol Castaneda OSA - 12/14/2024 11:56 AM EDT Reason for patient's call: Returning call Caller was transferred to [facility] at the nurse line. * Telephone Encounter - Anna Jensen LPN - 12/14/2024 11:54 AM EDT During transfer call was dropped, tried calling pt with no answer. * Telephone Encounter - Tory Jaffe OSA - 12/14/2024 11:53 AM EDT Reason for patient's call: returning call Caller was transferred to [facility] at the nurse line. * Telephone Encounter - Danelle Cerda DO - 12/14/2024 11:13 AM EDT Called patient to follow up - went to . Please attempt call again this afternoon - Please also call for [place] results and scan to chart How is [...] worsening or improving, had labs drawn at [facility] today, please review results. documented in this encounter Plan of Treatment Upcoming Encounters Date Type Department Care Team (Late st Contact Info) Description 12/20/2024 11:15 AM EDT Imaging Radiology [facility] 1st [facility] [place] [address] [place] [phone] Scheduled [...] Primary documented in this encounter Care Teams Corporate Responsibility Officer Relationship Specialty Start Date End Date Danelle Cerda DO [address] [place] [address] PCP - General Family Medicine 11/05/16 documented as of this encounter
--- OUTSIDE RECORDS SUMMARY | 2025-01-04 23:44 | External Medical Summary | Summary of Care ---
Author Name Unknown Organization [facility] Address [address] [facility] [place] [address] Phone [phone] Care Team Providers Care Plate Printer Name Role Phone Danelle Cerda DO Primary Care Provider [phone] Encounter Details Date Type Department Care Team (Late st Contact Info) Description 12/08/2024 Orders Only PATIENT PORTAL DO NOT DELETE THIS DEPT USED BY [place] [id number] Allergies No known active allergiesdocumented as of this encounter (statuses as of 12/08/2024) Medications omeprazole (PRILOSEC) 20 MG CPDRIndications: Gastroesophageal reflux disease without esophagitis Take 1 Capsule by mouth in the morning. 30 minutes before a meal. 30 Cap 5 11/06/19 17 Active Blood Glucose Monitoring Suppl (D-CARE GLUCOMETER) w/Device KITIndications:T ype 2 diabetes mellitus with hemoglobin A1c goal of less than 7.0% ([facility]) Use as directed. 1 Kit 5 05/18/20 17 Active Aspirin 81 MG TabletIndication s:HTN, goal below 140/90 Take 1 Tablet by mouth in the morning. 30 Tab 11/26/19 18 Active Glucose Blood In Vitro StripIndications :Type [...] in the morning. 11/30/19 25 Active OneTouch Verio In Vitro Strip (Glucose Blood)Indication s:Type 2 diabetes mellitus with hemoglobin A1c goal of less than 7.0% (HCC) Use up to 4 times a day E11.9 100 Strip 11 12/06/19 25 Active OneTouch Delica Lancets 33GIndications:T ype 2 diabetes mellitus with hemoglobin A1c goal of less than 7.0% (HCC) Use as directed with one touch glucometer 4 times a day 100 Each 3 12/08/19 25 Active documented as of this encounter (statuses as of 12/08/2024) Active Problems Problem Noted Date Diagnosed Date CRYSTAL (obstructive sleep apnea) 08/12/2018 Dyslipidemia 02/17/2017 Type 2 diabetes mellitus wit h hemoglobin A1c goal of less than 7.0% 02/16/2017 HTN, goal below 130/80 05/08/2015 Iron deficiency anemia due to chronic blood loss Bladder spasms Overview (08/21/2011): stable on vesicare documented as of this encounter (statuses as of 12/08/2024) Resolved Problems Problem Noted Date Diagnosed Date [...] as of this encounter (statuses as of 12/08/2024) Immunizations Name Administration Dates Next Due Hepatitis B, 20+ yrs 06/03/2018,12/28/2017,11/25 PPD 01/26/2019,07/11/2018,05/18/2017 Pneumococcal Conjugate Vacci ne, 20-valent ([id number]) 05/20/2022 Pneumococcal Polysaccharide PPV23 (Pneumovax) 05/18/2017 Seasonal [...] Description 12/20/2024 11:15 AM EDT Imaging Radiology [facility] 1st [facility] [address] [place] [address] Health Maintenance Due Date Last Done Comments [...] filedocumented as of this encounter Care Teams Plate Printer Relationship Specialty Start Date End Date Danelle Cerda DO [address] [place] [address] PCP - General Family Medicine 11/05/16 documented as of this encounter
--- OUTSIDE RECORDS SUMMARY | 2025-01-04 23:44 | External Medical Summary | Summary of Care ---
Author Name Unknown Organization [facility] Address [address] [facility] [place] [address] Phone [phone] Care Team Providers Care Health Occupations Instructor Name Role Phone Danelle Cerda DO Primary Care Provider [phone] Reason for Visit * Reason Onset Date Comments Hospital Follow-Up 11/30/2024 Derek for [facility] Encounter Details Date Type Department Care Team (Late st Contact Info) Description 11/30/2024 Telephone Ancillary [facility] [address] [place] [address] Nidhi Becerra, RN Hospital Follow-Up (Derek for [facility]) Allergies No known active allergiesdocumented as of this encounter (statuses as of 11/30/2024) Medications omeprazole (PRILOSEC) 20 MG CPDRIndications: Gastroesophageal reflux disease without esophagitis Take 1 Capsule by mouth in the morning. 30 minutes before a meal. 30 Cap 5 11/06/19 17 Active Blood Glucose Monitoring Suppl (D-CARE GLUCOMETER) w/Device KITIndications:T ype 2 diabetes mellitus with hemoglobin A1c goal of less than 7.0% ([facility]) Use as directed. 1 Kit 5 05/18/20 17 Active Aspirin 81 MG TabletIndication s:HTN, goal below 140/90 Take 1 Tablet by mouth in the morning. 30 Tab 11/26/19 18 Active Lancets MISCIndications: Type 2 diabetes mellitus with hemoglobin A1c goal of less than 7.0% ([facility]) Use as directed. 100 Each 11 10/02/19 [...] NOT CUT, CRUSH, OR CHEW. 30 Tablet 09/01/20 24 Active hydroCHLOROthiaz dhiraj 25 MG [...] WEEK 3 mL 2 11/15/19 25 Active Advanced Probiotic Oral Capsule Take 20 Billion Cells by mouth in the morning. 11/30/19 25 Active metroNIDAZOLE 500 MG Oral Tablet (Flagyl) Take 1 Tablet by mouth in the morning and 1 Tablet at noon and 1 Tablet before bedtime. 11/30/19 25 Active Vancomycin HCl 125 MG Oral Capsule (Vancocin) Take 1 Capsule by mouth in the morning. 11/30/19 25 Active documented as of this encounter (statuses as of 11/30/2024) Active Problems Problem Noted Date Diagnosed Date CRYSTAL (obstructive sleep apnea) 08/12/2018 Dyslipidemia 02/17/2017 Type 2 diabetes mellitus wit h hemoglobin A1c goal of less than 7.0% 02/16/2017 HTN, goal below 130/80 05/08/2015 Iron deficiency anemia due to chronic blood loss Bladder spasms Overview (08/21/2011): stable on vesicare documented as of this encounter (statuses as of 11/30/2024) Resolved Problems Problem Noted Date Diagnosed Date [...] as of this encounter (statuses as of 11/30/2024) Immunizations Name Administration Dates Next Due Hepatitis B, 20+ yrs 06/03/2018,12/28/2017,11/25 PPD 01/26/2019,07/11/2018,05/18/2017 Pneumococcal Conjugate Vacci ne, 20-valent ([id number]) 05/20/2022 Pneumococcal Polysaccharide PPV23 (Pneumovax) 05/18/2017 Seasonal [...] encounter Miscellaneous Notes * Telephone Encounter - Nidhi Becerra RN - 11/30/2024 12:35 PM EDT Transitions of Care Note Reason for Referral:Recent Admission Phone visit for follow up: derek Admitted to: [facility], Date: 11.23.24 Discharged to: home, Date: 11.29.24 Diagnosis driving hospitalization: Acute ruptured appendicitis with abscess Source/Contact: Patient SUBJECTIVE Consent: Verbal consent for review of hospital discharge: Yes REVIEW OF SYSTEMS Patient/Other Reports: Current patient/caregiver problems or concerns: none, will discuss repeat cts when she sees her CV: Denies problems Pulmonary: Denies problems Chills/Sweats/Fever:Denies chills/sweats Denies fever Appetite:Denies problems such as nausea, vomiting, burning, decreased appetite Current diet: reg Bowel: loose bowels, patient is on probiotic and flagyl. Stool study showed C diff Bladder: denies problems Wound (If applicable): N/A Pain:Denies any pain since "appendics ruptured" Sleep:Denies problems FUNCTIONAL STATUS: patient lives with spouse and children ADL'S: Needs Assistance With:N/A as pt is independent IADL'S: Needs Assistance With:N/A as pt is independent Cognitive and Mental Health: denies problems, alert and oriented x 3, and able to communicate, understand instructions, process information. MEDICATION RECONCILIATION Medications: New metronidazole 500 mg Tablet 500 mg PO TID 28 Days Qty: 84 0RF Advanced Probiotic 625 mg (10 billion cell) Capsule 2 cap PO DAILY 28 Days Qty: 56 0RF vancomycin 125 mg capsule 125 mg PO DAILY Qty: 35 0RF Held Ozempic 2 mg/dose (8 mg/3 mL) pen injector 2 mg SUBCUT WK Hold Instructions: Resume on 01/02/25. Hold until antibiotic treatment has been completed Patient is going to [facility] daily for IV antibiotic therapy. ASSESSMENT Medication Risk Assessment: No risks identified Discharge instructions available for review? Yes PLAN Symptom Monitoring Interventions:Member/caregiver education - signs and symptoms to contact PrimaryCare (DO NOT DELETE-Three solorzano symptoms patient is to report to PCP) 1. pain 2. fevers 3. Nauseas and vomiting Caul PullerGoodwill Representative of Care interventions/Action Plan: 5 - 7 day follow-up with PCP in place - Date: 12.05.24 Educated on role of DEREK completed with patient/caregiver. Educated patient/caregiver on patient right to have input on DEREK plan of care. Verification of Home Health/DME if indicated: No Identified Care Gaps: Yes Care Gaps closed this call: Transition of Care follow-up communication Re-evaluation of Plan of Care and progress towards goals achievement: Patient education this visit: Verbal, patient to continue to take meds as directed, monitor temp, call if symptoms worsen. Stay hydrated. Patient does plan on discussing a gen surgeon with Dr. Cerda to follow up surgery and repeat a cts in 2-3 wks and discuss timing of appendectomy Plan to follow-up as previously scheduled, instructed to call Primary Care Provider with change in symptoms or as needed before next follow-up, verbalizes understanding and agrees with plan. Nidhi Becerra RN documented in this encounter Plan of Treatment Upcoming Encounters Date Type Department Care Team (Late st Contact Info) Description 12/05/2024 3:00 PM EDT Office Visit Family Practice [facility] [address] [place] [address] Danelle Cerda DO [address] [place] [address] Health Maintenance Due Date Last Done Comments [...] filedocumented as of this encounter Care Teams Health Occupations Instructor Relationship Specialty Start Date End Date Danelle Cerda DO [address] [place] [address] PCP - General Family Medicine 11/05/16 documented as of this encounter
--- OUTSIDE RECORDS SUMMARY | 2025-01-04 23:44 | External Medical Summary | Summary of Care ---
Author Name Unknown Organization [facility] Address [address] [facility] [place] [address] Phone [phone] Care Team Providers Care Water Vessel Captain Name Role Phone Danelle Cerda DO Primary Care Provider [phone] Reason for Visit * Reason Onset Date Comments Advice 11/25/2024 Encounter Details Date Type Department Care Team (Late st Contact Info) Description 11/25/2024 Telephone Family Practice [facility] [address] [place] [address] Danelle Cerda DO [address] [place] [address] Advice Allergies No known active allergiesdocumented as [...] goal of less than 7.0% ([facility]) Use as directed. 1 Kit 5 05/18/20 17 Active Aspirin 81 MG TabletIndication s:HTN, goal below 140/90 Take 1 Tablet by mouth in the morning. 30 Tab 11/26/19 18 Active Lancets MISCIndications: Type 2 diabetes mellitus with hemoglobin A1c goal of less than 7.0% ([facility]) Use as directed. 100 Each [...] PPD 01/26/2019,07/11/2018,05/18/2017 Pneumococcal Conjugate Vacci ne, 20-valent ([id number]) 05/20/2022 Pneumococcal Polysaccharide PPV23 (Pneumovax) 05/18/2017 Seasonal [...] & IV antibiotics. Patient was told at [facility] that they would provide discharge paperwork but unclear on if the work note will be given. Overseeing provider at [facility] is: Brenna Cohen MD Patient needs dates covered as follows: from admittance on 11/23/24 through discharge & with potential time off due to possible picc line placement. Patient is working on getting further clarification from [facility]. Patient does know she has short term available through her employer - patient is checking into. Patient will have access to that information once she is discharged. Please call patient with any questions/information - [phone]. * Telephone Encounter - Ramandeep Guzman LPN - 11/27/2024 11:51 AM EDT Sent my g. Confirmed that pt has been recently active on the [employer] chart portal. * Telephone Encounter - Myrna [...] filedocumented as of this encounter Care Teams Water Vessel Captain Relationship Specialty Start Date End Date Danelle Cerda DO [address] [place] [address] PCP - General Family Medicine 11/05/16 documented as of this encounter
--- OUTSIDE RECORDS SUMMARY | 2025-01-04 23:44 | External Medical Summary | Summary of Care ---
Author Name Unknown Organization [facility] Address [address] [facility] [place] [address] Phone [phone] Care Team Providers Care Design Coordinator Name Role Phone Danelle Cerda DO Primary Care Provider [phone] Reason for Visit * Reason Onset Date Comments Advice 12/13/2024 Encounter Details Date Type Department Care Team (Late st Contact Info) Description 12/13/2024 Telephone Family Practice [facility] [address] [place] [address] Danelle Cerda DO [address] [place] [address] Advice Allergies No known active allergiesdocumented as [...] than 7.0% ([facility]) Use as directed. 1 Kit 5 05/18/20 [...] PPD 01/26/2019,07/11/2018,05/18/2017 Pneumococcal Conjugate Vacci ne, 20-valent ([id number]) 05/20/2022 Pneumococcal Polysaccharide PPV23 (Pneumovax) 05/18/2017 Seasonal [...] for further assistance. Thank You, Mara Dale [facility] Bookbinder Chief III Centralized Clinical Pharmacy Services (CCPS) 12/14/2024, 12:41 PM * Telephone Encounter - Justyna Cid RN - 12/14/2024 12:17 PM EDT Called [facility] for lab results * Telephone Encounter - Anna Jensen LPN - 12/14/2024 12:05 PM EDT Pt returning call, pt states she just has diarrhea. PT asking what she can take for diarrhea. Advised imodium. Pt denies pain, fever/chills. * Telephone Encounter - Carol Castaneda OSA - 12/14/2024 11:56 AM EDT Reason for patient's call: Returning call Caller was transferred to [facility] at the nurse line. * Telephone Encounter - Anna Jensen LPN - 12/14/2024 11:54 AM EDT During transfer call was dropped, tried calling pt with no answer. * Telephone Encounter - Tory Jaffe OSA - 12/14/2024 11:53 AM EDT Reason for patient's call: returning call Caller was transferred to [facility] at the nurse line. * Telephone Encounter - Danelle Cerda DO - 12/14/2024 11:13 AM EDT Called patient to follow up - went to . Please attempt call again this afternoon - Please also call for [place] results and scan to chart How is [...] worsening or improving, had labs drawn at [facility] today, please review results. documented in this encounter Plan of Treatment Upcoming Encounters Date Type Department Care Team (Late st Contact Info) Description 12/20/2024 11:15 AM EDT Imaging Radiology [facility] 1st [facility] [place] [address] [place] [phone] Scheduled [...] Primary documented in this encounter Care Teams Design Coordinator Relationship Specialty Start Date End Date Danelle Cerda DO [address] [place] [address] PCP - General Family Medicine 11/05/16 documented as of this encounter
--- NOTE | 2025-01-05 00:50 | Emergency Department Note ---
ED Visit Note ED Physician Sign Out Note: Pleasant 59-year-old female with a complicated recent history of perforated appendicitis in November 2024. Was on prolonged antibiotics with a planned appendectomy for January 15. Due to about 12 hours of centralized abdominal pain patient arrives to the ER for further evaluation. Noted some nausea as well. No vomiting or other concerning signs or symptoms. Evaluated by Dr. Rios who ordered laboratory workup as well as CT abdomen pelvis with p.o. contrast. Signed out to me pending CT read. CT report states there is a small bowel obstruction. On my review there is no significant gastric distention patient is not currently nauseous/vomiting and thus I do not feel NG tube would be indicated. Given her complex history I do think it would be reasonable to bring her in for some bowel rest and IV hydration. Patient is comfortable with this plan. Hospitalist will bring her in and general surgery will consult. Orestes Alcala MD
--- NOTE | 2025-01-05 01:48 | CT Scan Report ---
Exam(s): CT ABDOMEN + PELVIS With Contrast Oral - High Density Amt: 30 ml gastro, IV Amt: 93 ml optiray 320 EXAM: CT Abdomen and Pelvis With Intravenous Contrast CLINICAL HISTORY: Reason for exam: central abd pain, recent perf appy with abscess. TECHNIQUE: Axial computed tomography images of the abdomen and pelvis with intravenous contrast. CTDI is 28 mGy and DLP is 1369 mGy-cm. Automated exposure control was utilized for the study. A dose lowering technique was utilized adhering to the principles of ALARA. CONTRAST: Patient received 30 ml gastro of Oral - High Density and 93 ml optiray 320 of IV contrast COMPARISON: CT abdomen/pelvis: 11/27/2024 FINDINGS: Motion-induced image degradation. Lung bases: No mass. No consolidation. No pleural effusion ABDOMEN: Liver: Mild steatosis.. No mass. Gallbladder and bile ducts: Unremarkable. No calcified stones. No ductal dilation. Pancreas: Abscess of the pancreatic tail. No mass. No ductal dilation. Spleen: Unremarkable. No splenomegaly. Adrenals: A 2.3 cm left adrenal mass again noted, most likely an adenoma.. No mass. Kidneys and ureters: Bilateral renal cortical cysts. A 2.8 cm rounded cyst in the upper pole left kidney. No solid mass. No hydronephrosis. Stomach and bowel: Unremarkable stomach. There is up to 3.5 cm dilated contrast filled small bowel loops seen with an eccentric wall thickening of the bowel and mild residual mesentery fat stranding in the right lower abdominal quadrant (series 3 image 224, series 300 image 31). A thin tubular structure/appendix with minimal wall thickening is seen in the right lower quadrant (series 300 image 26, series 3 image 230). Moderate to large amount of stool is seen in the colon and rectosigmoid. Sigmoid diverticulosis. PELVIS: Bladder: Unremarkable. No mass. Reproductive: Anteverted uterus is seen with a 3.0 cm well-defined hypodense lesion dorsally in the lower uterine segment, probably a fibroid (series 301 image 41). In the right adnexa a 5.0 x 3.0 cm septated cystic structure and in the left adnexa a 3.2 x 2.0 cm complex cystic structure is seen. ABDOMEN and PELVIS: Intraperitoneal space: No free air. No significant fluid collection. Bones/joints: No acute fracture. No dislocation. Moderately advanced degenerative spondylitic changes seen at L4-L5 level. Soft tissues: Unremarkable. Vasculature: Moderate calcified atherosclerosis of the aortoiliac vasculature.. No abdominal aortic aneurysm. Lymph nodes: Unremarkable. No enlarged lymph nodes. IMPRESSION: A moderate grade small bowel obstruction is seen likely from adhesion in the right lower abdominal quadrant. Recommend clinical correlation/follow-up Moderate to large volume of formed stool is seen in the colon and rectosigmoid. Sigmoid diverticulosis coli. No evidence of acute diverticulitis. Bilateral adnexal complex cystic structures. Likely uterine lower segment fibroid. The need for pelvic ultrasound exam can be determined clinically. Additional findings as described above. . Electronically signed by: Familia Chaves MD, MINERVAR 01/05/25 01:47 AM
--- NOTE | 2025-01-05 02:21 | History & Physical Report ---
Date of Service January 05, 2025 Assessment & Plan (1) SBO (small bowel obstruction): Plan: SBO History complicated appendicitis/abscess currently on prolonged antibiotic Rx Persistent diarrhea likely antibiotic related, rule out persistent C. 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 Admit to [facility] Bowel rest NGT decompression if with emesis General Surgery consult re: SBO Recheck stool C. difficile Basal bolus insulin adjusted for n.p.o. status, ISS BG goal 110-140, update hemoglobin A1c DVT prophylaxis. Lovenox subcu Full code Text document was generated using Truevision voice recognition software. It may contain grammatical or spelling errors. Kindly contact undersigned for clarification of any documentation item in question. History of Present Illness Chief Complaint: Abdominal pain Primary Care Provider: Danelle Cerda DO History obtained from patient and records. Medical history significant for hypertension, hyperlipidemia, CRYSTAL (CPAP noncompliance), history of ruptured appendicitis/abscess on prolonged antibiotic Rx, history C. difficile, DM2 on oral medications, left renal tumor. Recent confinement from November 23 to 2024 for ruptured appendicitis with abscess. IR drainage not possible due to obstructing bowel as per note. Patient received IV antibiotics and discharged on IV ceftriaxone via PICC line plus oral Flagyl course as per ID recommendations until further recommendations. Antibiotics later transitioned to Augmentin. Interval appendectomy contemplated by general surgery at some point. Stool C. difficile gene positive diarrhea during confinement. Patient received vancomycin course. Persistent watery diarrhea symptoms since leaving hospital. No unusual abdominal pain. Outpatient CT abdomen pelvis last 12/20 showed Abnormal periappendiceal fatty stranding and hyperenhancement involving the proximal appendix extending from the orifice to an adjacent small bowel loop suggesting fistula and appendicitis. The upstream remainder of the appendix is nondilated without inflammatory changes. No abscess. No radiodense appendicoliths or mass appreciated at the appendiceal orifice. Right hepatic lobe hypodense lesion. Characterization with MRI in the absence of old exams demonstrating long-term stability could be performed in follow up. Indeterminate density left adrenal 23 x 18 mm nodule. This could be characterized by MRI or CT in follow-up. Bilateral renal indeterminate density nodules, largest left renal upper pole 25 mm. Proteinaceous cysts are not distinguished from solid nodules. Characterization with MRI is suggested. Right ovarian cystic structures. Follow-up pelvic ultrasound suggested in this postmenopausal age patient. Probable right uterine fundal fibroid. Midline low anterior abdominal wall fat containing hernia. Patient had outpatient [facility] General Surgery follow-up 2 weeks ago for complicated appendicitis following CT report. Laparoscopic appendectomy and possible colon/small bowel resection contemplated at [facility] on 01/15. Outpatient MRI last 01/[address] report showed 1. A 2.7 x 3.0 cm T2 hypointense partially exophytic lesion along the left renal upper pole demonstrates low level internal enhancement and diffusion restriction highly concerning for renal neoplasm. 2. Additional subcentimeter renal cysts, some of which are hemorrhagic correspond to indeterminate lesion seen on prior CT. 3. A 2.5 x 1.9 cm left adrenal nodule exhibits an adrenal to spleen CSI ratio of 0.86 and is indeterminate by chemical shift MRI technique. Recommend CT adrenal mass protocol for further characterization. 4. A 1.9 x 1.4 cm T2 hyperintense lesion within the posterior right hepatic lobe demonstrates peripheral discontinuous nodular enhancement and is most consistent with an hemangioma. Outpatient pelvic ultrasound showed leiomyomatous uterus and probable simple right ovarian cyst. Yesterday around noontime, patient had achy central abdominal pain somewhat different from appendicitis pain. Bloating and distention symptoms, no fever, no chills, no chest pain, no SOB. Some nausea without emesis. Worsening watery diarrhea symptoms. 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 Verified 01/02/25 12:16 Home Medications Medication Instructions Recorded Confirmed Type atorvastatin 80 mg tablet 80 mg PO QAM 11/23/24 01/04/25 History hydrochlorothiazide 25 mg tablet 25 mg PO QAM 11/23/24 01/04/25 History lisinopril 40 mg tablet 40 mg PO QAM 11/23/24 01/04/25 History metformin 1,000 mg tablet 1,000 mg PO BID 11/23/24 01/04/25 History omeprazole 20 mg capsule,delayed 20 mg PO HS 11/23/24 01/04/25 History release oxybutynin chloride 15 mg 15 mg PO QAM 11/23/24 01/04/25 History tablet,extended release 24 hr semaglutide 2 mg/dose (8 mg/3 mL) 2 mg subcut WK weight loss 11/23/24 01/04/25 History subcutaneous pen injector (Ozempic) aspirin 81 mg capsule 81 mg PO DAILY 01/02/25 01/04/25 History amoxicillin 875 mg-potassium 1 tab PO BID 01/04/25 01/04/25 History clavulanate 125 mg tablet cetirizine 10 mg tablet (Allergy 10 mg PO DAILY PRN Allergy Symptoms 01/04/25 01/04/25 History Relief (cetirizine)) Past Med/Surg History Problem List (Updated 01/05/25 @ 06:20 by Titus Thomas MD) SBO (small bowel obstruction) Abdominal pain (Acute) Encounter for pre-operative examination Acute perforated appendicitis (Acute) Medical History Adrenal nodule Nodule of kidney per pt, "nodule of kidney, adrenal gland, and liver noted during scans at hospital. Had MRI 01/01/25 at [facility]" Hx of sleep apnea no device or issues since weight loss Intra-abdominal abscess hx 11/2024, resolved "at this point" No pertinent family history GERD (gastroesophageal reflux disease) Obesity HTN (hypertension) HLD (hyperlipidemia) Surgical History Hx of section (2004) x1 Social History Smoking Status: Never smoker Second Hand Exposure: No; Do You Dip or Chew Tobacco: No; Hx Alcohol Use: No Hx Substance Use: No Preferred Language: Greek Communication Ability: Effective Cover Remover Required: No Beliefs That Will Affect Care: None Current Living Situation: Family Current Living Situation Comment: lives with and 2 adult sons. Other Information That Helps Us Care for You: No Feels Safe at Home: Yes Safety Concerns: Feels Safe At This Time Assistive Devices: None Review of Systems Review of Systems: As per HPI, all other systems reviewed and negative Physical Exam Physical Exam: GENERAL: Comfortable, obese, no respiratory distress SKIN: Normal color, warm HEENT: [place] palpebral conjunctivae, no ptosis, dry buccal mucosa NECK : Supple, no tenderness CHEST : CTA, no tenderness HEART : RRR, no obvious murmurs ABDOMEN: Some distention, central abdominal tenderness EXTREMITIES : Minimal LE swelling, no LE tenderness, palpable pulses, no other conspicuous deformities noted NEUROLOGIC : Coherent, no facial asymmetry, no other gross focality Results & Data Results & Data Vital Signs (Past 12 Hours) Vital Signs Temp Pulse Pulse Resp BP BP Pulse Ox 01/05/25 01:39 64 18 123/72 97 01/04/25 23:19 68 18 153/76 H 98 01/04/25 21:19 69 18 145/74 H 98 01/04/25 19:00 36.6 C 77 17 180/95 H 98 O2 Del Method 01/05/25 01:39 Room Air 01/04/25 23:19 Room Air 01/04/25 21:19 Room Air 01/04/25 19:00 Room Air Laboratory Results Laboratory Results WBC 10.25 K/ul (4.8-10.8) 01/04/25 19:12 RBC 6.05 M/uL (4.20-5.40) H 01/04/25 19:12 Hgb 16.4 g/dl (12.0-16.0) H 01/04/25 19:12 Hct 49.6 % (37.0-47.0) H 01/04/25 19:12 MCV 82.0 fL (80.0-100.0) 01/04/25 19:12 MCH 27.1 pg (25.0-34.0) 01/04/25 19:12 MCHC 33.1 g/dL (32.0-36.0) 01/04/25 19:12 RDW Std Deviation 48.3 fL (36.4-46.3) H 01/04/25 19:12 RDW Coeff of Alfredo 16.9 % (11.5-14.5) H 01/04/25 19:12 Plt Count 211 K/uL (130-400) 01/04/25 19:12 MPV 10.3 fL (9.4-12.4) 01/04/25 19:12 Immature Gran % (Auto) 0.5 % 01/04/25 19:12 Neut % (Auto) 75.4 % 01/04/25 19:12 Lymph % (Auto) 18.2 % 01/04/25 19:12 Cross % (Auto) 4.3 % 01/04/25 19:12 Eos % (Auto) 0.9 % 01/04/25 19:12 Baso % (Auto) 0.7 % 01/04/25 19:12 Neut # (Auto) 7.73 K/uL (1.40-6.50) H 01/04/25 19:12 Lymph # (Auto) 1.87 K/uL (1.20-3.40) 01/04/25 19:12 Cross # (Auto) 0.44 K/uL (0.11-0.59) 01/04/25 19:12 Eos # (Auto) 0.09 K/uL (0.00-0.50) 01/04/25 19:12 Baso # (Auto) 0.07 K/uL (0.00-0.20) 01/04/25 19:12 Immature Gran # (Auto) 0.05 K/uL (0.01-0.20) 01/04/25 19:12 Sodium 139 mmol/L (136-145) 01/04/25 19:12 Potassium 4.1 mmol/L (3.5-5.1) 01/04/25 19:12 Chloride 101 mmol/L (98-107) 01/04/25 19:12 Carbon Dioxide 30 mmol/L (21-32) 01/04/25 19:12 Anion Gap 8 (3-11) 01/04/25 19:12 BUN 20 mg/dl (6-23) 01/04/25 19:12 Creatinine 0.68 mg/dl (0.6-1.2) 01/04/25 19:12 Est Cr Clr Drug Dosing 104.9 ml/min 01/04/25 19:12 eGFR 100.89 01/04/25 19:12 BUN/Creatinine Ratio 29.4 (10-20) H 01/04/25 19:12 Glucose 232 mg/dl (70-99(Fasting)) H 01/04/25 19:12 Calcium 10.3 mg/dl (8.6-10.3) 01/04/25 19:12 Total Bilirubin 0.9 mg/dl (0.2-1.0) 01/04/25 19:12 AST 18 U/L (13-39) 01/04/25 19:12 ALT 27 U/L (7-52) 01/04/25 19:12 Alkaline Phosphatase 126 U/L (34-104) H 01/04/25 19:12 Total Protein 8.4 gm/dl (6.0-8.3) H 01/04/25 19:12 Albumin 4.7 gm/dl (3.4-5.0) 01/04/25 19:12 Globulin 3.7 gm/dl (2.5-4.0) 01/04/25 19:12 Albumin/Globulin Ratio 1.3 (0.9-2) 01/04/25 19:12 Lipase 35 U/L (11-82) 01/04/25 19:12 Urine Color Yellow 01/04/25 21:20 Urine Appearance Clear (Clear) 01/04/25 21:20 Urine pH 5.0 (4.5-7.5) 01/04/25 21:20 Ur Specific [place] 1.042 (1.000-1.030) H 01/04/25 21:20 Urine Protein Trace (Negative) H 01/04/25 21:20 Urine Glucose (UA) 3+ (Negative) H 01/04/25 21:20 Urine Ketones Trace (Negative) H 01/04/25 21:20 Urine Blood 1+ (Negative) H 01/04/25 21:20 Urine Nitrite Negative (Negative) 01/04/25 21:20 Urine Bilirubin Negative (Negative) 01/04/25 21:20 Urine Urobilinogen Negative (Negative) 01/04/25 21:20 Ur Leukocyte Esterase Negative (Negative) 01/04/25 21:20 Urine WBC (Auto) 0-5 /hpf (0-5) 01/04/25 21:20 Urine RBC (Auto) 0-2 /hpf (0-2) 01/04/25 21:20 U Hyaline Cast (Auto) 0-2 /lpf (0-2) 01/04/25 21:20 U Epithel Cells (Auto) 0-2 /hpf (0-2) 01/04/25 21:20 Urine Bacteria (Auto) None Seen (None Seen) 01/04/25 21:20 Impressions Abdomen/Pelvis CT 01/04/25 20:29 Exam(s): CT ABDOMEN + PELVIS With Contrast Oral - High Density Amt: 30 ml gastro, IV Amt: 93 ml optiray 320 EXAM: CT Abdomen and Pelvis With Intravenous Contrast CLINICAL HISTORY: Reason for exam: central abd pain, recent perf appy with abscess. TECHNIQUE: Axial computed tomography images of the abdomen and pelvis with intravenous contrast. CTDI is 28 mGy and DLP is 1369 mGy-cm. Automated exposure control was utilized for the study. A dose lowering technique was utilized adhering to the principles of ALARA. CONTRAST: Patient received 30 ml gastro of Oral - High Density and 93 ml optiray 320 of IV contrast COMPARISON: CT abdomen/pelvis: 11/27/2024 FINDINGS: Motion-induced image degradation. Lung bases: No mass. No consolidation. No pleural effusion ABDOMEN: Liver: Mild steatosis.. No mass. Gallbladder and bile ducts: Unremarkable. No calcified stones. No ductal dilation. Pancreas: Abscess of the pancreatic tail. No mass. No ductal dilation. Spleen: Unremarkable. No splenomegaly. Adrenals: A 2.3 cm left adrenal mass again noted, most likely an adenoma.. No mass. Kidneys and ureters: Bilateral renal cortical cysts. A 2.8 cm rounded cyst in the upper pole left kidney. No solid mass. No hydronephrosis. Stomach and bowel: Unremarkable stomach. There is up to 3.5 cm dilated contrast filled small bowel loops seen with an eccentric wall thickening of the bowel and mild residual mesentery fat stranding in the right lower abdominal quadrant (series 3 image 224, series 300 image 31). A thin tubular structure/appendix with minimal wall thickening is seen in the right lower quadrant (series 300 image 26, series 3 image 230). Moderate to large amount of stool is seen in the colon and rectosigmoid. Sigmoid diverticulosis. PELVIS: Bladder: Unremarkable. No mass. Reproductive: Anteverted uterus is seen with a 3.0 cm well-defined hypodense lesion dorsally in the lower uterine segment, probably a fibroid (series 301 image 41). In the right adnexa a 5.0 x 3.0 cm septated cystic structure and in the left adnexa a 3.2 x 2.0 cm complex cystic structure is seen. ABDOMEN and PELVIS: Intraperitoneal space: No free air. No significant fluid collection. Bones/joints: No acute fracture. No dislocation. Moderately advanced degenerative spondylitic changes seen at L4-L5 level. Soft tissues: Unremarkable. Vasculature: Moderate calcified atherosclerosis of the aortoiliac vasculature.. No abdominal aortic aneurysm. Lymph nodes: Unremarkable. No enlarged lymph nodes. IMPRESSION: A moderate grade small bowel obstruction is seen likely from adhesion in the right lower abdominal quadrant. Recommend clinical correlation/follow-up Moderate to large volume of formed stool is seen in the colon and rectosigmoid. Sigmoid diverticulosis coli. No evidence of acute diverticulitis. Bilateral adnexal complex cystic structures. Likely uterine lower segment fibroid. The need for pelvic ultrasound exam can be determined clinically. Additional findings as described above. . Electronically signed by: Familia Chaves MD, DABR 01/05/25 01:47 AM
[2025-01-05] MEDS ORDERED: KETOROLAC TROMETHAMINE 15 MG/ML VIAL IV PRN (02:25)
[2025-01-05] MEDS ORDERED: LORazepam 2 MG/1 ML VIAL IV PRN (02:25)
[2025-01-05] MEDS ORDERED: ACETAMINOPHEN 1,000 MG/100 ML VIAL IV PRN (02:25)
[2025-01-05] MEDS ORDERED: PROMETHAZINE 12.5 MG/50.5 ML BAG IV PRN (02:25)
[2025-01-05] MEDS ORDERED: CETIRIZINE HCL 10 MG TABLET PO PRN (02:59)
[2025-01-05] MEDS ORDERED: GLUCOSE 40% GEL 15 GM TUBE PO PRN (03:14)
[2025-01-05] MEDS ORDERED: DEXTROSE 50% 50 ML SYRINGE IV PRN (03:14)
[2025-01-05] MEDS ORDERED: GLUCAGON FOR INJ 1 MG VIAL SQ PRN (03:14)
[2025-01-05] MEDS ORDERED: GLUCOSE 10 TAB/TUBE PO PRN (03:14)
[2025-01-05] MEDS ORDERED: CARBOHYDRATES FOR HYPOGLYCEMIA PO PRN (03:14)
--- OUTSIDE RECORDS SUMMARY | 2025-01-05 03:15 | External Medical Summary | Summary of Care ---
Author Name Unknown Organization [facility] Address [address] [address] Phone [phone] Care Team Providers Care Machine Technician Name Role Phone Danelle Cerda DO Primary Care Provider [phone] Reason for Visit * Reason Onset Date Comments Test Results Imaging Study 01/04/2025 Encounter Details Date Type Department Care Team (Late st Contact Info) Description 01/04/2025 Telephone [facility] Urology [address] [place] [address] Randy Garcia MD [address] [facility] [place] [id number] Test Results Imaging Study Allergies No known [...] A1c goal of less than 7.0% ([facility]) Use as directed. 1 Kit [...] PPD 01/26/2019,07/11/2018,05/18/2017 Pneumococcal Conjugate Vacci ne, 20-valent (Iwnrbew26) 05/20/2022 Pneumococcal Polysaccharide PPV23 (Pneumovax) 05/18/2017 Seasonal [...] and possible colon/SB resection on 01/15/25 at [facility] w/Dr. Nobles after completing abx treatment of [...] Description 01/05/2025 10:00 AM EDT Laboratory Laboratory, [facility] [address] [phone] [facility] [address] [place] [address] 01/15/2025 7:55 AM EDT Office Visit Non [facility], Operating Room, [address] [place] [address] Timbo Nobles MD [address] [place] [address] 01/24/2025 11:00 AM EDT Office Visit Urology, [facility] [address] [address] [phone] Randy Garcia MD [address] [place] [address] 02/01/2025 3:30 PM EDT Office Visit General Surgery, [facility] [address] [phone] Timbo Nobles MD [address] [place] [address] 03/05/2025 8:00 AM EDT Imaging Radiology [facility] [address] [id number] Health Maintenance Due Date Last Done Comments [...] filedocumented as of this encounter Care Teams Machine Technician Relationship Specialty Start Date End Date Danelle Cerda DO [address] [place] [address] PCP - General Family Medicine 11/05/16 documented as of this encounter
[2025-01-05] MEDS: AMOXICILLIN/CLAVULANATE 875 MG TAB PO STA (03:20)
[2025-01-05] MEDS: INSULIN ASPART PER UNIT CHARGE SC SCH ×2 (03:27→21:30)
--- NOTE | 2025-01-05 04:45 | Surgery Consultation ---
Date of Consultation January 05, 2025 Assessment & Plan (1) Abdominal pain: (2) Acute perforated appendicitis: Plan 59-year-old woman with complicated history of perforated appendicitis presents with 1 day of increasing abdominal pain. CT scan demonstrates apparent possible small bowel obstruction. Looking at the CT scan, her abscess has completely resolved, and I do see contrast extending all the way into the colon. She will be admitted to the hospital for observation. We will monitor her for now. She will be placed on clear liquid diet. If she tolerates this she may be advanced as tolerated. History of Present Illness Reason for Consultation: Small bowel obstruction Requesting Physician: Braden Saucedo MD Attending Physician: Braden Saucedo MD History of Present Illness 59-year-old woman presents to the hospital with increasing abdominal pain over the past day. She was admitted to the hospital a few weeks ago with a perforated appendicitis with abscess. She was treated with a long course of IV antibiotics. Recent CT scan demonstrated decrease size of the abscess. She was on home IV therapy. She denies fevers or chills. She did have nausea and waves of abdominal pain over the past day. She has been having normal bowel mo vements. May be slightly decreased flatus. She denies other complaints. Allergies Allergy/AdvReac Type Severity Reaction Status Date / Time No Known Drug Allergies Allergy Unknown . Verified 01/02/25 12:16 Home Medications Medication Instructions Recorded Confirmed Type atorvastatin 80 mg tablet 80 mg PO QAM 11/23/24 01/04/25 History hydrochlorothiazide 25 mg tablet 25 mg PO QAM 11/23/24 01/04/25 History lisinopril 40 mg tablet 40 mg PO QAM 11/23/24 01/04/25 History metformin 1,000 mg tablet 1,000 mg PO BID 11/23/24 01/04/25 History omeprazole 20 mg capsule,delayed 20 mg PO HS 11/23/24 01/04/25 History release oxybutynin chloride 15 mg 15 mg PO QAM 11/23/24 01/04/25 History tablet,extended release 24 hr semaglutide 2 mg/dose (8 mg/3 mL) 2 mg subcut WK weight loss 11/23/24 01/04/25 History subcutaneous pen injector (Ozempic) aspirin 81 mg capsule 81 mg PO DAILY 01/02/25 01/04/25 History amoxicillin 875 mg-potassium 1 tab PO BID 01/04/25 01/04/25 History clavulanate 125 mg tablet cetirizine 10 mg tablet (Allergy 10 mg PO DAILY PRN Allergy Symptoms 01/04/25 01/04/25 History Relief (cetirizine)) Patient History Medical History Adrenal nodule Nodule of kidney per pt, "nodule of kidney, adrenal gland, and liver noted during scans at hospital. Had MRI 01/01/25 at [facility]" Hx of sleep apnea no device or issues since weight loss Intra-abdominal abscess hx 11/2024, resolved "at this point" No pertinent family history GERD (gastroesophageal reflux disease) Obesity HTN (hypertension) HLD (hyperlipidemia) Surgical History Hx of section (2004) x1 Social History Smoking Status: Never smoker Second Hand Exposure: No; Do You Dip or Chew Tobacco: No; Hx Alcohol Use: No Hx Substance Use: No Preferred Language: Tajik Communication Ability: Effective Card Checker Required: No Beliefs That Will Affect Care: None Current Living Situation: Family Current Living Situation Comment: lives with and 2 adult sons. Other Information That Helps Us Care for You: No Feels Safe at Home: Yes Safety Concerns: Feels Safe At This Time Assistive Devices: None Review of Systems Review of Systems: All systems reviewed & are unremarkable except as noted in HPI & below Physical Exam Constitutional: WD/WN, vitals as above Eyes: PERRL, conjunctivae normal, anicteric sclerae Neck: trachea midline, no thyromegaly Respiratory: normal respiratory effort; no respiratory distress and no labored breathing Cardiovascular: Rate/Rhythm: regular rate and regular rhythm Gastrointestinal (Abdomen): Inspection/Auscultation: abdomen normal to inspection; abdomen not distended Percussion/Palpation: + abdomen tender ( Mild diffuse) and abdomen soft; no guarding and abdomen not rigid Skin: no rashes, warm and dry Psychiatric: A+Ox3, euthymic affect Results & Data Vital Signs (Past 12 Hours) Vital Signs Temp Pulse Pulse Resp BP BP Pulse Ox 01/05/25 03:37 01/05/25 03:00 36.6 C 66 16 125/64 99 01/05/25 01:39 64 18 123/72 97 01/04/25 23:19 68 18 153/76 H 98 01/04/25 21:19 69 18 145/74 H 98 01/04/25 19:00 36.6 C 77 17 180/95 H 98 O2 Del Method 01/05/25 03:37 Room Air 01/05/25 03:00 Room Air 01/05/25 01:39 Room Air 01/04/25 23:19 Room Air 01/04/25 21:19 Room Air 01/04/25 19:00 Room Air Laboratory Results 01/05/25 01/04/25 01/04/25 Range/Units 03:22 21:20 19:12 WBC 10.25 (4.8-10.8) K/ul RBC 6.05 H (4.20-5.40) M/uL Hgb 16.4 H (12.0-16.0) g/dl Hct 49.6 H (37.0-47.0) % MCV 82.0 (80.0-100.0) fL MCH 27.1 (25.0-34.0) pg MCHC 33.1 (32.0-36.0) g/dL RDW Std Deviation 48.3 H (36.4-46.3) fL RDW Coeff of Alfredo 16.9 H (11.5-14.5) % Plt Count 211 (130-400) K/uL MPV 10.3 (9.4-12.4) fL Immature Gran % (Auto) 0.5 % Neut % (Auto) 75.4 % Lymph % (Auto) 18.2 % [place] % (Auto) 4.3 % Eos % (Auto) 0.9 % Baso % (Auto) 0.7 % Neut # (Auto) 7.73 H (1.40-6.50) K/uL Lymph # (Auto) 1.87 (1.20-3.40) K/uL Weston # (Auto) 0.44 (0.11-0.59) K/uL Eos # (Auto) 0.09 (0.00-0.50) K/uL Baso # (Auto) 0.07 (0.00-0.20) K/uL Immature Gran # (Auto) 0.05 (0.01-0.20) K/uL Sodium 139 (136-145) mmol/L Potassium 4.1 (3.5-5.1) mmol/L Chloride 101 (98-107) mmol/L Carbon Dioxide 30 (21-32) mmol/L Anion Gap 8 (3-11) BUN 20 (6-23) mg/dl Creatinine 0.68 (0.6-1.2) mg/dl Est Cr Clr Drug Dosing 104.9 ml/min eGFR 100.89 BUN/Creatinine Ratio 29.4 H (10-20) Glucose 232 H (70-99(Fasting)) mg/dl POC Glucose 139 H (70-99) mg/dl Calcium 10.3 (8.6-10.3) mg/dl Total Bilirubin 0.9 (0.2-1.0) mg/dl AST 18 (13-39) U/L ALT 27 (7-52) U/L Alkaline Phosphatase 126 H (34-104) U/L Total Protein 8.4 H (6.0-8.3) gm/dl Albumin 4.7 (3.4-5.0) gm/dl Globulin 3.7 (2.5-4.0) gm/dl Albumin/Globulin Ratio 1.3 (0.9-2) Lipase 35 (11-82) U/L Urine Color Yellow Urine Appearance Clear (Clear) Urine pH 5.0 (4.5-7.5) Ur Specific [place] 1.042 H (1.000-1.030) Urine Protein Trace H (Negative) Urine Glucose (UA) 3+ H (Negative) Urine Ketones Trace H (Negative) Urine Blood 1+ H (Negative) Urine Nitrite Negative (Negative) Urine Bilirubin Negative (Negative) Urine Urobilinogen Negative (Negative) Ur Leukocyte Esterase Negative (Negative) Urine WBC (Auto) 0-5 (0-5) /hpf Urine RBC (Auto) 0-2 (0-2) /hpf U Hyaline Cast (Auto) 0-2 (0-2) /lpf U Epithel Cells (Auto) 0-2 (0-2) /hpf Urine Bacteria (Auto) None Seen (None Seen) Diagnostic Findings Exam(s): CT ABDOMEN + PELVIS With Contrast Oral - High Density Amt: 30 ml gastro, IV Amt: 93 ml optiray 320 EXAM: CT Abdomen and Pelvis With Intravenous Contrast CLINICAL HISTORY: Reason for exam: central abd pain, recent perf appy with abscess. TECHNIQUE: Axial computed tomography images of the abdomen and pelvis with intravenous contrast. CTDI is 28 mGy and DLP is 1369 mGy-cm. Automated exposure control was utilized for the study. A dose lowering technique was utilized adhering to the principles of ALARA. CONTRAST: Patient received 30 ml gastro of Oral - High Density and 93 ml optiray 320 of IV contrast COMPARISON: CT abdomen/pelvis: 11/27/2024 FINDINGS: Motion-induced image degradation. Lung bases: No mass. No consolidation. No pleural effusion ABDOMEN: Liver: Mild steatosis.. No mass. Gallbladder and bile ducts: Unremarkable. No calcified stones. No ductal dilation. Pancreas: Abscess of the pancreatic tail. No mass. No ductal dilation. Spleen: Unremarkable. No splenomegaly. Adrenals: A 2.3 cm left adrenal mass again noted, most likely an adenoma.. No mass. Kidneys and ureters: Bilateral renal cortical cysts. A 2.8 cm rounded cyst in the upper pole left kidney. No solid mass. No hydronephrosis. Stomach and bowel: Unremarkable stomach. There is up to 3.5 cm dilated contrast filled small bowel loops seen with an eccentric wall thickening of the bowel and mild residual mesentery fat stranding in the right lower abdominal quadrant (series 3 image 224, series 300 image 31). A thin tubular structure/appendix with minimal wall thickening is seen in the right lower quadrant (series 300 image 26, series 3 image 230). Moderate to large amount of stool is seen in the colon and rectosigmoid. Sigmoid diverticulosis. PELVIS: Bladder: Unremarkable. No mass. Reproductive: Anteverted uterus is seen with a 3.0 cm well-defined hypodense lesion dorsally in the lower uterine segment, probably a fibroid (series 301 image 41). In the right adnexa a 5.0 x 3.0 cm septated cystic structure and in the left adnexa a 3.2 x 2.0 cm complex cystic structure is seen. ABDOMEN and PELVIS: Intraperitoneal space: No free air. No significant fluid collection. Bones/joints: No acute fracture. No dislocation. Moderately advanced degenerative spondylitic changes seen at L4-L5 level. Soft tissues: Unremarkable. Vasculature: Moderate calcified atherosclerosis of the aortoiliac vasculature.. No abdominal aortic aneurysm. Lymph nodes: Unremarkable. No enlarged lymph nodes. IMPRESSION: A moderate grade small bowel obstruction is seen likely from adhesion in the right lower abdominal quadrant. Recommend clinical correlation/follow-up Moderate to large volume of formed stool is seen in the colon and rectosigmoid. Sigmoid diverticulosis coli. No evidence of acute diverticulitis. Bilateral adnexal complex cystic structures. Likely uterine lower segment fibroid. The need for pelvic ultrasound exam can be determined clinically. Additional findings as described above. . Electronically signed by: Familia Chaves MD, DABR 01/05/25 01:47 AM
[2025-01-05 05:01] LABS: Basophils # (auto) 0.05 K/uL (0.00-0.20); Basophils % (auto) 0.5 %; Eosinophils # (auto) 0.12 K/uL (0.00-0.50); Eosinophils % (auto) 1.3 %; Hematocrit (blood only) 42.3 % (37.0-47.0); Immature Granulocytes # (auto) 0.04 K/uL (0.01-0.20); Immature Granulocytes % (auto) 0.4 %; Lymphocytes # (auto) 1.86 K/uL (1.20-3.40); Lymphocytes % (auto) 19.9 %; Mean Corpuscular Hemoglobin 27.2 pg (25.0-34.0); Mean Corpuscular Hgb Conc 33.1 g/dL (32.0-36.0); Mean Corpuscular Volume 82.3 fL (80.0-100.0); Mean Platelet Volume 10.5 fL (9.4-12.4); Monocytes # (auto) 0.62 K/uL (0.11-0.59); Monocytes % (auto) 6.6 %; Neutrophils # (auto) 6.68 K/uL (1.40-6.50); Neutrophils % (auto) 71.3 %; Platelet Count 173 K/uL (130-400); RDW Coefficient of Variation 16.2 % (11.5-14.5); RDW Standard Deviation 48.5 fL (36.4-46.3); Red Blood Count 5.14 M/uL (4.20-5.40); White Blood Count 9.37 K/ul (4.8-10.8)
[2025-01-05 05:16] LABS: BUN Creatinine Ratio 34.1 (10-20); Calcium 8.7 mg/dl (8.6-10.3); Creatinine Clr Calc Pharmacy 162.1 ml/min; Potassium 3.7 mmol/L (3.5-5.1)
[2025-01-05 07:04] LABS: Estimated Average Glucose 171 mg/dl; Hemoglobin A1C 7.6 % (4.5-5.6)
[2025-01-05] MEDS: ATORVASTATIN 40 MG TAB PO SCH (08:19)
[2025-01-05] MEDS: ENOXAPARIN INJ 40 MG/0.4 ML SYR SQ SCH (08:19)
[2025-01-05] MEDS: ASPIRIN 81 MG ECTAB PO SCH (08:19)
[2025-01-05] MEDS: AMOXICILLIN/CLAVULANATE 875 MG TAB PO SCH (08:19)
[2025-01-05] MEDS: OXYBUTYNIN CHLORIDE XL 5 MG TABCR PO SCH (08:19)
--- NOTE | 2025-01-05 12:55 | Hospitalist Progress Note ---
Date of Service January 05, 2025 Assessment & Plan (1) Partial small bowel obstruction: (2) Appendiceal abscess: (3) Obesity: (4) Diabetes mellitus type 2, uncomplicated: Plan Patient presented with symptoms consistent with a partial small bowel obstruction most likely due to adhesions or inflammation from her appendiceal abscess. Patient now having stools and appears to have resolving of her partial bowel obstruction. Advance to clear liquid diet and advance as tolerated Stool was negative for C. difficile, suspect diarrhea is due to her antibiotics Continue Augmentin for her appendiceal abscess Monitor symptoms as her diet is advanced Continue to monitor glucose and manage with insulin If continues to improve, tolerates diet, anticipate possible discharge tomorrow Admission and Anticipated Discharge Date Admission Date: January 05, 2025 Subjective Patient reports she has had several loose stools. Abdominal pain and bloating is completely resolved. Hungry and would like to eat something. Physical Exam Physical Exam: Constitutional: Alert, nontoxic HEENT: Mucous membranes moist. Lungs: Clear to auscultation, decreased, no wheezes rales or rhonchi CV: S1-S2, regular Abdomen: Soft, nontender, nondistended, no guarding, no rigidity, active bowel sounds Extremities: No significant edema Neuro: No focal deficits Psych: Cooperative, normal mood Results & Data Results & Data Vital Signs (Past 12 Hours) Vital Signs Temp Pulse Resp BP Pulse Ox O2 Del Method 01/05/25 12:14 150/89 H 01/05/25 07:09 70 15 146/78 H 98 Room Air 01/05/25 03:37 Room Air 01/05/25 03:00 36.6 C 66 16 125/64 99 Room Air 01/05/25 01:39 64 18 123/72 97 Room Air Diagnostic Findings Reviewed imaging, laboratory and diagnostic studies. Pertinent findings as below. WBCs 9.3 Hemoglobin 14.0 Electrolytes stable Creatinine 0.44 Glucose of 209 Hemoglobin A1c 7.6% Negative for C. difficile gene
[2025-01-05] MEDS ORDERED: ACETAMINOPHEN 325 MG TAB PO PRN (12:56)
[2025-01-05] MEDS ORDERED: Nursing to Pharmacy Communication SCH (20:45)
[2025-01-05] MEDS: PANTOprazole 40 MG TAB PO SCH (21:30)
--- NOTE | 2025-01-06 06:45 | Surgery Progress Note ---
Date of Service January 06, 2025 Assessment & Plan (1) Partial small bowel obstruction: Plan: Patient with no clinical signs of obstruction. Tolerating carb consistent diet without any issues of worsening abdominal pain, N/V. Passing gas and having BMs VSS and afebrile If patient continues to tolerate diet this morning potential discharge later today. Admission and Anticipated Discharge Date Admission Date: January 05, 2025 Supervising Physician Co-Signing Physician Notes d/w ovi, agree w/ above. perforated appy, feeling better. cont abx, f/u with [facility]. Subjective Patient seen and examined early this morning . Has no complaints and states she is feeling much better No abdominal pain, N/V. Passing gas and having BMs Patient was given a regular diet last evening and she was able to tolerate without any issues Physical Exam Constitutional: WD/WN, vitals as above Respiratory: normal respiratory effort, lungs clear to auscultation Cardiovascular: RRR, no murmur, no edema Gastrointestinal (Abdomen): Abdomen soft, nondistended, nontender to palpation. No rebound or guarding Skin: no rashes, warm and dry Results & Data Vital Signs (Past 12 Hours) Vital Signs Temp Pulse Resp BP Pulse Ox O2 Del Method 01/05/25 23:42 36.4 C L 56 L 14 121/70 99 Room Air PG Care Time/CCT Total # of Minutes Spent Total Time Spent with Patient: Total time spent is greater than 50% in coordination of care (as documented) at patient's floor/unit and/or counseling patient: C[place] [address] SUB INP/OBS CARE 09/30MIN Patient Type Established Medical Decision Making Straight Forward Diagnoses Partial small bowel obstruction K56.600
[2025-01-06 07:48] VITALS: BP 122/78; PULSE 57; RESP 18; TEMP 97.7; O2SAT 98
--- NOTE | 2025-01-06 09:29 | Discharge Summary ---
Discharge Summary Date of Service January 06, 2025 Principal Dx & Hospital Course #1 = Principal Diagnosis (1) Partial small bowel obstruction: (2) Appendiceal abscess: (3) Obesity: (4) Diabetes mellitus type 2, uncomplicated: Plan Patient 59-year-old female presented to the hospital with acute onset of abdominal bloating, abdominal pain and vomiting. Imaging consistent with partial small bowel obstruction. Patient was admitted to the hospital. Given IV fluid resuscitation initially made NPO. With these interventions her bowel slowly started to improve. Surgical consultation was obtained. They reviewed imaging and evaluated the patient and recommended advancing diet as tolerated. She was started on clear liquid diet after she started to pass some liquid stool. She tolerated this well. Her diet was advanced to diabetic diet which she tolerated well. On the day of discharge she was eating her full breakfast. Had no pain or abdominal bloating. She can be discharged home with outpatient follow-up. Notes For Next Care Provider Medication Changes From Visit No change Admission HPI Per Admitting Provider History obtained from patient and records. Medical history significant for hypertension, hyperlipidemia, CRYSTAL (CPAP noncompliance), history of ruptured appendicitis/abscess on prolonged antibiotic Rx, history C. difficile, DM2 on oral medications, left renal tumor. Recent confinement from November 23 to 2024 for ruptured appendicitis with abscess. IR drainage not possible due to obstructing bowel as per note. Patient received IV antibiotics and discharged on IV ceftriaxone via PICC line plus oral Flagyl course as per ID recommendations until further recommendations. Antibiotics later transitioned to Augmentin. Interval appendectomy contemplated by general surgery at some point. Stool C. difficile gene positive diarrhea during confinement. Patient received vancomycin course. Persistent watery diarrhea symptoms since leaving hospital. No unusual abdominal pain. Outpatient CT abdomen pelvis last 12/20 showed Abnormal periappendiceal fatty stranding and hyperenhancement involving the proximal appendix extending from the orifice to an adjacent small bowel loop suggesting fistula and appendicitis. The upstream remainder of the appendix is nondilated without inflammatory changes. No abscess. No radiodense appendicoliths or mass appreciated at the appendiceal orifice. Right hepatic lobe hypodense lesion. Characterization with MRI in the absence of old exams demonstrating long-term stability could be performed in follow up. Indeterminate density left adrenal 23 x 18 mm nodule. This could be characterized by MRI or CT in follow-up. Bilateral renal indeterminate density nodules, largest left renal upper pole 25 mm. Proteinaceous cysts are not distinguished from solid nodules. Characterization with MRI is suggested. Right ovarian cystic structures. Follow-up pelvic ultrasound suggested in this postmenopausal age patient. Probable right uterine fundal fibroid. Midline low anterior abdominal wall fat containing hernia. Patient had outpatient [facility] General Surgery follow-up 2 weeks ago for complicated appendicitis following CT report. Laparoscopic appendectomy and possible colon/small bowel resection contemplated at [facility] on 01/15. Outpatient MRI last 01/[address] report showed 1. A 2.7 x 3.0 cm T2 hypointense partially exophytic lesion along the left renal upper pole demonstrates low level internal enhancement and diffusion restriction highly concerning for renal neoplasm. 2. Additional subcentimeter renal cysts, some of which are hemorrhagic correspond to indeterminate lesion seen on prior CT. 3. A 2.5 x 1.9 cm left adrenal nodule exhibits an adrenal to spleen CSI ratio of 0.86 and is indeterminate by chemical shift MRI technique. Recommend CT adrenal mass protocol for further characterization. 4. A 1.9 x 1.4 cm T2 hyperintense lesion within the posterior right hepatic lobe demonstrates peripheral discontinuous nodular enhancement and is most consistent with an hemangioma. Outpatient pelvic ultrasound showed leiomyomatous uterus and probable simple right ovarian cyst. Yesterday around noontime, patient had achy central abdominal pain somewhat different from appendicitis pain. Bloating and distention symptoms, no fever, no chills, no chest pain, no SOB. Some nausea without emesis. Worsening watery diarrhea symptoms. 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 Lungs: Clear to auscultation, decreased, no wheezes rales or rhonchi CV: S1-S2, regular Abdomen: Soft, nontender, nondistended Extremities: No significant edema Neuro: No focal deficits Psych: Cooperative, normal mood Updated Medication List Medication Instructions Recorded Confirmed Type atorvastatin 80 mg tablet 80 mg PO QAM 11/23/24 01/04/25 History hydrochlorothiazide 25 mg tablet 25 mg PO QAM 11/23/24 01/04/25 History lisinopril 40 mg tablet 40 mg PO QAM 11/23/24 01/04/25 History metformin 1,000 mg tablet 1,000 mg PO BID 11/23/24 01/04/25 History omeprazole 20 mg capsule,delayed 20 mg PO HS 11/23/24 01/04/25 History release oxybutynin chloride 15 mg 15 mg PO QAM 11/23/24 01/04/25 History tablet,extended release 24 hr semaglutide 2 mg/dose (8 mg/3 mL) 2 mg subcut WK weight loss 11/23/24 01/04/25 History subcutaneous pen injector (Ozempic) aspirin 81 mg capsule 81 mg PO DAILY 01/02/25 01/04/25 History amoxicillin 875 mg-potassium 1 tab PO BID 01/04/25 01/04/25 History clavulanate 125 mg tablet cetirizine 10 mg tablet (Allergy 10 mg PO DAILY PRN Allergy Symptoms 01/04/25 01/04/25 History Relief (cetirizine)) Hospital Stay Data Consultations 01/05/25 02:15 ED Decision to Admit Stat 01/05/25 02:27 Consult General Surgery Routine Diagnostic Imagining Performed 01/04/25 20:29 CT Abd and Pelvis [CT abd pelvis oral and IV con] Stat Reviewed imaging, laboratory and diagnostic studies. Pertinent findings as below. Glucose 177 Stool negative for C. difficile Pending Results Patient Have Any Pending Studies at Discharge: No Discharge Instructions Given to Patient (Per Discharging Provider) Continue your antibiotics Encourage ambulation and activity Total Time Total Time Spent Total Time Spent (In Minutes): 22
[2025-01-06 11:46] LABS: BUN Creatinine Ratio 17.7 (10-20); Calcium 9.1 mg/dl (8.6-10.3); Magnesium 1.8 mg/dl (1.7-2.4); Potassium 3.9 mmol/L (3.5-5.1)
== END 2025-01-06 08:56 | disposition home or self-care (01) | DRG 388 ==
LOC: ED 18:47 → SUATTDRO 01-05 02:24 → EDINP 01-05 03:10 → 3N 01-05 03:15